=== PATIENT | female | born 1955 | race Caucasian/White ===

== ENCOUNTER → 2017-09-22 | Outpatient (CLI) | payer SELFPAY ==
[2017-09-11 10:47] VITALS: BMI 26.3
[~2017-09-22] MED LIST: ASPI-1471 PO; CEFU250T11 PO; CEPH500C24 PO; CEPH500T7 PO; CIPR-214 PO; CYCL10TA29 PO; FLUC100T39 PO; GABA-506 PO; GABA-547 PO; GLIP-154 PO; GLIXL5 PO; HYDR-389 PO; INSU100I30 SUBQ; LISI-362 PO; LOR5/325 PO; METF-410 PO; METF500T4 PO; OMEP-125 PO; OMEP-137 PO; ONDA4TAB PO; PHEN200T32 PO; PROM-110 PO; Potassium Chloride PO; RANI-320 PO; SIMV-49 PO
== END ==
LOC: AMB 17:48
PROVIDERS: ATTEND Nurse Practitioner
DX: E11.649 Type 2 diabetes mellitus with hypoglycemia without coma (principal); R41.82 Altered mental status, unspecified
CPT/HCPCS: A0425; A0427

== ENCOUNTER → 2017-10-05 | Outpatient (CLI) | payer OTHER ==
[2017-09-11 10:47] VITALS: BMI 26.3
== END ==
LOC: SPU 15:52
DX: N30.21 Other chronic cystitis with hematuria (principal)
CPT/HCPCS: 81001; 87088

== ENCOUNTER 2017-11-24 11:03 | Inpatient (IN) | payer SELFPAY ==
[~2017-11-24] VITALS: Ht 160 cm; Wt 75.3 kg
[~2017-11-24 11:03] MED LIST changes: +ATOR-1 PO
[2017-11-24] MEDS ORDERED: NS(*) 0.9% 1000 ML BAG 1,000 ML IV ONE (11:24)
[2017-11-24] MEDS ORDERED: ONDANSETRON 4 MG/2 ML VIAL IVP ONE (11:25)
--- NOTE | 2017-11-24 11:33 | ER Report ---
History and Physical Time Seen By MD: 11:08 Hx. of Stated Complaint: pt presents with hx of vomiting since yesterday HPI/ROS CHIEF COMPLAINT: Vomiting, cough HISTORY OF PRESENT ILLNESS: Patient is a 62-year-old female accompanied by her , who presents the ED with complaint of vomiting and cough for the past day. She denies any fever, diarrhea, blood in emesis, abdominal pain. She has not noted any dysuria or increased urinary frequency. She states that she has not been taking her medications today due to the vomiting. She states that she feels dehydrated right now. Patient has had issues with a chronic urinary tract infection and does see Dr. Meadows, urology for this. She was seen twice in the emergency department 2 months ago regarding her urinary tract infection and did have an acute kidney injury that needed hospitalization at the beginning of August,. She denies any abdominal surgeries other than a tubal ligation. He denies any other ill contacts. She states that she did take some Zofran that she had at home with little relief. REVIEW OF SYSTEMS: Constitutional: No fever, no chills. Eyes: No discharge. ENT: No sore throat. Cardiovascular: No chest pain, no palpitations. Respiratory: See history of present illness. No shortness of breath. Gastrointestinal: See history of present illness. Genitourinary: See history of present illness. Musculoskeletal: No back pain. Skin: No rashes. Neurological: No headache. Allergies: Coded Allergies: No Known Drug Allergies (Unverified , 11/24/17) Home Meds Active Scripts Omeprazole (OMEPRAZOLE) 20 Mg Tablet.dr, 20 MG PO DAILY, #60 TAB Take one tablet twice daily for 2 weeks, then decrease to one tablet daily. Prov:DEYANIRA YOUNG MD 10/22/17 Atorvastatin Calcium (ATORVASTATIN CALCIUM) 80 Mg Tablet, 0.5 TAB PO QDAY, #45 TAB 3 Refills Prov:DEYANIRA YOUNG MD 10/21/17 Ranitidine Hcl (RANITIDINE HCL) 300 Mg Tablet, 1 TAB PO QHS, #60 TAB 6 Refills Prov:XIOMARA FRANZ MD 10/05/17 Glipizide (GLIPIZIDE XL) 5 Mg Tab.er.24, 10 MG PO QAM, #30 TAB Prov:SHAD VILLEDA MD 09/16/17 Reported Medications Metformin Hcl (METFORMIN HCL ER) 500 Mg Tab.er.24, 1 TAB PO BID for 30 Days, TAB 09/16/17 Gabapentin (GABAPENTIN) 800 Mg Tablet, 400 MG PO DAILY 07/06/16 Lisinopril (LISINOPRIL) 10 Mg Tablet, 10 MG PO QDAY, TAB 07/06/16 Reviewed Nurses Notes: Yes Old Medical Records Reviewed: Yes Hx Smoking: Yes (1 PPD FOR 20 YRS) Smoking Status: Former Smoker Exposure to Second Hand Smoke?: No Hx Substance Use Disorder: No Hx Alcohol Use: No Constitutional Vital Sign - Last 24 Hours 11/24/17 11/24/17 11/24/17 11/24/17 11:15 11:16 11:33 12:03 Temp 97.6 Pulse 112 107 Resp 22 B/P (MAP) 136/98 (111) 136/98 Pulse Ox 98 98 99 O2 Delivery Room Air 11/24/17 11/24/17 11/24/17 11/24/17 12:17 12:30 12:33 12:42 Pulse 106 B/P (MAP) 163/92 (115) 178/85 (116) Pulse Ox 92 O2 Flow Rate 2.0 Physical Exam General Appearance: The patient is alert, has no immediate need for airway protection and no signs of toxicity. Patient appears to be in some mild distress. Eyes: Pupils equal and round no pallor or injection. ENT, Mouth: Mucous membranes are moist. Respiratory: There are no retractions, lungs are clear to auscultation. Cardiovascular: Regular rate and rhythm. Gastrointestinal: There is left upper quadrant, left lower quadrant, suprapubic tenderness with palpation. Normal bowel sounds in all 4 quadrants. Abdomen is soft with no rebound or guarding. Skin: Warm and dry, no rashes. Musculoskeletal: Neck is supple non tender. Extremities are nontender, nonswollen and have full range of motion. DIFFERENTIAL DIAGNOSIS: After history and physical exam differential diagnosis was considered for abdominal pain including but not limited to appendicitis, cholecystitis, gastritis and urinary tract infection. Medical Decision Making Data Points Result Diagram: 11/24/17 1135 11/24/17 1135 Laboratory Hematology Test 11/24/17 11:11 11/24/17 11:35 11/24/17 11:43 11/24/17 13:20 Urine Color Yellow Urine Clarity Turbid Urine pH 6.0 pH (4.8-9.5) Urine Specific [place] 1.015 Urine Protein 30 mg/dL (NEGATIVE) Urine Glucose (UA) 500 mg/dL (NEGATIVE) Urine Ketones 20 mg/dL (NEGATIVE) Urine Blood Moderate (NEGATIVE) Urine Nitrite Negative (NEGATIVE) Urine Bilirubin Negative (NEGATIVE) Urine Urobilinogen Negative mg/dL (0.2-1.9) Urine Leukocyte Esterase Large (NEGATIVE) Urine RBC 28 /HPF (0-2/HPF) Urine WBC 1409 /HPF (0-5/HPF) Urine WBC Clumps Many /HPF Urine Squamous Epithelial Cells None /LPF (</=FEW) Urine Bacteria Few /HPF (NONE-FEW) Urine Mucus None /HPF (NONE-FEW) Red Blood Count 4.55 M/uL (4.17-5.56) Mean Corpuscular Volume 84.1 fL (80.0-96.0) Mean Corpuscular Hemoglobin 27.8 pg (26.0-33.0) Mean Corpuscular Hemoglobin Concent 33.0 g/dL (32.0-36.0) Red Cell Distribution Width 16.6 % (11.5-14.5) Mean Platelet Volume 8.0 fL (7.2-11.1) Neutrophils (%) (Auto) 89.3 % (39.4-72.5) Lymphocytes (%) (Auto) 8.3 % (17.6-49.6) Monocytes (%) (Auto) 2.2 % (4.1-12.4) Eosinophils (%) (Auto) 0.0 % (0.4-6.7) Basophils (%) (Auto) 0.2 % (0.3-1.4) Nucleated RBC Relative Count (auto) 0.0 /100WBC Neutrophils # (Auto) 9.0 K/uL (2.0-7.4) Lymphocytes # (Auto) 0.8 K/uL (1.3-3.6) Monocytes # (Auto) 0.2 K/uL (0.3-1.0) Eosinophils # (Auto) 0.0 K/uL (0.0-0.5) Basophils # (Auto) 0.0 K/uL (0.0-0.1) Nucleated RBC Absolute Count (auto) 0.00 K/uL Peripheral Blood Smear Yes Y/N Sodium Level 138 mmol/L (137-145) Potassium Level 4.0 mmol/L (3.5-5.0) Chloride Level 98 mmol/L (98-107) Carbon Dioxide Level 18 mmol/L (22-31) Blood Urea Nitrogen 35 mg/dl (7-18) Creatinine 1.40 mg/dl (0.52-1.04) Glomerular Filtration Rate Calc 38.0 Random Glucose 621 mg/dl (75-110) Calcium Level 11.1 mg/dl (8.4-10.2) Magnesium Level 1.7 mg/dl (1.7-2.2) Total Bilirubin 0.5 mg/dl (0.2-1.3) Aspartate Amino Transf (AST/SGOT) 15 U/L (0-35) Alanine Aminotransferase (ALT/SGPT) 24 U/L (0-56) Alkaline Phosphatase 163 U/L (0-126) Troponin I < 0.012 ng/ml Total Protein 7.7 gm/dl (6.3-8.2) Albumin 4.0 g/dl (3.5-5.0) Lipase 60 U/L (23-300) Acetone, Qualitative Negative Influenza Virus Type A (PCR) Negative (NEGATIVE) Influenza Virus Type B (PCR) Negative (NEGATIVE) Whole Blood Glucose 541 mg/DL (75-110) Test 11/24/17 13:50 Blood Gas Puncture Site Right radial Blood Gas Patient Temperature 97.6 DEGREES Arterial Blood pH 7.44 (7.35-7.45) Arterial Blood Partial Pressure CO2 31 mmHg (32-37) Arterial Blood Partial Pressure O2 79 mmHg (60-80) Arterial Blood HCO3 21 mmol/L (20-26) Arterial Blood Oxygen Saturation 97 % (92-100) Arterial Blood Base Excess -4.0 mmol/L Dani Test Acceptable Oxygen Liters/Minute 2l nc Chemistry Test 11/24/17 11:11 11/24/17 11:35 11/24/17 11:43 11/24/17 13:20 Urine Color Yellow Urine Clarity Turbid Urine pH 6.0 pH (4.8-9.5) Urine Specific [place] 1.015 Urine Protein 30 mg/dL (NEGATIVE) Urine Glucose (UA) 500 mg/dL (NEGATIVE) Urine Ketones 20 mg/dL (NEGATIVE) Urine Blood Moderate (NEGATIVE) Urine Nitrite Negative (NEGATIVE) Urine Bilirubin Negative (NEGATIVE) Urine Urobilinogen Negative mg/dL (0.2-1.9) Urine Leukocyte Esterase Large (NEGATIVE) Urine RBC 28 /HPF (0-2/HPF) Urine WBC 1409 /HPF (0-5/HPF) Urine WBC Clumps Many /HPF Urine Squamous Epithelial Cells None /LPF (</=FEW) Urine Bacteria Few /HPF (NONE-FEW) Urine Mucus None /HPF (NONE-FEW) White Blood Count 10.0 k/uL (4.5-11.0) Red Blood Count 4.55 M/uL (4.17-5.56) Hemoglobin 12.6 g/dL (12.0-16.0) Hematocrit 38.3 % (34.0-47.0) Mean Corpuscular Volume 84.1 fL (80.0-96.0) Mean Corpuscular Hemoglobin 27.8 pg (26.0-33.0) Mean Corpuscular Hemoglobin Concent 33.0 g/dL (32.0-36.0) Red Cell Distribution Width 16.6 % (11.5-14.5) Platelet Count 590 K/uL (150-450) Mean Platelet Volume 8.0 fL (7.2-11.1) Neutrophils (%) (Auto) 89.3 % (39.4-72.5) Lymphocytes (%) (Auto) 8.3 % (17.6-49.6) Monocytes (%) (Auto) 2.2 % (4.1-12.4) Eosinophils (%) (Auto) 0.0 % (0.4-6.7) Basophils (%) (Auto) 0.2 % (0.3-1.4) Nucleated RBC Relative Count (auto) 0.0 /100WBC Neutrophils # (Auto) 9.0 K/uL (2.0-7.4) Lymphocytes # (Auto) 0.8 K/uL (1.3-3.6) Monocytes # (Auto) 0.2 K/uL (0.3-1.0) Eosinophils # (Auto) 0.0 K/uL (0.0-0.5) Basophils # (Auto) 0.0 K/uL (0.0-0.1) Nucleated RBC Absolute Count (auto) 0.00 K/uL Peripheral Blood Smear Yes Y/N Glomerular Filtration Rate Calc 38.0 Calcium Level 11.1 mg/dl (8.4-10.2) Magnesium Level 1.7 mg/dl (1.7-2.2) Total Bilirubin 0.5 mg/dl (0.2-1.3) Aspartate Amino Transf (AST/SGOT) 15 U/L (0-35) Alanine Aminotransferase (ALT/SGPT) 24 U/L (0-56) Alkaline Phosphatase 163 U/L (0-126) Troponin I < 0.012 ng/ml Total Protein 7.7 gm/dl (6.3-8.2) Albumin 4.0 g/dl (3.5-5.0) Lipase 60 U/L (23-300) Acetone, Qualitative Negative Influenza Virus Type A (PCR) Negative (NEGATIVE) Influenza Virus Type B (PCR) Negative (NEGATIVE) Whole Blood Glucose 541 mg/DL (75-110) Test 11/24/17 13:50 Blood Gas Puncture Site Right radial Blood Gas Patient Temperature 97.6 DEGREES Arterial Blood pH 7.44 (7.35-7.45) Arterial Blood Partial Pressure CO2 31 mmHg (32-37) Arterial Blood Partial Pressure O2 79 mmHg (60-80) Arterial Blood HCO3 21 mmol/L (20-26) Arterial Blood Oxygen Saturation 97 % (92-100) Arterial Blood Base Excess -4.0 mmol/L Dani Test Acceptable Oxygen Liters/Minute 2l nc Toxicology Test 11/24/17 11:35 Acetone, Qualitative Negative Urinalysis Test 11/24/17 11:11 Urine Color Yellow Urine Clarity Turbid Urine pH 6.0 pH (4.8-9.5) Urine Specific [place] 1.015 Urine Protein 30 mg/dL (NEGATIVE) Urine Glucose (UA) 500 mg/dL (NEGATIVE) Urine Ketones 20 mg/dL (NEGATIVE) Urine Blood Moderate (NEGATIVE) Urine Nitrite Negative (NEGATIVE) Urine Bilirubin Negative (NEGATIVE) Urine Urobilinogen Negative mg/dL (0.2-1.9) Urine Leukocyte Esterase Large (NEGATIVE) Urine RBC 28 /HPF (0-2/HPF) Urine WBC 1409 /HPF (0-5/HPF) Urine WBC Clumps Many /HPF Urine Squamous Epithelial Cells None /LPF (</=FEW) Urine Bacteria Few /HPF (NONE-FEW) Urine Mucus None /HPF (NONE-FEW) EKG/Imaging EKG Interpretation 12 lead EKG: Rhythm: Sinus tachycardia, rate 109 bpm [place]: normal QRS: normal ST segments: No acute ST changes identified. There is slight T-wave inversion in V1 and V3. Monitor Interpretation: Sinus Tachycardia Imaging CXR: IMPRESSION: 1. No acute cardiopulmonary process is seen Report Dictated By: Kamilla Lord MD at 11/24/2017 12:18 PM Report E-Signed By: Kamilla Lord MD at 11/24/2017 12:19 PM ED Course/Re-evaluation Clinical Indication for ER IV: Hydration ED Course Patient will be given 1 L normal saline bolus and 4 mg IV Zofran for nausea relief. Will obtain labs and CXR. 11/24/2017 12:36:48 pm - Patient states that she is still having some dry heaving. Will give her 12.5 mg IV phenergan. She states that she has some slight chest pain as well. Will add a troponin level. 11/24/2017 12:47:40 pm - patient is describing of chest pain was a burning sensation after her dry heaving and vomiting. Will give her 20 mg IV Pepcid. She is wanting to drink some fluids with help of this will feel better with this. She will do a by mouth challenge 4. Discussed all of her labs which are essentially normal except for her hyperglycemia and slight elevation of anion gap at 22 but she hasn't been taking her medications today. She also has abnormal urinalysis with elevated of white blood cells in urine and is quite different from her previous urinalysis last month. She states that she has not made an appointment with Dr. Meadows, urology as of yet. 11/24/2017 2:26:40 pm - discussed patient with Dr. Villeda, hospitalist, who will admit patient with starvation ketosis and urinary tract infection. Will give patient 1 g IV Rocephin now. 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 Keenan, ED Dr. Villeda, Hospitalist Problem Qualifiers Primary Impression: Urinary tract infection Urinary tract infection type: acute cystitis Hematuria presence: without hematuria Qualified Codes: N30.00 - Acute cystitis without hematuria BRIGITTE ESPINAL PA-C Nov 24, 2017 11:33
[2017-11-24 12:08] LABS: PLATELET COUNT, AUTOMATED 590 K/uL (150-450)
[2017-11-24] MEDS ORDERED: INS HUM LISPRO 100U/ML (ER ONLY) 10 ML VIAL SUBQ ONE (12:15)
[2017-11-24] MEDS ORDERED: PROMETHAZINE 25 MG/ML 1 ML AMP IVP ONE ×2 (12:20→13:00)
--- NOTE | 2017-11-24 12:24 | RADIOLOGY IMAGING REPORT ---
FACILITY: [facility] [place]IENT NAME: Sahra Chavis : 1955 MR: [id number] V: [id number] EXAM DATE: ORDERING PHYSICIAN: BRIGITTE ESPINAL TECHNOLOGIST: Location: [facility] - [place] Patient: Sahra Chavis : 1955 Visit/Account:[id number] Date of Sevice: 11/24/2017 Exam type: CHEST PA AND LAT History: cough, vomiting Comparison: September 10, 2017. Findings: The lungs are free of acute effusions, infiltrates or edema. There is no evidence of a pneumothorax or pneumomediastinum. The cardiac silhouette is normal in size. There are mild spondylotic changes of the thoracic spine. IMPRESSION: 1. No acute cardiopulmonary process is seen Report Dictated By: Kamilla Lord MD at 11/24/2017 12:18 PM Report E-Signed By: Kamilla Lord MD at 11/24/2017 12:19 PM WSN:[email or web address]
[2017-11-24] MEDS ORDERED: FAMOTIDINE(*) 20MG/50ML PREMIX 50 ML IVPB ONE (12:45)
--- NOTE | 2017-11-24 13:03 | EKG ---
FACILITY: [facility] - [place] PATIENT NAME: KATARZYNA HARDY : [id number] MR: [id number] V: [id number] EXAM DATE: ORDERING PHYSICIAN: BRIGITTE ESPINAL TECHNOLOGIST: Test Reason : GI problems Blood Pressure : / mmHG Vent. Rate : 109 BPM Atrial Rate : 109 BPM P-R Int : 142 ms QRS Dur : 082 ms QT Int : 352 ms P-R-T Axes : 079 077 012 degrees QTc Int : 474 ms Sinus tachycardia Possible Left atrial enlargement Nonspecific ST abnormality Abnormal ECG No previous ECGs available Confirmed by DEE MCKENNA ([id number]) on 11/24/2017 7:38:14 PM Referred By: Confirmed By:DEE MCKENNA
[2017-11-24] MEDS ORDERED: cefTRIAXone 1 GM VIAL IVP ONE (14:15)
[2017-11-24] MEDS ORDERED: ASPI-757 PO (15:03)
[2017-11-24] MEDS ORDERED: FLUSH 10 ML SYR IVP PRN (15:20)
[2017-11-24] MEDS ORDERED: PROMETHAZINE 25 MG/ML 1 ML AMP IVP PRN (15:25)
--- NOTE | 2017-11-24 15:43 | History & Physical ---
History of Present Illness Chief Complaint Nausea and vomiting History of Present Illness 62yo female with PMHx significant for type 2 DM, previous CVA, esophageal stricture, recurrent pyuria/UTI, hydronephrosis. She reports onset of nausea with vomiting over the past 2-3 days. She has been able to keep some fluids down , but essentially no food. She denies any dysphagia or odynophagia. No black or bloody vomitus. No diarrhea. She has felt chilled almost continuously. No obvious fever. She has not taken her usual medications during the past couple of days. She has not appreciated any dysuria or hematuria. No rashes. She was evaluated in the ER and found to have probable recurrent UTI, uncontrolled DM, and mild acute renal failure. She was recommended for admission. History Problems: (1) Hypertension Status: Chronic (2) Urinary tract infection Status: Acute (3) DJD (degenerative joint disease) of cervical spine Status: Chronic (4) Hydronephrosis Status: Chronic (5) History of CVA (cerebrovascular accident) Status: Chronic (6) T2DM (type 2 diabetes mellitus) Status: Chronic (7) Esophageal stricture Status: Chronic (8) Dysphagia Status: Chronic Home Meds Active Scripts Atorvastatin Calcium (ATORVASTATIN CALCIUM) 80 Mg Tablet, 0.5 TAB PO QDAY, #45 TAB 3 Refills Prov:DEYANIRA YOUNG MD 10/21/17 Ranitidine Hcl (RANITIDINE HCL) 300 Mg Tablet, 1 TAB PO QHS, #60 TAB 6 Refills Prov:XIOMARA FRANZ MD 10/05/17 Glipizide (GLIPIZIDE XL) 5 Mg Tab.er.24, 10 MG PO QAM, #30 TAB Prov:SHAD MCKENNA MD 09/16/17 Reported Medications Aspirin (ASPIRIN) 325 Mg Tablet, 1 TAB PO QID, TAB 11/24/17 Metformin Hcl (METFORMIN HCL ER) 500 Mg Tab.er.24, 1 TAB PO BID for 30 Days, TAB 09/16/17 Gabapentin (GABAPENTIN) 800 Mg Tablet, 400 MG PO DAILY 07/06/16 Lisinopril (LISINOPRIL) 10 Mg Tablet, 10 MG PO QDAY, TAB 07/06/16 Allergies: Coded Allergies: No Known Drug Allergies (Unverified , 11/24/17) Patient History: FH: heart disease MOTHER, , Age:62 FHx: diabetes mellitus MOTHER, , Age:62 Hx Smoking: Yes (1 PPD FOR 20 YRS) Smoking Status: Former Smoker Exposure to Second Hand Smoke?: No Caffeine Intake: Coffee Caffeine/Cups Per Day: 2 Hx Alcohol Use: No Hx Substance Use Disorder: No Social Drug Use: Never Review of Systems Constitutional: Chills, No Fever, No Night Sweats Neurological: Weakness, No Syncope, No Confusion Eyes: No Vision Change, No Loss of Vision ENT: No Hearing Loss, No Sinus Congestion Cardiovascular: No Chest Pain, No Palpitations Respiratory: No Shortness of Breath, No Cough, No Wheezing Gastrointestinal: Nausea, Vomiting, No Diarrhea, No Dysphagia, No Hematemesis, No Hematochezia, No Melena, No Abdominal Pain Genitourinary: No Dysuria, No Hematuria, No Urinary Incontinence Musculoskeletal: Pain (both feet and toes intermittently/chronic) Exam Vital Signs Vital Signs Date Time Temp Pulse Resp B/P (MAP) Pulse Ox O2 Delivery O2 Flow Rate FiO2 11/24/17 14:30 149/103 (118) 11/24/17 14:08 108 98 11/24/17 12:42 2.0 11/24/17 11:16 97.6 22 Room Air General Appearance: Alert, Awake Neuro: Other (motor exam grossly normal) Eyes: PERRLA ENT: Oropharynx Clear Neck: No Masses Cardiovascular: Regular Rate and Rhythm, No JVD Respiratory: Clear to Auscultation Chest: No Tenderness GI: Abd Soft and Non-Tender : No CVA Tenderness Extremities: Warm, Perfused Integumentary: Generalized Fragile Skin, Other (small abrasion type lesion dorsum foot) Medical Decision Making Data Points Result Diagram: 11/24/17 1135 11/24/17 1135 Item Value Date Time Lipase 60 U/L 11/24/17 1135 Albumin 4.0 g/dl 11/24/17 1135 Total Protein 7.7 gm/dl 11/24/17 1135 Troponin I < 0.012 ng/ml 11/24/17 1135 Alkaline Phosphatase 163 U/L H 11/24/17 1135 Aspartate Amino Transf (AST/SGOT) 15 U/L 11/24/17 1135 Alanine Aminotransferase (ALT/SGPT) 24 U/L 11/24/17 1135 Total Bilirubin 0.5 mg/dl 11/24/17 1135 Calcium Level 11.1 mg/dl H 11/24/17 1135 Magnesium Level 1.7 mg/dl 11/24/17 1135 Random Glucose 621 mg/dl *H 11/24/17 1135 Acetone, Qualitative Negative 11/24/17 1135 Urine Mucus None /HPF 11/24/17 1111 Urine Bacteria Few /HPF 11/24/17 1111 Urine Squamous Epithelial Cells None /LPF 11/24/17 1111 Urine WBC Clumps Many /HPF 11/24/17 1111 Urine WBC 1409 /HPF 11/24/17 1111 Urine Leukocyte Esterase Large H 11/24/17 1111 Urine RBC 28 /HPF 11/24/17 1111 Urine Urobilinogen Negative mg/dL 11/24/17 1111 Urine Bilirubin Negative 11/24/17 1111 Urine Nitrite Negative 11/24/17 1111 Urine Blood Moderate 11/24/17 1111 Urine Ketones 20 mg/dL H 11/24/17 1111 Urine Glucose (UA) 500 mg/dL 11/24/17 1111 Urine Protein 30 mg/dL 11/24/17 1111 Urine Specific [place] 1.015 11/24/17 1111 Urine pH 6.0 pH 11/24/17 1111 Urine Clarity Turbid 11/24/17 1111 Urine Color Yellow 11/24/17 1111 Influenza Virus Type A (PCR) Negative 11/24/17 1143 Influenza Virus Type B (PCR) Negative 11/24/17 1143 Oxygen Liters/Minute 2l nc 11/24/17 1350 Dani Test Acceptable 11/24/17 1350 Arterial Blood Base Excess -4.0 mmol/L 11/24/17 1350 Arterial Blood Oxygen Saturation 97 % 11/24/17 1350 Arterial Blood HCO3 21 mmol/L 11/24/17 1350 Arterial Blood Partial Pressure O2 79 mmHg 11/24/17 1350 Arterial Blood Partial Pressure CO2 31 mmHg L 11/24/17 1350 Arterial Blood pH 7.44 11/24/17 1350 Blood Gas Patient Temperature 97.6 DEGREES 11/24/17 1350 Blood Gas Puncture Site Right radial 11/24/17 1350 EKG / Imaging Imaging PATIENT NAME: Sahra Chavis : 1955 MR: [id number] V: [id number] EXAM DATE: ORDERING PHYSICIAN: BRIGITTE ESPINAL TECHNOLOGIST: Location: [facility] Patient: Sahra Chavis : 1955 Visit/Account:[id number] Date of Sevice: 11/24/2017 Exam type: CHEST PA AND LAT History: cough, vomiting Comparison: September 10, 2017. Findings: The lungs are free of acute effusions, infiltrates or edema. There is no evidence of a pneumothorax or pneumomediastinum. The cardiac silhouette is normal in size. There are mild spondylotic changes of the thoracic spine. IMPRESSION: 1. No acute cardiopulmonary process is seen Report Dictated By: Kamilla Lord MD at 11/24/2017 12:18 PM Report E-Signed By: Kamilla Lord MD at 11/24/2017 12:19 PM WSN:[email or web address] Assessment and Plan Problems: (1) Urinary tract infection Status: Acute Assessment & Plan: She appears to have a recurrent UTI. Cultures have been obtained in the ER. She has had fairly sensitive E. coli on two occasions in the past. Will place on IV Rocephin. Modify regimen based on culture results. (2) Acute renal failure (ARF) Status: Acute Assessment & Plan: She does have some mild acute renal failure. Will give gentle IV fluids. Watch labs. (3) Hydronephrosis Status: Chronic Assessment & Plan: She has a history of bilateral hydronephrosis and has followed with Dr. Meadows. May need to consider re-check CT scan when renal function normalizes. (4) T2DM (type 2 diabetes mellitus) Status: Chronic Assessment & Plan: Uncontrolled. She has not been on medications for several days. She does not have ketoacidosis, but does appear to have some starvation ketosis. Will place on ADA diet and monitor glucoses q4hrs. Will use low dose Lantus and SSI to get control. (5) Hypertension Status: Chronic Assessment & Plan: She has been managed with Lisinopril. Will hold for now and monitor BPs. Will resume as needed. (6) Esophageal stricture Status: Chronic Assessment & Plan: She reports swallowing without problems. Will monitor for any difficulties. Venous Thromboembolism Antithrombotics Is Pt On Any Antithrombotics?: Yes Exam Sepsis Risk: No Definite Risk Problem Qualifiers (1) Urinary tract infection: Urinary tract infection type: acute cystitis Hematuria presence: without hematuria Qualified Codes: N30.00 - Acute cystitis without hematuria DEE MCKENNA MD Nov 24, 2017 15:43
[2017-11-24 15:53] VITALS: BP 156/93
[2017-11-24] MEDS: INSULIN HUM LISPRO 100 UN/ML 3 ML VIAL SUBQ PRN ×2 (17:29→20:33)
[2017-11-24] MEDS: NS(*) 0.9% 1000 ML BAG 1,000 ML IV PRN (17:31)
[2017-11-24 19:45] VITALS: BP 149/96
[2017-11-24] MEDS: FAMOTIDINE(*) 20MG/50ML PREMIX 50 ML IVPB SCH (20:33)
[2017-11-24] MEDS ORDERED: INSULIN GLARGINE 100 U/ML 3 ML PEN SUBQ SCH (21:00)
[2017-11-25 01:07] VITALS: BP 183/91
[2017-11-25] MEDS: INSULIN HUM LISPRO 100 UN/ML 3 ML VIAL SUBQ PRN ×3 (01:41→12:24)
[2017-11-25 04:24] VITALS: BP 169/97
[2017-11-25] MEDS: NS(*) 0.9% 1000 ML BAG 1,000 ML IV PRN (04:24)
[2017-11-25 06:29] LABS: PLATELET COUNT, AUTOMATED 515 K/uL (150-450)
[2017-11-25 07:32] VITALS: BP 155/89
[2017-11-25] MEDS: FAMOTIDINE(*) 20MG/50ML PREMIX 50 ML IVPB SCH (08:41)
[2017-11-25] MEDS ORDERED: ENOXAPARIN 40 MG/0.4ML SYR SC SCH (09:00)
[2017-11-25 11:12] VITALS: Ht 160 cm; Wt 75.3 kg
[2017-11-25 12:21] VITALS: BP 161/89
--- NOTE | 2017-11-25 12:25 | Hospitalist Depart ---
Discharge Summary Reason for Hosp/Final Diag: (1) Asymptomatic bacteriuria Hospital Course & Plan: She was found to have pyuria, but is not having any urinary symptoms. She receive a dose of ceftriaxone, but will not require further treatment. (2) Acute renal failure (ARF) Status: Acute Hospital Course & Plan: Resolved with IV fluids. (3) Hydronephrosis Status: Chronic Hospital Course & Plan: She has a history of bilateral hydronephrosis and has followed with Dr. Meadows. (4) T2DM (type 2 diabetes mellitus) Status: Chronic Hospital Course & Plan: She will discharge on Lantus. (5) Hypertension Status: Chronic Hospital Course & Plan: She is on chronic treatment with lisinopril. (6) Esophageal stricture Status: Chronic Hospital Course & Plan: She does have a history of esophageal stricture and is having recurrent symptoms. She will follow up with Dr. Franz in the clinic. Departure Latest Vital Signs Vital Signs Weight (Pounds): 166 Result Diagram: 11/25/1751911/25/17519 Condition: Improved Discharge: Home, Self Care Discharge Instructions Home Meds Active Scripts Pen Needle, Diabetic (Insulin Pen Needle) 31 Gauge X 1/6" Dis.needle, EACH MC, # 100 Prov:XIOMARA NAVARRETE DO 11/25/17 Insulin Glargine,Hum.rec.anlog (LANTUS SOLOSTAR) 100 Unit/1 Ml Insuln.pen, 15 UNIT SUBQ QHS, #3 ML 0 Refills Prov:XIOMARA NAVARRETE DO 11/25/17 Atorvastatin Calcium (ATORVASTATIN CALCIUM) 80 Mg Tablet, 0.5 TAB PO QDAY, #45 TAB 3 Refills Prov:DEYANIRA YOUNG MD 10/21/17 Ranitidine Hcl (RANITIDINE HCL) 300 Mg Tablet, 1 TAB PO QHS, #60 TAB 6 Refills Prov:XIOMARA FRANZ MD 10/05/17 Reported Medications Aspirin (ASPIRIN) 325 Mg Tablet, 1 TAB PO QID, TAB 11/24/17 Gabapentin (GABAPENTIN) 800 Mg Tablet, 400 MG PO DAILY 07/06/16 Lisinopril (LISINOPRIL) 10 Mg Tablet, 10 MG PO QDAY, TAB 07/06/16 Discontinued Reported Medications Metformin Hcl (METFORMIN HCL ER) 500 Mg Tab.er.24, 1 TAB PO BID for 30 Days, TAB 09/16/17 Discontinued Scripts Glipizide (GLIPIZIDE XL) 5 Mg Tab.er.24, 10 MG PO QAM, #30 TAB Prov:SHAD MCKENNA MD 09/16/17 Diet: Diabetic Activity: As Tolerated Copies to: XIOMARA FRANZ MD Venous Thromboembolism Antithrombotics Is Pt On Any Antithrombotics?: Yes Problem Qualifiers (1) Hypertension: Hypertension type: essential hypertension Qualified Codes: I10 - Essential ( primary) hypertension XIOMARA NAVARRETE DO Nov 25, 2017 12:25
[2017-11-25] MEDS ORDERED: INSU100I30 SUBQ (12:49)
[2017-11-25] MEDS ORDERED: PEN1DIS.48 MC (12:49)
[2017-11-25] MEDS ORDERED: cefTRIAXone 1 GM VIAL IVP SCH (14:00)
[2017-11-26] MEDS ORDERED: INFLUENZA VIRUS VAC 0.5 ML SYR IM ONLY ONE (09:00)
== END 2017-11-25 15:40 | disposition home or self-care (01) | DRG 638 ==
LOC: ER 11:13 → MED 14:23
PROVIDERS: ADMIT Internal Medicine; ATTEND Internal Medicine
DX: E11.10 Type 2 diabetes mellitus with ketoacidosis without coma (principal); N17.9 Acute kidney failure, unspecified; N13.30 Unspecified hydronephrosis; R82.71 Bacteriuria; I10 Essential (primary) hypertension; E11.65 Type 2 diabetes mellitus with hyperglycemia; E88.89 Other specified metabolic disorders; K22.2 Esophageal obstruction; M50.30 Other cervical disc degeneration, unspecified cervical region; R13.10 Dysphagia, unspecified; Z87.440 Personal history of urinary (tract) infections; Z87.891 Personal history of nicotine dependence; Z86.73 Personal history of transient ischemic attack (TIA), and cerebral infarction without residual deficits; Z79.84 Long term (current) use of oral hypoglycemic drugs
CPT/HCPCS: 36415; 36416; 36600; 71046; 81001; 82009; 82040; 82247; 82310; 82374; 82435; 82565; 82803; 82947; 82948; 83690; 83735; 84075; 84132; 84155; 84295; 84450; 84460; 84484; 84520; 85025; 87088; 87502; 93005; 96361; 96365; 96375; 96376; 99285; J0696; J1650; J1815; J2405; J2550; J3490; J7030

== ENCOUNTER → 2018-04-13 | Outpatient (REF) | payer MEDICARE ==
[2017-11-25 11:12] VITALS: BMI 29.4
[~2018-04-13] MED LIST changes: +ASPI-757 PO; +INSU100I8 SC; -METF-410 PO; +METF-411 PO; +PEN1DIS.48 MC
== END ==
LOC: ZZSENDIN 18:41
PROVIDERS: ATTEND Urology
DX: N39.0 Urinary tract infection, site not specified (principal); N39.41 Urge incontinence; B96.20 Unspecified Escherichia coli [E. coli] as the cause of diseases classified elsewhere
CPT/HCPCS: 87077; 87088; 87186

== ENCOUNTER → 2018-05-12 | Outpatient (CLI) | payer MEDICARE ==
[2017-11-25 11:12] VITALS: BMI 29.4
[~2018-05-12] MED LIST changes: +NOVOLINRPT IJ; +NPH,100V12 SQ
== END ==
LOC: LAB 16:52
PROVIDERS: ATTEND Emergency Medicine
DX: R41.3 Other amnesia (principal); R74.8 Abnormal levels of other serum enzymes
CPT/HCPCS: 36415; 82607; 82977; 83921

== ENCOUNTER → 2018-05-17 | Outpatient (REF) | payer MEDICARE ==
[2017-11-25 11:12] VITALS: BMI 29.4
== END ==
LOC: ZZSENDIN 12:07
PROVIDERS: ATTEND Emergency Medicine
DX: D64.9 Anemia, unspecified (principal)
CPT/HCPCS: 82274

== ENCOUNTER → 2018-05-17 | Outpatient (CLI) | payer MEDICARE, OTHER ==
[2017-11-25 11:12] VITALS: BMI 29.4
[~2018-05-17] MED LIST changes: +IOPAMIDOL 76% 150 ML INFUS BTL 150 ML ONE; +NS(*) 0.9% 50 ML BAG 0 ML ONE; +NS(*) 0.9% 50 ML BAG 50 ML ONE
--- NOTE | 2018-05-17 16:46 | RADIOLOGY IMAGING REPORT ---
FACILITY: [facility] [place] PATIENT NAME: Sahra Chavis : 1955 MR: [id number] V: [id number] EXAM DATE: ORDERING PHYSICIAN: ANTONIA KENYON TECHNOLOGIST: Location: [facility] [place] Patient: Sahra Chavis : 1955 Visit/Account:[id number] Date of Sevice: 05/17/2018 ABDOMEN/PELVIS W/WO CONTRAST HISTORY: UTIs, incontinence, hydroureteronephrosis TECHNIQUE: Axial images acquired through the abdomen/pelvis both with and without IV contrast.. Xiomara nal and sagittal reformatting also performed. Dose Lowering Technique One of the following dose optimization techniques was utilized in the performance of this exam: Autom ated exposure control; adjustment of the mA and/or kV according to the patient's size; or use of an i terative reconstruction technique. Specific details can be referenced in the facility's radiology C T exam operational policy. CONTRAST: 150 mL Isovue-370 By technologist notation approximate 40 mL of intravenous contrast was accidentally given to the allie ent prior to the without contrast images. The remainder of the contrast was administered for the pos tcontrast images COMPARISON: September 04, 2017 FINDINGS: Visualized lung bases: Negative. Hepatobiliary: The liver is enlarged. The right lobe measures 22.9 cm in length Spleen: Negative. Adrenals: Negative. Pancreas: Negative. Kidneys ureters and bladder: There is moderate to severe bilateral hydronephrosis severe bilateral hy droureter to the level of the bladder that appears similar to the prior study. On the delayed images the ureters are not opacified with contrast in the renal collecting systems are only partially opaci fied. No demonstration of urolithiasis. The bladder is severely contracted with irregular thickenin g of the wall. This represents a dramatic change when compared to the prior study Genitalia: There is a small amount of air seen within the endometrial canal. Small amount of fluid is also noted within the vagina GI: There is scattered diverticulosis throughout the colon although no CT evidence of acute divertic ulitis Vessels/spaces/nodes: There are moderate vascular calcifications present Bones/soft tissues: There is a large umbilical hernia containing fat . There are spondylotic gandara es of the visualized thoracolumbar spine. Additional findings: None pertinent. IMPRESSION: Moderate to severe bilateral hydronephrosis and severe bilateral hydroureter to the level of the blad michael that appear some are to the prior study There is no demonstration of urolithiasis The bladder is severely contracted irregular thickening of the wall. This represents a dramatic tran ge when compared to the prior study. There is a small amount of air seen within the endometrial canal and small amount of fluid is also no anna within the vagina. This could represent an infectious/inflammatory process although clinical cor relation needed.. Scattered colonic diverticulosis Large umbilical hernia containing fat Report Dictated By: Kamilla Lord MD at 05/17/2018 3:57 PM Report E-Signed By: Kamilla Lord MD at 05/17/2018 4:42 PM MARIELA:[email or web address]
== END ==
LOC: CT 01:26
PROVIDERS: ATTEND Urology
DX: N13.30 Unspecified hydronephrosis (principal); R16.0 Hepatomegaly, not elsewhere classified; N13.4 Hydroureter; N32.89 Other specified disorders of bladder; K57.30 Diverticulosis of large intestine without perforation or abscess without bleeding; K42.9 Umbilical hernia without obstruction or gangrene
CPT/HCPCS: 74178; J7050; Q9967

== ENCOUNTER → 2018-05-25 | Outpatient (CLI) | payer MEDICARE ==
[2017-11-25 11:12] VITALS: BMI 29.4
[~2018-05-25] MED LIST changes: +CALC1TAB32 PO; +DOCU-416 PO; +FERR159T PO; +GARL1TAB9 PO; +HYDR-4309 PO; -IOPAMIDOL 76% 150 ML INFUS BTL 150 ML ONE; +MIRA50TA PO; +MULT-1335 PO; -NOVOLINRPT IJ; +NOVOLINRPT SQ; -NS(*) 0.9% 50 ML BAG 0 ML ONE; -NS(*) 0.9% 50 ML BAG 50 ML ONE; +OXYB15TA17 PO; +SULF-198 PO
== END ==
LOC: SPU 15:45
PROVIDERS: ATTEND Urology
DX: N39.41 Urge incontinence (principal)
CPT/HCPCS: 51701; 81001; 87077; 87088; 87186

== ENCOUNTER 2018-05-26 00:38 | Day surgery (SDC) | payer MEDICARE, OTHER ==
[2017-11-25 11:12] VITALS: Ht 160 cm; Wt 81.6 kg
[2018-05-25 14:56] LABS: PLATELET COUNT, AUTOMATED 774 K/uL (150-450)
[2018-05-25 15:08] LABS: INR 0.97
--- NOTE | 2018-05-25 18:54 | HISTORY AND PHYSICAL ---
DATE OF ADMISSION: May 26, 2018 CHIEF COMPLAINT Total urinary incontinence with history of urinary tract infections and renal insufficiency. HISTORY OF PRESENT ILLNESS Ms. Chavis is a 62-year-old white female who presented to the Urology Clinic with a five-month history of total urinary incontinence and urinary tract infections. Her urologic history began approximately two years ago in 2015 when she began to experience frequency every 30 minutes and nocturia q.1-1/2 hours with voiding small volumes. She was evaluated with Dr. Meadows at that time, who found her to have sterile pyuria on multiple I and O cathed specimens. A CT scan was performed originally on the March. She had no hydronephrosis, and she had some mild cortical renal scarring bilaterally with a thickened bladder wall. Her creatinine at that time was 0.6. She was subsequently taken to the operating room by Dr. Meadows in June 2016 and underwent anesthetic cystoscopy. At that time, she was noted to have some mass- like inflammatory lesions on the bilateral lateral aspects of the bladder, and she underwent TUR of these lesions with fulguration. The pathology subsequently returned ulceration with both acute and chronic inflammation. They were negative for AFB or fungal evaluation. She had also had a cytology eventually performed in April 2017 which returned normal. Over the ensuing months, the patient had several urine cultures performed which were all negative by I and O catheterization. If she had a voided specimen, it returned a contaminant. Then in August 2017, she was admitted to the hospital with sepsis and was found to have greater than 100,000 yeast specimens in her urine and was subsequently treated with fluconazole. It was around this time in late 2016 that she had a followup CT scan performed which showed new mild bilateral hydroureteronephrosis with a thickened bladder wall consistent with cystitis. At her admission in August with sepsis, a CT scan was performed without contrast, and she was noted to have a continued moderate bilateral hydronephrosis. Her creatinine level had also increased to 1.4 in the summer of 2016 and remained stable throughout the end of 2016 until her episode of sepsis, whereupon admission it was 6.8. During this hospitalization, a Appiah catheter was placed, and her creatinine subsequently decreased to 0.9. It was removed at discharge, and in followup several weeks later, it was 1.3. A most recent creatinine on the 11 of May was 1.3, which is a GFR of approximately 40. A repeat CT scan performed on 17 of May showed [id number] bilateral hydroureteronephrosis with a severely contracted bladder and thickened wall which was a worsening from her prior scans. A urine culture performed on the 13 of April did reveal 100,000 E. coli which was pansensitive and subsequently treated. At her last visit, these findings were discussed with both the patient and her . She was informed I was concerned as she has a small volume, contracted bladder resulting in a high-pressure system that has caused her to have obstructive uropathy with bilateral hydroureteronephrosis resulting in renal insufficiency. This is also causing her to have basic total incontinence- type issue with the ability to store any significant amount of urine. It is unclear whether she has an intrinsic fibrosis of the bladder or some other cause resulting in these findings. 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 We, therefore, planned to take her to the operating room to do a cystoscopy exam under anesthesia with possible bilateral retrograde pyelograms, cystogram exam under anesthesia, with possible bladder biopsy. Pending the results of this procedure, she may need to proceed with Appiah catheter and/or SP drainage to decompress her upper tracts pending definitive treatment options. PAST MEDICAL HISTORY 1. Hypercholesterolemia. 2. Hypertension. 3. Gastroesophageal reflux disease with esophageal stricture and erosive esophagitis. 4. Osteoporosis. 5. Degenerative joint disease. 6. Low back pain with spondylitic changes of L3-L4 and L4-L5 with bilateral lower extremity weakness diagnosed by MRI in October 2014. 7. Diabetes diagnosed after an episode of DKA in July 2014. 8. Possible old right lacunar infarct noted on a CT scan done for mental status changes in 2013 at her hospitalization for DKA presentation. 9. 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 10. Heart palpitations with ventricular ectopy diagnosed by Holter monitor. 11. Stable pulmonary nodules, right lower lobe. 12. Renal insufficiency as per HPI. 13. Anemia. 14. Urinary tract infections and incontinence as per HPI. PAST SURGICAL HISTORY 1. Tonsillectomy 1958. 2. Toe surgery 1982. 3. Tubal ligation 1993. 4. EGD with dilation August 2014 for distal esophageal stricture. 5. Cystoscopy with biopsy June 2016. 6. EGD with dilation and biopsy August 2017. SOCIAL HISTORY Patient is and lives in [place], [place], with her . She is a former smoker who had a one atxw-pnm-oir history for 20 years. Her last smoking was in 1990. FAMILY HISTORY Significant for diabetes and hypertension. ALLERGIES No known drug allergies. CURRENT MEDICINES 1. Aspirin. 2. Lipitor. 3. Multivitamins. 4. Iron. 5. Gabapentin. 6. Omeprazole. 7. Ranitidine. 8. Lisinopril. 9. NovoLog N and R. 10. Metformin. REVIEW OF SYSTEMS Patient denies chest pain, productive cough, fever, chills, liver disease, chronic headaches, bleeding disorder, or seizures. PHYSICAL EXAMINATION GENERAL: Patient is a well-developed, well-nourished, white female in no acute distress. She is oriented to person, place, and time. HEENT: Normocephalic, atraumatic. CHEST: Clear to auscultation. CARDIOVASCULAR: Regular rate and rhythm. ABDOMINAL: Soft, nontender. No masses are palpated. GENITOURINARY: Deferred to the OR. EXTREMITIES: Without clubbing, cyanosis, or edema. NEUROLOGIC: Nonfocal. IMPRESSION A 62-year-old white female with progressive urinary urgency and frequency, now with total incontinence. Her CT scans over the past two years have shown a progressive bilateral hydronephrosis with a small, contracted bladder. This is consistent with a high-pressure, low-volume bladder resulting in both total incontinence and bilateral reflux nephropathy. PLAN We will plan anesthetic cystoscopy, possible bilateral retrograde pyelograms, cystogram, possible hydrodilation and/or bladder biopsy, possible ureteral stent placement, and exam under anesthesia. [facility]
[2018-05-26] VITALS (8 sets, daily range): BP systolic 129–158; BP diastolic 77–92
[~2018-05-26] VITALS: Ht 160 cm; Wt 81.6 kg
[~2018-05-26 00:38] MED LIST changes: -DOCU-416 PO; -HYDR-4309 PO; -MIRA50TA PO; -OXYB15TA17 PO; -SULF-198 PO
[2018-05-26] MEDS ORDERED: ceFAZolin(*) 1 GM VIAL 1 GM in NS(*) 0.9% 100 ML ADDVANT BAG 100 ML IVPB ONE (06:45)
[2018-05-26] MEDS ORDERED: MIDAZOLAM 2 MG/2 ML VIAL IVP PRN (06:45)
[2018-05-26] MEDS ORDERED: ceFAZolin(*) 1 GM VIAL 1 GM, GENTAMICIN(*) 80 MG/2 ML VIAL 60 MG in NS 0.9% IRRIGATION ... IR ONE (06:45)
[2018-05-26] MEDS ORDERED: NORMOSOL R SOLN(*) 1000 ML BAG 1,000 ML IV PRN (06:45)
[2018-05-26] MEDS ORDERED: LIDOCAINE/SOD BICARB 8.4% SYR ID ONE (06:45)
[2018-05-26] MEDS ORDERED: HYDROCORTISONE 1% CR 28.35 GM TP ONE (07:14)
[2018-05-26] MEDS ORDERED: IOPAMIDOL-200 50 ML VIAL IS ONE (07:14)
--- NOTE | 2018-05-26 08:12 | EKG ---
FACILITY: [facility] - [place] PATIENT NAME: KATARZYNA HARDY : [id number] MR: [id number] V: [id number] EXAM DATE: ORDERING PHYSICIAN: JUAN DANIEL BLAIR TECHNOLOGIST: Test Reason : PRE-OP Blood Pressure : / mmHG Vent. Rate : 084 BPM Atrial Rate : 084 BPM P-R Int : 132 ms QRS Dur : 078 ms QT Int : 370 ms P-R-T Axes : 051 050 041 degrees QTc Int : 437 ms Normal sinus rhythm Normal ECG When compared with ECG of 24-NOV-2017 12:53, No significant change was found Confirmed by Madhav Eaton ([id number]) on 05/26/2018 10:51:52 PM Referred By: Confirmed By:Madhav Schilling
[2018-05-26] MEDS ORDERED: IOTHALAMATE MEGLU 172MG/ML BTL 250 ML IVPB ONE (08:28)
[2018-05-26] MEDS ORDERED: fentaNYL CITR 100 MCG/2 ML AMP ONE ×2 (08:46→10:25)
[2018-05-26] MEDS ORDERED: DEXAMETHASONE SOD PHOS 10MG/ML ONE (08:47)
[2018-05-26] MEDS ORDERED: PROPOFOL EMUL(*) 10MG/ML 20 ML 20 ML ONE (08:47)
[2018-05-26] MEDS ORDERED: LIDOCAINE MPF 1% 5 ML VIAL ONE (08:47)
[2018-05-26] MEDS ORDERED: ONDANSETRON 4 MG/2 ML VIAL ONE (08:47)
[2018-05-26] MEDS ORDERED: ARTIFICIAL TEARS OINT 3.5 GM ONE (09:04)
[2018-05-26] MEDS ORDERED: LIDOCAINE 2% JELLY 5 ML TUBE ONE (09:04)
[2018-05-26] MEDS ORDERED: KETAMINE HCL-NS 50 MG/5 ML SYR ONE (09:06)
[2018-05-26] MEDS ORDERED: BELLADONNA ALKALOIDS/OPIUM 30 MG SUPP PR ONE (09:41)
--- NOTE | 2018-05-26 10:43 | PIERCE CYSTOSCOPY ---
EVENT DATE: May 26, 2018 SURGEON: Maurice Love MD ANESTHESIOLOGIST: Alek Cameron MD ANESTHESIA: General PREOPERATIVE DIAGNOSES 1. Total urinary incontinence with bilateral hydroureteral nephrosis. 2. Renal insufficiency with chronic cystitis. POSTOPERATIVE DIAGNOSES 1. Small volume contracted bladder. 2. Bilateral hydroureteronephrosis. PROCEDURES PERFORMED 1. Static cystogram. 2. Anesthetic cystoscopy with bilateral retrograde pyelograms. 3. Bimanual exam under anesthesia. ESTIMATED BLOOD LOSS 5 cc. IV FLUIDS Crystalloids. DRAINS 16-Uzbek Silastic Appiah catheter. COMPLICATIONS None. FINDINGS 1. Extremely small bladder capacity of less than 30 cc. 2. Bilateral hydroureteronephrosis down to bladder with prominent ureteral orifices consistent with bilateral vesicoureteral reflux, although none demonstrated. CONDITION The patient was taken to recovery room awake and in stable condition. STATEMENT OF MEDICAL NECESSITY The patient is a 62-year-old white female with several year history of irritated voiding symptoms with urgency frequency and chronic cystitis with multiple urine cultures which were without growth. She recently has been experiencing total urinary incontinence. CT scan shows bilateral hydroureteral nephrosis with a small contracted bladder. Her current creatinine is 1.4 from her baseline of 0.6 of 2 to 2-1/2 years ago. She is now being brought to the operating room for planned anesthetic cystoscopy, cystogram and exam under anesthesia. DESCRIPTION OF OPERATION PERFORMED The patient was brought to the operating room and after general anesthetic was obtained, she was placed in the dorsal lithotomy position and prepped and draped in the usual sterile manner. Physical exam revealed normal appearing external genitalia. Her meatus was in its normal anatomical position and was not hypospadic or stenotic. She had a grade 1 cystocele. Her vaginal mucosa was normal. There was no discharge from the vagina or at the os. Bimanual exam revealed a mobile bladder and uterus. At this point, an 18-Uzbek Appiah catheter was placed in the bladder with 10 cc in the balloon. A static cystogram was performed by instilling contrast under gravity drainage into the Appiah catheter. A 60 cc syringe body was used. She had very slow drainage into the bladder and fluoroscopic imaging revealed only a scant amount of contrast in the bladder. The bladder would not fill. The contrast would only slowly leak out around the catheter. I could not demonstrate any reflux on this particular exam. I slowly instilled 60 cc under gravity drainage; none of it staying in the bladder, all just leaking around the catheter. At this point, the catheter was removed and we performed anesthetic cystoscopy using the 21-Uzbek sheath and 30-degree lens. She had a normal appearing urethra without evidence of stricture or inflammatory polyps. Upon entering her bladder, there was no obvious bladder tumor or mucosal lesions. However, it was moderately friable. Ureteral orifices were in their respected hemitrigones and they were capacious in appearance at their opening. She was only able to hold 20-30 cc in her bladder without it leaking around the sheath. At this point, bilateral retrograde pyelograms were performed. The left ureteral orifice cannulated easily and the 6-Uzbek opening catheter advanced easily up the ureter. Retrograde pyelogram on this side dilated collecting system from the caliceal system down to the intramural ureter with no obvious filling defects. After this was performed, the right side was attempted. The access catheter would not advance up the ureter, which was felt to be secondary to some J-hooking of the distal ureter as it went through the intramural portion of the bladder. Therefore, an angle-tip guidewire was then used to negotiate the ureter orifice. It advanced easily up the ureter without evidence of resistance and the access catheter easily advanced with this. The wire was removed and a second retrograde pyelogram was performed on this side, showing similar results with just hydroureteral nephrosis. At this point, the access catheter was removed along with the cystoscope sheath. A #16-Uzbek Appiah catheter was inserted with 10 mL in the balloon. Delayed films showed what appeared to be poor but consistent drainage on both sides. Again, bimanual exam was performed, which was normal. A B&O suppository was given at the closing of the case. She had normal sphincter tone with no significant rectocele. The patient was awakened in the operating room and taken to the recovery area in stable condition. PLAN We will allow the patient to be discharged home with her Appiah catheter in place in hopes of providing drainage of her upper tracts. We will confirm this by obtaining a MAG3 renal scan with Lasix wash-out next week as well as obtaining a followup creatinine test. She is being discharged home on [place], Colace, Bactrim, Ditropan XL and Myrbetriq 50 mg. If she, indeed, does have no renal obstruction with the Appiah catheter in place and her creatinine improves then she will need either a bladder augmentation diversion or possible suprapubic tube placement. MESFIN
[2018-05-26] MEDS ORDERED: HYDR-4309 PO (10:48)
[2018-05-26] MEDS ORDERED: OXYB15TA17 PO (10:49)
[2018-05-26] MEDS ORDERED: SULF-198 PO (10:50)
[2018-05-26] MEDS ORDERED: DOCU-416 PO (10:51)
[2018-05-26] MEDS ORDERED: MIRA50TA PO (10:52)
[2018-05-26] MEDS ORDERED: APAP/HYDROCODONE 325/5 TAB ONE (11:42)
[2018-05-26] MEDS ORDERED: INSU HUM REG 100 U/ML(ER ONLY) 10 ML VIAL IVP ONE (13:50)
--- NOTE | 2018-05-27 07:20 | RADIOLOGY IMAGING REPORT ---
FACILITY: [facility] [place] PATIENT NAME: Sahra Chavis : 1955 MR: [id number] V: [id number] EXAM DATE: ORDERING PHYSICIAN: ANTONIA LOVE TECHNOLOGIST: Location: [facility] Patient: Sahra Chavis : 1955 Visit/Account:[id number] Date of Sevice: 05/26/2018 RETROGRADE PYELOGRAM Indication: Hematuria. Procedure: Fluoroscopic guidance was provided for Dr. Love. Fluoroscopy dose: 22.53 mGy Fluoroscopy time: 29 seconds Findings: Images demonstrate opacification of the bilateral dilated collecting systems. No filling de fect. IMPRESSION: Fluoroscopy was provided. Report Dictated By: Niesha Nevarez at 05/27/2018 7:13 AM Report E-Signed By: Niesha Nevarez at 05/27/2018 7:17 AM WSN:[id number]
== END 2018-05-26 11:10 | disposition home or self-care (01) ==
LOC: OR 00:38
PROVIDERS: ATTEND Urology
DX: R32 Unspecified urinary incontinence (principal); N04.9 Nephrotic syndrome with unspecified morphologic changes; N30.20 Other chronic cystitis without hematuria; E11.9 Type 2 diabetes mellitus without complications; I10 Essential (primary) hypertension
CPT/HCPCS: 36416; 52005; 82948; 85025; 85610; 85730; 93005; A4338; A9270; C1758; C1769; C1894; J0690; J1100; J2001; J2405; J2704; J3010; J3490; J7050; Q9958; Q9966; 74420; 82040; 82247; 82310; 82374; 82435; 82565; 82947; 84075; 84132; 84155; 84295; 84450; 84460; 84520; J1815

== ENCOUNTER → 2018-06-01 | Outpatient (CLI) | payer MEDICARE ==
[2017-11-25 11:12] VITALS: BMI 29.4
[~2018-06-01] MED LIST changes: +DOCU-416 PO; +HYDR-4309 PO; +MIRA50TA PO; +OXYB15TA17 PO; +SULF-198 PO
--- NOTE | 2018-06-01 15:36 | RADIOLOGY IMAGING REPORT ---
FACILITY: [facility] - [place] PATIENT NAME: Sahra Chavis : 1955 MR: [id number] V: [id number] EXAM DATE: ORDERING PHYSICIAN: ANTONIA KENYON TECHNOLOGIST: [place] [facility] [place] Patient: Sahra Chavis : 1955 Visit/Account:[id number] Date of Sevice: 06/01/2018 Nuclear medicine renal scan with pharmacologic diuresis HISTORY: Bilateral hydronephrosis, chronic kidney disease and small volume bladder. COMPARISON: CT abdomen and pelvis 05/17/2018 PROCEDURE: TECHNETIUM 99m MAG3 9.6 mCi was injected intravenously. A series of posterior gamma camer a angiographic images were obtained to 180 seconds. This was followed by a series of posterior gamma camera images to 42 minutes. Diuretic, Lasix, 40 mg was administered intravenously at 20minutes. FINDINGS: Angiographic phase images demonstrate symmetric uptake of radionuclide by each kidney, occurring at t he same time as the aorta. Delayed images demonstrate normal size kidneys and symmetric timing of excretion into the central rodriguez al collecting system. Spontaneous drainage of radionuclide from the renal collecting system occurs w ithin 10 minutes. Radionuclide is seen within bilateral dilated ureters spanning from renal pelvis t o lower pelvis area. A moderate amount of radionuclide retention within the central renal collecting systems and ureters partially clears after Lasix administration. Renal differential function is LEFT kidney 60 percent, RIGHT kidney 40 percent. IMPRESSION: 1. Bilateral hydronephrosis and hydroureter responds to Lasix, but residual radionuclide within the central renal collecting system and ureters on final imaging suggests partial obstruction at the UVJ, or vesicoureteral reflux. 2. Right renal function is reduced compared to the left side. Report Dictated By: Caroline Aguilar MD at 06/01/2018 3:20 PM Report E-Signed By: Caroline Aguilar MD at 06/01/2018 3:32 PM WSN:[id number]
== END ==
LOC: NUC 01:39
PROVIDERS: ATTEND Urology
DX: N13.30 Unspecified hydronephrosis (principal); N13.4 Hydroureter
CPT/HCPCS: 78708; A9562

== ENCOUNTER → 2018-06-20 | Outpatient (CLI) | payer MEDICARE ==
[2017-11-25 11:12] VITALS: BMI 29.4
[~2018-06-20] MED LIST changes: -METF-411 PO; +METF-450 PO
== END ==
LOC: SPU 06:55
PROVIDERS: ATTEND Emergency Medicine
DX: N18.9 Chronic kidney disease, unspecified (principal); N13.30 Unspecified hydronephrosis; N39.498 Other specified urinary incontinence
CPT/HCPCS: 51702

== ENCOUNTER → 2018-07-05 | Outpatient (CLI) | payer MEDICARE ==
[2017-11-25 11:12] VITALS: BMI 29.4
--- NOTE | 2018-07-05 17:09 | RADIOLOGY IMAGING REPORT ---
[place] [facility] [place] Sahra Chavis : 1955 MR: [id number] V: [id number] EXAM DATE: ORDERING PHYSICIAN: ANTONIA KENYON TECHNOLOGIST: Location: [facility] Patient: Sahra Chavis : 1955 Visit/Account:[id number] Date of Sevice: 07/05/2018 EXAMINATION: Renal Ultrasound HISTORY: Hydronephrosis. Renal insufficiency. COMPARISON: CT abdomen/pelvis 05/17/2018. FINDINGS: Right kidney: Normal size and morphology of the right kidney, measuring 11.0 cm in length. Normal ec hogenicity of the renal cortical parenchyma. Moderate hydronephrosis of the right kidney, similar to the prior CT. Left kidney: Normal size and morphology of the left kidney, measuring 12.9 cm length. Normal echoge nicity of the renal cortical parenchyma. Moderate hydronephrosis of the left kidney, similar in degr ee to the right kidney and grossly stable from the prior CT. Bladder: The urinary bladder is decompressed and poorly visualized, with a Appiah catheter in place. Vessels: The segmentally visualized abdominal aorta and IVC are patent and normal in caliber. IMPRESSION: Stable moderate hydronephrosis of both kidneys, without significant change from the prio r CT. Report Dictated By: Tommie Mckeon MD at 07/05/2018 5:01 PM Report E-Signed By: Tommie Mckeon MD at 07/05/2018 5:06 PM WSN:[id number]
== END ==
LOC: US 00:36
PROVIDERS: ATTEND Urology
DX: N13.39 Other hydronephrosis (principal)
CPT/HCPCS: 76705

== ENCOUNTER → 2018-07-12 | Outpatient (CLI) | payer MEDICARE ==
[2017-11-25 11:12] VITALS: BMI 29.4
[~2018-07-12] MED LIST changes: +ACET500T68 PO; +AMLO-111 PO; +GABA-503 PO; -HYDR-4309 PO; +HYDR-653 PO; +LEVO-85 PO; +METO25TA93 PO
== END ==
LOC: SPU 08:57
PROVIDERS: ATTEND Urology
DX: N18.9 Chronic kidney disease, unspecified (principal); N13.30 Unspecified hydronephrosis; N39.498 Other specified urinary incontinence

== ENCOUNTER 2018-07-16 19:43 | Inpatient (IN) | payer MEDICARE ==
[~2018-07-16] VITALS: Ht 160 cm; Wt 79.8 kg
[~2018-07-16 19:43] MED LIST changes: -ACET500T68 PO; -AMLO-111 PO; -LEVO-85 PO; -METO25TA93 PO
--- NOTE | 2018-07-16 19:47 | ER Report ---
History and Physical Time Seen By MD: 19:51 HPI/ROS CHIEF COMPLAINT: Vomiting and diarrhea HISTORY OF PRESENT ILLNESS: 63-year-old female with a history of anemia, diabetes, chronic kidney disease presents ambulatory to the ER complaining of vo miting and diarrhea for 3 weeks. She describes green watery diarrhea frequently. She's been vomiting for the last 2 days, unable to keep anything down. She feels severely dehydrated. She notes no consumption of bad food or recent travel. She denies exposure to ill contacts. She did have a course of antibiotics/sulfa trimethoprim almost 8 weeks ago. She underwent cystoscopy by Dr. Meadows. She was noted to have a contracted bladder. She's been referred to [facility] in [place], [place] for possible diversion of ureters. REVIEW OF SYSTEMS: Respiratory: No cough, no dyspnea. Cardiovascular: No chest pain, no palpitations. Gastrointestinal: As above Musculoskeletal: No back pain. Allergies: Coded Allergies: No Known Drug Allergies (Unverified , 07/16/18) Home Meds Active Scripts Gabapentin (GABAPENTIN) 600 Mg Tablet, 1200 MG PO QHS, #180 TAB 3 Refills Prov:DEYANIRA YOUNG MD 07/14/18 Pen Needle, Diabetic (Insulin Pen Needle) 31 Gauge X 1/6" Dis.needle, EACH , #100 Prov:XIOMARA NAVARRETE DO 11/25/17 Atorvastatin Calcium (ATORVASTATIN CALCIUM) 80 Mg Tablet, 0.5 TAB PO QDAY, #45 TAB 3 Refills Prov:DEYANIRA YOUNG MD 10/21/17 Ranitidine Hcl (RANITIDINE HCL) 300 Mg Tablet, 1 TAB PO QHS, #60 TAB 6 Refills Prov:XIOMARA FRANZ MD 10/05/17 Reported Medications Acetaminophen (TYLENOL EXTRA STRENGTH) 500 Mg Tablet, 500 MG PO PRN for PAIN, TAB 07/17/18 Oxybutynin Chloride (DITROPAN XL) 15 Mg Tab.er.24, 15 MG PO HS for URGENCY for 30 Days, #30 TAB 1 Refill 05/26/18 Omeprazole (OMEPRAZOLE) 20 Mg Tablet.dr, 20 MG PO HS, TAB 05/23/18 Calcium Carb & Cit/Vitamin D3 (CALCIUM + D3 ER TABLET) 1 Each Tablet.er, 1 EACH PO QDAY 05/23/18 Multivitamin With Minerals (MULTIPLE VITAMIN) 1 Each Tablet, 1 EACH PO QDAY, TAB 05/23/18 Ferrous Sulfate, Dried (IRON) 159 Mg Tablet.er, 65 MG PO QDAY 05/23/18 Metformin Hcl (METFORMIN HCL) 500 Mg Tablet, 500 MG PO BID, TAB 05/12/18 Insulin Regular, Human (NOVOLIN R) 100 Unit/1 Ml Vial, 10 UNIT SQ TID, VIAL 05/12/18 Nph, Human Insulin Isophane (NOVOLIN N) 100 Unit/1 Ml Vial, 10 UNIT SQ BID, VIAL 05/12/18 Lisinopril (LISINOPRIL) 10 Mg Tablet, 10 MG PO HS, TAB 07/06/16 Discontinued Reported Medications Mirabegron (MYRBETRIQ) 50 Mg Tab.er.24h, 50 MG PO QDAY, #30 05/26/18 Docusate Sodium (COLACE) 100 Mg Capsule, 100 MG PO BID for STOOL SOFTENER, #30 CAPSULE 05/26/18 Sulfamethoxazole/Trimet 800-160 Mg Tab (BACTRIM DS TABLET) 1 Each Tablet, 1 TAB PO QDAY, #10 TAB 05/26/18 Hydrocodone Bit/Acetaminophen (NORCO 5-325 TABLET) 1 Each Tablet, 1 EACH PO Q6H PRN for PAIN, #30 TAB 05/26/18 Garlic (GARLIC) 1 Each Tablet, 1 EACH PO QDAY 05/23/18 Aspirin (ASPIRIN) 325 Mg Tablet, 1 TAB PO BID, TAB 11/24/17 Gabapentin (GABAPENTIN) 800 Mg Tablet, 1200 MG PO HS 07/06/16 Past Medical/Surgical History Past Medical History Neurologic: Reports hx of: stroke (2013) Cardiovascular: Reports hx of: hyperlipidemia hypertension Genitourinary: Reports hx of: urinary tract infection (recurrent) other history (Bilateral hydrouereteronephrosis and contracted bladder on cystogrm in 05/14) Endocrine: Reports hx of: diabetes type 2 thyroid nodule Hematology/oncology: Reprots hx of: anemia Past Surgical History HEENT: Reports hx of: tonsillectomy (1958) Gynecologic: Reports hx of: tubal ligation (1993, ovaries intact) other surgery (bladder biopsy) Reviewed Nurses Notes: Yes Old Medical Records Reviewed: Yes Hx Smoking: Yes (1 PPD FOR 20 YRS) Smoking Status: Former Smoker Exposure to Second Hand Smoke?: No Hx Substance Use Disorder: No Hx Alcohol Use: No Constitutional Vital Sign - Last 24 Hours 07/16/18 07/16/18 07/16/18 07/16/18 19:55 19:56 19:58 20:00 Temp 98.4 Pulse 119 117 Resp 22 B/P (MAP) 137/92 137/92 (107) 147/94 (111) Pulse Ox 97 98 O2 Delivery Room Air 07/16/18 07/16/18 07/16/18 07/16/18 20:13 20:28 20:30 20:43 Pulse 114 108 102 B/P (MAP) 149/83 (105) Pulse Ox 98 99 95 07/16/18 07/16/18 07/16/18 07/16/18 21:00 21:05 21:20 21:30 Pulse 104 97 B/P (MAP) 149/65 (93) 154/77 (102) Pulse Ox 96 94 07/16/18 07/16/18 07/16/18 07/16/18 21:35 21:50 22:00 22:05 Pulse 96 101 100 B/P (MAP) 163/78 (106) Pulse Ox 91 91 87 07/16/18 07/16/18 07/16/18 07/16/18 22:20 22:26 22:30 22:35 Pulse 97 109 B/P (MAP) 160/80 (106) Pulse Ox 97 99 O2 Flow Rate 2.0 07/16/18 07/16/18 22:50 23:00 Pulse 102 B/P (MAP) 166/93 (117) Pulse Ox 99 Physical Exam General Appearance: The patient is alert, has no immediate need for airway protection and no current signs of toxicity. Moderate distress, pale appearing, skin: Dry. Vital signs stable, afebrile, tachycardic HEENT: Pupils equal and round no injection. Oropharynx with mild erythema, dry mucous membranes Respiratory: Chest is non tender, lungs are clear to auscultation. Cardiac: regular rate and rhythm Gastrointestinal: Abdomen is soft, mild epigastric tenderness, no masses, bowel sounds normal. Musculoskeletal: Neck: Neck is supple and non tender. No lymphadenopathy, no indwelling Appiah catheter with dark cloudy urine Extremities have full range of motion and are non tender. Skin: No rashes or lesions. DIFFERENTIAL DIAGNOSIS: After history and physical exam differential diagnosis was considered for abdominal pain including but not limited to appendicitis, cholecystitis, gastritis, gastroenteritis, viral syndrome, food poisoning, Clostridium difficile and urinary tract infection. Medical Decision Making Data Points Result Diagram: 07/17/18 0633 07/17/18 0633 Laboratory Hematology Test 07/16/18 20:22 07/16/18 22:14 Total Bilirubin 0.3 mg/dl (0.2-1.3) Aspartate Amino Transf (AST/SGOT) 14 U/L (0-35) Alanine Aminotransferase (ALT/SGPT) 16 U/L (0-56) Alkaline Phosphatase 161 U/L (0-126) Troponin I < 0.012 ng/ml C-Reactive Protein 14.6 mg/dl (<1.0) Total Protein 7.7 g/dl (6.3-8.2) Albumin 3.7 g/dl (3.5-5.0) Amylase Level 47 U/L (0-110) Lipase 57 U/L (23-300) Urine Color Yellow Urine Clarity Turbid Urine pH 6.0 pH (4.8-9.5) Urine Specific [place] 1.010 Urine Protein 100 mg/dL (NEGATIVE) Urine Glucose (UA) Negative mg/dL (NEGATIVE) Urine Ketones Negative mg/dL (NEGATIVE) Urine Blood Large (NEGATIVE) Urine Nitrite Negative (NEGATIVE) Urine Bilirubin Negative (NEGATIVE) Urine Urobilinogen Negative mg/dL (0.2-1.9) Urine Leukocyte Esterase Moderate (NEGATIVE) Urine RBC 306 /HPF (0-2/HPF) Urine WBC 3376 /HPF (0-5/HPF) Urine WBC Clumps Many /HPF Urine Squamous Epithelial Cells None /LPF (NONE-FEW) Urine Bacteria Moderate /HPF (NONE-FEW) Urine Mucus None /HPF (NONE-FEW) Chemistry Test 07/16/18 20:22 07/16/18 22:14 Total Bilirubin 0.3 mg/dl (0.2-1.3) Aspartate Amino Transf (AST/SGOT) 14 U/L (0-35) Alanine Aminotransferase (ALT/SGPT) 16 U/L (0-56) Alkaline Phosphatase 161 U/L (0-126) Troponin I < 0.012 ng/ml C-Reactive Protein 14.6 mg/dl (<1.0) Total Protein 7.7 g/dl (6.3-8.2) Albumin 3.7 g/dl (3.5-5.0) Amylase Level 47 U/L (0-110) Lipase 57 U/L (23-300) Urine Color Yellow Urine Clarity Turbid Urine pH 6.0 pH (4.8-9.5) Urine Specific [place] 1.010 Urine Protein 100 mg/dL (NEGATIVE) Urine Glucose (UA) Negative mg/dL (NEGATIVE) Urine Ketones Negative mg/dL (NEGATIVE) Urine Blood Large (NEGATIVE) Urine Nitrite Negative (NEGATIVE) Urine Bilirubin Negative (NEGATIVE) Urine Urobilinogen Negative mg/dL (0.2-1.9) Urine Leukocyte Esterase Moderate (NEGATIVE) Urine RBC 306 /HPF (0-2/HPF) Urine WBC 3376 /HPF (0-5/HPF) Urine WBC Clumps Many /HPF Urine Squamous Epithelial Cells None /LPF (NONE-FEW) Urine Bacteria Moderate /HPF (NONE-FEW) Urine Mucus None /HPF (NONE-FEW) Urinalysis Test 07/16/18 22:14 Urine Color Yellow Urine Clarity Turbid Urine pH 6.0 pH (4.8-9.5) Urine Specific [place] 1.010 Urine Protein 100 mg/dL (NEGATIVE) Urine Glucose (UA) Negative mg/dL (NEGATIVE) Urine Ketones Negative mg/dL (NEGATIVE) Urine Blood Large (NEGATIVE) Urine Nitrite Negative (NEGATIVE) Urine Bilirubin Negative (NEGATIVE) Urine Urobilinogen Negative mg/dL (0.2-1.9) Urine Leukocyte Esterase Moderate (NEGATIVE) Urine RBC 306 /HPF (0-2/HPF) Urine WBC 3376 /HPF (0-5/HPF) Urine WBC Clumps Many /HPF Urine Squamous Epithelial Cells None /LPF (NONE-FEW) Urine Bacteria Moderate /HPF (NONE-FEW) Urine Mucus None /HPF (NONE-FEW) Microbiology Microbiology Date/Time Source Procedure Growth Status 07/16/18 22:14 [place]iah Catheter Urine Urine Culture - Preliminary Gram Negative Riley Resulted EKG/Imaging EKG Interpretation 12 lead EK Rhythm: Sinus tachycardia, rate 116 bpm [place]: normal QRS: normal ST segments: normal, no evidence of ischemia or dysrhythmia ED Course/Re-evaluation Clinical Indication for ER IV: Hydration, IV Access ED Course Patient was admitted to an examination room. H&P was done. The differential diagnosis was considered. Patient appears quite pale and dehydrated. She is tachycardic. She's been vomiting for 2 days. She's been having diarrhea for several weeks. She is having complications of urinary drainage. She has an indwelling Appiah catheter placed by Dr. Love. [facility] her [facility]ters since she's having hydronephrosis. Patient has an acute urinary tract infection noted on her urinalysis from the catheter. Patient appears grossly dehydrated. Her case is discussed with hospitalist on-call, who accepts the patient for admission for hydration and IV antibiotics. 07/16/2018 10:48:54 pm case discussed with Dr. Irene Villeda hospitalist on- call, who accepts the patient for admission. Decision to Disposition Date: Jul 16, 2018 Decision to Disposition Time: 22:24 Depart Departure Latest Vital Signs Vital Signs Date Time Temp Pulse Resp B/P (MAP) Pulse Ox O2 Delivery O2 Flow Rate FiO2 07/16/18 23:00 166/93 (117) 07/16/18 22:50 102 99 07/16/18 22:26 2.0 07/16/18 19:55 98.4 22 Room Air Impression: Primary Impression: Vomiting and diarrhea Additional Impressions: Moderate dehydration Chronic renal insufficiency, stage I Urinary tract infection Condition: Improved Disposition: Admitted from ER Referrals: DEYANIRA YOUNG MD (PCP) Problem Qualifiers Additional Impressions: Urinary tract infection Urinary tract infection type: acute cystitis Hematuria presence: without hematuria Qualified Codes: N30.00 - Acute cystitis without hematuria MEHRAN SOLORIO DO Jul 16, 2018 19:47
[2018-07-16] MEDS ORDERED: NS(*) 0.9% 1000 ML BAG 1,000 ML IV ONE ×2 (20:01→22:35)
[2018-07-16] MEDS ORDERED: fentaNYL CITR 100 MCG/2 ML AMP IVP ONE (20:05)
[2018-07-16] MEDS ORDERED: ONDANSETRON 4 MG/2 ML VIAL IVP ONE (20:05)
--- NOTE | 2018-07-16 20:17 | EKG ---
FACILITY: [facility] [place] PATIENT NAME: KATARZYNA HARDY : [id number] MR: [id number] V: [id number] EXAM DATE: ORDERING PHYSICIAN: MEHRAN SOLORIO TECHNOLOGIST: RAINA Test Reason : epigastric pain Blood Pressure : / mmHG Vent. Rate : 116 BPM Atrial Rate : 116 BPM P-R Int : 122 ms QRS Dur : 072 ms QT Int : 330 ms P-R-T Axes : 073 078 064 degrees QTc Int : 458 ms Sinus tachycardia Otherwise normal ECG When compared with ECG of 26-MAY-2018 07:58, No significant change was found Confirmed by SHAD LOVE ([id number]) on 07/17/2018 6:37:00 AM Referred By: LYNDSEY Confirmed By:SHAD LOVE
[2018-07-16] MEDS ORDERED: LIDOCAINE 2% VISC SLN 15ML UDC PO ONE (20:20)
[2018-07-16] MEDS ORDERED: MAG HYD/AL HYD/SIMETH 30ML UDC PO ONE (20:20)
[2018-07-16 20:36] LABS: PLATELET COUNT, AUTOMATED 650 K/uL (150-450)
[2018-07-16 23:46] VITALS: BP 186/95
[2018-07-17] MEDS ORDERED: CALCIUM CARBONATE 500 MG CHEW PO PRN (00:25)
[2018-07-17] MEDS ORDERED: NS(*) 0.9% 1000 ML BAG 1,000 ML IV PRN (00:47)
[2018-07-17] MEDS ORDERED: INFLUENZA VIRUS VAC 0.5ML SYR IM ONLY ONE (00:50)
[2018-07-17] MEDS: ONDANSETRON 4 MG/2 ML VIAL IVP PRN (01:21)
[2018-07-17] MEDS: cefTRIAXone(*) 1 GM VIAL 1 GM in NS(*) 0.9% 100 ML ADDVANT BAG 100 ML IVPB SCH (01:22)
[2018-07-17] MEDS ORDERED: PROMETHAZINE 25 MG/ML 1 ML AMP IVP PRN (01:50)
[2018-07-17] MEDS ORDERED: PANTOPRAZOLE SOD 40 MG IV VIAL IVP ONE (01:50)
--- NOTE | 2018-07-17 01:51 | History & Physical ---
History of Present Illness Chief Complaint Nausea, vomiting, diarrhea. History of Present Illness The patient is a 63 year old female with PMH significant for type II DM, HTN, CVA, hyperlipidemia and recent bilateral hydroureteronephrosis who presents with intermittent diarrhea for 2-3 weeks and nausea and vomiting for the past several days. The patient has a long hx of type II DM with complications of diabetic retinopathy. She has recently been found to have bilateral hydronephrosis with contracted bladder. A Appiah catheter was placed and she was referred to Dr. Miranda in [place] for consideration of stent placement or surgical repair. The Appiah has been in place about 7 weeks and has been changed twice, most recently past Wednesday at the [facility]. The patient states she also had laser surgery to her R retina on Wednesday for treatment of bleeding due to retinopathy. She has bilateral cataracts (L>R) which will need surgical correction in the near future. She has been seeing Dr. Tripp who has placed her on iron supplementati on due to anemia with low iron level (36). The patient states that she started having diarrhea about 2-3 weeks ago. Her stools are green and foul smelling per her report. She states every 2-3 days she has a loose stool followed by watery stools. She will have 2-3 that day and then none for a day or two. She started having nausea with vomiting about 3 days ago. She denies fever or chills. She has not had any sick contacts. She denies blood in her emesis or stool. She has had worsening of her GERD symptoms recently. She takes omeprazole and ranitidine at home for this. She also uses Tums prn. She has a hx of esophageal stricture s/p dilation X 2 in the past. History Problems: (1) Diabetic retinopathy Status: Chronic (2) Bilateral cataracts Status: Chronic (3) Hyperlipidemia Status: Chronic (4) Dysphagia Status: Chronic (5) Esophageal stricture Status: Chronic (6) T2DM (type 2 diabetes mellitus) Status: Chronic (7) History of CVA (cerebrovascular accident) Status: Chronic (8) Hydronephrosis Status: Chronic (9) DJD (degenerative joint disease) of cervical spine Status: Chronic (10) Pulmonary nodule seen on imaging study Status: Chronic (11) CKD (chronic kidney disease) Status: Chronic (12) Hypertension Status: Chronic (13) ANEMIA, UNSPECIFIED Status: Acute (14) Thyroid nodule Status: Chronic (15) Hx of cystoscopy (16) History of tubal ligation (17) Hx of tonsillectomy Home Meds Active Scripts Gabapentin (GABAPENTIN) 600 Mg Tablet, 1200 MG PO QHS, #180 TAB 3 Refills Prov:DEYANIRA TRIPP MD 07/14/18 Pen Needle, Diabetic (Insulin Pen Needle) 31 Gauge X 1/6" Dis.needle, EACH , #100 Prov:XIOMARA NAVARRETE DO 11/25/17 Atorvastatin Calcium (ATORVASTATIN CALCIUM) 80 Mg Tablet, 0.5 TAB PO QDAY, #45 TAB 3 Refills Prov:DEYANIRA TRIPP MD 10/21/17 Ranitidine Hcl (RANITIDINE HCL) 300 Mg Tablet, 1 TAB PO QHS, #60 TAB 6 Refills Prov:XIOMARA FRANZ MD 10/05/17 Reported Medications Oxybutynin Chloride (DITROPAN XL) 15 Mg Tab.er.24, 15 MG PO HS for URGENCY for 30 Days, #30 TAB 1 Refill 05/26/18 Omeprazole (OMEPRAZOLE) 20 Mg Tablet.dr, 20 MG PO HS, TAB 05/23/18 Calcium Carb & Cit/Vitamin D3 (CALCIUM + D3 ER TABLET) 1 Each Tablet.er, 1 EACH PO QDAY 05/23/18 Multivitamin With Minerals (MULTIPLE VITAMIN) 1 Each Tablet, 1 EACH PO QDAY, TAB 05/23/18 Ferrous Sulfate, Dried (IRON) 159 Mg Tablet.er, 65 MG PO QDAY 05/23/18 Metformin Hcl (METFORMIN HCL) 500 Mg Tablet, 500 MG PO BID, TAB 05/12/18 Insulin Regular, Human (NOVOLIN R) 100 Unit/1 Ml Vial, 10 UNIT SQ TID, VIAL 05/12/18 Nph, Human Insulin Isophane (NOVOLIN N) 100 Unit/1 Ml Vial, 10 UNIT SQ BID, VIAL 05/12/18 Lisinopril (LISINOPRIL) 10 Mg Tablet, 10 MG PO HS, TAB 07/06/16 Discontinued Reported Medications Mirabegron (MYRBETRIQ) 50 Mg Tab.er.24h, 50 MG PO QDAY, #30 05/26/18 Docusate Sodium (COLACE) 100 Mg Capsule, 100 MG PO BID for STOOL SOFTENER, #30 CAPSULE 05/26/18 Sulfamethoxazole/Trimet 800-160 Mg Tab (BACTRIM DS TABLET) 1 Each Tablet, 1 TAB PO QDAY, #10 TAB 05/26/18 Hydrocodone Bit/Acetaminophen (NORCO 5-325 TABLET) 1 Each Tablet, 1 EACH PO Q6H PRN for PAIN, #30 TAB 05/26/18 Garlic (GARLIC) 1 Each Tablet, 1 EACH PO QDAY 05/23/18 Aspirin (ASPIRIN) 325 Mg Tablet, 1 TAB PO BID, TAB 11/24/17 Gabapentin (GABAPENTIN) 800 Mg Tablet, 1200 MG PO HS 07/06/16 Allergies: Coded Allergies: No Known Drug Allergies (Unverified , 07/16/18) Patient History: FH: heart disease MOTHER, , Age:62 FHx: diabetes mellitus MOTHER, , Age:62 Other Social/Family Hx The patient lives with her in [place]. She is disabled. Hx Smoking: Yes (1 PPD FOR 20 YRS) Smoking Status: Former Smoker Exposure to Second Hand Smoke?: No Caffeine Intake: Coffee Caffeine/Cups Per Day: 16 OZ A DAY Hx Alcohol Use: No Hx Substance Use Disorder: No Social Drug Use: Never Review of Systems All Systems Reviewed/Normal: Yes, Except as Noted Constitutional: No Fever, No Chills Neurological: Weakness Eyes: Vision Change (Retinopathy, bilateral cataracts.) Cardiovascular: No Chest Pain Respiratory: No Shortness of Breath, No Cough Gastrointestinal: Nausea, Vomiting, Diarrhea, Dysphagia (Hx of dysphagia due to esophageal stricture. Dilated.); No Hematemesis, No Hematochezia Genitourinary: Other (Appiah catheter in place.) Exam Vital Signs Vital Signs Date Time Temp Pulse Resp B/P (MAP) Pulse Ox O2 Delivery O2 Flow Rate FiO2 07/17/18 00:10 99 07/16/18 23:46 98.1 104 18 186/95 (125) Room Air 07/16/18 22:26 2.0 General Appearance: Alert, Awake, No Acute Distress, Afebrile Neuro: No Gross deficits Eyes: PERRLA Cardiovascular: Other (Tachy, regular.) Respiratory: Clear to Auscultation GI: Abd Soft and Non-Tender Lymph: Cervical Nodes Benign Extremities: Warm, Perfused, Other (No edema.) Integumentary: Skin Intact without Lesion / Mass Psych: Appropriate Mood & Affect Medical Decision Making Data Points Result Diagram: 07/16/18202107/16/182021 Item Value Date Time Calcium Level 10.0 mg/dl 07/16/182021 Total Bilirubin 0.3 mg/dl 07/16/182021 Aspartate Amino Transf (AST/SGOT) 14 U/L 07/16/182021 Alanine Aminotransferase (ALT/SGPT) 16 U/L 07/16/182021 Alkaline Phosphatase 161 U/L H 07/16/182021 Total Protein 7.7 g/dl 07/16/182021 Albumin 3.7 g/dl 07/16/182021 Amylase Level 47 U/L 07/16/182021 Lipase 57 U/L 07/16/182021 C-Reactive Protein 14.6 mg/dl H 07/16/182021 Troponin I < 0.012 ng/ml 07/16/182021 Lactate 2.4 mmol/L H 07/16/182021 Urine Color Yellow 07/16/182213 Urine Clarity Turbid 07/16/182213 Urine pH 6.0 pH 07/16/182213 Urine Specific [place] 1.010 07/16/182213 Urine Protein 100 mg/dL 07/16/182213 Urine Glucose (UA) Negative mg/dL 07/16/182213 Urine Ketones Negative mg/dL 07/16/182213 Urine Blood Large 07/16/182213 Urine Nitrite Negative 07/16/182213 Urine Bilirubin Negative 07/16/182213 Urine Urobilinogen Negative mg/dL 07/16/182213 Urine Leukocyte Esterase Moderate H 07/16/182213 Urine RBC 306 /HPF 07/16/182213 Urine WBC 3376 /HPF 07/16/184 Urine WBC Clumps Many /HPF 07/16/182213 Urine Squamous Epithelial Cells None /LPF 07/16/182213 Urine Bacteria Moderate /HPF H 07/16/182213 Urine Mucus None /HPF 07/16/182213 Urine culture pending. EKG / Imaging EKG Interpretation FACILITY: [facility] PATIENT NAME: KATARZYNA HARDY : [id number] MR: [id number] V: [id number] EXAM DATE: ORDERING PHYSICIAN: MEHRAN SOLORIO TECHNOLOGIST: Test Reason : epigastric pain Blood Pressure : / mmHG Vent. Rate : 116 BPM Atrial Rate : 116 BPM P-R Int : 122 ms QRS Dur : 072 ms QT Int : 330 ms P-R-T Axes : 073 078 064 degrees QTc Int : 458 ms Sinus tachycardia Otherwise normal ECG When compared with ECG of 26-MAY-2018 07:58, No significant change was found Referred By: LYNDSEY Confirmed By: 07 T: / Pre-Admit Course ED Medications Maalox, Zofran, NS, viscous lidocaine. Medical Record Review: Yes (Dr. Tripp's notes, past admissions on EMR.) Assessment and Plan Problems: (1) Urinary tract infection Status: Acute Assessment & Plan: Due to indwelling Appiah. Her most recent urine cultures have grown pansensitive E. coli. Will start Rocephin 1g IV daily. Urine culture pending. (2) Nausea vomiting and diarrhea Status: Acute Assessment & Plan: Will order stool studies. Will order antiemetics and hydrate. Will place on clear liquids. (3) High serum lactate Status: Acute Assessment & Plan: Will hold metformin. Likely related to dehydration. Repeat with am labs. (4) T2DM (type 2 diabetes mellitus) Status: Chronic Assessment & Plan: Hold metformin as her lactate is slightly elevated. Monitor glucoses AC/HS and place on SSI level 2. S/P laser treatment of retinopathy last Wednesday. (5) ANEMIA, UNSPECIFIED Status: Acute Assessment & Plan: She did have an iron study which showed a low iron of 36. She is now on iron supplements. (6) Acute renal failure (ARF) Status: Acute Assessment & Plan: Will hydrate and monitor BMP. (7) CKD (chronic kidney disease) Status: Chronic Assessment & Plan: Recent elevation of creatinine due to hydronephrosis. Followed by Dr. Love. Has seen Dr. Miranda in [place] as well. Appiah catheter in place (X 7 weeks). (8) Hypertension Status: Chronic Assessment & Plan: On lisinopril 10mg per day. Will hold due to ARF. Monitor BPs. (9) Hyperlipidemia Status: Chronic Assessment & Plan: On chronic atorvastatin 40mg daily. (10) Moderate dehydration Status: Acute (11) Hydronephrosis Status: Chronic Assessment & Plan: Appiah in place. Urology consultation in process. (12) History of CVA (cerebrovascular accident) Status: Chronic Assessment & Plan: On aspirin 325mg daily. (13) GERD (gastroesophageal reflux disease) Status: Chronic Assessment & Plan: She is quite symptomatic. Will place on IV pantoprazole and give Tums prn. She has history of esophageal stricture with resultant dysphagia and is s/p dilation x 2 in the past. Time Spent on Plan of Care: < 30 min Venous Thromboembolism Antithrombotics Is Pt On Any Antithrombotics?: No Prophylaxis Tx Contraindicated Pharmacological Contraindicati: Renal Impairment Exam Sepsis Risk: No Definite Risk Problem Qualifiers (1) GERD (gastroesophageal reflux disease): Esophagitis presence: with esophagitis Qualified Codes: K21.0 - Gastro- esophageal reflux disease with esophagitis SHAD MCKENNA MD Jul 17, 2018 01:51
[2018-07-17] MEDS: INSULIN HUM LISPRO 100 UN/ML 3 ML VIAL SUBQ PRN ×4 (02:48→20:36)
[2018-07-17 03:03] VITALS: BP 173/89
[2018-07-17 06:47] LABS: PLATELET COUNT, AUTOMATED 547 K/uL (150-450)
[2018-07-17] MEDS: NS(*) 0.9% 1000 ML BAG 1,000 ML IV PRN ×3 (07:21→22:27)
[2018-07-17] MEDS: RANITIDINE HCL 150 MG TAB PO SCH ×2 (09:08→20:36)
[2018-07-17] MEDS: PANTOPRAZOLE SOD 40 MG TABEC PO SCH (09:08)
[2018-07-17 10:33] VITALS: Ht 160 cm; Wt 79.8 kg
--- NOTE | 2018-07-17 10:49 | Medical Nutrition Therapy ---
Nutrition Anthropometrics Height (Inches): 63.00 Height (Calculated Centimeters: 160.254377 Weight (Pounds): 176 Weight (Calculated Kilograms): 79.832 Roman Nutrition Score: Adequate Roman Nutrition Risk Score: 19 Dietary Referral Nutrition Risk Factors: Nutrition Risk Comment: Physical Findings Physical Appearance: Obese BMI 30-39 Skin Appearance Skin Appearance: Edema Edema Location Modifier: Edema Location: Type of Edema: Degree of Edema: Gastrointestinal Symptoms GI Symtoms: Nausea, Vomiting, Heartburn Tube Present: Bowel Sounds: Recent Bowel Pattern: Stool Characteristics: Nutritional Diagnosis Nutritional Risk Acuity 1: Acute/ES Renal Past Medical History: HTN, DJD, hydronephritis, CVA, T2DM, esophageal stricutre, dysphagia Nutritional Acuity: 1-High Nutrition Diagnosis: Decreased Nutrient Needs Nutrition Etiology: Physiological Causes Nutrition Problem/Etiology/Sym: Decreased protein needs related to physiological causes as evidenced by BUN 40, creatinine 2.4 and medical diagnosis of ARF. Adjusted Energy Requirement Re: 1700 (1411-0231 (HB x 1.3-1.5)) Protein Requirement: 63 (47-63 (.6-.8 g/kg ARF)) Fluid Requirement: 1975 (25 ml/kg) Diet Type: Clear Liquids Nutrition Intervention: Encourage intake, Incr diet as tolerated Nutrition Monitoring & Eval RD Patient Assessment Time: [address] Assessment Type: RD Assessment Patient Nutrition Acuity: 1-High Follow Up Date: Jul 19, 2018 Nutritional Comment: 07/17 Pt admitted with severe N/V for previous few days and diarrhea for 2-3 weeks. Will be treated for UTI, ARF and GERD. PMHx of T2DM, HTN, CVA, anemia, dysphagia and CKD. Notable labs include low H/H, BUN 40, creatinine 2.4, glc ranging 201-224, Mg 1.6, alk phos 161 and 14.6. Currently on clear liquid diet with no intake recorded yet. Metformin currently on hold, pt recieving insulin. Will monitor clinical progress and diet progression once N/V have resolved. -JASON JALLOH Jul 17, 2018 10:49
[2018-07-17 12:09] VITALS: BP 190/90
[2018-07-17] MEDS ORDERED: ACET500T68 PO (12:09)
[2018-07-17 18:58] VITALS: BP 158/81
[2018-07-18] VITALS (11 sets, daily range): BP systolic 151–199; BP diastolic 75–103
[2018-07-18] MEDS: cefTRIAXone(*) 1 GM VIAL 1 GM in NS(*) 0.9% 100 ML ADDVANT BAG 100 ML IVPB SCH (00:22)
[2018-07-18] MEDS: NS(*) 0.9% 1000 ML BAG 1,000 ML IV PRN (05:13)
[2018-07-18] MEDS ORDERED: NS(*) 0.9% 1000 ML BAG 1,000 ML IV PRN (06:42)
[2018-07-18] MEDS: INSULIN HUM LISPRO 100 UN/ML 3 ML VIAL SUBQ PRN ×3 (09:42→21:42)
[2018-07-18] MEDS: RANITIDINE HCL 150 MG TAB PO SCH ×2 (09:42→21:41)
[2018-07-18] MEDS: PANTOPRAZOLE SOD 40 MG TABEC PO SCH (09:43)
--- NOTE | 2018-07-18 12:05 | Hospitalist Progress Note ---
Subjective Progress Notes Subjective She has no complaints this morning. She reports the diarrhea has resolved. Patient Complains of: Cardiovascular: No: Chest Pain Respiratory: No: Shortness of Breath Physical Exam Vital Signs Date Time Temp Pulse Resp B/P (MAP) Pulse Ox O2 Delivery O2 Flow Rate FiO2 07/18/18 07:00 98.7 89 16 151/75 (100) 90 Room Air 07/16/18 22:26 2.0 Intake and Output 07/18/18 07:00 Intake Total 4241 ml Output Total 675 ml Balance 3566 ml Intake Oral 1450 ml IV Total 2791 ml Output Urine Total 675 ml General Appearance: Alert, Awake, No Acute Distress, Afebrile Neuro: No Gross deficits Cardiovascular: Regular Rate and Rhythm Respiratory: No Respiratory Distress, Clear to Auscultation GI: Soft and Non-Tender Extremities: Warm, Perfused; No Edema Psych: Alert & Oriented X3, Appropriate Mood & Affect Result Diagram: 07/17/1863207/17/18632 Assessment and Plan Problems: (1) Urinary tract infection Status: Acute Assessment & Plan: Due to indwelling Appiah. Her most recent urine cultures have grown pansensitive E. coli. Will start Rocephin 1g IV daily. Urine culture growing Enterobacter Cloacae. Continue Rocephin. Will consider changing to Levaquin tomorrow after patient is tolerating po intake better. (2) Nausea vomiting and diarrhea Status: Acute Assessment & Plan: Will order stool studies. Will order antiemetics and hydrate. She was placed on clear liquids, she will be advanced today to regular diet as tolerated. (3) High serum lactate Status: Acute Assessment & Plan: Will hold metformin. Likely related to dehydration. Repeat with am labs. (4) T2DM (type 2 diabetes mellitus) Status: Chronic Assessment & Plan: Hold metformin as her lactate is slightly elevated. Monitor glucoses AC/HS and place on SSI level 2. S/P laser treatment of retinopathy last Wednesday. (5) ANEMIA, UNSPECIFIED Status: Acute Assessment & Plan: She did have an iron study which showed a low iron of 36. She is now on iron supplements. (6) Acute renal failure (ARF) Status: Acute Assessment & Plan: Will hydrate and monitor BMP. (7) CKD (chronic kidney disease) Status: Chronic Assessment & Plan: Recent elevation of creatinine due to hydronephrosis. Followed by Dr. Love. Has seen Dr. Miranda in [place] as well. Appiah catheter in place (X 7 weeks). (8) Hypertension Status: Chronic Assessment & Plan: On lisinopril 10mg per day. Will hold due to ARF. Blood pr essures have been elevated, will start patient on Metoprolol. (9) Hyperlipidemia Status: Chronic Assessment & Plan: On chronic atorvastatin 40mg daily. (10) Moderate dehydration Status: Acute (11) Hydronephrosis Status: Chronic Assessment & Plan: Appiah in place. Urology consultation in process. (12) History of CVA (cerebrovascular accident) Status: Chronic Assessment & Plan: On aspirin 325mg daily. (13) GERD (gastroesophageal reflux disease) Status: Chronic Assessment & Plan: She is quite symptomatic. Will place on IV pantoprazole and give Tums prn. She has history of esophageal stricture with resultant dysphagia and is s/p dilation x 2 in the past. Exam Sepsis Risk: No Definite Risk Problem Qualifiers (1) Urinary tract infection: Urinary tract infection type: acute cystitis Hematuria presence: without hematuria Qualified Codes: N30.00 - Acute cystitis without hematuria (2) GERD (gastroesophageal reflux disease): Esophagitis presence: with esophagitis Qualified Codes: K21.0 - Gastro- esophageal reflux disease with esophagitis SHILPA POPE Jul 18, 2018 12:05
--- NOTE | 2018-07-18 15:05 | Antimicrobial Stewardship ---
Antimicrobial Stewardship Empiricly appropriate: Yes (Ceftriaxone 1g IV daily---hx of pansensitive e coli) Significant PMH: Yes (DM, bilateral hydroureteronephrosis, indwelling cintron (7 weeks)) Support empiric regimen: Yes Comment Ceftriaxone started on 07/16/18-- today is day 3 of therapy Approriate Cultures done: Yes (Urine Culture growing- enterobacter cloacae >100,000 cfu- R to cefoxitin and cefazolin) Gram stain show Microbs: Yes Review the antibiotic sensitiv: Yes Renal/Hepatic dosing: Yes (CrCl ~24mL/min) IV to PO Opportunity: Yes Comment Transition to oral antibiotics 07/19/18 if appropriate: levofloxacin 250mg po daily x 5 days to complete a total of 7-10 days Determine cumulative duration: 07/18/18 - day 3 of antibiotics Determine standard duration: 7-10 days- indwelling cintron, bilateral hydroureteronephrosis Comment 63 yo F with a history of N/V/D x 3 weeks prior to admission with a history of DM, bilateral hydroureteronephrosis with frequent UTIs. Presented to the ED with N/V/D, wbc wnl, afebrile. UA consistent with UTI growing enterobacter cloacae, pt with indwelling cintron. Recommend treatment with ceftriaxone 1g IV daily, until patient has appropriate PO intake, transition to levofloxacin 250mg po daily (crcl ~24mL/min) to complete a total of 7-10 days. Neelam Rose, PharmD, OP NEELAM ROSE Jul 18, 2018 15:05
[2018-07-18] MEDS: ONDANSETRON 4 MG/2 ML VIAL IVP PRN ×2 (15:12→22:23)
[2018-07-18] MEDS: METOPROLOL TART 5 MG/5 ML VIAL IVP PRN ×2 (16:51→19:47)
[2018-07-18] MEDS: METOPROLOL TART 50 MG TAB PO SCH (19:49)
[2018-07-18] MEDS ORDERED: GABAPENTIN 300 MG CAP PO SCH (21:00)
[2018-07-18] MEDS ORDERED: METOPROLOL TART 50 MG TAB PO SCH (21:00)
[2018-07-18] MEDS ORDERED: LISINOPRIL 10 MG TAB PO SCH (21:00)
[2018-07-18] MEDS: INSULIN HUM ISO(NPH) 100 UN/ML 3 ML VIAL SUBQ SCH (22:41)
[2018-07-19] MEDS: cefTRIAXone(*) 1 GM VIAL 1 GM in NS(*) 0.9% 100 ML ADDVANT BAG 100 ML IVPB SCH (00:16)
[2018-07-19 05:23] VITALS: BP 166/94
[2018-07-19 07:42] VITALS: BP 172/99
[2018-07-19] MEDS: INSULIN HUM ISO(NPH) 100 UN/ML 3 ML VIAL SUBQ SCH (08:56)
[2018-07-19] MEDS ORDERED: amLODIPine BESYL(*) 5 MG TAB PO SCH (09:00)
[2018-07-19] MEDS ORDERED: ATORVASTATIN 40 MG TAB PO SCH (09:00)
[2018-07-19] MEDS: INSULIN HUM LISPRO 100 UN/ML 3 ML VIAL SUBQ PRN ×2 (09:07→12:48)
[2018-07-19] MEDS ORDERED: LEVOFLOXACIN 500 MG TAB PO ONE (09:20)
[2018-07-19] MEDS: RANITIDINE HCL 150 MG TAB PO SCH (09:52)
[2018-07-19] MEDS: METOPROLOL TART 50 MG TAB PO SCH (09:52)
[2018-07-19] MEDS: PANTOPRAZOLE SOD 40 MG TABEC PO SCH (09:54)
[2018-07-19] MEDS ORDERED: ONDA4TAB PO (10:21)
[2018-07-19] MEDS ORDERED: METO25TA93 PO (10:21)
[2018-07-19] MEDS ORDERED: LEVO-85 PO (10:21)
[2018-07-19] MEDS ORDERED: AMLO-111 PO (10:21)
--- NOTE | 2018-07-19 10:31 | Hospitalist Depart ---
Discharge Summary Reason for Hosp/Final Diag: (1) Urinary tract infection Status: Acute Hospital Course & Plan: Due to indwelling Appiah. Her most recent urine cultures have grown pansensitive E. coli. She was started on Rocephin 1g IV daily. Urine culture growing Enterobacter Cloacae. Continue Rocephin. She will be changed to Levaquin 250 mg daily for 5 days total. First dose given inpatient, she will continue Levaquin for four more days. (2) Nausea vomiting and diarrhea Status: Acute Hospital Course & Plan: She did have stool studies ordered, but were never collected secondary to improved diarrhea. She did receive antiemetics and was hydrated. She was placed on clear liquids, and advanced to regular diet as tolerated without difficulty. (3) High serum lactate Status: Acute Hospital Course & Plan: She was admitted with lactate elevated. Will hold metformin, her last three admissions show lactic acidosis. Likely related to dehydration at home. Recommend she stop Metformin at this time. Follow up with PCP. Continue insulin only at this time. (4) T2DM (type 2 diabetes mellitus) Status: Chronic Hospital Course & Plan: Hold metformin as her lactate was elevated. S/P laser treatment of retinopathy last Wednesday. (5) ANEMIA, UNSPECIFIED Status: Acute Hospital Course & Plan: She did have an iron study which showed a low iron of 36. She is now on iron supplements. (6) Acute renal failure (ARF) Status: Acute Hospital Course & Plan: Creatinine elevated upon admission at 2.9, decreased to 2.1 today. Renally dosed all medications. Stop Lisinopril secondary to poor kidney function. (7) CKD (chronic kidney disease) Status: Chronic Hospital Course & Plan: Recent elevation of creatinine due to hydronephrosis. Followed by Dr. Love. Has seen Dr. Miranda in [place] as well. Appiah catheter in place (X 7 weeks). (8) Hypertension Status: Chronic Hospital Course & Plan: On lisinopril 10mg per day. Will hold due to ARF. Blood pressures have been elevated, will start patient on Metoprolol and Amlodipine. She will follow up with PCP regarding BP's with new medications. (9) Hyperlipidemia Status: Chronic Hospital Course & Plan: On chronic atorvastatin 40mg daily. (10) Moderate dehydration Status: Acute (11) Hydronephrosis Status: Chronic Hospital Course & Plan: Appiah in place. Urology consultation completed by Dr. Love. (12) History of CVA (cerebrovascular accident) Status: Chronic Hospital Course & Plan: On aspirin 325mg daily. (13) GERD (gastroesophageal reflux disease) Status: Chronic Hospital Course & Plan: She is quite symptomatic. Will place on IV pantoprazole and give Tums prn. She has history of esophageal stricture with resultant dysphagia and is s/p dilation x 2 in the past. Departure Latest Vital Signs Vital Signs 07/19/18 05:23 Temp 98.7 Pulse 77 Resp 16 B/P (MAP) 166/94 (118) Pulse Ox 93 O2 Delivery Nasal Cannula O2 Flow Rate 1.0 Weight (Pounds): 176 Result Diagram: 07/17/18 0633 07/19/18 05 Condition: Improved Discharge: Home, Self Care Discharge Instructions Home Meds Active Scripts Ondansetron (ZOFRAN ODT) 4 Mg Tab.rapdis, 4 MG PO Q6H PRN for NAUSEA, #20 TAB.LORENA Prov:SHILPA POPE [facility] 07/19/18 Levofloxacin 500 Mg Tab (LEVAQUIN 500 MG TAB) 500 Mg Tablet, 250 MG PO DAILY, #2 TAB Prov:SHILPA POPE [facility] 07/19/18 Metoprolol Tartrate (METOPROLOL TARTRATE) 25 Mg Tablet, 12.5 MG PO BID, #60 TAB Prov:SHILPA POPE [facility] 07/19/18 Amlodipine Besylate (AMLODIPINE BESYLATE) 5 Mg Tablet, 5 MG PO QDAY, #30 TAB Prov:SHILPA POPE [facility] 07/19/18 Gabapentin (GABAPENTIN) 600 Mg Tablet, 1200 MG PO QHS, #180 TAB 3 Refills Prov:DEYANIRA TRIPP MD 07/14/18 Pen Needle, Diabetic (Insulin Pen Needle) 31 Gauge X 1/6" Dis.needle, EACH , #100 Prov:XIOMARA NAVARRETE DO 11/25/17 Atorvastatin Calcium (ATORVASTATIN CALCIUM) 80 Mg Tablet, 0.5 TAB PO QDAY, #45 TAB 3 Refills Prov:DEYANIRA TRIPP MD 10/21/17 Ranitidine Hcl (RANITIDINE HCL) 300 Mg Tablet, 1 TAB PO QHS, #60 TAB 6 Refills Prov:XIOMARA FRANZ MD 10/05/17 Reported Medications Acetaminophen (TYLENOL EXTRA STRENGTH) 500 Mg Tablet, 500 MG PO PRN for PAIN, TAB 07/17/18 Oxybutynin Chloride (DITROPAN XL) 15 Mg Tab.er.24, 15 MG PO HS for URGENCY for 30 Days, #30 TAB 1 Refill 05/26/18 Omeprazole (OMEPRAZOLE) 20 Mg Tablet.dr, 20 MG PO HS, TAB 05/23/18 Calcium Carb & Cit/Vitamin D3 (CALCIUM + D3 ER TABLET) 1 Each Tablet.er, 1 EACH PO QDAY 05/23/18 Multivitamin With Minerals (MULTIPLE VITAMIN) 1 Each Tablet, 1 EACH PO QDAY, TAB 05/23/18 Ferrous Sulfate, Dried (IRON) 159 Mg Tablet.er, 65 MG PO QDAY 05/23/18 Insulin Regular, Human (NOVOLIN R) 100 Unit/1 Ml Vial, 10 UNIT SQ TID, VIAL 05/12/18 Nph, Human Insulin Isophane (NOVOLIN N) 100 Unit/1 Ml Vial, 10 UNIT SQ BID, VIAL 05/12/18 Discontinued Reported Medications Metformin Hcl (METFORMIN HCL) 500 Mg Tablet, 500 MG PO BID, TAB 05/12/18 Lisinopril (LISINOPRIL) 10 Mg Tablet, 10 MG PO HS, TAB 07/06/16 Mirabegron (MYRBETRIQ) 50 Mg Tab.er.24h, 50 MG PO QDAY, #30 05/26/18 Docusate Sodium (COLACE) 100 Mg Capsule, 100 MG PO BID for STOOL SOFTENER, #30 CAPSULE 05/26/18 Sulfamethoxazole/Trimet 800-160 Mg Tab (BACTRIM DS TABLET) 1 Each Tablet, 1 TAB PO QDAY, #10 TAB 05/26/18 Hydrocodone Bit/Acetaminophen (NORCO 5-325 TABLET) 1 Each Tablet, 1 EACH PO Q6H PRN for PAIN, #30 TAB 05/26/18 Garlic (GARLIC) 1 Each Tablet, 1 EACH PO QDAY 05/23/18 Aspirin (ASPIRIN) 325 Mg Tablet, 1 TAB PO BID, TAB 11/24/17 Gabapentin (GABAPENTIN) 800 Mg Tablet, 1200 MG PO HS 07/06/16 Diet: Diabetic Activity: As Tolerated Special Instructions: Follow up with Dr. Tripp regarding Blood pressue and kidney function. Complete all antibiotics. Increase water intake. Follow up with Dr. Miranda as scheduled. Copies to: DEYANIRA TRIPP MD ; Venous Thromboembolism Antithrombotics Is Pt On Any Antithrombotics?: No Problem Qualifiers (1) Urinary tract infection: Urinary tract infection type: acute cystitis Hematuria presence: without hematuria Qualified Codes: N30.00 - Acute cystitis without hematuria (2) GERD (gastroesophageal reflux disease): Esophagitis presence: with esophagitis Qualified Codes: K21.0 - Gastro- esophageal reflux disease with esophagitis SHILPA POPEP Jul 19, 2018 10:31
== END 2018-07-19 13:18 | disposition home or self-care (01) | DRG 690 ==
LOC: ER 19:46 → MED 23:03
PROVIDERS: ADMIT Internal Medicine; ATTEND Internal Medicine
DX: N30.00 Acute cystitis without hematuria (principal); N17.9 Acute kidney failure, unspecified; N13.30 Unspecified hydronephrosis; K21.0 Gastro-esophageal reflux disease with esophagitis; B96.89 Other specified bacterial agents as the cause of diseases classified elsewhere; E11.22 Type 2 diabetes mellitus with diabetic chronic kidney disease; I12.9 Hypertensive chronic kidney disease with stage 1 through stage 4 chronic kidney disease, or unspecified chronic kidney disease; N18.1 Chronic kidney disease, stage 1; E11.319 Type 2 diabetes mellitus with unspecified diabetic retinopathy without macular edema; E78.5 Hyperlipidemia, unspecified; E86.0 Dehydration; R13.10 Dysphagia, unspecified; K22.2 Esophageal obstruction; M50.30 Other cervical disc degeneration, unspecified cervical region; R91.1 Solitary pulmonary nodule; D64.9 Anemia, unspecified; E04.1 Nontoxic single thyroid nodule; Z79.84 Long term (current) use of oral hypoglycemic drugs; Z79.4 Long term (current) use of insulin; Z86.73 Personal history of transient ischemic attack (TIA), and cerebral infarction without residual deficits; Z87.891 Personal history of nicotine dependence
CPT/HCPCS: 36415; 36416; 81001; 82040; 82150; 82247; 82310; 82374; 82435; 82565; 82947; 82948; 83605; 83690; 83735; 84075; 84132; 84155; 84295; 84450; 84460; 84484; 84520; 85025; 86140; 87077; 87088; 87186; 93005; 96361; 96374; 96375; 99284; C9113; J0696; J2405; J2550; J3010; J3490; J7030; J7050

== ENCOUNTER 2018-08-11 18:04 | Inpatient (IN) | payer MEDICARE ==
[~2018-08-11] VITALS: Ht 160 cm; Wt 85.7 kg
[~2018-08-11 18:04] MED LIST changes: -BENZ100C4 PO; -OMEP40CA48 PO; -RANI-366 PO
[2018-08-11] MEDS ORDERED: NS(*) 0.9% 1000 ML BAG 1,000 ML IV ONE ×3 (18:15→20:00)
--- NOTE | 2018-08-11 18:45 | ER Report ---
History and Physical Time Seen By : 18:16 Hx. of Stated Complaint: HERE FOR IV FLUIDS DUE TO DEHYDRATION HPI/ROS CHIEF COMPLAINT: Dehydration, hypercalcemia HISTORY OF PRESENT ILLNESS: 63-year-old female sent over from Dr Tripp's office for IV fluid hydration. Patient be when his been steadily rising. Patient was admitted back July 16 to the with dehydration and hypercalcemia. At that time she was noted of urinary tract infection. She has chronic bladder. All obstruction problems and is referred to [facility] for evaluation and conversion of her ureters. As a previous surgery noted by Dr. Meadows a month ago where he notes she has a contracted bladder. REVIEW OF SYSTEMS: Respiratory: No cough, no dyspnea. Cardiovascular: No chest pain, no palpitations. Gastrointestinal: No vomiting, no abdominal pain. Musculoskeletal: No back pain. Allergies: Coded Allergies: No Known Drug Allergies (Unverified , 08/11/18) Home Meds Active Scripts Metoprolol Tartrate (METOPROLOL TARTRATE) 25 Mg Tablet, 1 TAB PO BID, #60 TAB Prov:DEYANIRA TRIPP MD 08/11/18 Amlodipine Besylate (AMLODIPINE BESYLATE) 5 Mg Tablet, 5 MG PO QDAY, #30 TAB Prov:SHILPA POPEP 07/19/18 Gabapentin (GABAPENTIN) 600 Mg Tablet, 1200 MG PO QHS, #180 TAB 3 Refills Prov:DEYANIRA TRIPP MD 07/14/18 Pen Needle, Diabetic (Insulin Pen Needle) 31 Gauge X 1/6" Dis.needle, EACH , #100 Prov:XIOMARA NAVARRETE DO 11/25/17 Reported Medications Multivitamin With Minerals (MULTIPLE VITAMIN) 1 Each Tablet, 1 EACH PO QDAY, TAB 08/12/18 Aspirin (ASPIRIN) 325 Mg Tablet, 325 MG PO Q4-6H PRN for pain, TAB 08/12/18 Acetaminophen (TYLENOL EXTRA STRENGTH) 500 Mg Tablet, 500 MG PO PRN for PAIN, TAB 07/17/18 Oxybutynin Chloride (DITROPAN XL) 15 Mg Tab.er.24, 15 MG PO HS for URGENCY for 30 Days, #30 TAB 1 Refill 05/26/18 Ferrous Sulfate, Dried (IRON) 159 Mg Tablet.er, 65 MG PO QDAY 05/23/18 Insulin Regular, Human (NOVOLIN R) 100 Unit/1 Ml Vial, 10 UNIT SQ TID, VIAL 05/12/18 Nph, Human Insulin Isophane (NOVOLIN N) 100 Unit/1 Ml Vial, 10 UNIT SQ BID, VIAL 05/12/18 Discontinued Reported Medications Omeprazole (OMEPRAZOLE) 20 Mg Tablet.dr, 20 MG PO HS, TAB 05/23/18 Calcium Carb & Cit/Vitamin D3 (CALCIUM + D3 ER TABLET) 1 Each Tablet.er, 1 EACH PO QDAY 05/23/18 Discontinued Scripts Levofloxacin 500 Mg Tab (LEVAQUIN 500 MG TAB) 500 Mg Tablet, 250 MG PO DAILY, #2 TAB Prov:DEYANIRA TRIPP MD 08/11/18 Ondansetron (ZOFRAN ODT) 4 Mg Tab.rapdis, 4 MG PO Q6H PRN for NAUSEA, #20 TAB.SO L Prov:SHILPA POPE [employer] 07/19/18 Ranitidine Hcl (RANITIDINE HCL) 300 Mg Tablet, 1 TAB PO QHS, #60 TAB 6 Refills Prov:XIOMARA FRANZ MD 10/05/17 Past Medical/Surgical History PAST MEDICAL HISTORY 1. Hypercholesterolemia. 2. Hypertension. 3. Gastroesophageal reflux disease with esophageal stricture and erosive esophagitis. 4. Osteoporosis. 5. Degenerative joint disease. 6. Low back pain with spondylitic changes of L3-L4 and L4-L5 with bilateral lower extremity weakness diagnosed by MRI in October 2014. 7. Diabetes diagnosed after an episode of DKA in July 2014. 8. Possible old right lacunar infarct noted on a CT scan done for mental status changes in 2013 at her hospitalization for DKA presentation. 9. 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 10. Heart palpitations with ventricular ectopy diagnosed by Holter monitor. 11. Stable pulmonary nodules, right lower lobe. 12. Renal insufficiency as per HPI. 13. Anemia. 14. Urinary tract infections and incontinence as per HPI. PAST SURGICAL HISTORY 1. Tonsillectomy 1958. 2. Toe surgery 1982. 3. Tubal ligation 1993. 4. EGD with dilation August 2014 for distal esophageal stricture. 5. Cystoscopy with biopsy June 2016. 6. EGD with dilation and biopsy August 2017. Hx Smoking: Yes (1 PPD FOR 20 YRS) Smoking Status: Former Smoker Exposure to Second Hand Smoke?: No Hx Substance Use Disorder: No Hx Alcohol Use: No Constitutional Vital Sign - Last 24 Hours 08/11/18 08/11/18 08/11/18 08/11/18 18:04 18:16 18:16 18:19 Temp 98.1 Pulse ??? 84 86 Resp 20 B/P (MAP) 144/85 (104) 144/85 Pulse Ox 98 96 O2 Delivery Room Air 08/11/18 08/11/18 08/11/18 08/11/18 18:30 18:34 18:49 19:00 Pulse 78 79 B/P (MAP) 150/77 (101) 151/77 (101) Pulse Ox 98 97 08/11/18 08/11/18 08/11/18 08/11/18 19:04 19:19 19:30 19:34 Pulse 76 78 77 B/P (MAP) 147/72 (97) Pulse Ox 97 97 95 08/11/18 08/11/18 08/11/18 08/11/18 19:49 20:00 20:05 20:20 Pulse 78 76 87 B/P (MAP) 147/67 (93) Pulse Ox 96 95 98 08/11/18 08/11/18 08/11/18 08/11/18 20:30 20:35 20:50 21:00 Pulse 81 86 B/P (MAP) 154/74 (100) 156/67 (96) Pulse Ox 95 97 08/11/18 08/11/18 08/11/18 08/11/18 21:05 21:14 21:20 21:30 Temp 98.5 Pulse 90 85 Resp 21 B/P (MAP) 153/68 (96) Pulse Ox 99 94 08/11/18 08/11/18 08/11/18 08/11/18 21:35 21:50 22:00 22:05 Pulse 84 85 87 Resp 19 17 30 B/P (MAP) 166/81 (109) Pulse Ox 92 94 94 08/11/18 08/11/18 08/11/18 08/11/18 22:20 22:30 22:35 22:50 Pulse 82 88 86 Resp 21 30 24 B/P (MAP) 170/86 (114) Pulse Ox 93 94 94 08/11/18 08/11/18 08/11/18 08/11/18 23:00 23:05 23:20 23:30 Pulse 88 86 Resp 18 31 B/P (MAP) 168/79 (108) 161/79 (106) Pulse Ox 99 95 08/11/18 08/11/18 08/12/18 08/12/18 23:35 23:50 00:00 00:05 Pulse 87 87 85 Resp 13 13 20 B/P (MAP) 164/78 (106) Pulse Ox 92 94 90 08/12/18 08/12/18 08/12/18 08/12/18 00:10 00:30 00:40 00:55 Pulse 88 88 89 Resp 15 18 33 B/P (MAP) 180/131 (147) Pulse Ox 92 92 96 08/12/18 08/12/18 01:00 01:10 Pulse 88 Resp 23 B/P (MAP) 175/95 (121) Pulse Ox 95 Physical Exam Vital signs stable, afebrile, pulse ox normal General Appearance: The patient is alert, has no immediate need for airway protection and no current signs of toxicity. Slight pale appearing, skin warm and dry HEENT: Pupils equal and round no injection. TMs normal, oropharynx without redness or exudate, mucous. Membranes are moist Respiratory: Chest is non tender, lungs are clear to auscultation. Cardiac: regular rate and rhythm Gastrointestinal: Abdomen is soft and non tender, no masses, bowel sounds n ormal. Musculoskeletal: Neck: Neck is supple and non tender. Extremities have full range of motion and are non tender. Skin: No rashes or lesions. DIFFERENTIAL DIAGNOSIS: After history and physical exam differential diagnosis was considered for weakness including but not limited to electrolyte abn ormality, depression, anxiety, CVA, spinal cord abnormality, dehydration and infectious causes. Medical Decision Making Data Points Result Diagram: 08/12/18 0534 08/12/18 1356 Laboratory Hematology Test 08/11/18 21:54 08/12/18 00:00 Peripheral Blood Smear Y/N Urine Random Creatinine 47.2 mg/dl Urine Random Sodium 49 MEQ/L Chemistry Test 08/11/18 21:54 08/12/18 00:00 Peripheral Blood Smear Y/N Urine Random Creatinine 47.2 mg/dl Urine Random Sodium 49 MEQ/L Urinalysis Test 08/12/18 00:00 Urine Random Creatinine 47.2 mg/dl Urine Random Sodium 49 MEQ/L EKG/Imaging Imaging Results: Ultrasound of the renal ultrasound was obtained. The results of the study are EXAMINATION: COMPLETE RENAL ULTRASOUND DATE: 08/11/2018 11:22 PM INDICATION: History of bowel obstruction, no acute renal failure TECHNIQUE: Grayscale, color and pulsed Doppler ultrasound images of the kidneys were obtained. COMPARISON: 07/05/2018. FINDINGS: The right kidney measures 11.6 x 5.0 x 5.1 cm comment the left kidney measures 11.9 x 5.7 x 5.5 cm. Both kidneys demonstrate grossly normal morphology and parenchymal echogenicity. The parenchymal thickness appears appropriate. There is no definite focal lesion. Moderate hydronephrosis and hydroureter. Arterial resistive indices at the kidneys are normal on the right at 0.65 end borderline elevated on the left at 0.71 The urinary bladder is decompressed by a Appiah catheter. Imaged IVC and aorta are patent. IMPRESSION: Moderate bilateral hydronephrosis similar in appearance to prior. The study was read by the radiologist. I viewed the images myself on the PACS system. ED Course/Re-evaluation ED Course Patient was admitted to an examination room. H&P was done. The differential diagnoses was considered. On clinical examination. Patient without findings. It was admitted to the ER. Sent over by her primary care physician. She was aggressively hydrated with 3 L over 4 hours. Repeat diagnostic laboratory studies were performed. Some improvement of her chronic renal failure. Her case was discussed with hospitalist, Dr. Huertas for consideration of admission and continued hydration. He requested a renal ultrasound be performed to see if she had outlet obstruction. 08/11/2018 10:55:41 pm case discussed with Dr. Chase Odonnell hospitalist on- call, who will evaluate the patient and consider admission for continued IV hydration of her chronic renal failure. Decision to Disposition Date: Aug 11, 2018 Decision to Disposition Time: 23:05 Depart Departure Latest Vital Signs Vital Signs Date Time Temp Pulse Resp B/P (MAP) Pulse Ox O2 Delivery O2 Flow Rate FiO2 08/12/18 01:10 88 23 95 08/12/18 01:00 175/95 (121) 08/11/18 21:14 98.5 08/11/18 18:16 Room Air Impression: Primary Impression: Acute renal failure (ARF) Additional Impression: Bilateral ureteral obstruction Condition: Improved Disposition: Admitted from ER Referrals: DEYANIRA TRIPP MD (PCP) Problem Qualifiers Primary Impression: Acute renal failure (ARF) Acute renal failure type: unspecified Qualified Codes: N17.9 - Acute ki dney failure, unspecified MEHRAN SOLORIO DO Aug 11, 2018 18:45
[2018-08-11 22:01] LABS: PLATELET COUNT, AUTOMATED 323 K/uL (150-450)
[2018-08-12] VITALS (7 sets, daily range): BP systolic 141–181; BP diastolic 73–98; Ht 160 cm; Wt 85.7 kg
--- NOTE | 2018-08-12 00:57 | RADIOLOGY IMAGING REPORT ---
FACILITY: [facility] - [place] PATIENT NAME: Sahra Chavis : 1955 MR: [id number] V: [id number] EXAM DATE: ORDERING PHYSICIAN: MEHRAN SOLORIO TECHNOLOGIST: Location: [facility] [place] Patient: Sahra Chavis : 1955 Visit/Account:[id number] Date of Sevice: 08/11/2018 EXAMINATION: COMPLETE RENAL ULTRASOUND DATE: 08/11/2018 11:22 PM INDICATION: History of bowel obstruction, no acute renal failure TECHNIQUE: Grayscale, color and pulsed Doppler ultrasound images of the kidneys were obtained. COMPARISON: 07/05/2018. FINDINGS: The right kidney measures 11.6 x 5.0 x 5.1 cm comment the left kidney measures 11.9 x 5.7 x 5.5 cm. Both kidneys demonstrate grossly normal morphology and parenchymal echogenicity. The parenchymal thic kness appears appropriate. There is no definite focal lesion. Moderate hydronephrosis and hydrourete r. Arterial resistive indices at the kidneys are normal on the right at 0.65 end borderline elevated on the left at 0.71 The urinary bladder is decompressed by a App[place] catheter. Imaged IVC and aorta are patent. IMPRESSION: Moderate bilateral hydronephrosis similar in appearance to prior. Report Dictated By: Js Orr MD at 08/12/2018 12:48 AM Report E-Signed By: Js Orr MD at 08/12/2018 12:53 AM WSN:[id number]
[2018-08-12] MEDS ORDERED: INFLUENZA VIRUS VAC 0.5ML SYR IM ONLY ONE (01:10)
[2018-08-12] MEDS ORDERED: ACETAMINOPHEN 500 MG TAB PO PRN (01:10)
--- NOTE | 2018-08-12 01:41 | History & Physical ---
History of Present Illness History of Present Illness 63yo female with a bilateral hydronephrosis/contracted bladder with an indwelling Appiah, ckd who was sent to the ER for ARF and hypercalcemia. The patient is followed by ANTHONY at [facility] and is getting more detailed studies done at the end of August to evaluate hydronephrosis and a contracted bladder. She has a Appiah catheter to try to decompress the kidneys, but continues to have hydronephrosis. She was in the hospital on 07/16 for elevated creatinine thought to be related to dehydration from diarrhea. She was hydrated and treated for a UTI. Her creatinine improved but didn't return to baseline. Repeat BMP on 08/10 showed a worsening creatinine and elevated calcium. The patient denies constipation, confusion, decreased UOP. She feels fine. She was seen today in clinic and her creatinine had worsened again, so was sent to the ER. In the ER, she received 3 liters of crystalloid. History Problems: (1) ALEXANDRO (acute kidney injury) (2) Hyperlipidemia Status: Chronic (3) GERD (gastroesophageal reflux disease) Status: Chronic (4) Diabetic retinopathy Status: Chronic (5) CKD (chronic kidney disease) Status: Chronic (6) Hydronephrosis Status: Chronic (7) History of CVA (cerebrovascular accident) Status: Chronic (8) Hypertension Status: Chronic (9) ANEMIA, UNSPECIFIED Status: Acute (10) History of tubal ligation (11) Hx of cystoscopy (12) Hx of tonsillectomy Home Meds Active Scripts Metoprolol Tartrate (METOPROLOL TARTRATE) 25 Mg Tablet, 1 TAB PO BID, #60 TAB Prov:DEYANIRA YOUNG MD 08/11/18 Levofloxacin 500 Mg Tab (LEVAQUIN 500 MG TAB) 500 Mg Tablet, 250 MG PO DAILY, #2 TAB Prov:DEYANIRA YOUNG MD 08/11/18 Amlodipine Besylate (AMLODIPINE BESYLATE) 5 Mg Tablet, 5 MG PO QDAY, #30 TAB Prov:SHILPA POPE 07/19/18 Gabapentin (GABAPENTIN) 600 Mg Tablet, 1200 MG PO QHS, #180 TAB 3 Refills Prov:DEYANIRA YOUNG MD 07/14/18 Pen Needle, Diabetic (Insulin Pen Needle) 31 Gauge X 1/6" Dis.needle, [facility], #100 Prov:XIOMARA NAVARRETE DO 11/25/17 Atorvastatin Calcium (ATORVASTATIN CALCIUM) 80 Mg Tablet, 0.5 TAB PO QDAY, #45 TAB 3 Refills Prov:DEYANIRA YOUNG MD 10/21/17 Reported Medications Acetaminophen (TYLENOL EXTRA STRENGTH) 500 Mg Tablet, 500 MG PO PRN for PAIN, TAB 07/17/18 Oxybutynin Chloride (DITROPAN XL) 15 Mg Tab.er.24, 15 MG PO HS for URGENCY for 30 Days, #30 TAB 1 Refill 05/26/18 Ferrous Sulfate, Dried (IRON) 159 Mg Tablet.er, 65 MG PO QDAY 05/23/18 Insulin Regular, Human (NOVOLIN R) 100 Unit/1 Ml Vial, 10 UNIT SQ TID, VIAL 05/12/18 Nph, Human Insulin Isophane (NOVOLIN N) 100 Unit/1 Ml Vial, 10 UNIT SQ BID, VIAL 05/12/18 Discontinued Reported Medications Omeprazole (OMEPRAZOLE) 20 Mg Tablet.dr, 20 MG PO HS, TAB 05/23/18 Calcium Carb & Cit/Vitamin D3 (CALCIUM + D3 ER TABLET) 1 Each Tablet.er, 1 EACH PO QDAY 05/23/18 Multivitamin With Minerals (MULTIPLE VITAMIN) 1 Each Tablet, 1 EACH PO QDAY, TAB 05/23/18 Discontinued Scripts Ondansetron (ZOFRAN ODT) 4 Mg Tab.rapdis, 4 MG PO Q6H PRN for NAUSEA, #20 TAB.LORENA Prov:SHILPA POPE [employer]EL[employer] 07/19/18 Ranitidine Hcl (RANITIDINE HCL) 300 Mg Tablet, 1 TAB PO QHS, #60 TAB 6 Refills Prov:XIOMARA FRANZ MD 10/05/17 Allergies: Coded Allergies: No Known Drug Allergies (Unverified , 08/11/18) Patient History: FH: heart disease MOTHER, , Age:62 FHx: diabetes mellitus MOTHER, , Age:62 Hx Smoking: Yes (1 PPD FOR 20 YRS) Smoking Status: Former Smoker Exposure to Second Hand Smoke?: No Caffeine Intake: Coffee Caffeine/Cups Per Day: 16 OZ A DAY Hx Alcohol Use: No Hx Substance Use Disorder: No Social Drug Use: Never Review of Systems All Systems Reviewed/Normal: Yes, Except as Noted Exam Vital Signs Vital Signs Date Time Temp Pulse Resp B/P (MAP) Pulse Ox O2 Delivery O2 Flow Rate FiO2 08/11/18 22:00 166/81 (109) 08/11/18 21:50 85 17 94 08/11/18 21:14 98.5 08/11/18 18:16 Room Air General Appearance: Alert, Awake, No Acute Distress Neuro: No Gross deficits Eyes: PERRLA ENT: Moist Mucous Membranes Cardiovascular: Regular Rate and Rhythm Respiratory: Clear to Auscultation GI: Abd Soft and Non-Tender (Umbilical hernia that is about 4cm in diameter. soft and nontender) Extremities: No Edema Integumentary: No Jaundice, No Cyanosis Medical Decision Making Data Points Result Diagram: 08/11/18215308/11/182153 Item Value Date Time Calcium Level 11.4 mg/dl H 08/11/182153 Magnesium Level 1.6 mg/dl L 08/11/182153 Total Bilirubin 0.2 mg/dl 08/11/182153 Aspartate Amino Transf (AST/SGOT) 9 U/L 08/11/182153 Alanine Aminotransferase (ALT/SGPT) 15 U/L 08/11/182153 Alkaline Phosphatase 87 U/L 08/11/182153 Blood Urea Nitrogen 56 mg/dl H 08/11/182153 Creatinine 3.10 mg/dl H 08/11/182153 Neutrophils (%) (Auto) 62.6 % 08/11/182153 Lymphocytes (%) (Auto) 26.6 % 08/11/182153 Monocytes (%) (Auto) 6.7 % 08/11/182153 Eosinophils (%) (Auto) 3.8 % 08/11/182153 Basophils (%) (Auto) 0.3 % 08/11/182153 Nucleated RBC Relative Count (auto) 0.0 /100WBC 08/11/182153 Hemoglobin 10.2 g/dL L 08/11/182153 Hemoglobin 10.9 g/dL L 08/10/181714 Hemoglobin 9.8 g/dL L 07/17/18 0633 Hemoglobin 10.6 g/dL L 07/16/18 2022 Blood Urea Nitrogen 62 mg/dl H 08/11/18 1704 Creatinine 3.50 mg/dl H 08/11/18 1704 Blood Urea Nitrogen 61 H 08/10/18 1710 Creatinine 3.23 mg/dl H 08/10/18 1710 Blood Urea Nitrogen 20 mg/dl H 07/19/18 0530 Creatinine 2.10 mg/dl H 07/19/18 0530 Calcium Level 8.4 mg/dl 07/19/18 0530 Calcium Level 12.4 mg/dl H 08/10/18 1710 Iron Level 78 mcg/dl 08/10/18 1710 Total Iron Binding Capacity 282 ug/dl 08/10/18 1710 Unsaturated Iron Binding Capacity 204 ug/dl 08/10/18 1710 Ferritin 57 ng/mL 08/10/18 1710 C-Reactive Protein 2.9 mg/dl H 08/11/18 1704 EKG / Imaging EKG Interpretation Vent. Rate : 074 BPM Atrial Rate : 074 BPM P-R Int : 136 ms QRS Dur : 084 ms QT Int : 370 ms P-R-T Axes : 000 076 042 degrees QTc Int : 410 ms Normal sinus rhythm Normal ECG Compared to previous The rate is down 42 beats per minute P wave morphology has changed suggesting another atrial focus Confirmed by JARAD JAIN ([id number]) on 08/11/2018 6:42:29 PM Imaging Renal US - Moderate bilateral hydronephrosis similar in appearance to prior. Assessment and Plan Problems: (1) Acute renal failure (ARF) Status: Acute Assessment & Plan: Progressively worsening over the last couple of months. She has known bilateral hydronephrosis that appears unchanged from 07/05. She reports adequate oral intake and adequate UOP. She denies diarrhea/n/v. She now has an elevated calcium. She was hydrated with 3 liters of NS in the ER, which lowered the creatinine from 3.5 to 3.1. Will saline lock and recheck creatinine in the morning. SPEP studies and PTH testing was done on 08/11, so is pending. (2) Hypercalcemia Status: Acute Assessment & Plan: New since 07/19. SPEP studies and PTH pending. Calcium improved with hydration, but still elevated. Will follow. (3) Hydronephrosis Status: Chronic Assessment & Plan: She has recently been found to have bilateral hydronephrosis with contracted bladder. A Appiah catheter was placed and she was referred to Dr. Miranda in [place] for consideration of stent placement or surgical repair. She is to see him, again, at the end of August. (4) T2DM (type 2 diabetes mellitus) Status: Chronic Assessment & Plan: Continue chronic NPH and will follow glucose AC and HS with SSI to cover. She was on metformin, but was stopped secondary to lactic acidosis. Need to watch glucose closely with renal dysfunction and insulin use. (5) Hypertension Status: Chronic Assessment & Plan: Continue chronic amlodipine and metoprolol with parameters. (6) History of CVA (cerebrovascular accident) Status: Chronic Assessment & Plan: Chronically on atorvastatin, which will be held for now. She is not on ASA by our records. (7) CKD (chronic kidney disease) Status: Chronic Copies to: DEYANIRA YOUNG MD ; Venous Thromboembolism Antithrombotics Is Pt On Any Antithrombotics?: No Exam Sepsis Risk: No Definite Risk Problem Qualifiers (1) CKD (chronic kidney disease): Chronic kidney disease stage: stage 3 (moderate) Qualified Codes: N18.3 - Chronic kidney disease, stage 3 (moderate) JARAD JAIN MD Aug 12, 2018 01:41
[2018-08-12] MEDS ORDERED: METOPROLOL SUCC XL 25 MG TABCR PO ONE (02:20)
[2018-08-12] MEDS: METOPROLOL TART 50 MG TAB PO SCH ×2 (02:58→21:22)
[2018-08-12] MEDS: FAMOTIDINE 20 MG TAB PO SCH (04:12)
[2018-08-12] MEDS ORDERED: PROMETHAZINE 25 MG/ML 1 ML AMP IVP PRN (05:25)
[2018-08-12 05:43] LABS: PLATELET COUNT, AUTOMATED 373 K/uL (150-450)
[2018-08-12] MEDS: INSULIN HUM ISO(NPH) 100 UN/ML 3 ML VIAL SUBQ SCH ×2 (07:57→17:34)
[2018-08-12] MEDS: amLODIPine BESYL(*) 5 MG TAB PO SCH (08:15)
[2018-08-12] MEDS: INSULIN HUM LISPRO 100 UN/ML 3 ML VIAL SUBQ PRN ×2 (08:17→08:22)
[2018-08-12] MEDS ORDERED: ASPI-757 PO (10:57)
[2018-08-12] MEDS ORDERED: MULT-1335 PO (11:03)
[2018-08-12] MEDS ORDERED: INSULIN ASPART 100 UN/ML VIAL SUBQ SCH (11:30)
[2018-08-12] MEDS: INSULIN ASPART 100 U/ML 3 ML PEN SUBQ SCH ×2 (12:18→17:32)
--- NOTE | 2018-08-12 12:18 | Medical Nutrition Therapy ---
Nutrition Anthropometrics Height (Inches): 63.00 Height (Calculated Centimeters: 160.379483 Weight (Pounds): 189 Weight (Calculated Kilograms): 85.729 BMI: 33.5 Roman Nutrition Score: Adequate Roman Nutrition Risk Score: 17 Dietary Referral Nutrition Risk Factors: Nutrition Risk Comment: Physical Findings Physical Appearance: Obese BMI 30-39 Skin Appearance Skin Appearance: Edema Edema Location Modifier: Both Edema Location: Lower Extremity Type of Edema: Degree of Edema: Gastrointestinal Symptoms GI Symtoms: Tube Present: Bowel Sounds: Recent Bowel Pattern: Stool Characteristics: Nutritional Diagnosis Nutritional Risk Acuity 1: Acute/ES Renal Nutritional Risk Acuity 3: Nausea Past Medical History: Hx of T2DM, HTN, CVA, CKD, GERD Nutritional Acuity: 1-High Nutrition Diagnosis: Over-weight/Obesity Nutrition Etiology: Physiological Causes Nutrition Problem/Etiology/Sym: Over-weight/obesity r/t physiological causes AEB BMI 33.5, T2DM, ARF Energy Requirement: 1390 ([place] adjusted for obesity *1.1) Protein Requirement: 68 (.08g/kg) Fluid Requirement: 2500 (30ml/kg) Diet Type: Diet as Tolerated IVETTE/REG Nutrition Intervention: Encourage intake, Change diet, Check glucose Nutritional Needs Comment: Recommend Diabetic Diet Nutrition Monitoring & Eval Nutrition Goals: Eat 75-100% Meal, Drink > 1500 cc/day RD Patient Assessment Time: [address] Assessment Type: RD Assessment Patient Nutrition Acuity: 1-High Follow Up Date: Aug 15, 2018 Nutritional Comment: 08/11 Pt admitted with ARF and Hypercalcemia. Hx of T2DM, HTN, CVA, CKD, GERD. Pt on IVETTE, recommend Diabetic diet with BG 160-230. Pt Class 1 Obesity with BMI of 33.5. Pt calcium at 12, BUN 56, Creatinine 3.2. Pt reported adequate intake and denies n/v/d, constipation. Pt high risk at this point with ARF. Will follow. GATO MANUEL Aug 12, 2018 09:01
--- NOTE | 2018-08-12 13:12 | Medical Nutrition Therapy ---
Nutritional Education Nutrition Education Topic: Diabetic Nutrition Learning Readiness: Not Interested, Not Ready Response to Teaching: Patient Refused Nutrition Counselin/16 Pt is not interested in Diabetic education and speaking with RD at this time. GATO MANUEL Aug 12, 2018 13:12
[2018-08-12] MEDS: NS(*) 0.9% 1000 ML BAG 1,000 ML IV PRN (15:19)
[2018-08-12] MEDS: GABAPENTIN 300 MG CAP PO SCH (21:22)
[2018-08-13] MEDS: NS(*) 0.9% 1000 ML BAG 1,000 ML IV PRN ×2 (03:06→22:11)
[2018-08-13 04:00] VITALS: BP 155/77
[2018-08-13] MEDS: INSULIN ASPART 100 U/ML 3 ML PEN SUBQ SCH ×3 (07:30→17:28)
[2018-08-13 07:55] VITALS: BP 134/74
[2018-08-13] MEDS: INSULIN HUM ISO(NPH) 100 UN/ML 3 ML VIAL SUBQ SCH ×2 (08:40→17:30)
[2018-08-13] MEDS: FAMOTIDINE 20 MG TAB PO SCH (08:41)
[2018-08-13] MEDS: METOPROLOL TART 50 MG TAB PO SCH ×2 (08:41→20:46)
[2018-08-13] MEDS: amLODIPine BESYL(*) 5 MG TAB PO SCH (09:00)
[2018-08-13 11:28] VITALS: BP 150/78
[2018-08-13] MEDS: INSULIN HUM LISPRO 100 UN/ML 3 ML VIAL SUBQ PRN ×3 (12:20→20:47)
--- NOTE | 2018-08-13 13:52 | Hospitalist Progress Note ---
Subjective Progress Notes Subjective She reports feeling improved/stronger. Physical Exam Vital Signs Date Time Temp Pulse Resp B/P (MAP) Pulse Ox O2 Delivery O2 Flow Rate FiO2 08/13/18 11:28 98.3 73 16 150/78 (102) 95 Room Air 08/13/18 04:00 1.0 Intake and Output 08/13/18 07:00 Intake Total 2040 ml Output Total 2600 ml Balance -560 ml Intake Oral 1040 ml IV Total 1000 ml Output Urine Total 2550 ml Emesis 50 ml General Appearance: Alert, Awake Cardiovascular: Regular Rate and Rhythm Respiratory: Clear to Auscultation GI: Soft and Non-Tender Extremities: Warm, Perfused Psych: Alert & Oriented X3 Result Diagram: 08/12/18 0534 08/13/18 0713 Assessment and Plan Problems: (1) Acute renal failure (ARF) Status: Acute Assessment & Plan: Progressively worsening over the last couple of months. She has known bilateral hydronephrosis that appears unchanged from 07/05/18. She reports adequate oral intake. She denies diarrhea/vomiting. She had an elevated calcium. She has been hydrated with IV NS in the ER and on medical floor. SPEP studies and PTH testing was done on 08/11/18 - currently pending. Her BUN/creatinine have improved with IV fluids (now 2.8). She is still not back to her baseline, which has been in the 1.4-1.6 range. Will discuss further with Urology. (2) CKD (chronic kidney disease) Status: Chronic (3) Hydronephrosis Status: Chronic Assessment & Plan: She has recently been found to have bilateral hydronephrosis with contracted bladder. A Appiah catheter was placed and she was referred to Dr. Miranda in [place] for consideration of stent placement or surgical repair. She is to see him again at the end of August. As she has had significant change in her renal function, may need to see him sooner. Will discuss with her local urologist, Dr. Love. (4) Hypercalcemia Status: Acute Assessment & Plan: Most likely due to intake/dehydration/acute renal failure. Improved with IV fluids. SPEP studies and PTH pending. Will follow lab. (5) T2DM (type 2 diabetes mellitus) Status: Chronic Assessment & Plan: Continue chronic NPH and will follow glucoses with SSI to c over. She was on metformin, but was stopped secondary to lactic acidosis. Need to watch glucose closely with renal dysfunction and insulin use. (6) Hypertension Status: Chronic Assessment & Plan: Continue chronic amlodipine and metoprolol with parameters. (7) History of CVA (cerebrovascular accident) Status: Chronic Assessment & Plan: Chronically on atorvastatin, which will be held for now. She is not on ASA by our records. Exam Sepsis Risk: No Definite Risk Problem Qualifiers (1) Acute renal failure (ARF): Acute renal failure type: unspecified Qualified Codes: N17.9 - Acute kidney failure, unspecified (2) CKD (chronic kidney disease): Chronic kidney disease stage: stage 3 (moderate) Qualified Codes: N18.3 - Chronic kidney disease, stage 3 (moderate) DEE MCKENNA MD Aug 13, 2018 13:52
[2018-08-13 18:55] VITALS: BP 171/91
[2018-08-13] MEDS: GABAPENTIN 300 MG CAP PO SCH (20:46)
[2018-08-13 22:36] VITALS: BP 175/88
[2018-08-14 04:13] VITALS: BP 171/95
[2018-08-14 07:16] LABS: PLATELET COUNT, AUTOMATED 304 K/uL (150-450)
[2018-08-14 07:23] VITALS: BP 162/86
[2018-08-14] MEDS: amLODIPine BESYL(*) 5 MG TAB PO SCH (08:19)
[2018-08-14] MEDS: METOPROLOL TART 50 MG TAB PO SCH ×2 (08:19→20:15)
[2018-08-14] MEDS: FAMOTIDINE 20 MG TAB PO SCH (08:19)
[2018-08-14] MEDS: INSULIN HUM ISO(NPH) 100 UN/ML 3 ML VIAL SUBQ SCH ×2 (08:20→17:47)
[2018-08-14] MEDS: INSULIN ASPART 100 U/ML 3 ML PEN SUBQ SCH ×3 (08:21→17:45)
--- NOTE | 2018-08-14 09:03 | Hospitalist Progress Note ---
Subjective Progress Notes Subjective The patient states she feels a bit chilled this am. She is having some RLQ pain which started earlier today. She states this happens occasionally at home. It comes and goes. She did have a urinalysis with culture on 08/11 as an OP. Culture is mixed with predominant bug being Staph epi at 75,000-100,000 col/HPF. Physical Exam Vital Signs Date Time Temp Pulse Resp B/P (MAP) Pulse Ox O2 Delivery O2 Flow Rate FiO2 08/14/18 07:51 90 Room Air 08/14/18 07:23 99.3 83 20 162/86 (111) 08/14/18 04:13 1.0 Intake and Output 08/14/18 07:00 Intake Total 2539 ml Output Total 4750 ml Balance -2211 ml Intake Oral 1539 ml IV Total 1000 ml Output Urine Total 4750 ml # Bowel Movements 2 General Appearance: Alert, Awake, Other (Appears a bit uncomfortable with some shivering.) Neuro: No Gross deficits Eyes: PERRLA Cardiovascular: Regular Rate and Rhythm Respiratory: Clear to Auscultation GI: Soft and Non-Tender (No significant tenderness to palpation.) Extremities: Warm, Perfused Result Diagram: 08/14/1862608/14/18626 Assessment and Plan Problems: (1) Flank pain Status: Acute Assessment & Plan: R flank pain. Patient has chills as well. Temp increased sl ightly to 99.3. WBC normal but increased to 9.7. UA with culture from 08/11 shows mixed cx with Staph Epi as the predominant organism at 75,000-100,000 col/HPF. Appiah has been changed since this was done. Will repeat UA and cx today. If persistent, consider repeating renal US as well. (2) Acute renal failure (ARF) Status: Acute Assessment & Plan: Progressively worsening over the last couple of months. She has known bilateral hydronephrosis that appears unchanged from 07/05/18. She reports adequate oral intake. She denies diarrhea/vomiting. She had an elevated calcium. She has been hydrated with IV NS in the ER and on medical floor. SPEP studies and PTH testing was done on 08/11/18 - currently pending. Her BUN/creatinine have improved with IV fluids (now 2.7). She is still not back to her baseline, which has been in the 1.4-1.6 range. Plan to talk with Dr. Miranda ([facility] on Wednesday for recommendations. (3) CKD (chronic kidney disease) Status: Chronic Assessment & Plan: Creatinine improved a bit to 2.7 today. (4) Hydronephrosis Status: Chronic Assessment & Plan: She has recently been found to have bilateral hydronephrosis with contracted bladder. A Appiah catheter was placed and she was referred to Dr. Miranda in [place] for consideration of stent placement or surgical repair. She is to see him again at the end of August. As she has had significant change in her renal function, may need to see him sooner. Will discuss with her local urologist, Dr. Love. (5) Hypercalcemia Status: Acute Assessment & Plan: Most likely due to intake/dehydration/acute renal failure. Improved with IV fluids. SPEP studies and PTH pending. Will follow lab. (6) T2DM (type 2 diabetes mellitus) Status: Chronic Assessment & Plan: Continue chronic NPH and will follow glucoses with SSI to cover. She was on metformin, but was stopped secondary to lactic acidosis. Need to watch glucose closely with renal dysfunction and insulin use. (7) Hypertension Status: Chronic Assessment & Plan: Continue chronic amlodipine and metoprolol with parameters. (8) History of CVA (cerebrovascular accident) Status: Chronic Assessment & Plan: Chronically on atorvastatin, which will be held for now. She is not on ASA by our records. Exam Sepsis Risk: No Definite Risk Problem Qualifiers (1) Acute renal failure (ARF): Acute renal failure type: unspecified Qualified Codes: N17.9 - Acute kidney failure, unspecified (2) CKD (chronic kidney disease): Chronic kidney disease stage: stage 3 (moderate) Qualified Codes: N18.3 - Chronic kidney disease, stage 3 (moderate) SHAD MCKENNA MD Aug 14, 2018 09:03
[2018-08-14 10:45] VITALS: BP 163/88
[2018-08-14] MEDS: NS(*) 0.9% 1000 ML BAG 1,000 ML IV PRN (12:36)
[2018-08-14 16:01] VITALS: BP 182/95
[2018-08-14] MEDS ORDERED: VANCOMYCIN(*) 1 GM VIAL 1 GM, VANCOMYCIN (*) 0.5 GM VIAL 0.5 GM in NS(*) 0.9% 250 ML BA... IVPB ONE ×2 (16:25→17:00)
--- NOTE | 2018-08-14 17:53 | RADIOLOGY IMAGING REPORT ---
FACILITY: [facility] [place] PATIENT NAME: Sahra Chavis : 1955 MR: [id number] V: [id number] EXAM DATE: ORDERING PHYSICIAN: SHAD MCKENNA TECHNOLOGIST: Location: [facility] Patient: Sahra Chavis : 1955 Visit/Account:[id number] Date of Sevice: 08/14/2018 EXAMINATION: Portable AP Chest HISTORY: Fever. COMPARISON: 11/24/2017. FINDINGS: Mild central peribronchial thickening. No focal consolidation or pleural effusion. No pneumothorax. Normal cardiomediastinal silhouette. Visualized osseous structures appear intact. IMPRESSION: Peribronchial thickening may be compatible with bronchial inflammation or viral infection. No eviden ce of a focal pneumonia. Report Dictated By: Tommie Mckeon MD at 08/14/2018 5:46 PM Report E-Signed By: Tommie Mckeon MD at 08/14/2018 5:48 PM [id number]
[2018-08-14] MEDS ORDERED: CEFEPIME HCL 1 GM VIAL IVP SCH (18:00)
[2018-08-14] MEDS ORDERED: NS 0.9% IV SCH (18:30)
[2018-08-14] MEDS ORDERED: CEFEPIME HCL IV SCH (18:30)
[2018-08-14 20:12] VITALS: BP 162/70
[2018-08-14] MEDS: GABAPENTIN 300 MG CAP PO SCH (20:15)
[2018-08-14] MEDS: INSULIN ASPART 100 U/ML 3 ML PEN SUBQ PRN (21:11)
[2018-08-14] MEDS: INSULIN HUM LISPRO 100 UN/ML 3 ML VIAL SUBQ PRN (21:11)
[2018-08-15 03:41] VITALS: BP 170/85
[2018-08-15] MEDS: NS(*) 0.9% 1000 ML BAG 1,000 ML IV PRN (05:04)
[2018-08-15 06:12] LABS: PLATELET COUNT, AUTOMATED 307 K/uL (150-450)
[2018-08-15 07:59] VITALS: BP 169/87
[2018-08-15] MEDS: FAMOTIDINE 20 MG TAB PO SCH (08:14)
[2018-08-15] MEDS: METOPROLOL TART 50 MG TAB PO SCH (08:14)
[2018-08-15] MEDS: amLODIPine BESYL(*) 5 MG TAB PO SCH (08:14)
[2018-08-15] MEDS: INSULIN HUM ISO(NPH) 100 UN/ML 3 ML VIAL SUBQ SCH ×2 (08:18→17:30)
[2018-08-15] MEDS: INSULIN ASPART 100 U/ML 3 ML PEN SUBQ SCH ×3 (08:18→17:28)
[2018-08-15 12:11] VITALS: BP 163/93
[2018-08-15] MEDS: INSULIN ASPART 100 U/ML 3 ML PEN SUBQ PRN (12:24)
--- NOTE | 2018-08-15 14:14 | Medical Nutrition Therapy ---
Nutrition Anthropometrics Height (Inches): 63.00 Height (Calculated Centimeters: 160.541087 Weight (Pounds): 189 Weight (Calculated Kilograms): 85.729 BMI: 33.5 Roman Nutrition Score: Adequate Roman Nutrition Risk Score: 17 Dietary Referral Nutrition Risk Factors: Nutrition Risk Comment: Physical Findings Physical Appearance: Obese BMI 30-39 Skin Appearance Skin Appearance: Edema Edema Location Modifier: Both Edema Location: Lower Extremity Type of Edema: Degree of Edema: Gastrointestinal Symptoms GI Symtoms: Nausea Tube Present: Bowel Sounds: Recent Bowel Pattern: Stool Characteristics: Nutritional Diagnosis Nutritional Risk Acuity 1: Acute/ES Renal Nutritional Risk Acuity 3: Nausea Past Medical History: Hx of T2DM, HTN, CVA, CKD, GERD Nutritional Acuity: 1-High Nutrition Diagnosis: Over-weight/Obesity Nutrition Etiology: Physiological Causes Nutrition Problem/Etiology/Sym: Over-weight/obesity r/t physiological causes AEB BMI 33.5, T2DM, ARF Energy Requirement: 1390 (Lopez-[place] adjusted for obesity *1.1) Protein Requirement: 68 (.08g/kg) Fluid Requirement: 2500 (30ml/kg) Diet Type: Diet as Tolerated IVETTE/REG Nutrition Intervention: Encourage intake, Change diet, Check glucose Nutritional Needs Comment: Recommend Diabetic Diet Diet Comment To RSA: OFFER NUTR SUPPLEMENT IF PT DOESN'T ORDER OR CONSUME HIGH PROTEIN FOODS. Nutrition Monitoring & Eval Nutrition Goals: Eat 75-100% Meal, Drink > 1500 cc/day Nutrition Follow-Up: Fair Intake RD Patient Assessment Time: [address] Assessment Type: RD Re-Assessment Patient Nutrition Acuity: 1-High Follow Up Date: Aug 17, 2018 Nutritional Comment: 08/11 Pt admitted with ARF and Hypercalcemia. Hx of T2DM, HTN, CVA, CKD, GERD. Pt on IVETTE, recommend Diabetic diet with BG 160-230. Pt Class 1 Obesity with BMI of 33.5. Pt calcium at 12, BUN 56, Creatinine 3.2. Pt reported adequate intake and denies n/v/d, constipation. Pt high risk at this point with ARF. Will follow. TB 08/15 Pt was eating 100% of meals, but yesterday consumed 50% of meals. Pt Ca down WNL at 9.6. Alb declining to 2.7. Will offer nutrition supplement if pt doesn't order meal or have any high protein sources in meal ordered. BG still running very high, cont recommendation for Diabetic Diet. BUN at 43 and Creatinine 2.9 decreased, but still elevated. Pt denies any abd pain at this time and bowel sounds are hypoactive. Will cont to follow. GATO MANUEL Aug 15, 2018 10:58
--- NOTE | 2018-08-15 14:45 | Hospitalist Progress Note ---
Subjective Progress Notes Subjective 63F admitted for ALEXANDRO on CKD and hypercalcemia. BRANDYN overnight, without new concern this am. Attempting to contact urologist Dr Miranda. Patient Complains of: Gastrointestinal: No Nausea, No Vomiting Physical Exam Vital Signs Date Time Temp Pulse Resp B/P (MAP) Pulse Ox O2 Delivery O2 Flow Rate FiO2 08/15/18 12:11 99.0 77 14 163/93 (116) 93 Room Air 08/14/18 04:13 1.0 Intake and Output 08/15/18 07:00 Intake Total 830 ml Output Total 2275 ml Balance -1445 ml Intake Oral 480 ml IV Total 350 ml Output Urine Total 2275 ml General Appearance: Alert, Awake, No Acute Distress, Afebrile Neuro: No Gross deficits ENT: Normal Cardiovascular: Normal Rhythm & Peripheral Pulses Respiratory: No Respiratory Distress GI: Soft and Non-Tender : Normal (+ Appiah) Extremities: Soft and Non Tender, Warm, Pulses, Perfused; No Edema Integumentary: Skin Intact without Lesion / Mass Psych: Alert & Oriented X3 Result Diagram: 08/15/18 0534 08/15/18 0534 Assessment and Plan Problems: (1) Flank pain Status: Acute Assessment & Plan: Resolved. WBC normal but increased to 9.7. UA with culture from 08/11 shows mixed cx with Staph Epi as the predominant organism at 75,000- 100,000 col/HPF. Appiah has been changed since this was done. (2) Acute renal failure (ARF) Status: Acute Assessment & Plan: Progressively worsening over the last couple of months. She has known bilateral hydronephrosis that appears unchanged from 07/05/18. She reports adequate oral intake. She denies diarrhea/vomiting. She had an elevated calcium. She has been hydrated with IV NS in the ER and on medical floor. SPEP studies and PTH testing was done on 08/11/18 - currently pending. Her BUN/creatinine have improved with IV fluids but remains elevated. She is still not back to her baseline, which has been in the [address] office of [address] Miranda ([facility]) for recommendations, [place] Urology fellow to respond for recommendations. (3) CKD (chronic kidney disease) Status: Chronic Assessment & Plan: Baseline 2.0 creatinine (4) Hydronephrosis Status: Chronic Assessment & Plan: She has recently been found to have bilateral hydronephrosis with contracted bladder. A Appiah catheter was placed and she was referred to Dr. Miranda in [place] for consideration of stent placement or surgical repair. She is to see him again at the end of August. As she has had significant change in her renal function, may need to see him sooner. Discussed with her local urologist, Dr. Love, recommends contacting Dr Miranda. (5) Hypercalcemia Status: Acute Assessment & Plan: Most likely due to intake/dehydration/acute renal failure. Improved with IV fluids. SPEP studies and PTH pending. Will follow lab. (6) T2DM (type 2 diabetes mellitus) Status: Chronic Assessment & Plan: Continue chronic NPH and will follow glucoses with SSI to cover. She was on metformin, but was stopped secondary to lactic acidosis. Need to watch glucose closely with renal dysfunction and insulin use. (7) Hypertension Status: Chronic Assessment & Plan: Continue chronic amlodipine and metoprolol with parameters. (8) History of CVA (cerebrovascular accident) Status: Chronic Assessment & Plan: Chronically on atorvastatin, which will be held for now. She is not on ASA by our records. Exam Sepsis Risk: No Definite Risk Problem Qualifiers (1) Acute renal failure (ARF): Acute renal failure type: unspecified Qualified Codes: N17.9 - Acute kidney failure, unspecified (2) CKD (chronic kidney disease): Chronic kidney disease stage: stage 3 (moderate) Qualified Codes: N18.3 - Chronic kidney disease, stage 3 (moderate) BENJAMIN PEPPER DO Aug 15, 2018 14:45
[2018-08-15] MEDS ORDERED: RANI-366 PO (17:40)
[2018-08-15] MEDS ORDERED: OMEP40CA48 PO (17:40)
[2018-08-15] MEDS ORDERED: GABA-503 PO (17:40)
--- NOTE | 2018-08-15 17:49 | Hospitalist Depart ---
Discharge Summary Reason for Hosp/Final Diag: (1) Acute renal failure (ARF) Status: Acute Hospital Course & Plan: Progressively worsening over the last couple of months. She has known bilateral hydronephrosis that appears unchanged from 07/05/18. She reports adequate oral intake. She denies diarrhea/vomiting. She had an elevated calcium. She has been hydrated with IV NS in the ER and on medical floor. SPEP studies and PTH testing was done on 08/11/18 - currently pending. Her BUN/creatinine have improved with IV fluids but remains elevated. She is still not back to her baseline, which has been in the 2 range[address] office of Dr. Miranda ([facility]) for recommendations, he is [place]. Urology fellow to respond for recommendations. (2) GERD (gastroesophageal reflux disease) Status: Chronic Hospital Course & Plan: Poorly controlled, was taking PPI only on acute as needed basis. Discussed that the medication should be taken daily to work best. Recommend BID omeprazole 40mg and ranitidine 75mg. Ranitidine limited to 75mg by renal function. Limit Tums as believe renal function decreased her clearance and with calcium supplement she was taking caused overload. Recommend holding calcium supplement until followup with PCP to discuss. Believe her bronchitis on CXR is likely from acid reflux. (3) CKD (chronic kidney disease) Status: Chronic Hospital Course & Plan: Baseline 2.0 creatinine (4) Hydronephrosis Status: Chronic Hospital Course & Plan: She has recently been found to have bilateral hydronephrosis with contracted bladder. A Appiah catheter was placed and she was referred to Dr. Miranda in [place] for consideration of stent placement or surgical repair. She is to see him again at the end of August. As she has had significant change in her renal function, may need to see him sooner. Discussed with her local urologist, Dr. Love, recommends contacting Dr Miranda. (5) Hypercalcemia Status: Acute Hospital Course & Plan: Most likely due to intake/dehydration/acute renal failure. Improved with IV fluids. SPEP studies and PTH pending. Will follow lab. (6) T2DM (type 2 diabetes mellitus) Status: Chronic Hospital Course & Plan: Continue chronic NPH and will follow glucoses with SSI to cover. She was on metformin, but was stopped secondary to lactic acidosis. Need to watch glucose closely with renal dysfunction and insulin use. (7) Hypertension Status: Chronic Hospital Course & Plan: Continue chronic amlodipine and metoprolol with parameters. (8) History of CVA (cerebrovascular accident) Status: Chronic Hospital Course & Plan: Chronically on atorvastatin, which will be held for now. She is not on ASA by our records. Departure Weight (Pounds): 189 Result Diagram: 08/15/18 0534 08/15/18533 Condition: Improved Discharge: Home Discharge Instructions Home Meds Active Scripts Metoprolol Tartrate (METOPROLOL TARTRATE) 25 Mg Tablet, 1 TAB PO BID, #60 TAB Prov:DEYANIRA YOUNG MD 08/11/18 Amlodipine Besylate (AMLODIPINE BESYLATE) 5 Mg Tablet, 5 MG PO QDAY, #30 TAB Prov:SHILPA POPE FLUX TUBE ATTENDANT 07/19/18 Gabapentin (GABAPENTIN) 600 Mg Tablet, 1200 MG PO QHS, #180 TAB 3 Refills Prov:DEYANIRA YOUNG MD 07/14/18 Pen Needle, Diabetic (Insulin Pen Needle) 31 Gauge X 1/6" Dis.needle, EACH , #100 Prov:XIOMARA NAVARRETE DO 11/25/17 Reported Medications Multivitamin With Minerals (MULTIPLE VITAMIN) 1 Each Tablet, 1 EACH PO QDAY, TAB 08/12/18 Aspirin (ASPIRIN) 325 Mg Tablet, 325 MG PO Q4-6H PRN for pain, TAB 08/12/18 Acetaminophen (TYLENOL EXTRA STRENGTH) 500 Mg Tablet, 500 MG PO PRN for PAIN, TAB 07/17/18 Oxybutynin Chloride (DITROPAN XL) 15 Mg Tab.er.24, 15 MG PO HS for URGENCY for 30 Days, #30 TAB 1 Refill 05/26/18 Ferrous Sulfate, Dried (IRON) 159 Mg Tablet.er, 65 MG PO QDAY 05/23/18 Insulin Regular, Human (NOVOLIN R) 100 Unit/1 Ml Vial, 10 UNIT SQ TID, VIAL 05/12/18 Nph, Human Insulin Isophane (NOVOLIN N) 100 Unit/1 Ml Vial, 10 UNIT SQ BID, VIAL 05/12/18 Discontinued Reported Medications Omeprazole (OMEPRAZOLE) 20 Mg Tablet.dr, 20 MG PO HS, TAB 05/23/18 Calcium Carb & Cit/Vitamin D3 (CALCIUM + D3 ER TABLET) 1 Each Tablet.er, 1 EACH PO QDAY 05/23/18 Discontinued Scripts Levofloxacin 500 Mg Tab (LEVAQUIN 500 MG TAB) 500 Mg Tablet, 250 MG PO DAILY, #2 TAB Prov:DEYANIRA YOUNG MD 08/11/18 Ondansetron (ZOFRAN ODT) 4 Mg Tab.rapdis, 4 MG PO Q6H PRN for NAUSEA, #20 TAB.LORENA Prov:POPESHILPA ALVARADO Elif FLUX TUBE ATTENDANT 07/19/18 Ranitidine Hcl (RANITIDINE HCL) 300 Mg Tablet, 1 TAB PO QHS, #60 TAB 6 Refills Prov:XIOMARA FRANZ MD 10/05/17 Diet: Diabetic Special Instructions: Need follow up on SPEP, PTH, CU Jessenia recommend outpatient cystogram. CU to move appointment date up. Copies to: DEYANIRA YOUNG MD; ANTONIA LOVE MD ; Venous Thromboembolism Antithrombotics Is Pt On Any Antithrombotics?: No Problem Qualifiers (1) Acute renal failure (ARF): Acute renal failure type: unspecified Qualified Codes: N17.9 - Acute kidney failure, unspecified (2) CKD (chronic kidney disease): Chronic kidney disease stage: stage 3 (moderate) Qualified Codes: N18.3 - Chronic kidney disease, stage 3 (moderate) BENJAMIN PEPPER DO Aug 15, 2018 17:49
[2018-08-15] MEDS ORDERED: BENZ100C4 PO (17:50)
== END 2018-08-15 18:30 | disposition home or self-care (01) | DRG 684 ==
LOC: ER 18:31 → MED 08-12 01:16
PROVIDERS: ADMIT Internal Medicine; ATTEND Internal Medicine
DX: N17.9 Acute kidney failure, unspecified (principal); E83.52 Hypercalcemia; E86.0 Dehydration; K21.9 Gastro-esophageal reflux disease without esophagitis; E11.22 Type 2 diabetes mellitus with diabetic chronic kidney disease; I12.9 Hypertensive chronic kidney disease with stage 1 through stage 4 chronic kidney disease, or unspecified chronic kidney disease; N18.3 Chronic kidney disease, stage 3 (moderate); N13.1 Hydronephrosis with ureteral stricture, not elsewhere classified; E78.5 Hyperlipidemia, unspecified; M81.0 Age-related osteoporosis without current pathological fracture; E11.319 Type 2 diabetes mellitus with unspecified diabetic retinopathy without macular edema; D64.9 Anemia, unspecified; Z87.891 Personal history of nicotine dependence; Z87.440 Personal history of urinary (tract) infections; Z79.4 Long term (current) use of insulin
CPT/HCPCS: 36415; 36416; 71045; 76705; 80202; 81001; 82040; 82164; 82247; 82306; 82310; 82374; 82435; 82565; 82570; 82784; 82803; 82947; 82948; 83036; 83605; 83735; 83970; 84075; 84100; 84132; 84155; 84160; 84165; 84295; 84300; 84450; 84460; 84520; 85025; 86038; 86140; 86334; 87077; 87088; 87186; 96360; 96361; 96372; 99284; J0692; J1815; J2550; J3370; J7030; J7050

== ENCOUNTER → 2018-08-11 | Outpatient (CLI) | payer MEDICARE ==
[2018-07-17 10:33] VITALS: BMI 31.2
[~2018-08-11] MED LIST changes: +ACET500T68 PO; +AMLO-111 PO; +BENZ100C4 PO; +LEVO-85 PO; +METO25TA93 PO; +OMEP40CA48 PO; +RANI-366 PO
--- NOTE | 2018-08-11 17:20 | EKG ---
FACILITY: [facility] [place]IENT NAME: KATARZYNA HARDY : [id number] MR: [id number] V: [id number] EXAM DATE: ORDERING PHYSICIAN: DEYANIRA YOUNG TECHNOLOGIST: GEMMA HARO Test Reason : HYPERCALCEMIA Blood Pressure : / mmHG Vent. Rate : 074 BPM Atrial Rate : 074 BPM P-R Int : 136 ms QRS Dur : 084 ms QT Int : 370 ms P-R-T Axes : 000 076 042 degrees QTc Int : 410 ms Normal sinus rhythm Normal ECG Compared to previous The rate is down 42 beats per minute P wave morphology has changed suggesting another atrial focus Confirmed by JARAD JAIN ([id number]) on 08/11/2018 6:42:29 PM Referred By: Confirmed By:JARAD JAIN
== END ==
LOC: LAB 16:51
PROVIDERS: ATTEND Emergency Medicine
DX: E83.52 Hypercalcemia (principal); N39.0 Urinary tract infection, site not specified
CPT/HCPCS: 36415; 81001; 82040; 82164; 82247; 82306; 82310; 82374; 82435; 82565; 82784; 82947; 83036; 83970; 84075; 84100; 84132; 84155; 84160; 84165; 84295; 84450; 84460; 84520; 86038; 86140; 86334; 87077; 87088; 87186

== ENCOUNTER 2018-08-23 22:25 | Emergency (ER) | payer MEDICARE ==
[2018-08-12 08:28] VITALS: Wt 82.6 kg
[~2018-08-23 22:25] MED LIST changes: +BENZ100C4 PO; +OMEP40CA48 PO; +RANI-366 PO
[2018-08-23 22:34] VITALS: BP 155/89
--- NOTE | 2018-08-23 22:36 | ER Report ---
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 She is a chronic indwelling Appiah catheter. She was admitted approximately 2 weeks ago for 4 days and received hydration in and treatment for urinary tract infection. He should also notes pain and fullness in her flanks and upper abdomen bilaterally. She thinks it may be her kidneys. Prior to her admission last time an ultr asound showed bilateral hydronephrosis, unchanged from previous studies. Patient reports onset of diarrhea yesterday with a loose stool. Tonight after going to [place] to get an injection in her eye by ophthalmology. She had a very watery bowel movement. Upon her return to [facility]. Patient states she is due to have her Appiah catheter changed tomorrow. REVIEW OF SYSTEMS: Respiratory: No cough, no dyspnea. Cardiovascular: No chest pain, no palpitations. Gastrointestinal: No vomiting, no abdominal pain. Musculoskeletal: As above Allergies: Coded Allergies: No Known Drug Allergies (Unverified , 08/23/18) Home Meds Active Scripts Benzonatate 100 Mg Cap (TESSALON PERLE 100 MG CAP) 100 Mg Capsule, 100 MG PO TID for 7 Days, #15 CAP Prov:BENJAMIN PEPPER DO 08/15/18 Omeprazole (OMEPRAZOLE) 40 Mg Capsule.dr, 40 MG PO BID for 30 Days, CAP Prov:BENJAMIN PEPPER DO 08/15/18 Ranitidine Hcl (ZANTAC) 150 Mg Tablet, 75 MG PO BID for 30 Days, TAB Prov:BENJAMIN PEPPER DO 08/15/18 Gabapentin (GABAPENTIN) 600 Mg Tablet, 600 MG PO QHS, #180 TAB 3 Refills Prov:BENJAMIN PEPPER DO 08/15/18 Metoprolol Tartrate (METOPROLOL TARTRATE) 25 Mg Tablet, 1 TAB PO BID, #60 TAB Prov:DEYANIRA YOUNG MD 08/11/18 Amlodipine Besylate (AMLODIPINE BESYLATE) 5 Mg Tablet, 5 MG PO QDAY, #30 TAB Prov:SHILPA POPE 07/19/18 Pen Needle, Diabetic (Insulin Pen Needle) 31 Gauge X 1/6" Dis.needle, EACH , #100 Prov:XIOMARA NAVARRETE DO 3/1/18 Reported Medications Multivitamin With Minerals (MULTIPLE VITAMIN) 1 Each Tablet, 1 EACH PO QDAY, TAB 08/12/18 Aspirin (ASPIRIN) 325 Mg Tablet, 325 MG PO Q4-6H PRN for pain, TAB 08/12/18 Acetaminophen (TYLENOL EXTRA STRENGTH) 500 Mg Tablet, 500 MG PO PRN for PAIN, TAB 07/17/18 Oxybutynin Chloride (DITROPAN XL) 15 Mg Tab.er.24, 15 MG PO HS for URGENCY for 30 Days, #30 TAB 1 Refill 05/26/18 Ferrous Sulfate, Dried (IRON) 159 Mg Tablet.er, 65 MG PO QDAY 05/23/18 Insulin Regular, Human (NOVOLIN R) 100 Unit/1 Ml Vial, 10 UNIT SQ TID, VIAL 05/12/18 Nph, Human Insulin Isophane (NOVOLIN N) 100 Unit/1 Ml Vial, 10 UNIT SQ BID, VIAL 05/12/18 Past Medical/Surgical History PAST MEDICAL HISTORY 1. Hypercholesterolemia. 2. Hypertension. 3. Gastroesophageal reflux disease with esophageal stricture and erosive esophagitis. 4. Osteoporosis. 5. Degenerative joint disease. 6. Low back pain with spondylitic changes of L3-L4 and L4-L5 with bilateral lower extremity weakness diagnosed by MRI in October 2014. 7. Diabetes diagnosed after an episode of DKA in July 2014. 8. Possible old right lacunar infarct noted on a CT scan done for mental status changes in 2013 at her hospitalization for DKA presentation. 9. 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 10. Heart palpitations with ventricular ectopy diagnosed by Holter monitor. 11. Stable pulmonary nodules, right lower lobe. 12. Renal insufficiency as per HPI. 13. Anemia. 14. Urinary tract infections and incontinence as per HPI. PAST SURGICAL HISTORY 1. Tonsillectomy 1958. 2. Toe surgery 1982. 3. Tubal ligation 1993. 4. EGD with dilation August 2014 for distal esophageal stricture. 5. Cystoscopy with biopsy June 2016. 6. EGD with dilation and biopsy August 2017. Reviewed Nurses Notes: Yes Old Medical Records Reviewed: Yes Hx Smoking: Yes (1 PPD FOR 20 YRS) Smoking Status: Former Smoker Exposure to Second Hand Smoke?: No Hx Substance Use Disorder: No Hx Alcohol Use: No Constitutional Vital Sign - Last 24 Hours 11/27/18 11/27/18 11/27/18 11/27/18 22:25 22:32 22:34 22:40 Temp 98.4 Pulse ??? 90 92 Resp 16 B/P (MAP) 155/89 (111) 155/89 Pulse Ox 95 96 O2 Delivery Room Air 08/23/18 08/23/18 08/23/18 08/23/18 22:55 23:10 23:25 23:40 Pulse 89 81 81 83 Pulse Ox 96 94 95 94 08/23/18 08/24/18 23:55 00:10 Pulse 81 ??? Pulse Ox 95 Intake and Output 08/23/18 08/23/18 08/24/18 14:58 22:58 06:58 Intake Total 1000 ml Output Total 30 ml Balance 970 ml Physical Exam Vital signs stable, afebrile, pulse ox normal General Appearance: The patient is alert, has no immediate need for airway protection and no current signs of toxicity. Skin warm, dry, pink HEENT: Pupils equal and round no injection. TMs normal, oropharynx without redness or exudate, mucous members are normal Respiratory: Chest is non tender, lungs are clear to auscultation. Cardiac: regular rate and rhythm Gastrointestinal: Abdomen is soft and non tender, no masses, bowel sounds normal. No CVA tenderness Musculoskeletal: Neck: Neck is supple and non tender. Extremities have full range of motion and are non tender. Skin: No rashes or lesions. DIFFERENTIAL DIAGNOSIS: After history and physical exam differential diagnosis was considered for abdominal pain including but not limited to appendicitis, cholecystitis, gastritis, hydronephrosis bilaterally, colitis, diarrhea, gastroenteritis, viral syndrome, food poisoning and urinary tract infection. Medical Decision Making Data Points Result Diagram: 08/23/18223908/23/182239 Laboratory Hematology Test 08/23/18 22:40 08/23/18 23:13 Red Blood Count 4.15 M/uL (4.17-5.56) Mean Corpuscular Volume 81.6 fL (80.0-96.0) Mean Corpuscular Hemoglobin 26.7 pg (26.0-33.0) Mean Corpuscular Hemoglobin Concent 32.7 g/dL (32.0-36.0) Red Cell Distribution Width 20.3 % (11.5-14.5) Mean Platelet Volume 7.6 fL (7.2-11.1) Neutrophils (%) (Auto) 82.3 % (39.4-72.5) Lymphocytes (%) (Auto) 12.3 % (17.6-49.6) Monocytes (%) (Auto) 3.3 % (4.1-12.4) Eosinophils (%) (Auto) 1.7 % (0.4-6.7) Basophils (%) (Auto) 0.4 % (0.3-1.4) Nucleated RBC Relative Count (auto) 0.1 /100WBC Neutrophils # (Auto) 9.1 K/uL (2.0-7.4) Lymphocytes # (Auto) 1.4 K/uL (1.3-3.6) Monocytes # (Auto) 0.4 K/uL (0.3-1.0) Eosinophils # (Auto) 0.2 K/uL (0.0-0.5) Basophils # (Auto) 0.0 K/uL (0.0-0.1) Nucleated RBC Absolute Count (auto) 0.02 K/uL Peripheral Blood Smear No Y/N Sodium Level 138 mmol/L (137-145) Potassium Level 5.0 mmol/L (3.5-5.0) Chloride Level 108 mmol/L (98-107) Carbon Dioxide Level 16 mmol/L (22-31) Blood Urea Nitrogen 53 mg/dl (7-18) Creatinine 3.00 mg/dl (0.52-1.04) Glomerular Filtration Rate Calc 15.7 Random Glucose 361 mg/dl (75-110) Lactate 1.3 mmol/L (0.7-2.1) Calcium Level 8.9 mg/dl (8.4-10.2) Total Bilirubin 0.3 mg/dl (0.2-1.3) Aspartate Amino Transf (AST/SGOT) 15 U/L (0-35) Alanine Aminotransferase (ALT/SGPT) 21 U/L (0-56) Alkaline Phosphatase 116 U/L (0-126) Total Protein 7.9 g/dl (6.3-8.2) Albumin 4.0 g/dl (3.5-5.0) Amylase Level 67 U/L (0-110) Lipase 200 U/L (23-300) Urine Color Yellow Urine Clarity Cloudy Urine pH 6.0 pH (4.8-9.5) Urine Specific Soledad 1.011 Urine Protein 100 mg/dL (NEGATIVE) Urine Glucose (UA) 150 mg/dL (NEGATIVE) Urine Ketones Negative mg/dL (NEGATIVE) Urine Blood Large (NEGATIVE) Urine Nitrite Negative (NEGATIVE) Urine Bilirubin Negative (NEGATIVE) Urine Urobilinogen Negative mg/dL (0.2-1.9) Urine Leukocyte Esterase Large (NEGATIVE) Urine RBC 58 /HPF (0-2/HPF) Urine WBC 117 /HPF (0-5/HPF) Urine WBC Clumps Many /HPF Urine Squamous Epithelial Cells Moderate /LPF (NONE-FEW) Urine Bacteria Few /HPF (NONE-FEW) Urine Mucus None /HPF (NONE-FEW) Chemistry Test 08/23/18 22:40 08/23/18 23:13 White Blood Count 11.1 k/uL (4.5-11.0) Red Blood Count 4.15 M/uL (4.17-5.56) Hemoglobin 11.1 g/dL (12.0-16.0) Hematocrit 33.9 % (34.0-47.0) Mean Corpuscular Volume 81.6 fL (80.0-96.0) Mean Corpuscular Hemoglobin 26.7 pg (26.0-33.0) Mean Corpuscular Hemoglobin Concent 32.7 g/dL (32.0-36.0) Red Cell Distribution Width 20.3 % (11.5-14.5) Platelet Count 496 K/uL (150-450) Mean Platelet Volume 7.6 fL (7.2-11.1) Neutrophils (%) (Auto) 82.3 % (39.4-72.5) Lymphocytes (%) (Auto) 12.3 % (17.6-49.6) Monocytes (%) (Auto) 3.3 % (4.1-12.4) Eosinophils (%) (Auto) 1.7 % (0.4-6.7) Basophils (%) (Auto) 0.4 % (0.3-1.4) Nucleated RBC Relative Count (auto) 0.1 /100WBC Neutrophils # (Auto) 9.1 K/uL (2.0-7.4) Lymphocytes # (Auto) 1.4 K/uL (1.3-3.6) Monocytes # (Auto) 0.4 K/uL (0.3-1.0) Eosinophils # (Auto) 0.2 K/uL (0.0-0.5) Basophils # (Auto) 0.0 K/uL (0.0-0.1) Nucleated RBC Absolute Count (auto) 0.02 K/uL Peripheral Blood Smear No Y/N Glomerular Filtration Rate Calc 15.7 Lactate 1.3 mmol/L (0.7-2.1) Calcium Level 8.9 mg/dl (8.4-10.2) Total Bilirubin 0.3 mg/dl (0.2-1.3) Aspartate Amino Transf (AST/SGOT) 15 U/L (0-35) Alanine Aminotransferase (ALT/SGPT) 21 U/L (0-56) Alkaline Phosphatase 116 U/L (0-126) Total Protein 7.9 g/dl (6.3-8.2) Albumin 4.0 g/dl (3.5-5.0) Amylase Level 67 U/L (0-110) Lipase 200 U/L (23-300) Urine Color Yellow Urine Clarity Cloudy Urine pH 6.0 pH (4.8-9.5) Urine Specific Soledad 1.011 Urine Protein 100 mg/dL (NEGATIVE) Urine Glucose (UA) 150 mg/dL (NEGATIVE) Urine Ketones Negative mg/dL (NEGATIVE) Urine Blood Large (NEGATIVE) Urine Nitrite Negative (NEGATIVE) Urine Bilirubin Negative (NEGATIVE) Urine Urobilinogen Negative mg/dL (0.2-1.9) Urine Leukocyte Esterase Large (NEGATIVE) Urine RBC 58 /HPF (0-2/HPF) Urine WBC 117 /HPF (0-5/HPF) Urine WBC Clumps Many /HPF Urine Squamous Epithelial Cells Moderate /LPF (NONE-FEW) Urine Bacteria Few /HPF (NONE-FEW) Urine Mucus None /HPF (NONE-FEW) Urinalysis Test 08/23/18 23:13 Urine Color Yellow Urine Clarity Cloudy Urine pH 6.0 pH (4.8-9.5) Urine Specific Soledad 1.011 Urine Protein 100 mg/dL (NEGATIVE) Urine Glucose (UA) 150 mg/dL (NEGATIVE) Urine Ketones Negative mg/dL (NEGATIVE) Urine Blood Large (NEGATIVE) Urine Nitrite Negative (NEGATIVE) Urine Bilirubin Negative (NEGATIVE) Urine Urobilinogen Negative mg/dL (0.2-1.9) Urine Leukocyte Esterase Large (NEGATIVE) Urine RBC 58 /HPF (0-2/HPF) Urine WBC 117 /HPF (0-5/HPF) Urine WBC Clumps Many /HPF Urine Squamous Epithelial Cells Moderate /LPF (NONE-FEW) Urine Bacteria Few /HPF (NONE-FEW) Urine Mucus None /HPF (NONE-FEW) EKG/Imaging EKG Interpretation 12 lead EK Rhythm: normal sinus rhythm Wilmot: normal QRS: normal ST segments: normal, no evidence of ischemia or dysrhythmia ED Course/Re-evaluation Clinical Indication for ER IV: Hydration, IV Access ED Course Patient was minute to an examination room. H&P was done. The differential diagnoses was considered. Patient with episodes of diarrhea for a day and a half. She had a severe bout tonight which prompted her to come to the ER for evaluation. She has history of chronic renal failure and is awaiting follow-up with urology at [facility]. She has bilateral hydronephrosis was admitted with a urinary tract infection. Back 2 weeks ago. Patient's been out of the hospital for 10 days. Patient notes no fever or chills. She denies chest pain or shortness of breath. She notes a full sensation across her upper abdomen into her back. Likely her hydronephrosis. Patient was treated with IV fluids. She was unable to provide a specimen of the diarrhea for analysis. She was on anabolic recently, but I do not think she has clustering Ditzel diarrhea at this time. She is advised Imodium to reduce her diarrhea. She is advised a clear liquid diet for 24-48 hours and advance to Dayanara diet. She is advised to follow-up with her primary care as planned. Her Appiah catheter was replaced by nursing staff as it is due tomorrow. Decision to Disposition Date: Aug 23, 2018 Decision to Disposition Time: 23:17 Depart Departure Latest Vital Signs Vital Signs Date Time Temp Pulse Resp B/P (MAP) Pulse Ox O2 Delivery O2 Flow Rate FiO2 08/24/18 00:10 ??? 08/23/18 23:55 95 08/23/18 22:34 98.4 16 155/89 Room Air Impression: Primary Impression: Diarrhea Additional Impressions: Bilateral flank pain History of chronic renal failure Bilateral hydronephrosis Condition: Improved Disposition: HOME OR SELF-CARE Referrals: DEYANIRA YOUNG MD (PCP) Patient Instructions: Acute Diarrhea (ED), Clear Liquid Diet (ED) Additional Instructions: Increase fluid intake Follow clear liquid diet for 24 hours, then advance to Dayanara diet, bananas, rice, applesauce and toast Use Imodium to control the diarrhea Follow-Up with primary care and urologist as planned Problem Qualifiers Primary Impression: Diarrhea Diarrhea type: unspecified type Qualified Codes: R19.7 - Diarrhea, unspecified MEHRAN SOLORIO DO Aug 23, 2018 22:36
[2018-08-23 22:58] LABS: PLATELET COUNT, AUTOMATED 496 K/uL (150-450)
[2018-08-23] MEDS ORDERED: NS(*) 0.9% 1000 ML BAG 1,000 ML IV ONE (23:20)
--- NOTE | 2018-08-24 01:00 | EKG ---
FACILITY: [facility] PATIENT NAME: KATARZYNA HARDY : [id number] MR: [id number] V: [id number] EXAM DATE: ORDERING PHYSICIAN: MERHAN SOLORIO TECHNOLOGIST: BRIAN Kelsey Reason : CARDIAC Blood Pressure : / mmHG Vent. Rate : 084 BPM Atrial Rate : 084 BPM P-R Int : 140 ms QRS Dur : 072 ms QT Int : 384 ms P-R-T Axes : 058 071 070 degrees QTc Int : 453 ms Normal sinus rhythm Normal ECG When compared with ECG of 11-AUG-2018 16:55, No significant change was found Confirmed by XIOMARA NAVARRETE ([id number]) on 08/24/2018 6:20:47 AM Referred By: Confirmed By:XIOMARA NAVARRETE
== END 2018-08-24 00:25 | disposition home or self-care (01) ==
LOC: ER 22:56
DX: R19.7 Diarrhea, unspecified (principal); N13.30 Unspecified hydronephrosis; N19 Unspecified kidney failure
CPT/HCPCS: 81001; 82150; 83605; 83690; 85025; 93005; 96360; 99283; J7030; 82040; 82247; 82310; 82374; 82435; 82565; 82947; 84075; 84132; 84155; 84295; 84450; 84460; 84520

== ENCOUNTER 2018-08-24 09:03 | Outpatient (CLI) | payer MEDICARE ==
[2018-08-12 08:28] VITALS: BMI 33.5
== END 2018-08-24 16:56 | disposition home or self-care (01) ==
LOC: SPU 09:03
PROVIDERS: ATTEND Emergency Medicine
DX: N18.9 Chronic kidney disease, unspecified (principal); N13.30 Unspecified hydronephrosis; N39.498 Other specified urinary incontinence

== ENCOUNTER 2018-08-26 14:30 | Observation (INO) | payer MEDICARE ==
[~2018-08-26] VITALS: Ht 170.2 cm; Wt 80.0 kg
--- NOTE | 2018-08-26 14:39 | ER Report ---
History and Physical Time Seen By MD: 14:40 (SREE DOMINGUEZ MD) HPI/ROS 63-year-old female who was recently admitted for dehydration and acute on chronic renal failure presents to the emergency department with diarrhea followed by nausea and vomiting for the past 5 days. No hematemesis or hematochezia. No fever chills. No abdominal pain. No dysuria, but the patient does have an indwelling Appiah catheter. Her diarrhea has improved, but the vomiting persists. He is able to take some by mouth fluids, but is worried about dehydration and kidney failure again. No recent antibiotics. Remainder of the 14 system rev: Yes (SREE DOMINGUEZ MD) Allergies: Coded Allergies: No Known Drug Allergies (Unverified , 08/23/18) Home Meds Active Scripts Omeprazole (OMEPRAZOLE) 40 Mg Capsule.dr, 40 MG PO BID for 30 Days, CAP Prov:BENJAMIN PEPPER DO 08/15/18 Ranitidine Hcl (ZANTAC) 150 Mg Tablet, 75 MG PO BID for 30 Days, TAB Prov:BENJAMIN PEPPER DO 08/15/18 Gabapentin (GABAPENTIN) 600 Mg Tablet, 600 MG PO QHS, #180 TAB 3 Refills Prov:BENJAMIN PEPPER DO 08/15/18 Metoprolol Tartrate (METOPROLOL TARTRATE) 25 Mg Tablet, 1 TAB PO BID, #60 TAB Prov:DEYANIRA YOUNG MD 08/11/18 Amlodipine Besylate (AMLODIPINE BESYLATE) 5 Mg Tablet, 5 MG PO QDAY, #30 TAB Prov:SHILPA POPE NAIL TECHNICIAN 07/19/18 Pen Needle, Diabetic (Insulin Pen Needle) 31 Gauge X 1/6" Dis.needle, EACH , #100 Prov:XIOMARA NAVARRETE DO 11/25/17 Reported Medications Insulin Regular, Human (HUMULIN R) 100 Unit/1 Ml Vial, 100 UNIT IJ PRN for SEE COMMENT, VIAL PER SLIGHTING SCALE 08/26/18 Multivitamin With Minerals (MULTIPLE VITAMIN) 1 Each Tablet, 1 EACH PO QDAY, TAB 08/12/18 Aspirin (ASPIRIN) 325 Mg Tablet, 325 MG PO Q4-6H PRN for pain, TAB 08/12/18 Acetaminophen (TYLENOL EXTRA STRENGTH) 500 Mg Tablet, 500 MG PO PRN for PAIN, TAB 07/17/18 Oxybutynin Chloride (DITROPAN XL) 15 Mg Tab.er.24, 15 MG PO HS for URGENCY for 30 Days, #30 TAB 1 Refill 05/26/18 Ferrous Sulfate, Dried (IRON) 159 Mg Tablet.er, 65 MG PO QDAY 05/23/18 Nph, Human Insulin Isophane (NOVOLIN N) 100 Unit/1 Ml Vial, 10 UNIT SQ BID, VIAL 05/12/18 Discontinued Reported Medications Insulin Regular, Human (NOVOLIN R) 100 Unit/1 Ml Vial, 10 UNIT SQ TID, VIAL 05/12/18 Discontinued Scripts Benzonatate 100 Mg Cap (TESSALON PERLE 100 MG CAP) 100 Mg Capsule, 100 MG PO TID for 7 Days, #15 CAP Prov:MARLON RODRIGUEZBENJAMIN 08/15/18 Reviewed Nurses Notes: Yes Old Medical Records Reviewed: Yes (SREE DOMINGUEZ MD) Hx Smoking: Yes (1 PPD FOR 20 YRS) Smoking Status: Former Smoker Exposure to Second Hand Smoke?: No Hx Substance Use Disorder: No Hx Alcohol Use: No (SREE DOMINGUEZ MD) Constitutional Vital Sign - Last 24 Hours 08/26/18 08/26/18 08/26/18 08/26/18 14:30 14:44 14:44 14:45 Temp 98.5 Pulse ??? 111 115 Resp 20 B/P (MAP) 169/110 (129) 169/110 Pulse Ox 97 97 O2 Delivery Room Air 08/26/18 08/26/18 08/26/18 08/26/18 15:00 15:15 15:30 15:45 Pulse 109 104 100 101 Resp 12 15 10 27 B/P (MAP) ???/??? (1665) 153/91 (111) 179/98 (125) 158/95 (116) Pulse Ox 96 96 97 96 08/26/18 08/26/18 08/26/18 08/26/18 16:00 16:15 16:20 16:30 Pulse 92 99 98 Resp 19 12 12 B/P (MAP) 176/95 (122) 179/101 (127) 192/132 (152) Pulse Ox 95 96 96 08/26/18 08/26/18 08/26/18 08/26/18 16:35 16:50 17:02 17:05 Pulse 110 112 130 Resp 14 19 20 B/P (MAP) 197/146 (163) Pulse Ox 96 98 08/26/18 08/26/18 08/26/18 08/26/18 17:15 17:20 17:30 17:35 Pulse 101 100 Resp 14 18 B/P (MAP) 184/104 (130) 169/91 (117) Pulse Ox 79 96 08/26/18 08/26/18 08/26/18 08/26/18 17:45 17:50 18:00 18:05 Pulse 108 99 Resp 18 18 B/P (MAP) 166/94 (118) 155/84 (107) Pulse Ox 95 95 08/26/18 08/26/18 08/26/18 08/26/18 18:15 18:20 18:30 18:35 Pulse 96 ??? Resp 18 29 B/P (MAP) 149/83 (105) 150/94 (112) Pulse Ox 95 94 08/26/18 08/26/18 08/26/18 08/26/18 18:45 18:50 19:00 19:05 Pulse 97 99 Resp 15 11 B/P (MAP) 159/85 (109) 178/89 (118) Pulse Ox 95 97 08/26/18 08/26/18 08/26/18 08/26/18 19:15 19:20 19:30 19:35 Pulse 106 116 Resp 12 11 B/P (MAP) 200/112 (141) 224/120 (154) Pulse Ox 98 98 08/26/18 08/26/18 08/26/18 08/26/18 19:45 19:50 20:05 20:10 Pulse 110 115 112 Resp 14 7 19 B/P (MAP) 201/148 (165) Pulse Ox 98 08/26/18 08/26/18 08/26/18 08/26/18 20:25 20:43 20:48 21:00 Pulse 106 Resp 20 16 B/P (MAP) 196/102 (133) 157/85 (109) Pulse Ox 98 08/26/18 08/26/18 08/26/18 08/26/18 21:03 21:15 21:18 21:30 Pulse 104 101 Resp 20 16 B/P (MAP) 155/82 (106) 147/79 (101) Pulse Ox 98 98 11/30/18 08/26/18 08/26/18 08/26/18 21:33 21:45 21:48 22:00 Pulse 98 99 Resp 17 18 B/P (MAP) 154/84 (107) 154/94 (114) Pulse Ox 98 98 08/26/18 08/26/18 08/26/18 08/26/18 22:03 22:15 22:18 22:30 Pulse 98 100 Resp 18 16 B/P (MAP) 169/105 (126) 158/95 (116) Pulse Ox 97 98 08/26/18 22:33 Pulse 100 Resp 23 Pulse Ox 97 ([facility]) Physical Exam General Appearance: The patient is alert, has no immediate need for airway protection and no current signs of toxicity. Eyes: Pupils equal and round no injection. Respiratory: Chest is non tender, lungs are clear to auscultation. Cardiac: regular rate and rhythm Gastrointestinal: Abdomen is soft and non tender, no masses, bowel sounds normal. Extremities have full range of motion and are non tender. Skin: No rashes or lesions. DIFFERENTIAL DIAGNOSIS: After history and physical exam differential diagnosis was considered for n/v including but not limited to appendicitis, cholecystitis, urinary tract infection, and viral gastritis. (SREE DOMINGUEZ MD) Medical Decision Making Data Points Result Diagram: 08/26/18 1544 08/26/18 1544 Laboratory Hematology Test 08/26/18 15:35 08/26/18 15:44 Urine Color Yellow Urine Clarity Cloudy Urine pH 6.0 pH (4.8-9.5) Urine Specific [place] 1.011 Urine Protein 500 mg/dL (NEGATIVE) Urine Glucose (UA) 150 mg/dL (NEGATIVE) Urine Ketones Negative mg/dL (NEGATIVE) Urine Blood Moderate (NEGATIVE) Urine Nitrite Negative (NEGATIVE) Urine Bilirubin Negative (NEGATIVE) Urine Urobilinogen Negative mg/dL (0.2-1.9) Urine Leukocyte Esterase Large (NEGATIVE) Urine RBC 56 /HPF (0-2/HPF) Urine WBC 692 /HPF (0-5/HPF) Urine Squamous Epithelial Cells Many /LPF (NONE-FEW) Urine Bacteria Moderate /HPF (NONE-FEW) Urine Mucus None /HPF (NONE-FEW) Red Blood Count 4.21 M/uL (4.17-5.56) Mean Corpuscular Volume 81.2 fL (80.0-96.0) Mean Corpuscular Hemoglobin 26.6 pg (26.0-33.0) Mean Corpuscular Hemoglobin Concent 32.8 g/dL (32.0-36.0) Red Cell Distribution Width 19.5 % (11.5-14.5) Mean Platelet Volume 7.4 fL (7.2-11.1) Neutrophils (%) (Auto) 73.5 % (39.4-72.5) Lymphocytes (%) (Auto) 19.5 % (17.6-49.6) Monocytes (%) (Auto) 5.0 % (4.1-12.4) Eosinophils (%) (Auto) 1.6 % (0.4-6.7) Basophils (%) (Auto) 0.4 % (0.3-1.4) Nucleated RBC Relative Count (auto) 0.1 /100WBC Neutrophils # (Auto) 9.4 K/uL (2.0-7.4) Lymphocytes # (Auto) 2.5 K/uL (1.3-3.6) Monocytes # (Auto) 0.6 K/uL (0.3-1.0) Eosinophils # (Auto) 0.2 K/uL (0.0-0.5) Basophils # (Auto) 0.1 K/uL (0.0-0.1) Nucleated RBC Absolute Count (auto) 0.01 K/uL Sodium Level 142 mmol/L (137-145) Potassium Level 4.7 mmol/L (3.5-5.0) Chloride Level 111 mmol/L (98-107) Carbon Dioxide Level 18 mmol/L (22-31) Blood Urea Nitrogen 48 mg/dl (7-18) Creatinine 2.60 mg/dl (0.52-1.04) Glomerular Filtration Rate Calc 18.5 Random Glucose 92 mg/dl (75-110) Calcium Level 11.4 mg/dl (8.4-10.2) Total Bilirubin 0.4 mg/dl (0.2-1.3) Aspartate Amino Transf (AST/SGOT) 12 U/L (0-35) Alanine Aminotransferase (ALT/SGPT) 10 U/L (0-56) Alkaline Phosphatase 116 U/L (0-126) Total Protein 8.4 g/dl (6.3-8.2) Albumin 4.2 g/dl (3.5-5.0) Amylase Level 40 U/L (0-110) Lipase 111 U/L (23-300) Chemistry Test 08/26/18 15:35 08/26/18 15:44 Urine Color Yellow Urine Clarity Cloudy Urine pH 6.0 pH (4.8-9.5) Urine Specific [place] 1.011 Urine Protein 500 mg/dL (NEGATIVE) Urine Glucose (UA) 150 mg/dL (NEGATIVE) Urine Ketones Negative mg/dL (NEGATIVE) Urine Blood Moderate (NEGATIVE) Urine Nitrite Negative (NEGATIVE) Urine Bilirubin Negative (NEGATIVE) Urine Urobilinogen Negative mg/dL (0.2-1.9) Urine Leukocyte Esterase Large (NEGATIVE) Urine RBC 56 /HPF (0-2/HPF) Urine WBC 692 /HPF (0-5/HPF) Urine Squamous Epithelial Cells Many /LPF (NONE-FEW) Urine Bacteria Moderate /HPF (NONE-FEW) Urine Mucus None /HPF (NONE-FEW) White Blood Count 12.8 k/uL (4.5-11.0) Red Blood Count 4.21 M/uL (4.17-5.56) Hemoglobin 11.2 g/dL (12.0-16.0) Hematocrit 34.2 % (34.0-47.0) Mean Corpuscular Volume 81.2 fL (80.0-96.0) Mean Corpuscular Hemoglobin 26.6 pg (26.0-33.0) Mean Corpuscular Hemoglobin Concent 32.8 g/dL (32.0-36.0) Red Cell Distribution Width 19.5 % (11.5-14.5) Platelet Count 464 K/uL (150-450) Mean Platelet Volume 7.4 fL (7.2-11.1) Neutrophils (%) (Auto) 73.5 % (39.4-72.5) Lymphocytes (%) (Auto) 19.5 % (17.6-49.6) Monocytes (%) (Auto) 5.0 % (4.1-12.4) Eosinophils (%) (Auto) 1.6 % (0.4-6.7) Basophils (%) (Auto) 0.4 % (0.3-1.4) Nucleated RBC Relative Count (auto) 0.1 /100WBC Neutrophils # (Auto) 9.4 K/uL (2.0-7.4) Lymphocytes # (Auto) 2.5 K/uL (1.3-3.6) Monocytes # (Auto) 0.6 K/uL (0.3-1.0) Eosinophils # (Auto) 0.2 K/uL (0.0-0.5) Basophils # (Auto) 0.1 K/uL (0.0-0.1) Nucleated RBC Absolute Count (auto) 0.01 K/uL Glomerular Filtration Rate Calc 18.5 Calcium Level 11.4 mg/dl (8.4-10.2) Total Bilirubin 0.4 mg/dl (0.2-1.3) Aspartate Amino Transf (AST/SGOT) 12 U/L (0-35) Alanine Aminotransferase (ALT/SGPT) 10 U/L (0-56) Alkaline Phosphatase 116 U/L (0-126) Total Protein 8.4 g/dl (6.3-8.2) Albumin 4.2 g/dl (3.5-5.0) Amylase Level 40 U/L (0-110) Lipase 111 U/L (23-300) Urinalysis Test 08/26/18 15:35 Urine Color Yellow Urine Clarity Cloudy Urine pH 6.0 pH (4.8-9.5) Urine Specific [place] 1.011 Urine Protein 500 mg/dL (NEGATIVE) Urine Glucose (UA) 150 mg/dL (NEGATIVE) Urine Ketones Negative mg/dL (NEGATIVE) Urine Blood Moderate (NEGATIVE) Urine Nitrite Negative (NEGATIVE) Urine Bilirubin Negative (NEGATIVE) Urine Urobilinogen Negative mg/dL (0.2-1.9) Urine Leukocyte Esterase Large (NEGATIVE) Urine RBC 56 /HPF (0-2/HPF) Urine WBC 692 /HPF (0-5/HPF) Urine Squamous Epithelial Cells Many /LPF (NONE-FEW) Urine Bacteria Moderate /HPF (NONE-FEW) Urine Mucus None /HPF (NONE-FEW) (DAYAN ADLER MD) EKG/Imaging Imaging EXAMINATION: CT abdomen and pelvis without IV contrast HISTORY: Abdominal pain. Vomiting. History of kidney problems. TECHNIQUE: Axial CT images of the abdomen and pelvis were obtained without IV contrast, with coronal and sagittal 2D reconstructed images. One of the following dose optimization techniques was utilized in the performance of this exam: Automated exposure control; adjustment of the mA and/or kV according to the patient's size; or use of an iterative reconstruction technique. Specific details can be referenced in the facility's radiology CT exam operational policy. COMPARISON: 05/17/2018. FINDINGS: Evaluation of the solid and viscus parenchymal organs is limited without the benefit of IV contrast. Liver: Normal hepatic size and morphology. Gallbladder and bile ducts: Negative. Spleen: Negative. Pancreas: Negative. Adrenal glands: Negative. Kidney/ureters/bladder: The urinary bladder is decompressed, with a Appiah catheter in place. There is stable mild hydronephrosis of both kidneys, with moderate dilatation of both ureters to the UVJ's. No urinary calculi. There is a small amount of scattered air within both ureters and renal collecting systems which may relate to the urinary catheterization or urinary infection. Bowel and peritoneum: The small bowel and colon are normal in caliber, without evidence of obstruction or any focal inflammatory process. Normal appendix. No free fluid or free intraperitoneal air. Pelvic structures: Small amount of air in the endometrial canal. Lymph node assessment: Borderline enlarged retroperitoneal lymph nodes appear grossly stable. The largest node measures 0.9 x 1.2 cm along the left paraaortic region. Vessels: Normal caliber abdominal aorta. Moderate vascular calcifications. Musculoskeletal: Multilevel degenerative changes throughout the spine. No acute osseous findings. Body wall: Moderate sized fat-containing umbilical hernia. No herniated bowel loops. Lung bases: Negative. IMPRESSION: 1. There is persistent chronic hydronephrosis of both kidneys with dilatation of both ureters to the UVJs. No urinary calculi. There is a small amount of air present in both ureters and renal collecting systems which could relate to the u rinary catheterization or urinary infection. 2. The urinary bladder is decompressed, with a Appiah catheter in place. 3. No other acute intra-abdominal findings by noncontrast CT imaging. The small bowel and colon are normal in caliber. Report Dictated By: Tommie Mckeon MD at 08/26/2018 9:01 PM ([facility]) ED Course/Re-evaluation Clinical Indication for ER IV: Hydration, IV Access ED Course I assumed care of this patient from Dr. Dominguez at shift change today. She has had ongoing nausea and vomiting for the last 5 days. History of new chronic kidney disease with associated bladder restriction and bilateral hydronephrosis. Currently waiting to follow-up with Dr. Miranda, Urology at [facility] in [place] for Urodynamics later this month. Her BUN and Cr are still elevated, but have improved over the last month. She has a mild elevated white blood cell count, but no fever. She has started having epigastric pain as well, thought due to the ongoing vomiting. Zofran, Reglan, and Ativan given earlier in this visit have been ineffective at controlling her nausea and vomiting. They will calm down briefly, then when she tries to drink anything, the vomiting resumes. Pain is epigastric and somewhat in left upper. No flank pain noted. Amylase and Lipase added and are negative. CT scan without contrast added as well, and negative other than the chronic hydronephrosis. Phenergan and Morphine given with mild relief, but still vomiting when trying to drink. Discussed options such as home with nausea and pain meds, versus admission. Discussed with Dr. Navarrete, and then discussed with with Dr. Song, urology at [facility]. He reviewed the notes of Dr. Miranda and indicated that with the improvement in the kidney function, no major sign of infection, and pain that does not reflect what would be expected from the kidneys, that admission here with symptomatic management would be appropriate. Dr. Navarrete accepted the patient for admission. Decision to Disposition Date: Aug 26, 2018 Decision to Disposition Time: 22:50 (DAYAN ADLER MD) Depart Departure Latest Vital Signs Vital Signs Date Time Temp Pulse Resp B/P (MAP) Pulse Ox O2 Delivery O2 Flow Rate FiO2 08/26/18 22:33 100 23 97 08/26/18 22:30 158/95 (116) 08/26/18 14:44 98.5 Room Air (DAYAN ADLER MD) Impression: Primary Impression: Nausea vomiting and diarrhea Additional Impression: Esophagitis Condition: Condition Unchanged Disposition: Admitted from ER Referrals: DEYANIRA YOUNG MD (PCP) Problem Qualifiers SREE DOMINGUEZ MD Aug 26, 2018 14:39 DAYAN ADLER MD Aug 26, 2018 18:57
[2018-08-26] MEDS ORDERED: ONDANSETRON 4 MG/2 ML VIAL IVP ONE (15:20)
[2018-08-26 15:50] LABS: PLATELET COUNT, AUTOMATED 464 K/uL (150-450)
[2018-08-26] MEDS ORDERED: METOCLOPRAMIDE 10 MG/2 ML SDV IVP ONE (16:40)
[2018-08-26] MEDS ORDERED: LORazepam 2 MG/ML VIAL ONE (17:06)
[2018-08-26] MEDS ORDERED: LORazepam 2 MG/ML VIAL IVP ONE (17:10)
[2018-08-26] MEDS ORDERED: NS(*) 0.9% 1000 ML BAG 1,000 ML IV ONE (18:25)
[2018-08-26] MEDS ORDERED: PROMETHAZINE 25 MG/ML 1 ML AMP IVP ONE (19:40)
[2018-08-26] MEDS ORDERED: MORPHINE 4 MG/ML SDV IVP ONE (19:40)
[2018-08-26] MEDS ORDERED: IOPAMIDOL 76% 75 ML INFUS BTL 0 ML ONE (19:50)
[2018-08-26] MEDS ORDERED: PANTOPRAZOLE SOD 40 MG IV VIAL IVP ONE (19:55)
--- NOTE | 2018-08-26 21:22 | RADIOLOGY IMAGING REPORT ---
FAC[place] [facility] [place] NAME: Sahra Chavis : 1955 MR: [id number] V: [id number] EXAM DATE: ORDERING PHYSICIAN: DAYAN ADLER TECHNOLOGIST: Location: [facility] [place] Patient: Sahra Chavis : 1955 Visit/Account:[id number] Date of Sevice: 08/26/2018 EXAMINATION: CT abdomen and pelvis without IV contrast HISTORY: Abdominal pain. Vomiting. History of kidney problems. TECHNIQUE: Axial CT images of the abdomen and pelvis were obtained without IV contrast, with cifuentes l and sagittal 2D reconstructed images. One of the following dose optimization techniques was utilized in the performance of this exam: Autom ated exposure control; adjustment of the mA and/or kV according to the patient's size; or use of an i terative reconstruction technique. Specific details can be referenced in the facility's radiology C T exam operational policy. COMPARISON: 05/17/2018. FINDINGS: Evaluation of the solid and viscus parenchymal organs is limited without the benefit of IV contrast. Liver: Normal hepatic size and morphology. Gallbladder and bile ducts: Negative. Spleen: Negative. Pancreas: Negative. Adrenal glands: Negative. Kidney/ureters/bladder: The urinary bladder is decompressed, with a Appiah catheter in place. There is stable mild hydronephrosis of both kidneys, with moderate dilatation of both ureters to the UVJ's. N o urinary calculi. There is a small amount of scattered air within both ureters and renal collecting systems which may relate to the urinary catheterization or urinary infection. Bowel and peritoneum: The small bowel and colon are normal in caliber, without evidence of obstructi on or any focal inflammatory process. Normal appendix. No free fluid or free intraperitoneal air. Pelvic structures: Small amount of air in the endometrial canal. Lymph node assessment: Borderline enlarged retroperitoneal lymph nodes appear grossly stable. The la rgest node measures 0.9 x 1.2 cm along the left paraaortic region. Vessels: Normal caliber abdominal aorta. Moderate vascular calcifications. Musculoskeletal: Multilevel degenerative changes throughout the spine. No acute osseous findings. Body wall: Moderate sized fat-containing umbilical hernia. No herniated bowel loops. Lung bases: Negative. IMPRESSION: 1. There is persistent chronic hydronephrosis of both kidneys with dilatation of both ureters to the UVJs. No urinary calculi. There is a small amount of air present in both ureters and renal collecting systems which could relate to the urinary catheterization or urinary infection. 2. The urinary bladder is decompressed, with a Appiah catheter in place. 3. No other acute intra-abdominal findings by noncontrast CT imaging. The small bowel and colon are n ormal in caliber. Report Dictated By: Tommie Mckeon MD at 08/26/2018 9:01 PM Report E-Signed By: Tommie Mckeon MD at 08/26/2018 9:19 PM WSN:[id number]
[2018-08-26 23:23] VITALS: BP 186/97
[2018-08-26] MEDS ORDERED: INSU100V26 IJ (23:33)
[2018-08-26] MEDS ORDERED: INFLUENZA VIRUS VAC 0.5ML SYR IM ONLY ONE (23:50)
[2018-08-26] MEDS ORDERED: PROMETHAZINE 25 MG/ML 1 ML AMP IVP PRN (23:50)
--- NOTE | 2018-08-27 00:04 | History & Physical ---
History of Present Illness Chief Complaint Nausea and vomiting History of Present Illness This patient presented to the emergency room complaining of nausea and vomiting. Her symptoms started approximately 5 days ago, and have progressed to the point where she has not been able to eat over the last 2 days. Prior to this she was suffering from diarrhea, but that has now resolved. She was admitted earlier this month for renal failure. History Problems: (1) Essential hypertension (2) Chronic kidney disease (CKD) stage G4/A1, severely decreased glomerular filtration rate (GFR) between 15-29 mL/min/1.73 square meter and albuminuria creatinine ratio less than 30 mg/g (3) Hydronephrosis Status: Chronic (4) T2DM (type 2 diabetes mellitus) Status: Chronic Home Meds Active Scripts Omeprazole (OMEPRAZOLE) 40 Mg Capsule.dr, 40 MG PO BID for 30 Days, CAP Prov:BENJAMIN PEPPER DO 08/15/18 Ranitidine Hcl (ZANTAC) 150 Mg Tablet, 75 MG PO BID for 30 Days, TAB Prov:BENJAMIN PEPPER DO 08/15/18 Gabapentin (GABAPENTIN) 600 Mg Tablet, 600 MG PO QHS, #180 TAB 3 Refills Prov:BENJAMIN PEPPER DO 08/15/18 Metoprolol Tartrate (METOPROLOL TARTRATE) 25 Mg Tablet, 1 TAB PO BID, #60 TAB Prov:DEYANIRA YOUNG MD 08/11/18 Amlodipine Besylate (AMLODIPINE BESYLATE) 5 Mg Tablet, 5 MG PO QDAY, #30 TAB Prov:SHILPA POPE 07/19/18 Pen Needle, Diabetic (Insulin Pen Needle) 31 Gauge X 1/6" Dis.needle, EACH , #100 Prov:XIOMARA NAVARRETE DO 11/25/17 Reported Medications Insulin Regular, Human (HUMULIN R) 100 Unit/1 Ml Vial, 100 UNIT IJ PRN for SEE COMMENT, VIAL PER SLIGHTING SCALE 08/26/18 Multivitamin With Minerals (MULTIPLE VITAMIN) 1 Each Tablet, 1 EACH PO QDAY, TAB 08/12/18 Aspirin (ASPIRIN) 325 Mg Tablet, 325 MG PO Q4-6H PRN for pain, TAB 08/12/18 Acetaminophen (TYLENOL EXTRA STRENGTH) 500 Mg Tablet, 500 MG PO PRN for PAIN, TAB 07/17/18 Oxybutynin Chloride (DITROPAN XL) 15 Mg Tab.er.24, 15 MG PO HS for URGENCY for 30 Days, #30 TAB 1 Refill 05/26/18 Ferrous Sulfate, Dried (IRON) 159 Mg Tablet.er, 65 MG PO QDAY 05/23/18 Nph, Human Insulin Isophane (NOVOLIN N) 100 Unit/1 Ml Vial, 10 UNIT SQ BID, VIAL 05/12/18 Discontinued Reported Medications Insulin Regular, Human (NOVOLIN R) 100 Unit/1 Ml Vial, 10 UNIT SQ TID, VIAL 05/12/18 Discontinued Scripts Benzonatate 100 Mg Cap (TESSALON PERLE 100 MG CAP) 100 Mg Capsule, 100 MG PO TID for 7 Days, #15 CAP Prov:BENJAMIN PEPPER DO 08/15/18 Allergies: Coded Allergies: No Known Drug Allergies (Unverified , 08/23/18) Patient History: FH: heart disease MOTHER, , Age:62 FHx: diabetes mellitus MOTHER, , Age:62 Hx Smoking: Yes (1 PPD FOR 20 YRS) Smoking Status: Former Smoker Exposure to Second Hand Smoke?: No Caffeine Intake: Coffee Caffeine/Cups Per Day: 16 OZ A DAY Hx Alcohol Use: No Hx Substance Use Disorder: No Social Drug Use: Never Review of Systems All Systems Reviewed/Normal: Yes, Except as Noted Gastrointestinal: Nausea, Vomiting Exam Vital Signs Vital Signs Date Time Temp Pulse Resp B/P (MAP) Pulse Ox O2 Delivery O2 Flow Rate FiO2 08/26/18 23:23 98.4 102 20 186/97 (126) 92 Room Air Neuro: No Gross deficits Eyes: PERRLA Cardiovascular: Regular Rate and Rhythm Respiratory: Clear to Auscultation GI: Abd Soft and Non-Tender Extremities: No Edema Integumentary: No Cyanosis Medical Decision Making Data Points Result Diagram: 08/26/18 1544 08/26/18 1544 Item Value Date Time Urine Leukocyte Esterase Large H 08/26/18 1535 Urine Squamous Epithelial Cells Many /LPF H 08/26/18 1535 Urine Bacteria Moderate /HPF H 08/26/18 1535 EKG / Imaging Imaging CT abdomen/pelvis reviewed. Assessment and Plan Problems: (1) Nausea & vomiting Assessment & Plan: She did present with nausea and vomiting over the last [address] scan of the abdomen was negative for acute pathology to explain her symptoms. We will place her on NPO status and advance her diet once her symptoms resolve. (2) Hydronephrosis Status: Chronic Assessment & Plan: She is known to have bilateral hydronephrosis, and has been referred to a urologist in [place]. The emergency room did contact her urologist, and they made no specific treatment recommendations at this time. However, he does wish to be notified if she does develop a fever, elevated WBC, or other signs of urinary infection. (3) Chronic kidney disease (CKD) stage G4/A1, severely decreased glomerular filtration rate (GFR) between 15-29 mL/min/1.73 square meter and albuminuria creatinine ratio less than 30 mg/g (4) T2DM (type 2 diabetes mellitus) Status: Chronic Assessment & Plan: She is on chronic treatment with NPH and regular insulin. We have held her NPH and placed her on sliding scale level #2. (5) Essential hypertension Assessment & Plan: She is on chronic treatment with metoprolol and amlodipine. Copies to: DEYANIRA YOUNG MD ; Venous Thromboembolism Antithrombotics Is Pt On Any Antithrombotics?: No Exam Sepsis Risk: No Definite Risk XIOMAAR NAVARRETE DO Aug 27, 2018 00:04
[2018-08-27] MEDS: D5NS(*) 1000 ML BAG 1,000 ML IV PRN ×2 (00:19→12:30)
[2018-08-27] MEDS: INSULIN HUM LISPRO 100 UN/ML 3 ML VIAL SUBQ PRN ×5 (00:21→20:51)
[2018-08-27 05:51] LABS: PLATELET COUNT, AUTOMATED 358 K/uL (150-450)
[2018-08-27 06:20] VITALS: BP 169/82
[2018-08-27 09:53] VITALS: BP 151/83
[2018-08-27] MEDS: METOPROLOL TART 50 MG TAB PO SCH ×2 (09:58→20:54)
[2018-08-27] MEDS: amLODIPine BESYL(*) 5 MG TAB PO SCH (09:58)
--- NOTE | 2018-08-27 11:05 | Hospitalist Progress Note ---
Subjective Progress Notes Subjective N/V resolved. She reports return of her appetite. Physical Exam Vital Signs Date Time Temp Pulse Resp B/P (MAP) Pulse Ox O2 Delivery O2 Flow Rate FiO2 08/27/18 09:53 98.9 87 18 151/83 (105) 98 Nasal Cannula 1.0 Intake and Output 08/27/18 06:58 Intake Total 1614 ml Output Total 1820 ml Balance -206 ml Intake IV Total 1614 ml Output Urine Total 1820 ml # Voids 1 General Appearance: Alert, Awake Cardiovascular: Regular Rate and Rhythm Respiratory: Clear to Auscultation GI: Soft and Non-Tender Extremities: Warm, Perfused Result Diagram: 08/27/1852708/27/18527 Assessment and Plan Problems: (1) Nausea & vomiting Status: Acute Assessment & Plan: Improved. She did present with nausea and vomiting over the last [address] scan of the abdomen was negative for acute pathology to explain her symptoms. She does have the chronic bilateral hydronephrosis. We placed her on NPO status. Will try to advance her diet now that her symptoms have improved. (2) Hydronephrosis Status: Chronic Assessment & Plan: She is known to have bilateral hydronephrosis and has been followed by urology here ([place]) and in [place] ([place]). The emergency room did contact her urologist and they made no specific treatment recommendations at this time. However, he does wish to be notified if she does develop a fever, elevated WBC, or other signs of urinary infection. (3) Chronic kidney disease (CKD) stage G4/A1, severely decreased glomerular f iltration rate (GFR) between 15-29 mL/min/1.73 square meter and albuminuria creatinine ratio less than 30 mg/g Status: Chronic Assessment & Plan: Improved. Creatinine 2.4 today (2.6 at admission). (4) T2DM (type 2 diabetes mellitus) Status: Chronic Assessment & Plan: She is on chronic treatment with NPH and regular insulin. We have held her NPH while oral intake is marginal and placed her on sliding scale level #2. (5) Essential hypertension Assessment & Plan: She is on chronic treatment with metoprolol and amlodipine. Exam Sepsis Risk: No Definite Risk DEE MCKENNA MD Aug 27, 2018 11:05
[2018-08-27] MEDS: PANTOPRAZOLE SOD 40 MG IV VIAL IVP SCH ×2 (11:08→20:55)
[2018-08-27 12:29] VITALS: Ht 170.2 cm; Wt 80.0 kg
[2018-08-27 14:57] VITALS: BP 150/78
[2018-08-27] MEDS: NS(*) 0.9% 1000 ML BAG 1,000 ML IV PRN (15:00)
[2018-08-27 20:02] VITALS: BP 170/100
[2018-08-27 23:05] VITALS: BP 141/74
[2018-08-28 03:16] VITALS: BP 169/89
[2018-08-28] MEDS: NS(*) 0.9% 1000 ML BAG 1,000 ML IV PRN (04:08)
[2018-08-28 06:44] LABS: PLATELET COUNT, AUTOMATED 373 K/uL (150-450)
[2018-08-28 07:51] VITALS: BP 175/98
[2018-08-28] MEDS: PANTOPRAZOLE SOD 40 MG IV VIAL IVP SCH ×2 (09:22→20:48)
[2018-08-28] MEDS: METOPROLOL TART 50 MG TAB PO SCH ×2 (09:23→20:47)
[2018-08-28] MEDS: amLODIPine BESYL(*) 5 MG TAB PO SCH (09:23)
--- NOTE | 2018-08-28 10:27 | Hospitalist Progress Note ---
Subjective Progress Notes Subjective 63F admitted for Doreen n/v. Symptoms improved, UCx growing GNR. BRANDYN overnight, will discuss with urology tomorrow. Patient Complains of: Gastrointestinal: Nausea, Bowel Movement; No Vomiting Physical Exam Vital Signs Date Time Temp Pulse Resp B/P (MAP) Pulse Ox O2 Delivery O2 Flow Rate FiO2 08/28/18 07:51 98.3 89 19 175/98 (123) 92 08/28/18 03:16 Nasal Cannula 1.0 Intake and Output 08/28/18 06:58 Intake Total 3760 ml Output Total 925 ml Balance 2835 ml Intake Oral 1420 ml IV Total 2340 ml Output Urine Total 925 ml General Appearance: Alert, Awake, No Acute Distress Neuro: No Gross deficits ENT: Normal Cardiovascular: Normal Rhythm & Peripheral Pulses Respiratory: No Respiratory Distress GI: Soft and Non-Tender : Normal (+ Appiah) Integumentary: Skin Intact without Lesion / Mass Psych: Appropriate Mood & Affect Result Diagram: 08/28/1860708/28/18607 Assessment and Plan Problems: (1) Nausea & vomiting Status: Acute Assessment & Plan: Improved. She did present with nausea and vomiting over the last [address] scan of the abdomen was negative for acute pathology to explain her symptoms. She does have the chronic bilateral hydronephrosis. Tolerating some PO. (2) Hydronephrosis Status: Chronic Assessment & Plan: She is known to have bilateral hydronephrosis and has been followed by urology here ([place]) and in [place] ([place]). The emergency room did contact her urologist and they made no specific treatment recommendations at this time. However, he does wish to be notified if she does develop a fever, elevated WBC, or other signs of urinary infection. UCx growing GNR. (3) Chronic kidney disease (CKD) stage G4/A1, severely decreased glomerular filtration rate (GFR) between 15-29 mL/min/1.73 square meter and albuminuria creatinine ratio less than 30 mg/g Status: Chronic Assessment & Plan: Improved. Creatinine 2.6 on admission. (4) T2DM (type 2 diabetes mellitus) Status: Chronic Assessment & Plan: She is on chronic treatment with NPH and regular insulin. Continue NPH and placed her on sliding scale level #2. (5) Essential hypertension Assessment & Plan: She is on chronic treatment with metoprolol and amlodipine. Exam Sepsis Risk: No Definite Risk MASON BENJAMIN RODRIGUEZ DO Aug 28, 2018 10:27
[2018-08-28 11:28] VITALS: BP 171/84
--- NOTE | 2018-08-28 11:40 | Medical Nutrition Therapy ---
Nutrition Anthropometrics Height (Inches): 67.00 Height (Calculated Centimeters: 170.474961 Weight (Pounds): 176 Weight (Calculated Kilograms): 79.974 BMI: 27.6 Roman Nutrition Score: Probably Inadequate Roman Nutrition Risk Score: 17 Dietary Referral Nutrition Risk Factors: Nutrition Risk Comment: Physical Findings Physical Appearance: Overweight BMI 25-29 Skin Appearance Skin Appearance: Edema Edema Location Modifier: Edema Location: Type of Edema: Degree of Edema: Gastrointestinal Symptoms GI Symtoms: Nausea Tube Present: Bowel Sounds: Recent Bowel Pattern: Stool Characteristics: Nutrition/Food History N/V Nutritional Diagnosis Nutritional Risk Acuity 1: Acute/ES Renal Nutritional Risk Acuity 3: Fair Appetite, Nausea Past Medical History: Hx of T2DM, HTN, CVA, CKD, GERD Nutritional Acuity: 1-High Nutrition Diagnosis: Inadequate Food Intake Nutrition Etiology: Physiological Causes Nutrition Problem/Etiology/Sym: Inadequate Oral Intake related to decreased ability to consume sufficient energy, e.g. vomiting/nausea AEB reports of insufficient intake of energy from diet when compared to requirements and low albumin status. Energy Requirement: 1935 ([place]-St Jeor: Actual BW X 1.4) Protein Requirement: 64 (Actual BW Kg X .8) Fluid Requirement: 1935 Diet Type: Medical Liquid/GI soft Nutrition Intervention: Incr diet as tolerated Nutrition Monitoring & Eval Nutrition Goals: Eat 75-100% Meal RD Patient Assessment Time: [address] Assessment Type: RD Assessment Patient Nutrition Acuity: 1-High Follow Up Date: Aug 31, 2018 Nutritional Comment: 08/28/18 Pt admitted with N/V x 5days. Hx of T2DM, HTN, CVA, CKD, GERD. Low H/H, Glu 173, High BUN/Creat, GFR 21.3, Alb 2.9. Lispro SSI. Overwt with BMI of 27.6. MD notes N/V is improving. Receiving Medical Liquid/GI Soft diet with 100% consumption of first meal. Follow diet progression, intale, labs, etc. -PATRICIA GOTTI Aug 28, 2018 11:40
[2018-08-28] MEDS: INSULIN HUM ISO(NPH) 100 UN/ML 3 ML VIAL SUBQ SCH ×2 (11:49→20:43)
[2018-08-28] MEDS: FAMOTIDINE 20 MG TAB PO SCH ×2 (11:54→20:47)
[2018-08-28 15:54] VITALS: BP 173/87
[2018-08-28] MEDS: ACETAMINOPHEN 500 MG TAB PO PRN ×2 (16:17→21:59)
[2018-08-28 19:19] VITALS: BP 167/82
[2018-08-28] MEDS: INSULIN HUM LISPRO 100 UN/ML 3 ML VIAL SUBQ PRN (20:45)
[2018-08-28] MEDS ORDERED: GABAPENTIN 300 MG CAP PO SCH (21:00)
[2018-08-29 00:15] VITALS: BP 144/82
[2018-08-29] MEDS: ACETAMINOPHEN 500 MG TAB PO PRN (04:21)
[2018-08-29 05:59] LABS: PLATELET COUNT, AUTOMATED 354 K/uL (150-450)
[2018-08-29 08:09] VITALS: BP 151/80
[2018-08-29] MEDS: INSULIN HUM ISO(NPH) 100 UN/ML 3 ML VIAL SUBQ SCH (08:17)
[2018-08-29] MEDS: PANTOPRAZOLE SOD 40 MG IV VIAL IVP SCH (08:17)
[2018-08-29] MEDS: FAMOTIDINE 20 MG TAB PO SCH (08:21)
[2018-08-29] MEDS: METOPROLOL TART 50 MG TAB PO SCH (08:21)
[2018-08-29] MEDS: amLODIPine BESYL(*) 5 MG TAB PO SCH (08:21)
[2018-08-29] MEDS ORDERED: PROM-110 PO (09:28)
--- NOTE | 2018-08-29 09:35 | Hospitalist Depart ---
Discharge Summary Reason for Hosp/Final Diag: (1) Nausea & vomiting Status: Acute Hospital Course & Plan: She did present with nausea and vomiting over the last [address] scan of the abdomen was negative for acute pathology to explain her symptoms. Her symptoms resolved with symptomatic treatment. (2) Hydronephrosis Status: Chronic Hospital Course & Plan: This is a long standing issue and she is followed by urology here ([place]) and in [place] ([place]). The emergency room did contact her urologist and they made no specific treatment recommendations at this time. Her urine culture did grow a gram negative keyshawn, but she is without fever, elevat ed WBC, or symptoms. She does have a chronic indwelling catheter. She is scheduled for follow up testing with urology in [place]. (3) Chronic kidney disease (CKD) stage G4/A1, severely decreased glomerular filtration rate (GFR) between 15-29 mL/min/1.73 square meter and albuminuria creatinine ratio less than 30 mg/g Status: Chronic (4) T2DM (type 2 diabetes mellitus) Status: Chronic Hospital Course & Plan: She is on chronic treatment with NPH and regular insulin. (5) Essential hypertension Hospital Course & Plan: She is on chronic treatment with metoprolol and amlodipine. Departure Latest Vital Signs Vital Signs 08/28/18 08/29/18 08/29/18 03:16 08:09 08:12 Temp 97.7 Pulse 77 Resp 20 B/P (MAP) 151/80 (103) Pulse Ox 93 O2 Delivery Room Air O2 Flow Rate 1.0 Weight (Pounds): 176 Weight (Ounces): 5.0 Result Diagram: 08/29/18 0535 08/29/18 0535 Condition: Improved Discharge: Home, Self Care Discharge Instructions Home Meds Active Scripts Promethazine Hcl (PROMETHAZINE HCL) 25 Mg Tablet, 25 MG PO Q8H PRN for NAUSEA/VOMITING, #10 TAB Prov:XIOMARA NAVARRETE DO 08/29/18 Omeprazole (OMEPRAZOLE) 40 Mg Capsule.dr, 40 MG PO BID for 30 Days, CAP Prov:BENJAMIN PEPPER DO 08/15/18 Ranitidine Hcl (ZANTAC) 150 Mg Tablet, 75 MG PO BID for 30 Days, TAB Prov:BENJAMIN PEPPER DO 08/15/18 Gabapentin (GABAPENTIN) 600 Mg Tablet, 600 MG PO QHS, #180 TAB 3 Refills Prov:BENJAMIN PEPPER DO 08/15/18 Metoprolol Tartrate (METOPROLOL TARTRATE) 25 Mg Tablet, 1 TAB PO BID, #60 TAB Prov:DEYANIRA YOUNG MD 08/11/18 Amlodipine Besylate (AMLODIPINE BESYLATE) 5 Mg Tablet, 5 MG PO QDAY, #30 TAB Prov:SHILPA POPE PISTON MAKER 07/19/18 Pen Needle, Diabetic (Insulin Pen Needle) 31 Gauge X 1/6" Dis.needle, EACH MC, #100 Prov:XIOMARA NAVARRETE DO 11/25/17 Reported Medications Insulin Regular, Human (HUMULIN R) 100 Unit/1 Ml Vial, 100 UNIT IJ PRN for SEE COMMENT, VIAL PER SLIGHTING SCALE 08/26/18 Multivitamin With Minerals (MULTIPLE VITAMIN) 1 Each Tablet, 1 EACH PO QDAY, TAB 08/12/18 Aspirin (ASPIRIN) 325 Mg Tablet, 325 MG PO Q4-6H PRN for pain, TAB 08/12/18 Acetaminophen (TYLENOL EXTRA STRENGTH) 500 Mg Tablet, 500 MG PO PRN for PAIN, TAB 07/17/18 Oxybutynin Chloride (DITROPAN XL) 15 Mg Tab.er.24, 15 MG PO HS for URGENCY for 30 Days, #30 TAB 1 Refill 05/26/18 Ferrous Sulfate, Dried (IRON) 159 Mg Tablet.er, 65 MG PO QDAY 05/23/18 Nph, Human Insulin Isophane (NOVOLIN N) 100 Unit/1 Ml Vial, 10 UNIT SQ BID, VIAL 05/12/18 Discontinued Reported Medications Insulin Regular, Human (NOVOLIN R) 100 Unit/1 Ml Vial, 10 UNIT SQ TID, VIAL 05/12/18 Discontinued Scripts Benzonatate 100 Mg Cap (TESSALON PERLE 100 MG CAP) 100 Mg Capsule, 100 MG PO TID for 7 Days, #15 CAP Prov:BENJAMIN PEPPER 08/15/18 Diet: Diabetic Activity: As Tolerated Copies to: DEYANIRA YOUNG MD; ANTONIA KENYON MD ; Venous Thromboembolism Antithrombotics Is Pt On Any Antithrombotics?: No XIOMARA NAVARRETE DO Aug 29, 2018 09:35
== END 2018-08-29 09:28 | disposition home or self-care (01) ==
LOC: ER 14:53 → MED 22:42 → INTOOBSV 22:42
PROVIDERS: ADMIT Family Medicine; ATTEND Family Medicine
DX: R11.2 Nausea with vomiting, unspecified (principal); N18.4 Chronic kidney disease, stage 4 (severe); I12.9 Hypertensive chronic kidney disease with stage 1 through stage 4 chronic kidney disease, or unspecified chronic kidney disease; E11.22 Type 2 diabetes mellitus with diabetic chronic kidney disease; N13.30 Unspecified hydronephrosis; Z79.4 Long term (current) use of insulin; Z79.84 Long term (current) use of oral hypoglycemic drugs
CPT/HCPCS: 36415; 36416; 74176; 81001; 82150; 82948; 83690; 85025; 87077; 87088; 87186; 96361; 96374; 96375; 99284; A9270; C9113; G0378; J1815; J2060; J2270; J2405; J2550; J2765; J7030; J7042; 82040; 82247; 82310; 82374; 82435; 82565; 82947; 84075; 84132; 84155; 84295; 84450; 84460; 84520; 96372; 96376; Q9967

== ENCOUNTER → 2018-09-01 | Outpatient (CLI) | payer MEDICARE ==
[2018-08-27 12:29] VITALS: BMI 27.6
[~2018-09-01] MED LIST changes: +INSU100V26 IJ
== END ==
LOC: LAB 15:41
PROVIDERS: ATTEND Emergency Medicine
DX: R31.9 Hematuria, unspecified (principal)
CPT/HCPCS: 87088

== ENCOUNTER 2018-09-30 14:30 | Outpatient (RCR) | payer MEDICARE ==
[2018-08-27 12:29] VITALS: Ht 159.4 cm; Wt 80.9 kg
[2018-09-22 15:07] VITALS: BP 185/89
[2018-09-22 16:24] LABS: PLATELET COUNT, AUTOMATED 511 K/uL (150-450)
--- NOTE | 2018-09-22 17:42 | ONCOLOGY CONSULTATION ---
EVENT DATE: September 22, [address] Tripp REASON FOR CONSULTATION Evaluation and management of possible plasma cell dyscrasia. HEMATOLOGY/ONCOLOGY HISTORY Patient is a 63-year-old history with known history of type 2 diabetes mellitus, hypertension and CVA in 2013, currently on Appiah catheter with recurrent urinary tract infection. Patient was admitted to the hospital recently with nausea and vomiting and patient was found to have urinary tract infection and urine culture grew Klebsiella oxytoca. She showed also rapid deterioration of her kidney function since June 2018. She had a CT abdomen, which showed bilateral hydroureteral nephrosis. Patient, during her evaluation, was found to have normochromic normocytic anemia. CBC showed white count 8.6, hemoglobin 9.1, hematocrit 28, platelets 348,000 and MCV was 81.6. Her BUN was 47 and creatinine 2.4. She had a serum protein immunoelectrophoresis which showed IgG level of 1,520, IgA of 364 and IgM of 104. The serum protein immunoelectrophoresis did reveal a faint band in IgG kappa. Her NNAMDI was detected at 1:80. PAST MEDICAL HISTORY 1. Anemia. 2. Thyroid nodule. 3. Hypertension. 4. Type 2 diabetes. 5. Hyperlipidemia. 6. CVA in 2013. 7. Recurrent UTI. PAST SURGICAL HISTORY 1. Tubal ligation in 1993. 2. Tonsillectomy in 1958. 3. Cystoscopy with bladder biopsy in the past. FAMILY HISTORY Negative for cancer or blood diseases. SOCIAL HISTORY Patient is with five children. She is currently a homemaker. She retired from ____ [employer] business. She quit smoking in 1990 after one pack a day for 20 years. Denies any abuse of alcohol or illicit drugs. CURRENT MEDICATIONS 1. Omeprazole 40 mg daily. 2. Zantac 150 mg twice daily. 3. Gabapentin 600 mg at bedtime. 4. Metoprolol 25 mg twice daily. 5. Amlodipine 5 mg daily. 6. Regular insulin as needed. 7. Multivitamins one tablet daily. 8. Aspirin 325 mg every 4 to 6 hours as needed for pain. 9. Tylenol Extra Strength 500 mg as needed for pain. 10. Ditropan XL 15 mg once daily at bedtime. 11. Ferrous Sulfate 159 mg daily. 12. Novolin N insulin 10 units subcutaneously twice daily. ALLERGIES PROMETHAZINE, which causes twitching. REVIEW OF SYSTEMS CONSTITUTIONAL: She has chills. HEENT: Ears: No tinnitus or hearing problem. Nose: She has nasal discharge. Throat: No sore throat or mouth ulcers. Eyes: No diplopia or visual changes. RESPIRATORY: She has cough with little phlegm. She is short winded. CARDIOVASCULAR: No chest pain, orthopnea, or paroxysmal nocturnal dyspnea (PND). No edema. No palpitations. GASTROINTESTINAL: She has occasional nausea and vomiting. She was discharged from the hospital recently with the same complaint. GENITOURINARY: She had cystoscopy in April 2018 and she has had Appiah catheter since then. Patient was found to have hydroureteral nephrosis and contracted bladder and she had recurrent urinary tract infection. She is scheduled for surgery. She has occasional hematuria. MUSCULOSKELETAL: She has pain in the back. NEUROLOGICAL: She has tingling and numbness of the feet. HEMATOLOGIC/LYMPHATIC: She bruises easily. She is weak, tired and fatigued. SKIN: No skin rash or lumps. PSYCHIATRIC: No anxiety or depression. PHYSICAL EXAMINATION GENERAL: Looks stable. Well-developed, well-nourished, and in no acute distress. VITAL SIGNS: Blood pressure 185/889, pulse 81 per minute, respirations 16 per minute, temperature 98, pulse ox 95% on room air. HEENT: Head: Atraumatic. No sinus tenderness to palpation. Eyes: No icterus or conjunctivitis. Mouth and Throat: No oral thrush or mucositis. NECK: Supple. No cervical or supraclavicular lymphadenopathy. LUNGS: Clear to auscultation and percussion bilaterally. HEART: Regular rate and rhythm. No gallops, murmurs, clicks or rubs. ABDOMEN: Soft and lax. No tenderness. No hepatosplenomegaly. No masses. EXTREMITIES: No cyanosis, clubbing or edema. LYMPHATICS: No peripheral lymphadenopathy. NEUROLOGICAL: Conscious, alert and oriented x3. No focal motor or sensory deficits. PSYCHIATRIC: Mood and affect appear normal. SKIN: No skin rash, bruise or purpuric eruption. ASSESSMENT 1. Plasma cell dyscrasia and in the presence of chronic kidney disease and anemia, multiple myeloma is a possibility despite the fact that the patient had a faint band of IgG kappa in her serum protein immunoelectrophoresis. Her quantitative immunoglobulins came back normal for IgG, IgA and IgM. I am planning to check myeloma profile with LDH and uric acid and I am planning also to collect 24-hour urine for urine protein electrophoresis and Bence-Thompson protein. I am planning to do a skeletal bone survey and I will consider bone marrow aspiration biopsy if indicated. I will see the patient after those results to decide about further evaluation and management. 2. Normochromic/normocytic anemia, could be due to anemia of chronic renal disease given that the patient has chronic kidney disease with creatinine 2.4. I am planning to do a basic workup for the anemia so I am planning to check the CBC, retic count, erythropoietin level, iron studies with ferritin, soluble transferrin receptor assay, B12 level, methylmalonic acid assay and folic acid level. I will consider bone marrow aspiration biopsy if indicated. If the patient would prove to have anemia chronic renal disease, I am planning to treat her with Aranesp or Epogen for that. PLAN 1. CBC. 2. Retic count. 3. CMP. 4. LDH and uric acid. 5. Myeloma profile. 6. 24-hour urine for urine protein electrophoresis and Bence-Thompson protein. 7. Skeletal bone survey. 8. B12 level. 9. Folic acid level. 10. Methylmalonic acid assay. 11. Erythropoietin level. 12. Iron studies with ferritin. 13. Soluble transferrin receptor assay. 14. Patient to return after the above for further evaluation and management. 15. Patient to contact us for any new concerns or complaints. MESFIN
--- NOTE | 2018-09-26 09:47 | RADIOLOGY IMAGING REPORT ---
FACILITY: [facility] PATIENT NAME: Sahra Chavis : 1955 MR: [id number] V: [id number] EXAM DATE: ORDERING PHYSICIAN: ANDREW MARTINES TECHNOLOGIST: Location: [facility] Patient: Sahra Chavis : 1955 Visit/Account:[id number] Date of Sevice: 09/26/2018 Bone survey Indication: Abnormal SPEP. Comparison: CT examination abdomen and pelvis August 26, 2018 Findings: Lateral view of the skull: No acute or aggressive osseous abnormality. No focal lucent lesions seen. Single view chest: No acute cardiopulmonary process or acute osseous abnormality. Single view right humerus: No acute or aggressive osseous abnormality. No focal lucent lesions seen . Single view left humerus: No acute or aggressive osseous abnormality. No focal lucent lesions seen. Single view right femur: No acute or aggressive osseous abnormality. No focal lucent lesions seen. Chondrocalcinosis with degenerative change at the knee Single view left femur: No acute or aggressive osseous abnormality. No focal lucent lesions seen. C hondrocalcinosis with degenerative change at the knee 2 views thoracic spine: No acute or aggressive osseous abnormality. No focal lucent lesions seen. M ild to moderate multilevel spondylosis 2 views lumbar spine: No acute or aggressive osseous abnormality. No focal lucent lesions seen. Mil d to moderate multilevel spondylosis Lateral view cervical spine: No acute or aggressive osseous abnormality. No focal lucent lesions see n. Mild multilevel spondylosis. Please note that the C7 vertebra is not well-seen. Single view pelvis: No acute or aggressive osseous abnormality. No focal lucent lesions seen. IMPRESSION: 1. No acute or aggressive osseous abnormality Report Dictated By: Alexandro Rosenbaum MD at 09/26/2018 9:40 AM Report E-Signed By: Alexandro Rosenbaum MD at 09/26/2018 9:43 AM WSN:[email or web address]
[~2018-09-30] VITALS: Ht 159.4 cm; Wt 80.9 kg
[~2018-09-30 14:30] MED LIST changes: -AMLO-111 PO; +AMLO-125 PO; -GABA-503 PO; -GABA-506 PO; +GABA-533 PO; +GABA-535 PO
[2018-09-30 14:43] VITALS: BP 155/81
--- NOTE | 2018-10-01 07:53 | [facility] ONCOLOGY NOTE ---
EVENT DATE: September 30, 2018 DIAGNOSES 1. Monoclonal gammopathy of unknown significance. 2. Chronic kidney disease. 3. Anemia of chronic renal disease. CHIEF COMPLAINT Patient is here today for followup of her possible plasma cell dyscrasia and anemia. HEMATOLOGY/ONCOLOGY HISTORY Patient is a 63-year-old history with known history of type 2 diabetes mellitus, hypertension and CVA in 2013, currently on [place] catheter with recurrent urinary tract infection. Patient was admitted to the hospital recently with nausea and vomiting and patient was found to have urinary tract infection and urine culture grew Klebsiella oxytoca. She showed also rapid deterioration of her kidney function since June 2018. She had a CT abdomen, which showed bilateral hydroureteral nephrosis. Patient, during her evaluation, was found to have normochromic normocytic anemia. CBC showed white count 8.6, hemoglobin 9.1, hematocrit 28, platelets 348,000 and MCV was 81.6. Her BUN was 47 and creatinine 2.4. She had a serum protein immunoelectrophoresis which showed IgG level of 1,520, IgA of 364 and IgM of 104. The serum protein immunoelectrophoresis did reveal a faint band in IgG kappa. Her NNAMDI was detected at 1:80. Repeat CBC showed white count 9.6, platelets 511,000, hemoglobin 10, hematocrit 30.6, absolute retic 0.0332, haptoglobin was high at 386. The rest of protein level was mildly elevated at 34 but low for the degree of anemia. Serum iron 57, TIBC 300, iron saturation 19% and ferritin 22. Soluble transferrin receptor assay is normal at 3.4. Serum creatinine was 3.3. Glomerular filtration rate was 14.1 mL/minute. Beta-2 microglobulin was high at 15.2. Vitamin B12 was 387 but methylmalonic assay was 0.65. Serum folate was more than 22.3. Serum protein immunoelectrophoresis showed faint band of IgG kappa but quantitative immunoglobulins are within the normal range. 24-hour urine for urine protein immunoelectrophoresis and Bence Thompson protein showed polyclonal increase in the free kappa and the all free lambda light chains. No monoclonal free light chains detected. HISTORY OF PRESENT ILLNESS Patient is here today to discuss the results of the blood work done for the evaluation of her possible plasma small dyscrasia and anemia. She is complaining of chills, nasal discharge, cough and shortness of breath. She has occasional vomiting and diarrhea. She is weak, tired and fatigued. PAST MEDICAL HISTORY 1. Anemia. 2. Thyroid nodule. 3. Hypertension. 4. Type 2 diabetes. 5. Hyperlipidemia. 6. CVA in 2013. 7. Recurrent UTI. PAST SURGICAL HISTORY 1. Tubal ligation in 1993. 2. Tonsillectomy in 1958. 3. Cystoscopy with bladder biopsy in the past. FAMILY HISTORY Negative for cancer or blood diseases. SOCIAL HISTORY Patient is with five children. 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 She quit smoking in 1990 after one pack a day for 20 years. Denies any abuse of alcohol or illicit drugs. CURRENT MEDICATIONS 1. Omeprazole 40 mg daily. 2. Zantac 150 mg twice daily. 3. Gabapentin 600 mg at bedtime. 4. Metoprolol 25 mg twice daily. 5. Amlodipine 5 mg daily. 6. Regular insulin as needed. 7. Multivitamins one tablet daily. 8. Aspirin 325 mg every 4 to 6 hours as needed for pain. 9. Tylenol Extra Strength 500 mg as needed for pain. 10. Ditropan XL 15 mg once daily at bedtime. 11. Ferrous Sulfate 159 mg daily. 12. Novolin N insulin 10 units subcutaneously twice daily. ALLERGIES PROMETHAZINE, which causes twitching. REVIEW OF SYSTEMS CONSTITUTIONAL: Patient has chills. HEENT: Ears: She has nasal discharge. Nose: She has nasal discharge. Throat: No sore throat or mouth ulcers. Eyes: No diplopia or visual changes. RESPIRATORY: She has cough and shortness of breath. CARDIOVASCULAR: No chest pain, orthopnea, or paroxysmal nocturnal dyspnea (PND). No edema. No palpitations. GASTROINTESTINAL: She has vomiting and diarrhea. GENITOURINARY: She had cystoscopy in April 2018 and she has had App[place] catheter since then. Patient was found to have hydroureteral nephrosis and contracted bladder and she had recurrent urinary tract infection. She is scheduled for surgery. She has occasional hematuria. MUSCULOSKELETAL: She has pain in the back. NEUROLOGICAL: She has tingling and numbness of the feet. HEMATOLOGIC/LYMPHATIC: She is weak, tired and fatigued. SKIN: No skin rash or lumps. PSYCHIATRIC: No anxiety or depression. PHYSICAL EXAMINATION GENERAL: Looks stable. Well-developed, well-nourished, and in no acute distress. VITAL SIGNS: Blood pressure 155/81, pulse 97 per minute, respirations 16 per minute, temperature 97.1, pulse ox 94% on room air. HEENT: Head: Atraumatic. No sinus tenderness to palpation. Eyes: No icterus or conjunctivitis. Mouth and Throat: No oral thrush or mucositis. NECK: Supple. No cervical or supraclavicular lymphadenopathy. LUNGS: Clear to auscultation and percussion bilaterally. HEART: Regular rate and rhythm. No gallops, murmurs, clicks or rubs. ABDOMEN: Soft and lax. No tenderness. No hepatosplenomegaly. No masses. EXTREMITIES: No cyanosis, clubbing or edema. LYMPHATICS: No peripheral lymphadenopathy. NEUROLOGICAL: Conscious, alert and oriented x3. No focal motor or sensory deficits. PSYCHIATRIC: Mood and affect appear normal. SKIN: No skin rash, bruise or purpuric eruption. DIAGNOSTIC DATA Repeat CBC showed white count 9.6, hemoglobin 10, hematocrit 30.6, platelet 511,000. Absolute retic count 0.0332. Haptoglobin was 386. Serum iron 57, TIBC 300, iron saturation 19%. Soluble transferrin receptor assay is 3.4, which is normal, and ferritin was 22. Serum creatinine was 3.3 with glomerular filtration rate 14.1 mL/minute. Erythropoietin level was mildly elevated at 34 but low for the degree of anemia. Beta-2 microglobulin was high at 15.2, most probably due to her renal failure. B12 was 387 but methylmalonic assay was high at 0.65. Serum folate was more than 22.3. Serum protein immunoelectrophoresis shows a faint band in the IgG kappa but quantitative immunoglobulins were normal. 24-hour urine for urine protein immunoelectrophoresis showed a polyclonal increase in the free kappa and/or free lambda light chains. No monoclonal free light chains are detected. ASSESSMENT 1. Monoclonal gammopathy of unknown significance given that the patient has a faint band in the IgG kappa with polyclonal Bence Thompson protein in the urine, 24-hour specimen, and normal quantitative immunoglobulins. I am planning to follow her myeloma profile every six months. 2. Normochromic/normocytic anemia, most probably due to anemia of chronic renal disease and biochemical deficiency of vitamin B12. I am planning to treat her with vitamin B12 supplement. If her hemoglobin drops below 10 g/dL, I am planning to treat her with Aranesp. Patient is going to see a retort fireman for evaluation of her kidney function. 3. Vitamin B12 deficiency biochemically by high methylmalonic acid assay at 0.65, which could be also due to her renal failure but giving her the benefit of the doubt. I am planning to treat her with vitamin B12 shots 1000 mcg daily for one week, then weekly for four weeks and then once monthly after that. 4. Chronic kidney disease. Serum creatinine currently 3.3 with glomerular filtration rate 14.1 mL/minute. PLAN 1. Vitamin B12 shots 1000 mcg daily for one week, then weekly for four weeks and then once monthly after that. 2. Consider Aranesp 200 mcg every two weeks if the hemoglobin drops below 10 g/dL. 3. Patient to return in two months with CBC and methylmalonic acid assay. 4. Consider Aranesp 200 mcg subcutaneously every other week if the hemoglobin drops below 10 g/dL. 5. Patient to contact us for any new concerns of complaints. [facility]
[2018-10-31] MEDS ORDERED: OMEP-125 PO (17:18)
[2018-10-31] MEDS ORDERED: CEPH250C37 PO ×2 (17:27→18:06)
[2018-12-01] MEDS ORDERED: ATOR40TA24 PO (16:13)
[2018-12-03] MEDS ORDERED: CEFT1VIA65 IV (14:57)
[2018-12-03] MEDS ORDERED: METR250T8 PO (14:57)
[2018-12-03] MEDS ORDERED: MOXOD OS (14:57)
[2018-12-03] MEDS ORDERED: DOXY-179 PO (14:57)
[2018-12-03] MEDS ORDERED: PRED5DRO34 OS (14:57)
[2018-12-03] MEDS ORDERED: [UNRECOGNIZED DRUG - CODE] PO (14:57)
[2018-12-03] MEDS ORDERED: OMEP-125 PO (14:57)
== END 2018-12-20 ==
LOC: ONC 14:30
PROVIDERS: ATTEND Internal Medicine Hematology
DX: E11.22 Type 2 diabetes mellitus with diabetic chronic kidney disease (principal); N18.9 Chronic kidney disease, unspecified; D63.1 Anemia in chronic kidney disease; Z86.73 Personal history of transient ischemic attack (TIA), and cerebral infarction without residual deficits; E04.1 Nontoxic single thyroid nodule; E78.5 Hyperlipidemia, unspecified; Z87.891 Personal history of nicotine dependence; I12.0 Hypertensive chronic kidney disease with stage 5 chronic kidney disease or end stage renal disease; R53.83 Other fatigue
CPT/HCPCS: 36415; 77075; 82232; 82607; 82668; 82728; 82746; 83010; 83540; 83550; 83615; 83883; 83921; 84156; 84238; 84550; 85025; 85045; 86334; 86335; G0463; 82040; 82247; 82310; 82374; 82435; 82565; 82947; 84075; 84132; 84155; 84295; 84450; 84460; 84520; 99202; 99212

== ENCOUNTER 2018-10-12 14:00 | Outpatient (RCR) | payer MEDICARE ==
[2018-08-27 12:29] VITALS: BMI 27.6
[2018-10-31] MEDS ORDERED: OMEP-125 PO (17:18)
[2018-10-31] MEDS ORDERED: CEPH250C37 PO ×2 (17:27→18:06)
[2018-12-01] MEDS ORDERED: ATOR40TA24 PO (16:13)
[2018-12-03] MEDS ORDERED: MOXOD OS (14:57)
[2018-12-03] MEDS ORDERED: METR250T8 PO (14:57)
[2018-12-03] MEDS ORDERED: PRED5DRO34 OS (14:57)
[2018-12-03] MEDS ORDERED: DOXY-179 PO (14:57)
[2018-12-03] MEDS ORDERED: [UNRECOGNIZED DRUG - CODE] PO (14:57)
[2018-12-03] MEDS ORDERED: CEFT1VIA65 IV (14:57)
[2018-12-03] MEDS ORDERED: OMEP-125 PO (14:57)
[2019-01-02] MEDS ORDERED: ONDA4TAB9 PO (08:11)
[2019-01-02] MEDS ORDERED: PANT40TA65 PO (08:11)
[2019-01-02] MEDS ORDERED: AMLO-127 PO (08:11)
[2019-01-02] MEDS ORDERED: RANI-366 PO (18:05)
[2019-01-02] MEDS ORDERED: OMEP-125 PO (18:05)
[2019-01-02] MEDS ORDERED: ATOR-1 PO (18:05)
[2019-01-04] MEDS ORDERED: LEVO500T83 PO (11:46)
[2019-01-10] MEDS ORDERED: VITA-175 PO (11:06)
[2019-01-10] MEDS ORDERED: FERR236T3 PO (11:08)
[2019-01-10] MEDS ORDERED: CYA1000 PO (11:13)
[2019-01-10] MEDS ORDERED: ONDA8TAB98 PO (11:13)
== END 2019-01-09 ==
LOC: SPU 14:00
PROVIDERS: ATTEND Urology
DX: Z02.9 Encounter for administrative examinations, unspecified (principal)

== ENCOUNTER 2018-10-28 01:00 | Inpatient (IN) | payer MEDICARE ==
[~2018-10-28] VITALS: Ht 162.6 cm; Wt 79.0 kg
--- NOTE | 2018-10-28 01:04 | ER Report ---
History and Physical Time Seen By MD: 01:03 HPI/ROS CHIEF COMPLAINT: Nausea and vomiting HISTORY OF PRESENT ILLNESS: 63-year-old female presents ambulatory with her complaining of vomiting for a day and a half. Patient's been not feeli ng well. She's been seeing oncology clinic for nonspecific monoclonal gammopathy. Patient reports fever and chills. Patient has bilateral nephrostomy tubes. There is cloudy urine draining in both tubes. REVIEW OF SYSTEMS: Respiratory: No cough, no dyspnea. Cardiovascular: No chest pain, no palpitations. Gastrointestinal: As above Musculoskeletal: As above Allergies: Coded Allergies: promethazine (Verified Allergy, Mild, 10/28/18) uncontrolled motor movements/ spasms Home Meds Active Scripts Metoprolol Tartrate (METOPROLOL TARTRATE) 25 Mg Tablet, 1 TAB PO BID, #180 TAB 3 Refills Prov:DEYANIRA YOUNG MD 09/22/18 Ranitidine Hcl (ZANTAC) 150 Mg Tablet, 75 MG PO BID for 30 Days, TAB Prov:BENJAMIN PEPPER DO 08/15/18 Gabapentin (GABAPENTIN) 600 Mg Tablet, 600 MG PO QHS, #180 TAB 3 Refills Prov:BENJAMIN PEPPER DO 08/15/18 Pen Needle, Diabetic (Insulin Pen Needle) 31 Gauge X 1/6" Dis.needle, EACH , #100 Prov:XIOMARA NAVARRETE DO 11/25/17 Reported Medications Insulin Regular, Human (HUMULIN R) 100 Unit/1 Ml Vial, 100 UNIT IJ PRN for SEE COMMENT, VIAL PER SLIDING SCALE 08/26/18 Multivitamin With Minerals (MULTIPLE VITAMIN) 1 Each Tablet, 1 EACH PO QDAY, TAB 08/12/18 Acetaminophen (TYLENOL EXTRA STRENGTH) 500 Mg Tablet, 500 MG PO PRN for PAIN, TAB 07/17/18 Nph, Human Insulin Isophane (NOVOLIN N) 100 Unit/1 Ml Vial, 10 UNIT SQ BID, VIAL 10 UNITS MORNING 12 UNITS AT NIGHT 05/12/18 Discontinued Reported Medications Aspirin (ASPIRIN) 325 Mg Tablet, 325 MG PO Q4-6H PRN for pain, TAB 08/12/18 Ferrous Sulfate, Dried (IRON) 159 Mg Tablet.er, 65 MG PO QDAY 05/23/18 Discontinued Scripts Promethazine Hcl (PROMETHAZINE HCL) 25 Mg Tablet, 25 MG PO Q8H PRN for NAUSEA/VOMITING, #10 TAB Prov:XIOMARA NAVARRETE DO 08/29/18 Past Medical/Surgical History PAST MEDICAL HISTORY 1. Anemia. 2. Thyroid nodule. 3. Hypertension. 4. Type 2 diabetes. 5. Hyperlipidemia. 6. CVA in 2013. 7. Recurrent UTI. PAST SURGICAL HISTORY 1. Tubal ligation in 1993. 2. Tonsillectomy in 1958. 3. Cystoscopy with bladder biopsy in the past. Hx Smoking: Yes (1 PPD FOR 20 YRS) Smoking Status: Former Smoker Exposure to Second Hand Smoke?: No Hx Substance Use Disorder: No Hx Alcohol Use: No Constitutional Vital Sign - Last 24 Hours 10/28/18 10/28/18 10/28/18 10/28/18 01:05 01:06 01:15 01:30 Temp 97.6 Pulse 127 114 Resp 20 14 B/P (MAP) 162/78 162/78 (106) 168/77 (107) Pulse Ox 99 98 O2 Delivery Room Air 10/28/18 10/28/18 10/28/18 10/28/18 01:45 01:50 02:00 02:05 Pulse 115 109 117 Resp 31 B/P (MAP) 182/106 (131) Pulse Ox 98 97 10/28/18 10/28/18 10/28/18 10/28/18 02:20 02:30 02:35 02:50 Pulse 114 114 105 B/P (MAP) 188/119 (142) Pulse Ox 97 97 96 10/28/18 10/28/18 10/28/18 10/28/18 02:53 02:58 03:00 03:05 Pulse 105 110 119 B/P (MAP) 185/90 (121) Pulse Ox 96 98 98 Physical Exam General Appearance: The patient is alert, has no immediate need for airway protection and no current signs of toxicity., Pale, vomiting, dehydrated. Skin dry, warm HEENT: Pupils equal and round no injection. Oropharynx without redness or exudate, mucous. Membranes are dry Respiratory: Chest is non tender, lungs are clear to auscultation. Cardiac: regular rate and rhythm Gastrointestinal: Abdomen is soft and non tender, no masses, bowel sounds normal. Bilateral nephrostomy tubes with cloudy drainage Musculoskeletal: Neck: Neck is supple and non tender. No lymphadenopathy Extremities have full range of motion and are non tender. Skin: No rashes or lesions. DIFFERENTIAL DIAGNOSIS: After history and physical exam differential diagnosis was considered for adult fever including but not limited to viral syndromes including influenza, urinary tract infection, pneumonia and sepsis. Medical Decision Making Data Points Result Diagram: 10/28/18 0115 10/28/18 1203 Laboratory Hematology Test 10/28/18 01:15 10/28/18 01:56 Red Blood Count 5.06 M/uL (4.17-5.56) Mean Corpuscular Volume 80.7 fL (80.0-96.0) Mean Corpuscular Hemoglobin 26.7 pg (26.0-33.0) Mean Corpuscular Hemoglobin Concent 33.1 g/dL (32.0-36.0) Red Cell Distribution Width 18.9 % (11.5-14.5) Mean Platelet Volume 7.8 fL (7.2-11.1) Neutrophils (%) (Auto) 90.2 % (39.4-72.5) Lymphocytes (%) (Auto) 6.8 % (17.6-49.6) Monocytes (%) (Auto) 2.6 % (4.1-12.4) Eosinophils (%) (Auto) 0.0 % (0.4-6.7) Basophils (%) (Auto) 0.4 % (0.3-1.4) Nucleated RBC Relative Count (auto) 0.0 /100WBC Neutrophils # (Auto) 16.0 K/uL (2.0-7.4) Lymphocytes # (Auto) 1.2 K/uL (1.3-3.6) Monocytes # (Auto) 0.5 K/uL (0.3-1.0) Eosinophils # (Auto) 0.0 K/uL (0.0-0.5) Basophils # (Auto) 0.1 K/uL (0.0-0.1) Nucleated RBC Absolute Count (auto) 0.00 K/uL Peripheral Blood Smear Yes Y/N Total Bilirubin 0.8 mg/dl (0.2-1.3) Aspartate Amino Transf (AST/SGOT) 23 U/L (0-35) Alanine Aminotransferase (ALT/SGPT) < 6 U/L (0-56) Alkaline Phosphatase 127 U/L (0-126) Total Protein 8.3 g/dl (6.3-8.2) Albumin 4.5 g/dl (3.5-5.0) Amylase Level < 30 U/L (0-110) Lipase 59 U/L (23-300) Urine Color Yellow Urine Clarity Cloudy Urine pH 7.0 pH (4.8-9.5) Urine Specific Rohwer 1.015 Urine Protein 500 mg/dL (NEGATIVE) Urine Glucose (UA) 500 mg/dL (NEGATIVE) Urine Ketones 20 mg/dL (NEGATIVE) Urine Blood Small (NEGATIVE) Urine Nitrite Negative (NEGATIVE) Urine Bilirubin Negative (NEGATIVE) Urine Urobilinogen Negative mg/dL (0.2-1.9) Urine Leukocyte Esterase Large (NEGATIVE) Urine RBC 11 /HPF (0-2/HPF) Urine WBC 311 /HPF (0-5/HPF) Urine WBC Clumps Many /HPF Urine Squamous Epithelial Cells None /LPF (NONE-FEW) Urine Bacteria Many /HPF (NONE-FEW) Urine Mucus None /HPF (NONE-FEW) Chemistry Test 10/28/18 01:15 10/28/18 01:56 White Blood Count 17.7 k/uL (4.5-11.0) Red Blood Count 5.06 M/uL (4.17-5.56) Hemoglobin 13.5 g/dL (12.0-16.0) Hematocrit 40.8 % (34.0-47.0) Mean Corpuscular Volume 80.7 fL (80.0-96.0) Mean Corpuscular Hemoglobin 26.7 pg (26.0-33.0) Mean Corpuscular Hemoglobin Concent 33.1 g/dL (32.0-36.0) Red Cell Distribution Width 18.9 % (11.5-14.5) Platelet Count 702 K/uL (150-450) Mean Platelet Volume 7.8 fL (7.2-11.1) Neutrophils (%) (Auto) 90.2 % (39.4-72.5) Lymphocytes (%) (Auto) 6.8 % (17.6-49.6) Monocytes (%) (Auto) 2.6 % (4.1-12.4) Eosinophils (%) (Auto) 0.0 % (0.4-6.7) Basophils (%) (Auto) 0.4 % (0.3-1.4) Nucleated RBC Relative Count (auto) 0.0 /100WBC Neutrophils # (Auto) 16.0 K/uL (2.0-7.4) Lymphocytes # (Auto) 1.2 K/uL (1.3-3.6) Monocytes # (Auto) 0.5 K/uL (0.3-1.0) Eosinophils # (Auto) 0.0 K/uL (0.0-0.5) Basophils # (Auto) 0.1 K/uL (0.0-0.1) Nucleated RBC Absolute Count (auto) 0.00 K/uL Peripheral Blood Smear Yes Y/N Total Bilirubin 0.8 mg/dl (0.2-1.3) Aspartate Amino Transf (AST/SGOT) 23 U/L (0-35) Alanine Aminotransferase (ALT/SGPT) < 6 U/L (0-56) Alkaline Phosphatase 127 U/L (0-126) Total Protein 8.3 g/dl (6.3-8.2) Albumin 4.5 g/dl (3.5-5.0) Amylase Level < 30 U/L (0-110) Lipase 59 U/L (23-300) Urine Color Yellow Urine Clarity Cloudy Urine pH 7.0 pH (4.8-9.5) Urine Specific Rohwer 1.015 Urine Protein 500 mg/dL (NEGATIVE) Urine Glucose (UA) 500 mg/dL (NEGATIVE) Urine Ketones 20 mg/dL (NEGATIVE) Urine Blood Small (NEGATIVE) Urine Nitrite Negative (NEGATIVE) Urine Bilirubin Negative (NEGATIVE) Urine Urobilinogen Negative mg/dL (0.2-1.9) Urine Leukocyte Esterase Large (NEGATIVE) Urine RBC 11 /HPF (0-2/HPF) Urine WBC 311 /HPF (0-5/HPF) Urine WBC Clumps Many /HPF Urine Squamous Epithelial Cells None /LPF (NONE-FEW) Urine Bacteria Many /HPF (NONE-FEW) Urine Mucus None /HPF (NONE-FEW) Urinalysis Test 10/28/18 01:56 Urine Color Yellow Urine Clarity Cloudy Urine pH 7.0 pH (4.8-9.5) Urine Specific Rohwer 1.015 Urine Protein 500 mg/dL (NEGATIVE) Urine Glucose (UA) 500 mg/dL (NEGATIVE) Urine Ketones 20 mg/dL (NEGATIVE) Urine Blood Small (NEGATIVE) Urine Nitrite Negative (NEGATIVE) Urine Bilirubin Negative (NEGATIVE) Urine Urobilinogen Negative mg/dL (0.2-1.9) Urine Leukocyte Esterase Large (NEGATIVE) Urine RBC 11 /HPF (0-2/HPF) Urine WBC 311 /HPF (0-5/HPF) Urine WBC Clumps Many /HPF Urine Squamous Epithelial Cells None /LPF (NONE-FEW) Urine Bacteria Many /HPF (NONE-FEW) Urine Mucus None /HPF (NONE-FEW) ED Course/Re-evaluation Clinical Indication for ER IV: Hydration, IV Access ED Course Patient was admitted to an examination room. H&P was done. The differential diagnosis was considered. Patient with vomiting for 36 hours. She is running fevers. Her bilateral nephrostomy tubes show cloudy urine, suspicious for infection. Patient has elevated white blood cell count of 17,000. Her urine's both look infected. With clumped WBCs, suspicious for pyelonephritis. Her calcium returns at 13. Patient's aggressively hydrated. Patient's treated for her emesis with antiemetics. Her case is discussed with hospitalist for admission. 10/28/2018 2:41:30 am case discussed with Dr. Navarrete hospitalist on-call, who accepts the patient for admission for treatment of hypercalcemia and bilateral pyelonephritis Decision to Disposition Date: Oct 28, 2018 Decision to Disposition Time: 02:26 Depart Departure Latest Vital Signs Vital Signs Date Time Temp Pulse Resp B/P (MAP) Pulse Ox O2 Delivery O2 Flow Rate FiO2 10/28/18 03:05 119 98 10/28/18 03:00 185/90 (121) 10/28/18 01:45 31 10/28/18 01:05 97.6 Room Air Impression: Primary Impression: Pyelonephritis Additional Impressions: Hypercalcemia Chronic renal insufficiency Condition: Improved Disposition: Admitted from ER Referrals: DEYANIRA YOUNG MD (PCP) Problem Qualifiers Additional Impressions: Chronic renal insufficiency Chronic kidney disease stage: unspecified stage Qualified Codes: N18.9 - Chronic kidney disease, unspecified MEHRAN SOLORIO DO Oct 28, 2018 01:04
[2018-10-28] MEDS ORDERED: NS(*) 0.9% 1000 ML BAG 1,000 ML IV ONE ×2 (01:13→02:15)
[2018-10-28] MEDS ORDERED: ONDANSETRON 4 MG/2 ML VIAL IVP ONE (01:15)
[2018-10-28 01:53] LABS: PLATELET COUNT, AUTOMATED 702 K/uL (150-450)
[2018-10-28 03:56] VITALS: BP 199/103
[2018-10-28] MEDS ORDERED: INFLUENZA VIRUS VAC 0.5ML SYR IM ONLY ONE (04:30)
[2018-10-28] MEDS ORDERED: cefTRIAXone 2 GM VIAL IVP SCH (04:30)
[2018-10-28] MEDS ORDERED: SUCRALFATE 1 GM TAB PO PRN (04:40)
--- NOTE | 2018-10-28 04:41 | History & Physical ---
History of Present Illness Chief Complaint Nausea and vomiting History of Present Illness This patient presented to the emergency room complaining of nausea, vomiting, fever, and chills. She reports having these symptoms over the last few days. She recently underwent bilateral nephrostomy tube placement in [place]. She has not been on antibiotics for at least a month. History Problems: (1) T2DM (type 2 diabetes mellitus) Status: Chronic (2) History of CVA (cerebrovascular accident) Status: Chronic (3) Thyroid nodule Status: Chronic (4) Diabetic retinopathy Status: Chronic (5) Hypertension Status: Chronic (6) Essential hypertension Status: Chronic (7) Chronic kidney disease (CKD) stage G4/A1, severely decreased glomerular filtration rate (GFR) between 15-29 mL/min/1.73 square meter and albuminuria creatinine ratio less than 30 mg/g Status: Chronic (8) Hypercalcemia Status: Chronic (9) History of tubal ligation (10) Hx of cystoscopy (11) Hx of tonsillectomy Home Meds Active Scripts Metoprolol Tartrate (METOPROLOL TARTRATE) 25 Mg Tablet, 1 TAB PO BID, #180 TAB 3 Refills Prov:DEYANIRA YOUNG MD 09/22/18 Ranitidine Hcl (ZANTAC) 150 Mg Tablet, 75 MG PO BID for 30 Days, TAB Prov:BENJAMIN PEPPER DO 08/15/18 Gabapentin (GABAPENTIN) 600 Mg Tablet, 600 MG PO QHS, #180 TAB 3 Refills Prov:BENJAMIN PEPPER DO 08/15/18 Pen Needle, Diabetic (Insulin Pen Needle) 31 Gauge X 1/6" Dis.needle, EACH , #100 Prov:XIOMARA NAVARRETE DO 11/25/17 Reported Medications Insulin Regular, Human (HUMULIN R) 100 Unit/1 Ml Vial, 100 UNIT IJ PRN for SEE COMMENT, VIAL PER SLIDING SCALE 08/26/18 Multivitamin With Minerals (MULTIPLE VITAMIN) 1 Each Tablet, 1 EACH PO QDAY, TAB 08/12/18 Acetaminophen (TYLENOL EXTRA STRENGTH) 500 Mg Tablet, 500 MG PO PRN for PAIN, TAB 07/17/18 Nph, Human Insulin Isophane (NOVOLIN N) 100 Unit/1 Ml Vial, 10 UNIT SQ BID, VIAL 10 UNITS MORNING 12 UNITS AT NIGHT 05/12/18 Discontinued Reported Medications Aspirin (ASPIRIN) 325 Mg Tablet, 325 MG PO Q4-6H PRN for pain, TAB 08/12/18 Ferrous Sulfate, Dried (IRON) 159 Mg Tablet.er, 65 MG PO QDAY 05/23/18 Discontinued Scripts Promethazine Hcl (PROMETHAZINE HCL) 25 Mg Tablet, 25 MG PO Q8H PRN for NAUSEA/VOMITING, #10 TAB Prov:XIOMARA NAVARRETE DO 08/29/18 Allergies: Coded Allergies: promethazine (Verified Allergy, Mild, 10/28/18) uncontrolled motor movements/ spasms Patient History: FH: heart disease MOTHER, , Age:62 FHx: diabetes mellitus MOTHER, , Age:62 Hx Smoking: Yes (1 PPD FOR 20 YRS) Smoking Status: Former Smoker Exposure to Second Hand Smoke?: No Caffeine Intake: Coffee Caffeine/Cups Per Day: 16 OZ A DAY Hx Alcohol Use: No Hx Substance Use Disorder: No Social Drug Use: Never Review of Systems All Systems Reviewed/Normal: Yes, Except as Noted Constitutional: Fever, Chills Gastrointestinal: Nausea, Vomiting Exam Vital Signs Vital Signs Date Time Temp Pulse Resp B/P (MAP) Pulse Ox O2 Delivery O2 Flow Rate FiO2 10/28/18 03:56 98.1 119 28 199/103 (135) 98 Room Air Neuro: No Gross deficits Eyes: PERRLA Cardiovascular: Regular Rate and Rhythm Respiratory: Clear to Auscultation GI: Abd Soft and Non-Tender : Other (CVA tenderness.) Extremities: No Edema Integumentary: No Cyanosis Medical Decision Making Data Points Result Diagram: 10/28/1811410/28/18114 Assessment and Plan Problems: (1) Pyelonephritis Status: Acute Assessment & Plan: She did present with fever, chills, nausea, and vomiting. Her WBC is elevated and bilateral nephrostomy tubes have shown large WBC clumps with many bacteria. She has been started on empiric treatment with ceftriaxone. She is followed by urology in [place] and Dr. Love locally. (2) Hypercalcemia Status: Chronic Assessment & Plan: She does have an elevated calcium level, which is likely secondary to dehydration. She has been started on IV fluids and a repeat level is ordered for noon today. (3) Chronic kidney disease (CKD) stage G4/A1, severely decreased glomerular filtration rate (GFR) between 15-29 mL/min/1.73 square meter and albuminuria creatinine ratio less than 30 mg/g Status: Chronic Assessment & Plan: Her creatinine is stable from late August. (4) T2DM (type 2 diabetes mellitus) Status: Chronic Assessment & Plan: She is on chronic treatment with NPH and Regular insulin. She is currently only on sliding scale level #2. (5) Hydronephrosis Status: Chronic Assessment & Plan: She is followed by urology as above. (6) Essential hypertension Status: Chronic Assessment & Plan: She is on chronic treatment with metoprolol. Copies to: ANTONIA LOVE MD ; Venous Thromboembolism Antithrombotics Is Pt On Any Antithrombotics?: No Exam Sepsis Risk: No Definite Risk XIOMARA NAVARRETE DO Oct 28, 2018 04:40
[2018-10-28] MEDS: LIDOCAINE 2% VISC SLN 15ML UDC PO PRN ×2 (05:30→16:31)
[2018-10-28] MEDS: NS(*) 0.9% 1000 ML BAG 1,000 ML IV PRN ×2 (05:30→16:58)
[2018-10-28 07:17] VITALS: BP 196/96
[2018-10-28] MEDS: INSULIN HUM LISPRO 100 UN/ML 3 ML VIAL SUBQ PRN ×4 (07:35→20:46)
[2018-10-28] MEDS: ONDANSETRON 4 MG/2 ML VIAL IVP PRN ×3 (08:02→18:14)
[2018-10-28] MEDS: RANITIDINE HCL 150 MG TAB PO SCH ×2 (09:30→20:47)
[2018-10-28] MEDS: METOPROLOL TART 50 MG TAB PO SCH ×2 (09:30→20:47)
[2018-10-28] MEDS: INSULIN GLARGINE 100 U/ML 3 ML PEN SUBQ SCH (11:35)
[2018-10-28 11:39] VITALS: BP 180/91
[2018-10-28 15:43] VITALS: Ht 162.6 cm; Wt 79.0 kg
[2018-10-28 16:24] VITALS: BP 168/83
[2018-10-28] MEDS: ACETAMINOPHEN 500 MG TAB PO PRN (16:31)
[2018-10-28 20:45] VITALS: BP 159/83
[2018-10-28] MEDS: GABAPENTIN 300 MG CAP PO SCH (20:47)
[2018-10-29] MEDS: NS(*) 0.9% 1000 ML BAG 1,000 ML IV PRN ×2 (01:46→11:53)
[2018-10-29] MEDS: cefTRIAXone 2 GM VIAL IVP SCH (03:49)
[2018-10-29 06:02] LABS: PLATELET COUNT, AUTOMATED 401 K/uL (150-450)
[2018-10-29 06:40] VITALS: BP 158/86
[2018-10-29] MEDS: RANITIDINE HCL 150 MG TAB PO SCH ×2 (09:33→21:08)
[2018-10-29] MEDS: METOPROLOL TART 50 MG TAB PO SCH ×2 (09:33→21:08)
[2018-10-29] MEDS: INSULIN GLARGINE 100 U/ML 3 ML PEN SUBQ SCH (09:39)
[2018-10-29] MEDS: ONDANSETRON 4 MG/2 ML VIAL IVP PRN (10:25)
--- NOTE | 2018-10-29 10:46 | Antimicrobial Stewardship ---
Antimicrobial Time Out Antimicrobial Stewardship MD Service: Hospitalist Indications: UTI Antimicrobial Used Rocephin 2 gm ivp q day Start Date: Oct 28, 2018 Culture Results: N/A Eligible for PO Conversion Eligable for PO Conversion: SHAD Gómez Oct 29, 2018 10:46
[2018-10-29 11:49] VITALS: BP 179/90
[2018-10-29] MEDS: INSULIN HUM LISPRO 100 UN/ML 3 ML VIAL SUBQ PRN ×3 (11:53→21:08)
[2018-10-29] MEDS: hydrALAZINE HCL 20 MG/ML VIAL IVP PRN ×2 (12:01→18:21)
[2018-10-29] MEDS ORDERED: NS(*) 0.9% 1000 ML BAG 1,000 ML IV PRN (12:19)
--- NOTE | 2018-10-29 14:23 | Hospitalist Progress Note ---
Subjective Progress Notes Subjective She reports nausea is better. She is having reflux symptoms with waterbrash/pyrosis. Physical Exam Vital Signs Date Time Temp Pulse Resp B/P (MAP) Pulse Ox O2 Delivery O2 Flow Rate FiO2 10/29/18 11:49 98.8 75 16 179/90 (119) 91 Room Air Intake and Output 10/29/18 07:00 Intake Total 2016 ml Output Total 1525 ml Balance 491 ml Intake Oral 1016 ml IV Total 1000 ml Output Urine Total 1075 ml Emesis 450 ml # Emeses 2 General Appearance: Alert, Awake Cardiovascular: Regular Rate and Rhythm Respiratory: Clear to Auscultation GI: Other (soft/BS present) Extremities: Warm, Perfused Result Diagram: 10/29/1851010/29/18510 Assessment and Plan Problems: (1) Pyelonephritis Status: Acute Assessment & Plan: Improved. She did present with fever, chills, nausea, and vomiting. Her WBC is elevated and UA from bilateral nephrostomy tubes have shown large WBC clumps with many bacteria. She has been started on empiric treatment with IV ceftriaxone. May need to expand spectrum based on cultures. She is followed by urology in [place] and Dr. Love locally. (2) Hypercalcemia Status: Chronic Assessment & Plan: Improved/Resolved. She did have an elevated calcium level, which was likely secondary to dehydration. She was started on IV fluids with significant improvement. (3) Chronic kidney disease (CKD) stage G4/A1, severely decreased glomerular filtration rate (GFR) between 15-29 mL/min/1.73 square meter and albuminuria creatinine ratio less than 30 mg/g Status: Chronic Assessment & Plan: Her creatinine (2.7 this AM) is stable from late July/early August. Unfortunately, it has not improved much since nephrostomy tubes placed. (4) T2DM (type 2 diabetes mellitus) Status: Chronic Assessment & Plan: She is on chronic treatment with NPH and Regular insulin. She is currently only on sliding scale level #2. Will resume usual regimen when eating better. (5) Hydronephrosis Status: Chronic Assessment & Plan: She is followed by urology as above. Will need to find out what the ultimate plan is for Sahra. (6) Essential hypertension Status: Chronic Assessment & Plan: She is on chronic treatment with metoprolol. Exam Sepsis Risk: No Definite Risk DEE MCKENNA MD Oct 29, 2018 14:23
[2018-10-29 16:53] VITALS: BP 180/95
[2018-10-29] MEDS ORDERED: VANCOMYCIN(*) 1 GM VIAL 1 GM, VANCOMYCIN HCL 0.750 GM VIAL 0.75 GM in NS(*) 0.9% 250 ML... IVPB ONE (17:00)
[2018-10-29 17:26] VITALS: BP 180/88
[2018-10-29 19:28] VITALS: BP 132/63
[2018-10-29] MEDS: GABAPENTIN 300 MG CAP PO SCH (21:08)
[2018-10-29] MEDS: GI COCKTAIL 60 ML BTL PO PRN (21:30)
[2018-10-29] MEDS: ACETAMINOPHEN 500 MG TAB PO PRN (21:30)
[2018-10-30] MEDS: cefTRIAXone 2 GM VIAL IVP SCH (05:10)
[2018-10-30 06:40] LABS: PLATELET COUNT, AUTOMATED 334 K/uL (150-450)
[2018-10-30 07:28] VITALS: BP 133/58
[2018-10-30] MEDS: RANITIDINE HCL 150 MG TAB PO SCH ×2 (08:26→20:59)
[2018-10-30] MEDS: METOPROLOL TART 50 MG TAB PO SCH ×2 (08:27→20:59)
[2018-10-30] MEDS: INSULIN GLARGINE 100 U/ML 3 ML PEN SUBQ SCH (08:28)
[2018-10-30] MEDS ORDERED: NS(*) 0.9% 1000 ML BAG 1,000 ML IV PRN (08:38)
--- NOTE | 2018-10-30 11:05 | Medical Nutrition Therapy ---
Nutrition Anthropometrics Height (Inches): 64.00 Height (Calculated Centimeters: 162.662060 Weight (Pounds): 174 Weight (Calculated Kilograms): 78.953 Roman Nutrition Score: Adequate Roman Nutrition Risk Score: 20 Dietary Referral Nutrition Risk Factors: Nutrition Risk Comment: Physical Findings Physical Appearance: Overweight BMI 25-29 Skin Appearance Skin Appearance: Edema Edema Location Modifier: Both Edema Location: Lower Extremity Type of Edema: Degree of Edema: Gastrointestinal Symptoms GI Symtoms: Appetite Changes Tube Present: Bowel Sounds: Recent Bowel Pattern: Stool Characteristics: Nutritional Diagnosis Nutritional Risk Acuity 1: Acute/ES Renal Nutritional Risk Acuity 3: Nausea, Weight Loss Past Medical History: Hx of T2DM, HTN, CVA, CKD-4, GERD Nutritional Acuity: 2-Moderate Nutrition Diagnosis: Inadequate Food Intake Nutrition Etiology: Loss of Appetite Nutrition Problem/Etiology/Sym: Inadequate food intake as related to loss of appetite as evidenced by intake of 0-10% of most meals, reported N/V. Energy Requirement: 1734 (M-ST. Jeor X 1.1 (TEF) X 1.2 (activity factor)) Protein Requirement: 64.4 (0.8 g protein/kg) Fluid Requirement: 1950 (25mL/kg) Diet Type: Diabetic Nutrition Intervention: Cont diet as ordered, Encourage intake Nutrition Monitoring & Eval Nutrition Goals: Eat 50-100% Meal Nutritional Goals Comment: Progress from 0-10% intakes to at least 50% intakes. Nutrition Follow-Up: Poor Intake RD Patient Assessment Time: [address] Assessment Type: RD Assessment Patient Nutrition Acuity: 2-Moderate Follow Up Date: Nov 02, 2018 Nutritional Comment: 10/28 Pt admitted with pylonepritis. Pt on diabetic diet. Admitting BG 463 has now declnied to 237. BMI in overwt range. Pt has lows 8# past 6 weeks (4%). Wt of 182# //18 was in stage 1 obestiy range. Slow wt loss is desired. Pt reporting N/V which may affect intake. Pt refused first meal in facility. Will cont to monitor and encourage intake. BK 10/30: note on 10/29 reports pt nausea has improved, as had medical condition. Pt continues on the ADA diet with poor intake of 0-10% of meals. Pt RBC of 3.54, hgb of 9.6 and hct of 29.5 are all decreased. Whole blood glucose has varied from 143-256. BUN of 39 is elevated as creatinine of 2.60 is elevated. Monitor for improvement of intake.-MANOLO BOJORQUEZ Oct 30, 2018 11:05
[2018-10-30 12:01] VITALS: BP 158/82
[2018-10-30] MEDS: INSULIN HUM LISPRO 100 UN/ML 3 ML VIAL SUBQ PRN ×3 (12:11→21:01)
--- NOTE | 2018-10-30 13:51 | Hospitalist Progress Note ---
Subjective Progress Notes Subjective 63F admitted for N/V. UCx growing Ecoli and Klebsiella. Will transition to PO 3rd gen cephalosporin and if tolerating PO anticipate d/c tomorrow. Patient Complains of: Neurological: No: Weakness Cardiovascular: No: Chest Pain Gastrointestinal: No Nausea, No Vomiting Physical Exam Vital Signs Date Time Temp Pulse Resp B/P (MAP) Pulse Ox O2 Delivery O2 Flow Rate FiO2 10/30/18 12:01 99.1 73 18 158/82 (107) 93 Room Air Intake and Output 10/30/18 07:00 Intake Total 3125 ml Output Total 1050 ml Balance 2075 ml Intake Oral 870 ml IV Total 2255 ml Output Urine Total 1050 ml General Appearance: Alert, Awake, No Acute Distress, Afebrile Neuro: No Gross deficits ENT: Normal Cardiovascular: Normal Rhythm & Peripheral Pulses Respiratory: No Respiratory Distress GI: Soft and Non-Tender : Other (b/l nephrosotomy tubes) Extremities: Soft and Non Tender, Warm, Pulses, Perfused Integumentary: Skin Intact without Lesion / Mass Result Diagram: 10/30/1855510/30/18555 Assessment and Plan Problems: (1) Pyelonephritis Status: Acute Assessment & Plan: Improved. She did present with fever, chills, nausea, and vomiting. Her WBC is elevated and UA from bilateral nephrostomy tubes have shown large WBC clumps with many bacteria. Started on empiric treatment with IV ceftriaxone, converted to PO cefdinir dosed renally based on Cx result. She is followed by nephrology in [place], urology in [place] and Dr. Love locally. (2) Hypercalcemia Status: Chronic Assessment & Plan: Resolved. She did have an elevated calcium level, which was likely secondary to dehydration. She was started on IV fluids with significant improvement. (3) Chronic kidney disease (CKD) stage G4/A1, severely decreased glomerular filtration rate (GFR) between 15-29 mL/min/1.73 square meter and albuminuria creatinine ratio less than 30 mg/g Status: Chronic Assessment & Plan: Her creatinine is stable from late July/early August. Unfortunately, it has not improved much since nephrostomy tubes placed. (4) T2DM (type 2 diabetes mellitus) Status: Chronic Assessment & Plan: She is on chronic treatment with NPH and Regular insulin. She is currently only on sliding scale level #2. Will resume usual regimen when eating better. (5) Hydronephrosis Status: Chronic Assessment & Plan: She is followed by urology as above. Will need to find out what the ultimate plan is for Sahra. (6) Essential hypertension Status: Chronic Assessment & Plan: She is on chronic treatment with metoprolol. Exam Sepsis Risk: No Definite Risk MASON BENJAMIN RODRIGUEZ DO Oct 30, 2018 13:51
[2018-10-30 18:58] VITALS: BP 163/86
[2018-10-30] MEDS: GABAPENTIN 300 MG CAP PO SCH (20:59)
[2018-10-30] MEDS: GI COCKTAIL 60 ML BTL PO PRN (20:59)
[2018-10-30] MEDS ORDERED: CEFDINIR 300 MG CAP PO SCH (21:00)
[2018-10-30] MEDS: ACETAMINOPHEN 500 MG TAB PO PRN (21:04)
[2018-10-31 00:57] VITALS: BP 151/86
[2018-10-31 04:02] VITALS: BP 155/70
[2018-10-31 07:39] VITALS: BP 178/92
[2018-10-31] MEDS: INSULIN HUM LISPRO 100 UN/ML 3 ML VIAL SUBQ PRN ×3 (09:10→17:15)
[2018-10-31] MEDS: METOPROLOL TART 50 MG TAB PO SCH (09:10)
[2018-10-31] MEDS: hydrALAZINE HCL 20 MG/ML VIAL IVP PRN (09:10)
[2018-10-31] MEDS: RANITIDINE HCL 150 MG TAB PO SCH (09:10)
[2018-10-31] MEDS: INSULIN GLARGINE 100 U/ML 3 ML PEN SUBQ SCH (09:12)
[2018-10-31 11:38] VITALS: BP 162/86
[2018-10-31] MEDS ORDERED: OMEP-125 PO (17:18)
[2018-10-31] MEDS ORDERED: CEPH250C37 PO ×2 (17:27→18:06)
--- NOTE | 2018-10-31 17:47 | Hospitalist Depart ---
Discharge Summary Reason for Hosp/Final Diag: (1) Pyelonephritis Status: Acute Hospital Course & Plan: Improved. She did present with fever, chills, nausea, and vomiting. Her WBC was elevated and UA from bilateral nephrostomy tubes have shown large WBC clumps with many bacteria. Started was started on empiric treatment with IV ceftriaxone. WBC now wnl. Afebrile. Urine cultures from both nephrostomy tubes is growing Klebsiella Oxytoca and E. Coli. She will be sent home on 14 days of Keflex (renal dosing). (2) Hypercalcemia Status: Chronic Hospital Course & Plan: Resolved. She did have an elevated calcium level, which was likely secondary to dehydration and antacid use. She was started on IV fluids with significant improvement. She has been instructed, again, not to take any calcium supplements. (3) GERD (gastroesophageal reflux disease) Status: Chronic Hospital Course & Plan: She was taken off omeprazole and was taking ranitidine twice daily with prn calcium carbonate. See above. Will add back omeprazole because it can be given with CKD and she is certainly symptomatic with the hypercalcemia. (4) Chronic kidney disease (CKD) stage G4/A1, severely decreased glomerular filtration rate (GFR) between 15-29 mL/min/1.73 square meter and albuminuria creatinine ratio less than 30 mg/g Status: Chronic Hospital Course & Plan: Her creatinine is improved from late July/early August. There has been some improvement since nephrostomy tubes placed. (5) T2DM (type 2 diabetes mellitus) Status: Chronic Hospital Course & Plan: She is on chronic treatment with NPH and Regular insulin. (6) Hydronephrosis Status: Chronic Hospital Course & Plan: She is followed by urology as above. Dr. Love said that she will need follow up with the urologists in [place] soon to get a definitive plan for her. (7) Essential hypertension Status: Chronic Hospital Course & Plan: She is on chronic treatment with metoprolol. BP high during this admission on metoprolol. She is to have close follow up with her PCP. (8) Anemia Status: Chronic Hospital Course & Plan: Baseline hgb is 9.0-11.0. She is followed by Dr. Alfredo Richardson. Will defer to her PCP and Dr. George for decisions about when to give Aranesp. Departure Weight (Pounds): 174 Weight (Ounces): 1.0 Result Diagram: 10/30/18 0556 10/31/18 0525 Item Value Date Time White Blood Count 17.7 k/uL H 10/28/18 0115 White Blood Count 12.4 k/uL H 10/29/18 0511 Hemoglobin 9.6 g/dL L 10/30/18 0556 Hemoglobin 13.5 g/dL 10/28/18 0115 Platelet Count 702 K/uL H 10/28/18 0115 Platelet Count 401 K/uL 10/29/18 0511 Platelet Count 334 K/uL 10/30/18 0556 Neutrophils (%) (Auto) 75.6 % H 10/29/18 0511 Neutrophils (%) (Auto) 90.2 % H 10/28/18 0115 Creatinine 2.40 mg/dl H 10/31/18 0525 Blood Urea Nitrogen 38 mg/dl H 10/31/18 0525 Sodium Level 137 mmol/L 10/31/18 0525 Potassium Level 3.9 mmol/L 10/31/18 0525 Chloride Level 115 mmol/L H 10/31/18 0525 Carbon Dioxide Level 20 mmol/L L 10/31/18 0525 Total Bilirubin < 0.1 mg/dl L 10/31/18 0525 Aspartate Amino Transf (AST/SGOT) 22 U/L 10/31/18 0525 Alanine Aminotransferase (ALT/SGPT) 51 U/L 10/31/18 0525 Blood Urea Nitrogen 39 mg/dl H 10/30/18 0556 Creatinine 2.60 mg/dl H 10/30/18 0556 Carbon Dioxide Level 21 mmol/L L 10/30/18 0556 Chloride Level 116 mmol/L H 10/30/18 0556 Potassium Level 3.5 mmol/L 10/30/18 0556 Sodium Level 139 mmol/L 10/30/18 0556 Blood Urea Nitrogen 43 mg/dl H 10/29/18 0511 Creatinine 2.70 mg/dl H 10/29/18 0511 Calcium Level 13.1 mg/dl *H 10/28/18 0115 Calcium Level 11.0 mg/dl H 10/28/18 1203 Blood Urea Nitrogen 44 mg/dl H 10/28/18 0115 Creatinine 3.20 mg/dl H 10/28/18 0115 Carbon Dioxide Level 19 mmol/L L 10/28/18114 Carbon Dioxide Level 23 mmol/L 10/28/18 1203 Blood Urea Nitrogen 47 mg/dl H 10/28/18 1203 Creatinine 2.70 mg/dl H 10/28/18 1203 Potassium Level 3.4 mmol/L L 10/28/18 120 Potassium Level 3.8 mmol/L 10/28/18 011 Sodium Level 141 mmol/L 10/28/18 011 Sodium Level 140 mmol/L 10/28/18 1203 SPEC #: [id number] DIANE: 10/28/18 STATUS: COMP REQ #: [id number] RECD: 10/28/[address] [facility] DR: MEHRAN SOLORIO DO SOURCE: KIDNEYUR ENTR: 10/28/[address]: [facility] ORDERED: CULT URINE Procedure Result Verified URINE CULTURE Final 10/30/18 Organism 1 KLEBSIELLA OXYTOCA >100,000 COL/ML Organism 2 ESCHERICHIA COLI 25-50,000 COL/ML KLE OXYTOC ESC COLI M.I.C. RX M.I.C. RX --------- --- --------- --- AMPICILLIN >=32 R <=2 S AMPICILLIN/SULBACTAM 8 S <=2 S CEFAZOLIN <=4 S <=4 S CEFTAZIDIME <=1 S <=1 S CEFTRIAXONE <=1 S <=1 S CEFEPIME <=1 S <=1 S CEFOXITIN <=4 S <=4 S ERTAPENEM <=0.5 S <=0.5 S CIPROFLOXACIN <=0.25 S <=0.25 S GENTAMICIN <=1 S <=1 S IMIPENEM <=0.25 S <=0.25 S LEVOFLOXACIN <=0.12 S <=0.12 S NITROFURANTOIN 32 S <=16 S PIPERACILLIN/TAZOBACTAM <=4 S <=4 S TOBRAMYCIN <=1 S <=1 S TRIMETHOPRIM/SULFAMETHOXAZOLE <=20 S <=20 S Condition: Improved Discharge: Home Discharge Instructions Home Meds Active Scripts Cephalexin (KEFLEX) 250 Mg Capsule, 250 MG PO TID, #42 CAP Prov:JARAD JAIN MD 10/31/18 Omeprazole (OMEPRAZOLE) 20 Mg Capsule.dr, 1 CAP PO QDAY, #30 CAP Prov:JARAD JAIN MD 10/31/18 Metoprolol Tartrate (METOPROLOL TARTRATE) 25 Mg Tablet, 1 TAB PO BID, #180 TAB 3 Refills Prov:DEYANIRA YOUNG MD 09/22/18 Ranitidine Hcl (ZANTAC) 150 Mg Tablet, 75 MG PO BID for 30 Days, TAB Prov:BENJAMIN PEPPER DO 08/15/18 Gabapentin (GABAPENTIN) 600 Mg Tablet, 600 MG PO QHS, #180 TAB 3 Refills Prov:BENJAMIN PEPPER DO 08/15/18 Pen Needle, Diabetic (Insulin Pen Needle) 31 Gauge X 1/6" Dis.needle, EACH , #100 Prov:XIOMARA NAVARRETE DO 11/25/17 Reported Medications Insulin Regular, Human (HUMULIN R) 100 Unit/1 Ml Vial, 100 UNIT IJ PRN for SEE COMMENT, VIAL PER SLIDING SCALE 08/26/18 Multivitamin With Minerals (MULTIPLE VITAMIN) 1 Each Tablet, 1 EACH PO QDAY, TAB 08/12/18 Acetaminophen (TYLENOL EXTRA STRENGTH) 500 Mg Tablet, 500 MG PO PRN for PAIN, TAB 07/17/18 Nph, Human Insulin Isophane (NOVOLIN N) 100 Unit/1 Ml Vial, 10 UNIT SQ BID, VIAL 10 UNITS MORNING 12 UNITS AT NIGHT 05/12/18 Discontinued Reported Medications Aspirin (ASPIRIN) 325 Mg Tablet, 325 MG PO Q4-6H PRN for pain, TAB 08/12/18 Ferrous Sulfate, Dried (IRON) 159 Mg Tablet.er, 65 MG PO QDAY 05/23/18 Discontinued Scripts Promethazine Hcl (PROMETHAZINE HCL) 25 Mg Tablet, 25 MG PO Q8H PRN for NAUSEA/VOMITING, #10 TAB Prov:XIOMARA NAVARRETE DO 08/29/18 Diet: Regular Activity: As Tolerated Special Instructions: Do not take any calcium carbonate (i.e. Tums) for upset stomach. It increases your potassium too much. Go to the ER for nausea, vomiting, fevers, chills, or back pain. Follow-up with the Urologists in [place] in the next couple of weeks. Copies to: ANDREW GEORGE MD; EDYANIRA YOUNG MD; JOÃO FOSTER; ANTONIA LOVE MD ; Venous Thromboembolism Antithrombotics Is Pt On Any Antithrombotics?: No JARAD JAIN MD Oct 31, 2018 17:47
== END 2018-10-31 18:35 | disposition home or self-care (01) | DRG 690 ==
LOC: ER 01:15 → MED 03:31
PROVIDERS: ADMIT Family Medicine; ATTEND Family Medicine
DX: N13.6 Pyonephrosis (principal); N18.4 Chronic kidney disease, stage 4 (severe); E83.52 Hypercalcemia; K21.9 Gastro-esophageal reflux disease without esophagitis; E11.22 Type 2 diabetes mellitus with diabetic chronic kidney disease; I12.9 Hypertensive chronic kidney disease with stage 1 through stage 4 chronic kidney disease, or unspecified chronic kidney disease; D63.1 Anemia in chronic kidney disease; E78.5 Hyperlipidemia, unspecified; B96.1 Klebsiella pneumoniae [K. pneumoniae] as the cause of diseases classified elsewhere; B96.20 Unspecified Escherichia coli [E. coli] as the cause of diseases classified elsewhere; E86.0 Dehydration; T47.1X5A Adverse effect of other antacids and anti-gastric-secretion drugs, initial encounter; E04.1 Nontoxic single thyroid nodule; E11.319 Type 2 diabetes mellitus with unspecified diabetic retinopathy without macular edema; Z86.73 Personal history of transient ischemic attack (TIA), and cerebral infarction without residual deficits; Z79.4 Long term (current) use of insulin; Z87.440 Personal history of urinary (tract) infections
CPT/HCPCS: 36415; 36416; 80202; 81001; 82040; 82150; 82247; 82310; 82374; 82435; 82565; 82947; 82948; 83690; 84075; 84132; 84155; 84295; 84450; 84460; 84520; 85025; 87077; 87088; 87186; 96361; 96374; 99284; J0360; J0696; J1815; J2405; J3370; J7030; J7050

== ENCOUNTER → 2018-11-03 | Outpatient (CLI) | payer MEDICARE ==
[2018-10-28 15:43] VITALS: BMI 29.9
[~2018-11-03] MED LIST changes: +CEPH250C37 PO
== END ==
LOC: LAB 15:46
PROVIDERS: ATTEND Surgery
DX: Z01.812 Encounter for preprocedural laboratory examination (principal)
CPT/HCPCS: 36415; 83036

== ENCOUNTER 2018-11-08 00:21 | Day surgery (SDC) | payer MEDICARE ==
[2018-10-28 15:43] VITALS: Ht 157.5 cm; Wt 85.3 kg
[~2018-11-08] VITALS: Ht 157.5 cm; Wt 85.3 kg
[2018-11-08] VITALS (12 sets, daily range): BP systolic 135–202; BP diastolic 66–99
[2018-11-08] MEDS ORDERED: PROPOFOL EMUL(*) 10MG/ML 20 ML 40 ML ONE (07:38)
[2018-11-08] MEDS ORDERED: LIDOCAINE MPF 1% 5 ML VIAL ONE (07:38)
[2018-11-08] MEDS ORDERED: GLYCOPYRROLATE 0.2MG/ML 1 ML INJ IVP ONE (09:15)
[2018-11-08] MEDS ORDERED: NORMOSOL R SOLN(*) 1000 ML BAG 1,000 ML IV PRN (09:25)
[2018-11-08] MEDS ORDERED: LIDOCAINE/SOD BICARB 8.4% SYR ID ONE (09:25)
[2018-11-08] MEDS ORDERED: METOPROLOL TART 50 MG TAB PO ONE (09:55)
--- NOTE | 2018-11-08 11:03 | Short(Outpt) Discharge Summary ---
Discharge Summary Reason for Hosp/Final Diag: (1) Dysphagia Status: Chronic Hospital Course & Plan: pt presented for egd. she tolerated the procedure well and there were no complications. path pending. pt will be discharged home when criteria met. Departure Discharge to: Home Discharge Instructions Home Meds Active Scripts Cephalexin (KEFLEX) 250 Mg Capsule, 250 MG PO TID, #42 CAP Prov:JARAD JAIN MD 10/31/18 Omeprazole (OMEPRAZOLE) 20 Mg Capsule.dr, 1 CAP PO QDAY, #30 CAP Prov:JARAD JAIN MD 10/31/18 Metoprolol Tartrate (METOPROLOL TARTRATE) 25 Mg Tablet, 1 TAB PO BID, #180 TAB 3 Refills Prov:DEYANIRA YOUNG MD 09/22/18 Ranitidine Hcl (ZANTAC) 150 Mg Tablet, 75 MG PO BID for 30 Days, TAB Prov:BENJAMIN PEPPER DO 08/15/18 Gabapentin (GABAPENTIN) 600 Mg Tablet, 600 MG PO QHS, #180 TAB 3 Refills Prov:BENJAMIN PEPPER DO 08/15/18 Pen Needle, Diabetic (Insulin Pen Needle) 31 Gauge X 1/6" Dis.needle, EACH , #100 Prov:XIOMARA NAVARRETE DO 11/25/17 Reported Medications Insulin Regular, Human (HUMULIN R) 100 Unit/1 Ml Vial, 100 UNIT IJ PRN for SEE COMMENT, VIAL PER SLIDING SCALE 08/26/18 Multivitamin With Minerals (MULTIPLE VITAMIN) 1 Each Tablet, 1 EACH PO QDAY, TAB 08/12/18 Acetaminophen (TYLENOL EXTRA STRENGTH) 500 Mg Tablet, 500 MG PO PRN for PAIN, TAB 07/17/18 Nph, Human Insulin Isophane (NOVOLIN N) 100 Unit/1 Ml Vial, 10 UNIT SQ BID, VIAL 10 UNITS MORNING 12 UNITS AT NIGHT 05/12/18 Diet: Regular Activity: As Tolerated Special Instructions: we will call you in 10 days with biopsy results. JOÃO FOSTER Nov 08, 2018 11:03
[2018-11-08] MEDS ORDERED: ACETAMINOPHEN 500 MG TAB PO ONE (11:40)
--- NOTE | 2018-11-08 11:57 | NUR ---
1053: PT'S LUNGS ARE CLEAR, A COUGH IS PRESENT, PT IS SLEEPING. 1102: PT IS STARTING TO WAKE, SHE ASKS ABOUT HER BP 1105: PT IS MAINTAINING SATS PT MOVED TO 3L NC 1108: PT STATES HAVING A DRY THROAT, PT IS GIVEN WATER TOLERATED WELL 1123: PT MOVED TO 1L NC, MAINTAINING SATS 1125: PUDDING GIVEN, TOLERATED WELL 1138: PT REQUESTS TYLENOL, DR CHOI CALLED AND GAVE VERBAL ORDER FOR 1 GRAM 1145: PT MOVED TO RA, MAINTAINING SATS 1147: PT GIVEN TYLENOL PER DR CHOI'S ORDER 1152: PTS URINARY BAGS ARE EMPTIED 650 MLS REMOVED 1159: PT'S FLUID FINISHES, IV SL
--- NOTE | 2018-11-08 13:26 | NUR ---
1200 SBAR REPORT FROM Cheryl GRACE RN. PT COMFORTABLE, BUT NOT READY TO GO YET. 1215 VSS 1245 VSS, DRY COUGH PERSISTS, EDUCATED ON EFFECTS OF EGD AND DILATION 1255 LEG BAGS EMPTIED, 150ML OUT OF BOTH, PALE CLEAR URINE 1259 SITTING ORTHOSTATICS STABLE, IV REMOVED, PRESSURE DRESSING APPLIED, PT ALLOWED TO DRESS. 1305 REASSESSED, NO REMARKABLE CHANGES 1310 PT OUT BY WC, ALL BELONGINGS WITH PT, NO D/C QUESTIONS AT THIS TIME, ACCOMPANIED BY DAUGHTER JESSICA AND , MR. HARDY, TRANSFERRED TO DAUGHTER'S VEHICLE OUTSIDE OF ADMITTING ENTRANCE WITH DAUGHTER'S ASSISTANCE.
== END 2018-11-08 13:15 | disposition home or self-care (01) ==
LOC: OR 00:21
PROVIDERS: ATTEND Surgery
DX: K31.89 Other diseases of stomach and duodenum (principal); K29.70 Gastritis, unspecified, without bleeding
CPT/HCPCS: 00811; 36416; 43239; 82948; 87077; 88305; 88313; 88344; A9270; C1726; J2001; J2704; J3490

== ENCOUNTER 2018-11-30 15:47 | Inpatient (IN) | payer MEDICARE ==
[~2018-11-30] VITALS: Ht 160 cm; Wt 86.2 kg
--- NOTE | 2018-11-30 15:56 | ER Report ---
History and Physical Time Seen By MD: 15:56 Hx. of Stated Complaint: n/v since yesterday HPI/ROS CHIEF COMPLAINT: Nausea, vomiting HISTORY OF PRESENT ILLNESS: 63-year-old female patient presents to emergency room with complaint of nausea and vomiting. Patient states has been going on for the last 2 days. Patient states that she's not been able to eat anything due to the nausea and vomiting. Patient states that she has been able to keep fluids down but does vomit approximately every 2 hours. She states that she has some abdominal discomfort. She states that she has felt chilled when coming to the emergency room. She states she is not taking any medication for this. She states this feels just like he did the previous time. Patient was recently admitted for pyelonephritis and was treated with antibiotic. REVIEW OF SYSTEMS: Respiratory: No cough, no dyspnea. Cardiovascular: No chest pain, no palpitations. Gastrointestinal: As noted above. Musculoskeletal: No back pain. Allergies: Coded Allergies: promethazine (Verified Allergy, Mild, 11/30/18) uncontrolled motor movements/ spasms Home Meds Active Scripts Omeprazole (OMEPRAZOLE) 20 Mg Capsule.dr, 1 CAP PO QDAY, #30 CAP Prov:JARAD JAIN MD 10/31/18 Metoprolol Tartrate (METOPROLOL TARTRATE) 25 Mg Tablet, 1 TAB PO BID, #180 TAB 3 Refills Prov:DEYANIRA YOUNG MD 09/22/18 Ranitidine Hcl (ZANTAC) 150 Mg Tablet, 75 MG PO BID for 30 Days, TAB Prov:BENJAMIN PEPPER DO 08/15/18 Gabapentin (GABAPENTIN) 600 Mg Tablet, 600 MG PO QHS, #180 TAB 3 Refills Prov:BENJAMIN PEPPER DO 08/15/18 Pen Needle, Diabetic (Insulin Pen Needle) 31 Gauge X 1/6" Dis.needle, EACH , #100 Prov:XIOMARA NAVARRETE DO 11/25/17 Reported Medications Insulin Regular, Human (HUMULIN R) 100 Unit/1 Ml Vial, 100 UNIT IJ PRN for SEE COMMENT, VIAL PER SLIDING SCALE 08/26/18 Multivitamin With Minerals (MULTIPLE VITAMIN) 1 Each Tablet, 1 EACH PO QDAY, TAB 08/12/18 Acetaminophen (TYLENOL EXTRA STRENGTH) 500 Mg Tablet, 500 MG PO PRN for PAIN, TAB 07/17/18 Nph, Human Insulin Isophane (NOVOLIN N) 100 Unit/1 Ml Vial, 10 UNIT SQ BID, VIAL 10 UNITS MORNING 12 UNITS AT NIGHT 05/12/18 Discontinued Scripts Cephalexin (KEFLEX) 250 Mg Capsule, 250 MG PO TID, #42 CAP Prov:JARAD JAIN MD 10/31/18 Past Medical/Surgical History Patient has a past medical history of CVA, irregular heartbeat, hypertension, hyperlipidemia, small nodule right lower lobe, umbilical hernia, recent reflux, renal insufficiency, pyelonephritis, frequent UTI, arthritis, low back pain, type 2 diabetes. Patient has a surgical history of tubal ligation, tonsillectomy, cystoscopy, nephrostomy right fifth toe surgery. Reviewed Nurses Notes: Yes Hx Smoking: Yes (1 PPD FOR 20 YRS) Smoking Status: Former Smoker Exposure to Second Hand Smoke?: No Hx Substance Use Disorder: No Hx Alcohol Use: No Constitutional Vital Sign - Last 24 Hours 11/30/18 11/30/18 11/30/18 11/30/18 15:53 16:00 16:02 16:17 Temp 97.5 Pulse 120 117 111 Resp 20 B/P (MAP) 188/106 188/106 (133) Pulse Ox 97 99 94 O2 Delivery Room Air 11/30/18 11/30/18 11/30/18 11/30/18 16:32 16:47 17:00 17:02 Pulse 114 109 113 Resp 21 15 B/P (MAP) 212/99 (136) Pulse Ox 97 90 95 11/30/18 11/30/18 11/30/18 11/30/18 17:17 17:30 17:32 17:45 Pulse 106 113 115 Resp 15 8 26 B/P (MAP) 231/108 (149) Pulse Ox 84 98 90 11/30/18 11/30/18 11/30/18 11/30/18 18:00 18:15 18:30 18:45 Pulse 112 114 Resp 20 39 B/P (MAP) 222/102 (142) 233/118 (156) Pulse Ox 98 99 11/30/18 19:00 B/P (MAP) 228/107 (147) Physical Exam General Appearance: The patient is alert, has no immediate need for airway protection and no current signs of toxicity. Respiratory: Chest is non tender, lungs are clear to auscultation. Cardiac: regular rate and rhythm Gastrointestinal: Abdomen is soft and non tender, no masses, bowel sounds norm al. Musculoskeletal: Neck: Neck is supple and non tender. Extremities have full range of motion and are non tender. Skin: No rashes or lesions. DIFFERENTIAL DIAGNOSIS: After history and physical exam differential diagnosis was considered for nausea and vomiting including but not limited to ronald roenteritis, gastritis, appendicitis, and medication side effect. Medical Decision Making Data Points Result Diagram: 11/30/18 1619 11/30/18 1619 Laboratory Hematology Test 11/30/18 16:19 11/30/18 16:35 11/30/18 18:00 Red Blood Count 5.27 M/uL (4.17-5.56) Mean Corpuscular Volume 84.8 fL (80.0-96.0) Mean Corpuscular Hemoglobin 27.1 pg (26.0-33.0) Mean Corpuscular Hemoglobin Concent 31.9 g/dL (32.0-36.0) Red Cell Distribution Width 18.7 % (11.5-14.5) Mean Platelet Volume 8.0 fL (7.2-11.1) Neutrophils (%) (Auto) 92.7 % (39.4-72.5) Lymphocytes (%) (Auto) 5.2 % (17.6-49.6) Monocytes (%) (Auto) 2.0 % (4.1-12.4) Eosinophils (%) (Auto) 0.0 % (0.4-6.7) Basophils (%) (Auto) 0.1 % (0.3-1.4) Nucleated RBC Relative Count (auto) 0.0 /100WBC Neutrophils # (Auto) 15.7 K/uL (2.0-7.4) Lymphocytes # (Auto) 0.9 K/uL (1.3-3.6) Monocytes # (Auto) 0.3 K/uL (0.3-1.0) Eosinophils # (Auto) 0.0 K/uL (0.0-0.5) Basophils # (Auto) 0.0 K/uL (0.0-0.1) Nucleated RBC Absolute Count (auto) 0.00 K/uL Peripheral Blood Smear Yes Y/N Sodium Level 140 mmol/L (137-145) Potassium Level 4.3 mmol/L (3.5-5.0) Chloride Level 97 mmol/L (98-107) Carbon Dioxide Level 20 mmol/L (22-31) Blood Urea Nitrogen 36 mg/dl (7-18) Creatinine 2.40 mg/dl (0.52-1.04) Glomerular Filtration Rate Calc 20.3 Random Glucose 466 mg/dl (75-110) Calcium Level 13.3 mg/dl (8.4-10.2) Total Bilirubin 0.5 mg/dl (0.2-1.3) Aspartate Amino Transf (AST/SGOT) 22 U/L (0-35) Alanine Aminotransferase (ALT/SGPT) 10 U/L (0-56) Alkaline Phosphatase 123 U/L (0-126) Total Protein 8.2 g/dl (6.3-8.2) Albumin 4.6 g/dl (3.5-5.0) Amylase Level 46 U/L (0-110) Lipase 59 U/L (23-300) Human Chorionic Gonadotropin, Qual Negative (NEGATIVE) Helicobacter pylori IgG Antibody Positive (NEGATIVE) Influenza Virus Type A (PCR) Negative (NEGATIVE) Influenza Virus Type B (PCR) Negative (NEGATIVE) Urine Color Pale yellow Urine Clarity Cloudy Urine pH 6.0 pH (4.8-9.5) Urine Specific [place] 1.020 Urine Protein 300 mg/dL (NEGATIVE) Urine Glucose (UA) 1000 mg/dL (NEGATIVE) Urine Ketones 80 mg/dL (NEGATIVE) Urine Blood Large (NEGATIVE) Urine Nitrite Negative (NEGATIVE) Urine Bilirubin Negative (NEGATIVE) Urine Urobilinogen 0.2 mg/dL (0.2-1.9) Urine Leukocyte Esterase Moderate (NEGATIVE) Urine RBC 47 /HPF (0-2/HPF) Urine WBC 646 /HPF (0-5/HPF) Urine WBC Clumps Many /HPF Urine Squamous Epithelial Cells None /LPF (</=FEW) Urine Bacteria Moderate /HPF (NONE-FEW) Urine Mucus None /HPF (NONE-FEW) Urine Yeast (Budding) Many /HPF Chemistry Test 11/30/18 16:19 11/30/18 16:35 11/30/18 18:00 White Blood Count 17.0 k/uL (4.5-11.0) Red Blood Count 5.27 M/uL (4.17-5.56) Hemoglobin 14.3 g/dL (12.0-16.0) Hematocrit 44.7 % (34.0-47.0) Mean Corpuscular Volume 84.8 fL (80.0-96.0) Mean Corpuscular Hemoglobin 27.1 pg (26.0-33.0) Mean Corpuscular Hemoglobin Concent 31.9 g/dL (32.0-36.0) Red Cell Distribution Width 18.7 % (11.5-14.5) Platelet Count 532 K/uL (150-450) Mean Platelet Volume 8.0 fL (7.2-11.1) Neutrophils (%) (Auto) 92.7 % (39.4-72.5) Lymphocytes (%) (Auto) 5.2 % (17.6-49.6) Monocytes (%) (Auto) 2.0 % (4.1-12.4) Eosinophils (%) (Auto) 0.0 % (0.4-6.7) Basophils (%) (Auto) 0.1 % (0.3-1.4) Nucleated RBC Relative Count (auto) 0.0 /100WBC Neutrophils # (Auto) 15.7 K/uL (2.0-7.4) Lymphocytes # (Auto) 0.9 K/uL (1.3-3.6) Monocytes # (Auto) 0.3 K/uL (0.3-1.0) Eosinophils # (Auto) 0.0 K/uL (0.0-0.5) Basophils # (Auto) 0.0 K/uL (0.0-0.1) Nucleated RBC Absolute Count (auto) 0.00 K/uL Peripheral Blood Smear Yes Y/N Glomerular Filtration Rate Calc 20.3 Calcium Level 13.3 mg/dl (8.4-10.2) Total Bilirubin 0.5 mg/dl (0.2-1.3) Aspartate Amino Transf (AST/SGOT) 22 U/L (0-35) Alanine Aminotransferase (ALT/SGPT) 10 U/L (0-56) Alkaline Phosphatase 123 U/L (0-126) Total Protein 8.2 g/dl (6.3-8.2) Albumin 4.6 g/dl (3.5-5.0) Amylase Level 46 U/L (0-110) Lipase 59 U/L (23-300) Human Chorionic Gonadotropin, Qual Negative (NEGATIVE) Helicobacter pylori IgG Antibody Positive (NEGATIVE) Influenza Virus Type A (PCR) Negative (NEGATIVE) Influenza Virus Type B (PCR) Negative (NEGATIVE) Urine Color Pale yellow Urine Clarity Cloudy Urine pH 6.0 pH (4.8-9.5) Urine Specific [place] 1.020 Urine Protein 300 mg/dL (NEGATIVE) Urine Glucose (UA) 1000 mg/dL (NEGATIVE) Urine Ketones 80 mg/dL (NEGATIVE) Urine Blood Large (NEGATIVE) Urine Nitrite Negative (NEGATIVE) Urine Bilirubin Negative (NEGATIVE) Urine Urobilinogen 0.2 mg/dL (0.2-1.9) Urine Leukocyte Esterase Moderate (NEGATIVE) Urine RBC 47 /HPF (0-2/HPF) Urine WBC 646 /HPF (0-5/HPF) Urine WBC Clumps Many /HPF Urine Squamous Epithelial Cells None /LPF (</=FEW) Urine Bacteria Moderate /HPF (NONE-FEW) Urine Mucus None /HPF (NONE-FEW) Urine Yeast (Budding) Many /HPF Urinalysis Test 11/30/18 18:00 Urine Color Pale yellow Urine Clarity Cloudy Urine pH 6.0 pH (4.8-9.5) Urine Specific [place] 1.020 Urine Protein 300 mg/dL (NEGATIVE) Urine Glucose (UA) 1000 mg/dL (NEGATIVE) Urine Ketones 80 mg/dL (NEGATIVE) Urine Blood Large (NEGATIVE) Urine Nitrite Negative (NEGATIVE) Urine Bilirubin Negative (NEGATIVE) Urine Urobilinogen 0.2 mg/dL (0.2-1.9) Urine Leukocyte Esterase Moderate (NEGATIVE) Urine RBC 47 /HPF (0-2/HPF) Urine WBC 646 /HPF (0-5/HPF) Urine WBC Clumps Many /HPF Urine Squamous Epithelial Cells None /LPF (</=FEW) Urine Bacteria Moderate /HPF (NONE-FEW) Urine Mucus None /HPF (NONE-FEW) Urine Yeast (Budding) Many /HPF ED Course/Re-evaluation ED Course Patient was admitted to exam room, history and physical were obtained. Differential diagnoses were considered. On examination lungs were clear, heart was regular although tachycardic, abdomen was soft nontender. An IV was started, a CBC, CMP, urinalysis were obtained. Urinalysis was obtained from each of nephrostomy tubes. Patient had a white count of 17,000 with left shift. CMP showed a creatinine of 2.4, which is normal for the patient. Her BUN was 36 with a blood sugar of 466. Urinalysis shows lung moderate leukocyte esterase, did also show that the right nephrostomy had 600 white blood cells per high-power field while the left had 300. With the elevated white count and obvious urinary tract infection I felt the patient should be admitted for pyelonephritis. I discussed the case with Dr. Villeda, hospitalist. He did agree to accept the patient. He requested the patient did blood cultures as well as urine cultures done. Those were obtained prior to admission. I discussed the findings and the plan with the patient who verbalized understanding and agreement. Decision to Disposition Date: Nov 30, 2018 Decision to Disposition Time: 19:24 Depart Departure Latest Vital Signs Vital Signs Date Time Temp Pulse Resp B/P (MAP) Pulse Ox O2 Delivery O2 Flow Rate FiO2 11/30/18 19:00 228/107 (147) 11/30/18 18:45 114 39 99 11/30/18 15:53 97.5 Room Air Impression: Primary Impression: Pyelonephritis Additional Impression: Hypercalcemia Condition: Condition Unchanged Disposition: Admitted from ER Referrals: DEYANIRA YOUNG MD (PCP) Problem Qualifiers EARNEST OSBORN Nov 30, 2018 15:56
[2018-11-30] MEDS ORDERED: NS(*) 0.9% 1000 ML BAG 1,000 ML IV ONE (15:57)
[2018-11-30] MEDS ORDERED: ONDANSETRON 4 MG/2 ML VIAL IVP ONE (16:00)
[2018-11-30 16:41] LABS: PLATELET COUNT, AUTOMATED 532 K/uL (150-450)
[2018-11-30] MEDS ORDERED: cefTRIAXone(*) 2 GM VIAL 2 GM in NS(*) 0.9% 100 ML ADDVANT BAG 100 ML IVPB ONE (18:55)
[2018-11-30] MEDS ORDERED: LABETALOL HCL 20 MG/4 ML SYR IVP ONE (19:00)
--- NOTE | 2018-11-30 20:58 | History & Physical ---
History of Present Illness Chief Complaint Nausea and vomiting History of Present Illness 63yo female with PMHx significant for chronic renal failure, recurrent UTIs, bilateral nephrostomy placement, recurrent N/V. She reports doing fairly well s rosa her last discharge. She was able to eat/drink without much problem. Unfortunately, over the past few days she has developed fevers/chills, nausea/vomiting. She has chronic GERD symptoms, which have been worsening as well. Her has noted some drainage from the left nephrostomy site and cl oudy urine in left nephrostomy bag. These are the original nephrostomies and catheters have not been changes as of yet. She was evaluated in the ER and found to have elevated WBC count, elevated calcium, evidence of possible nephrostomy/urinary tract infection. She was recommended for admission. History Problems: (1) History of nephrostomy Status: Chronic (2) Chronic renal insufficiency Status: Chronic (3) Pulmonary nodule seen on imaging study Status: Chronic (4) DJD (degenerative joint disease) of cervical spine Status: Chronic (5) Hydronephrosis Status: Chronic (6) History of CVA (cerebrovascular accident) Status: Chronic (7) T2DM (type 2 diabetes mellitus) Status: Chronic (8) Esophageal stricture Status: Chronic (9) Dysphagia Status: Chronic (10) Esophagitis determined by biopsy Status: Chronic (11) Thyroid nodule Status: Chronic (12) Bilateral cataracts Status: Chronic (13) Hyperlipidemia Status: Chronic (14) Diabetic retinopathy Status: Chronic (15) Hypertension Status: Chronic (16) Hypercalcemia Status: Chronic (17) History of tubal ligation (18) Hx of cystoscopy (19) Hx of tonsillectomy Home Meds Active Scripts Omeprazole (OMEPRAZOLE) 20 Mg Capsule.dr, 1 CAP PO QDAY, #30 CAP Prov:JARAD JAIN MD 10/31/18 Metoprolol Tartrate (METOPROLOL TARTRATE) 25 Mg Tablet, 1 TAB PO BID, #180 TAB 3 Refills Prov:DEYANIRA YOUNG MD 09/22/18 Ranitidine Hcl (ZANTAC) 150 Mg Tablet, 75 MG PO BID for 30 Days, TAB Prov:BENJAMIN PEPPER DO 08/15/18 Gabapentin (GABAPENTIN) 600 Mg Tablet, 600 MG PO QHS, #180 TAB 3 Refills Prov:BENJAMIN PEPPER DO 08/15/18 Pen Needle, Diabetic (Insulin Pen Needle) 31 Gauge X 1/6" Dis.needle, EACH , #100 Prov:XIOMARA NAVARRETE DO 11/25/17 Reported Medications Insulin Regular, Human (HUMULIN R) 100 Unit/1 Ml Vial, 100 UNIT IJ PRN for SEE COMMENT, VIAL PER SLIDING SCALE 08/26/18 Multivitamin With Minerals (MULTIPLE VITAMIN) 1 Each Tablet, 1 EACH PO QDAY, TAB 08/12/18 Acetaminophen (TYLENOL EXTRA STRENGTH) 500 Mg Tablet, 500 MG PO PRN for PAIN, TAB 07/17/18 Nph, Human Insulin Isophane (NOVOLIN N) 100 Unit/1 Ml Vial, 10 UNIT SQ BID, VIAL 10 UNITS MORNING 12 UNITS AT NIGHT 05/12/18 Discontinued Scripts Cephalexin (KEFLEX) 250 Mg Capsule, 250 MG PO TID, #42 CAP Prov:JARAD JAIN MD 10/31/18 Allergies: Coded Allergies: promethazine (Verified Allergy, Mild, 11/30/18) uncontrolled motor movements/ spasms Patient History: FH: heart disease MOTHER, , Age:62 FHx: diabetes mellitus MOTHER, , Age:62 Hx Smoking: Yes (1 PPD FOR 20 YRS) Smoking Status: Former Smoker Exposure to Second Hand Smoke?: No Caffeine Intake: Coffee, Tea, Soda Caffeine/Cups Per Day: 16 OZ A DAY Hx Alcohol Use: No Hx Substance Use Disorder: No Social Drug Use: Never Review of Systems Constitutional: Fever, Chills Neurological: Weakness Gastrointestinal: Nausea, Vomiting; No Diarrhea; Dysphagia Exam Vital Signs Vital Signs Date Time Temp Pulse Resp B/P (MAP) Pulse Ox O2 Delivery O2 Flow Rate FiO2 11/30/18 19:30 208/110 (142) 11/30/18 18:45 114 39 99 11/30/18 15:53 97.5 Room Air General Appearance: Alert, Awake Neuro: Other (No focal motor deficits noted) Neck: No Masses Cardiovascular: Regular Rate and Rhythm, No Edema Respiratory: Clear to Auscultation Chest: No Tenderness GI: Other (Soft/essentially nontender/BS present) : No CVA Tenderness, Other (bilateral nephrostomies present/left has small a mount of purulent drainage (cultured)/left bag has cloudy appearing urine) Extremities: Warm, Perfused Medical Decision Making Data Points Result Diagram: 11/30/18 1619 11/30/18 1619 Item Value Date Time Calcium Level 13.3 mg/dl *H 11/30/18 1619 Total Bilirubin 0.5 mg/dl 11/30/18 1619 Aspartate Amino Transf (AST/SGOT) 22 U/L 11/30/18 1619 Alanine Aminotransferase (ALT/SGPT) 10 U/L 11/30/18 1619 Alkaline Phosphatase 123 U/L 11/30/18 1619 Total Protein 8.2 g/dl 11/30/18 1619 Albumin 4.6 g/dl 11/30/18 1619 Amylase Level 46 U/L 11/30/18 1619 Lipase 59 U/L 11/30/18 1619 Human Chorionic Gonadotropin, Qual Negative 11/30/18 1619 Urine Yeast (Budding) Many /HPF H 11/30/18 1800 Urine Yeast (Budding) Many /HPF H 11/30/18 1800 Urine Mucus None /HPF 11/30/18 1800 Urine Mucus None /HPF 11/30/18 1800 Urine Bacteria Moderate /HPF H 11/30/18 1800 Urine Bacteria Moderate /HPF H 11/30/18 1800 Urine Squamous Epithelial Cells None /LPF 11/30/18 1800 Urine Squamous Epithelial Cells None /LPF 11/30/18 1800 Urine WBC Clumps Many /HPF 11/30/18 1800 Urine WBC Clumps Many /HPF 11/30/18 1800 Urine WBC 315 /HPF 11/30/18 1800 Urine WBC 646 /HPF 11/30/18 1800 Urine RBC 47 /HPF 11/30/18 1800 Urine RBC 65 /HPF 11/30/18 1800 Urine Leukocyte Esterase Moderate 11/30/18 1800 Urine Leukocyte Esterase Moderate 11/30/18 1800 Urine Urobilinogen 0.2 mg/dL 11/30/18 1800 Urine Urobilinogen 0.2 mg/dL 11/30/18 1800 Urine Bilirubin Negative 11/30/18 1800 Urine Bilirubin Negative 11/30/18 1800 Urine Nitrite Negative 11/30/18 1800 Urine Nitrite Negative 11/30/18 1800 Urine Blood Large 11/30/18 1800 Urine Ketones 80 mg/dL H 11/30/18 1800 Urine Ketones 80 mg/dL H 11/30/18 1800 Urine Blood Large 11/30/18 1800 Urine Glucose (UA) 1000 mg/dL 11/30/18 1800 Urine Glucose (UA) 1000 mg/dL 11/30/18 1800 Urine Protein 300 mg/dL 11/30/18 1800 Urine Specific [place] 1.020 11/30/18 1800 Urine Specific [place] 1.020 11/30/18 1800 Urine Protein 300 mg/dL 11/30/18 1800 Urine pH 6.0 pH 11/30/18 1800 Urine pH 6.0 pH 11/30/18 1800 Urine Clarity Cloudy 11/30/18 1800 Urine Color Pale yellow 11/30/18 1800 Urine Color Pale yellow 11/30/18 1800 Urine Clarity Cloudy 11/30/18 1800 Assessment and Plan Problems: (1) Urinary tract infection Status: Acute Assessment & Plan: It appears she may have recurrent UTIs complicated by her nephrostomies. She has previously grown E. coli and Klebsiella from her urine, both of which have been fairly sensitive. She has been cultured in the ER. Will place on IV Rocephin based on previous cultures. Will modify therapy based on cultures if needed. (2) Chronic renal insufficiency Status: Chronic Assessment & Plan: Her creatinine is 2.4 at this time. This is very near her baseline since the nephrostomies were placed. Will give IV fluids and watch labs closely. (3) T2DM (type 2 diabetes mellitus) Status: Chronic Assessment & Plan: Place on ADA diet (clear liquids for now), monitor glucoses, and use SSI as needed. (4) Hypertension Status: Chronic Assessment & Plan: Will continue her metoprolol and use additional IV metoprolol if needed. (5) Hypercalcemia Status: Chronic Assessment & Plan: She has had recurrent problems with hypercalcemia due to her CKD, use of TUMS, dehydration. Will stop calcium supplements and give generous IV fluids. Watch labs closely. (6) GERD (gastroesophageal reflux disease) Status: Chronic Assessment & Plan: She has used large amounts of TUMS in the past, which has contributed to her hypercalcemia. Will stop these and use IV Protonix and some Maalox if needed. Venous Thromboembolism Antithrombotics Is Pt On Any Antithrombotics?: Yes Exam Sepsis Risk: No Definite Risk DEE MCKENNA MD Nov 30, 2018 20:58
[2018-11-30] MEDS ORDERED: PANTOPRAZOLE SOD 40 MG IV VIAL IVP SCH (21:00)
[2018-11-30 21:30] VITALS: BP 199/104
[2018-11-30] MEDS: NS(*) 0.9% 1000 ML BAG 1,000 ML IV PRN (21:31)
[2018-11-30] MEDS: GABAPENTIN 300 MG CAP PO SCH (21:33)
[2018-11-30] MEDS: cefTRIAXone(*) 1 GM VIAL 1 GM in NS(*) 0.9% 100 ML ADDVANT BAG 100 ML IVPB SCH ×2 (21:33→21:40)
[2018-11-30] MEDS: METOPROLOL TART 50 MG TAB PO SCH (21:34)
[2018-11-30] MEDS: MAG HYD/AL HYD/SIMETH 30ML UDC PO PRN (21:59)
[2018-11-30] MEDS: METOPROLOL TART 5 MG/5 ML VIAL IVP PRN (22:24)
[2018-11-30] MEDS: INSULIN HUM LISPRO 100 UN/ML 3 ML VIAL SUBQ PRN (23:09)
[2018-11-30 23:10] VITALS: BP 210/119
[2018-11-30] MEDS: ONDANSETRON 4 MG/2 ML VIAL IVP PRN (23:25)
[2018-11-30 23:26] VITALS: BP 198/111
[2018-11-30 23:58] VITALS: BP 206/107
[2018-12-01 00:59] VITALS: BP 207/114
[2018-12-01 03:50] VITALS: BP 194/105
[2018-12-01] MEDS: METOPROLOL TART 5 MG/5 ML VIAL IVP PRN (03:56)
[2018-12-01] MEDS: ONDANSETRON 4 MG/2 ML VIAL IVP PRN (05:08)
[2018-12-01 05:10] VITALS: BP 169/90
[2018-12-01] MEDS: MAG HYD/AL HYD/SIMETH 30ML UDC PO PRN (05:37)
[2018-12-01 06:21] LABS: PLATELET COUNT, AUTOMATED 432 K/uL (150-450)
[2018-12-01 07:31] VITALS: BP 140/70
[2018-12-01] MEDS: INSULIN HUM LISPRO 100 UN/ML 3 ML VIAL SUBQ PRN ×4 (07:49→21:51)
[2018-12-01] MEDS: METOPROLOL TART 50 MG TAB PO SCH ×2 (08:45→21:27)
[2018-12-01] MEDS: ENOXAPARIN 30 MG/0.3 ML SYR SC SCH (08:46)
[2018-12-01 10:08] VITALS: Ht 160 cm; Wt 86.2 kg
[2018-12-01] MEDS ORDERED: METOCLOPRAMIDE 10 MG TAB PO PRN (10:20)
[2018-12-01] MEDS ORDERED: FLUCONAZOLE 200 MG/100ML PRMIX 100 ML IVPB ONE (11:00)
[2018-12-01] MEDS ORDERED: IOPAMIDOL 76% 100 ML INFUS BTL 100 ML ONE (12:47)
[2018-12-01] MEDS: FAMOTIDINE 20 MG TAB PO SCH (13:22)
[2018-12-01 13:26] VITALS: BP 155/79
--- NOTE | 2018-12-01 13:32 | Medical Nutrition Therapy ---
Nutrition Anthropometrics Height (Inches): 63.00 Height (Calculated Centimeters: 160.705242 Weight (Pounds): 176 Weight (Calculated Kilograms): 79.861 BMI: 31.2 Roman Nutrition Score: Probably Inadequate Roman Nutrition Risk Score: 17 Dietary Referral Nutrition Risk Factors: Nutrition Risk Comment: Physical Findings Physical Appearance: Obese BMI 30-39 Skin Appearance Skin Appearance: Edema Edema Location Modifier: Both Edema Location: Lower Extremity Type of Edema: Degree of Edema: Gastrointestinal Symptoms GI Symtoms: Nausea, Vomiting, Heartburn Tube Present: Bowel Sounds: Recent Bowel Pattern: Stool Characteristics: Nutritional Diagnosis Nutritional Risk Acuity 2: Chronic Renal Failure, Blood Glucose > 300mg/dl Nutritional Risk Acuity 3: Nausea, Weight Loss Past Medical History: Hx of T2DM, HTN, CVA, CKD-4, GERD 12/01: hx of nephrostomy, chronic renal insufficiency, pulmonary nodule, esophogeal stricture, esopogitis determined by biopsy, thyroid nodule, tonsilectomy, DJD of cervical spine, hydronephrosis, CVA, DMT2, dysphagia, bilateral cataracts, hyperlipidemia, diabetic neuropathy, HTN, hypercalcemia, hx tubal ligation, and cystoscopy. Nutritional Acuity: 2-Moderate Nutrition Diagnosis: Inconsistent Carb. Intake Nutrition Etiology: Physiological Causes Nutrition Problem/Etiology/Sym: Inconsistent Food Intake related to physiological causes as evidenced by uncontrolled glucose levels ( RBG 313-446 and WBG 288-389), urine ketones (80), and DMT2 dx. Energy Requirement: 1738 (MSJ, 1.1 TEF, 1.2 AF) Adjusted Energy Requirement Re: 1488 (250kcal) Protein Requirement: 64 (0.8g AA/kg of BW) Fluid Requirement: 1738 (1ml/kcal) Diet Type: Clear Liquids Nutrition Intervention: Incr diet as tolerated, Check glucose Nutrition Monitoring & Eval Nutrition Monitoring: Offer clear liquid supplement. RD Patient Assessment Time: [address] Assessment Type: RD Assessment Patient Nutrition Acuity: 2-Moderate Follow Up Date: Dec 04, 2018 Nutritional Comment: 12/01: Pt admitted for UTI, DMT2, HTN, GERD, and renal insufficiency. Pt has hx of nephrostomy, chronic renal insufficiency, pulmonary nodule, esophogeal stricture, esopogitis determined by biopsy, thyroid nodule, tonsilectomy, DJD of cervical spine, hydronephrosis, CVA, DMT2, dysphagia, bilateral cataracts, hyperlipidemia, diabetic neuropathy, HTN, hypercalcemia, hx tubal ligation, and cystoscopy. Pt has elevated creatinine (1.9-2.4), BUN (42), RBG (313-446), WBG (288-389) and urine ketones (80). Pt has decreased albumin (3.3). Pt is currently taking enoxaparin and is on a clear liquid diet. Monitor and progress as able. -SUSAN BRYSON Dec 01, 2018 10:26
[2018-12-01] MEDS ORDERED: MOXIFLOXACIN OS SCH (14:00)
[2018-12-01] MEDS: BROMFENAC SODIUM OP SCH (14:14)
[2018-12-01] MEDS: MOXIFLOXACIN OS SCH ×2 (14:18→21:30)
[2018-12-01] MEDS: prednisoLONE ACE 1% OP 5ML BTL OS SCH ×2 (14:18→21:29)
--- NOTE | 2018-12-01 15:57 | RADIOLOGY IMAGING REPORT ---
FACILITY: [facility] PATIENT NAME: Sahra Chavis : 1955 MR: [id number] V: [id number] EXAM DATE: ORDERING PHYSICIAN: BENJAMIN RODRIGUEZ TECHNOLOGIST: Location: [facility] [place] Patient: Sahra Chavis : 1955 Visit/Account:[id number] Date of Sevice: 12/01/2018 Exam type: PICC LINE INSERTION History: Multiple fluids and lab draws Comparison: None. Findings: Informed consent was obtained. Patient's left arm was prepped and draped usual sterile fashion. Loc al anesthesia was accomplished with 1% lidocaine.. Utilizing both sonographic guidance the left basi lic vein was entered with a micropuncture needle. Guidewire was advanced to the level of superior ve na cava. A peel-away sheath was then passed over the guidewire. The PICC line was then trimmed to l ength. During passage of the PICC line through the peel-away sheath and obstruction was met. Contra st was injected demonstrating a narrowing in the left axillary vein. The PICC line was then trimmed to a 30 cm length which is the shortest the PICC line can BE trimmed. Upon passage of the trimmed PI CC line through the peel-away sheath the PICC line did pass through the narrowing and was subsequentl y placed with the distal tip in the left innominate vein both lumens were flushed with 5 mL of saline flush. Proximal portion PICC line was adhered to the patient's arm the sterile dressing. The proce dure was accomplished without apparent complication Sonographic images were saved to PACS. The fluor oscopy dose area product was 205.5 micro-Escobedo per meter squared IMPRESSION: 1. Successful placement of a 30 cm long trimmed 5 [place] double lumen power PICC inserted via the pa tent left basilic vein with the distal tip resting in the left innominate vein as detailed above Report Dictated By: Kamilla Lord MD at 12/01/2018 3:49 PM Report E-Signed By: Kamilla Lord MD at 12/01/2018 3:52 PM WSN:[id number]
[2018-12-01] MEDS ORDERED: ATOR40TA24 PO (16:13)
--- NOTE | 2018-12-01 16:31 | Hospitalist Progress Note ---
Subjective Progress Notes Subjective 63F admitted for nausea and vomiting. Remains lethargic this am, WBC increased. Patient Complains of: Gastrointestinal: Nausea Physical Exam Vital Signs Date Time Temp Pulse Resp B/P (MAP) Pulse Ox O2 Delivery O2 Flow Rate FiO2 12/01/18 13:26 99.2 81 16 155/79 (104) 97 Nasal Cannula 0.5 Intake and Output 12/01/18 07:00 Intake Total 1100 ml Output Total 725 ml Balance 375 ml Intake Oral 100 ml IV Total 1000 ml Output Urine Total 725 ml # Em[place] 3 General Appearance: Awake, Afebrile Neuro: No Gross deficits ENT: Normal Cardiovascular: Normal Rhythm & Peripheral Pulses Respiratory: No Respiratory Distress GI: Soft and Non-Tender Result Diagram: 12/01/1852712/01/18527 Assessment and Plan Problems: (1) Urinary tract infection Status: Acute Assessment & Plan: It appears she may have recurrent UTIs complicated by her nephrostomies. She has previously grown E. coli and Klebsiella from her urine, both of which have been fairly sensitive. She has been cultured in the ER. Will place on IV Rocephin based on previous cultures. Will modify therapy based on cultures if needed. Large amounts of yeast in urine, reportedly these were nephrostomy tube samples and not from bag. Will recheck UA, send for fungal Cx and begin fluconazole. (2) Chronic renal insufficiency Status: Chronic Assessment & Plan: Her creatinine is 2.4 at this time. This is very near her baseline since the nephrostomies were placed. IV fluids and watch labs closely. (3) T2DM (type 2 diabetes mellitus) Status: Chronic Assessment & Plan: Place on ADA diet (clear liquids for now), monitor glucoses, and use SSI as needed. (4) Hypertension Status: Chronic Assessment & Plan: Will continue her metoprolol and use additional IV metoprolol if needed. (5) Hypercalcemia Status: Chronic Assessment & Plan: She has had recurrent problems with hypercalcemia due to her CKD, use of TUMS, dehydration. Will stop calcium supplements and give generous IV fluids. Watch labs closely. (6) GERD (gastroesophageal reflux disease) Status: Chronic Assessment & Plan: She has used large amounts of TUMS in the past, which has contributed to her hypercalcemia. Will stop these and use IV Protonix and some Maalox if needed. H pylori positive, begin quadruple therapy for eradication. (7) H. pylori infection Assessment & Plan: Quad therapy initiated with BID pantoprazole, bismuth subsalicylate, metronidazole and doxycycline. Plan 14 days therapy. Exam Sepsis Risk: No Definite Risk MASON BENJAMIN RODRIGUEZ DO Dec 01, 2018 16:31
[2018-12-01] MEDS: [UNRECOGNIZED DRUG - OTHER] PO SCH ×2 (16:50→21:27)
[2018-12-01] MEDS: metroNIDAZOLE 250 MG TAB PO SCH ×2 (16:51→21:26)
[2018-12-01] MEDS: NS(*) 0.9% 1000 ML BAG 1,000 ML IV PRN (16:52)
[2018-12-01] MEDS: DOXYCYCLINE HYCL 100 MG TAB PO SCH (18:34)
[2018-12-01 20:31] VITALS: BP 172/87
[2018-12-01] MEDS: PANTOPRAZOLE SOD 40 MG IV VIAL IVP SCH (21:28)
[2018-12-01] MEDS: GABAPENTIN 300 MG CAP PO SCH (21:29)
[2018-12-01] MEDS: ACETAMINOPHEN 325 MG TAB PO PRN (21:35)
[2018-12-02 00:11] VITALS: BP 125/83
[2018-12-02] MEDS: NS(*) 0.9% 1000 ML BAG 1,000 ML IV PRN ×2 (03:43→15:34)
[2018-12-02 04:14] VITALS: BP 142/84
[2018-12-02 05:38] LABS: PLATELET COUNT, AUTOMATED 270 K/uL (150-450)
[2018-12-02] MEDS: DOXYCYCLINE HYCL 100 MG TAB PO SCH ×2 (06:39→18:26)
[2018-12-02 08:46] VITALS: BP 168/86
[2018-12-02] MEDS: BROMFENAC SODIUM OP SCH (08:54)
[2018-12-02] MEDS: PANTOPRAZOLE SOD 40 MG IV VIAL IVP SCH ×2 (08:57→21:32)
[2018-12-02] MEDS: FLUCONAZOLE 100 MG TAB PO SCH (08:59)
[2018-12-02] MEDS: FAMOTIDINE 20 MG TAB PO SCH (08:59)
[2018-12-02] MEDS: METOPROLOL TART 50 MG TAB PO SCH ×2 (08:59→21:35)
[2018-12-02] MEDS: metroNIDAZOLE 250 MG TAB PO SCH ×4 (09:00→21:39)
[2018-12-02] MEDS: ENOXAPARIN 30 MG/0.3 ML SYR SC SCH (09:01)
[2018-12-02] MEDS: [UNRECOGNIZED DRUG - OTHER] PO SCH ×4 (09:01→21:39)
[2018-12-02] MEDS: prednisoLONE ACE 1% OP 5ML BTL OS SCH ×3 (09:06→21:40)
[2018-12-02] MEDS: INSULIN HUM LISPRO 100 UN/ML 3 ML VIAL SUBQ PRN ×3 (09:09→21:41)
[2018-12-02] MEDS: MOXIFLOXACIN OS SCH ×3 (09:15→21:40)
[2018-12-02] MEDS: ACETAMINOPHEN 325 MG TAB PO PRN ×3 (09:19→21:46)
[2018-12-02 12:22] VITALS: BP 145/78
[2018-12-02 14:57] VITALS: BP 167/78
--- NOTE | 2018-12-02 16:58 | Antimicrobial Stewardship ---
Antimicrobial Stewardship Empiricly appropriate: Yes (Pyelonephritis, H. pylori) Significant PMH: Yes (CVA, HTN, HL, DM1, irregular heart beat, RLL nodule, umbilial hernia, reflux, Renal insufficiency, pyelo/UTI) Support empiric regimen: Yes (Ceftriaxone, doxy/flagyl/bismuth/pantoprazole) Approriate Cultures done: Yes (Cultures from R/L nephrostomy tubes: 11/30 - GNR#1, GNR#2, 11/30/18- wound cx at nephrostomy site, Repeat Cx on 12/01- pending) Gram stain show Microbs: Yes (GNR #1, GNR#2) Renal/Hepatic dosing: Yes (Renal dosing--CrCL ~ 32 ml/min) Clinically stable/improving: Yes Determine cumulative duration: day 2 Determine standard duration: 10-14 days Comment 63 yo F with PMH of CVA, irregular heart beat, HTN, HL, RLL nodule, umbilical hernia, reflux, renal insufficiency, pyelonephritis, frequent UTIs, DM2 who presented to the ED with nausea and vomiting x 2 days, unable to eat or drink. Tmax afebrile WBC 17-->19.7-->9.8 Scr 2.4 --> 2.1 Ca 13.3-->11.7 H. pylori (+) Influenza (-) CrCl ~32ml/min UA showed Yeast 3/6 Blood Cx x 2 NGTD 3/ R Kidney Nephrostomy Tube--> GNR >100,000cfu 3/6 L Kidney Nephrostomy Tube --> GNR#1, GNR#2 3/ Wound Cx --> nephrostomy tube drainage around site - GNR#1, GNR#2 3/ R and L nephrosotomy tubes --> pending Plan continue treatment with Ceftriaxone for UTI/pyelonephritis, Covering yeast with fluconazole, H-pylori (+)--Flagyl, Bismuth, PPI, Doxycycline, Continue treatment for H. pylori for 14 days, GNR pyelo-10-14 days (consider changing nephrostomy tubes), and d/c fluconazole if no yeast growth. Neelam Rose, PharmD, BCOP NEELAM ROSE Dec 02, 2018 16:58
[2018-12-02 19:11] VITALS: BP 168/83
[2018-12-02] MEDS: GABAPENTIN 300 MG CAP PO SCH (21:32)
[2018-12-02] MEDS: cefTRIAXone(*) 1 GM VIAL 1 GM in NS(*) 0.9% 100 ML ADDVANT BAG 100 ML IVPB SCH (21:33)
--- NOTE | 2018-12-02 22:34 | Hospitalist Progress Note ---
Subjective Progress Notes Subjective The patient states she is feeling better. Physical Exam Vital Signs Date Time Temp Pulse Resp B/P (MAP) Pulse Ox O2 Delivery O2 Flow Rate FiO2 12/02/18 19:11 99.1 70 18 168/83 (111) 96 Nasal Cannula 1.0 Intake and Output 12/02/18 07:00 Intake Total 2485 ml Output Total 1250 ml Balance 1235 ml Intake Oral 480 ml IV Total 2005 ml Output Urine Total 1250 ml General Appearance: Alert, Awake, No Acute Distress, Afebrile Neuro: No Gross deficits Cardiovascular: Regular Rate and Rhythm Respiratory: Clear to Auscultation GI: Soft and Non-Tender Extremities: Warm, Perfused Psych: Appropriate Mood & Affect Result Diagram: 12/02/1852112/02/18521 Assessment and Plan Problems: (1) Urinary tract infection Status: Acute Assessment & Plan: It appears she may have recurrent UTIs complicated by her nephrostomies. She has previously grown E. coli and Klebsiella from her urine, both of which have been fairly sensitive. She was cultured in the ER (2 cultures, one from each nephrostomy tube) and is growing 2 GNR from the R kidney sample and one GNR from the L kidney sample. Urine cultures repeated yesterday are also growing [address] on IV Rocephin based on previous cultures and modify therapy based on cultures if needed. Large amounts of yeast in urine from initial samples from ER, but repeat sample collected 12/01 does not show yeast. Urine sample collected 12/01 has been sent for fungal Cx and fluconazole has been started. (2) Chronic renal insufficiency Status: Chronic Assessment & Plan: Her creatinine is 2.4 at this time. This is very near her baseline since the nephrostomies were placed. IV fluids and watch labs closely. (3) T2DM (type 2 diabetes mellitus) Status: Chronic Assessment & Plan: Place on ADA diet, monitor glucoses, and use SSI as needed. (4) Hypertension Status: Chronic Assessment & Plan: Will continue her metoprolol and use additional IV meto prolol if needed. (5) Hypercalcemia Status: Chronic Assessment & Plan: She has had recurrent problems with hypercalcemia due to her CKD, use of TUMS, dehydration. Calcium supplements stopped and generous IV fluids given. Calcium normalized. Watch labs closely. (6) GERD (gastroesophageal reflux disease) Status: Chronic Assessment & Plan: She has used large amounts of TUMS in the past, which has contributed to her hypercalcemia. Will stop these and use IV Protonix and some Maalox if needed. H pylori positive, begin quadruple therapy for eradication. (7) H. pylori infection Assessment & Plan: Quad therapy initiated with BID pantoprazole, bismuth subsalicylate, metronidazole and doxycycline. Plan 14 days therapy. Time Spent on Plan of Care: < 30 min Exam Sepsis Risk: No Definite Risk SHAD MCKENNA MD Dec 02, 2018 22:34
[2018-12-03 05:56] VITALS: BP 188/99
[2018-12-03] MEDS: DOXYCYCLINE HYCL 100 MG TAB PO SCH ×2 (06:02→18:41)
[2018-12-03] MEDS: NS(*) 0.9% 1000 ML BAG 1,000 ML IV PRN ×2 (06:03→21:03)
[2018-12-03 06:05] VITALS: BP 180/94
[2018-12-03 06:15] LABS: PLATELET COUNT, AUTOMATED 244 K/uL (150-450)
[2018-12-03 07:51] VITALS: BP 197/88
[2018-12-03] MEDS: BROMFENAC SODIUM OP SCH (09:20)
[2018-12-03] MEDS: PANTOPRAZOLE SOD 40 MG IV VIAL IVP SCH ×2 (09:22→21:08)
[2018-12-03] MEDS: INSULIN HUM LISPRO 100 UN/ML 3 ML VIAL SUBQ PRN ×4 (09:25→21:11)
[2018-12-03] MEDS: prednisoLONE ACE 1% OP 5ML BTL OS SCH ×3 (09:26→21:08)
[2018-12-03] MEDS: ENOXAPARIN 30 MG/0.3 ML SYR SC SCH (09:28)
[2018-12-03] MEDS: FAMOTIDINE 20 MG TAB PO SCH (09:30)
[2018-12-03] MEDS: METOPROLOL TART 50 MG TAB PO SCH ×2 (09:30→21:03)
[2018-12-03] MEDS: metroNIDAZOLE 250 MG TAB PO SCH ×4 (09:30→21:02)
[2018-12-03] MEDS: FLUCONAZOLE 100 MG TAB PO SCH (09:30)
[2018-12-03] MEDS: [UNRECOGNIZED DRUG - OTHER] PO SCH ×4 (09:31→21:03)
[2018-12-03] MEDS: MOXIFLOXACIN OS SCH ×3 (09:34→21:09)
[2018-12-03] MEDS: ACETAMINOPHEN 325 MG TAB PO PRN ×3 (09:37→22:30)
[2018-12-03 11:55] VITALS: BP 184/80
--- NOTE | 2018-12-03 12:04 | RADIOLOGY IMAGING REPORT ---
FACILITY: [facility] - [place] PATIENT NAME: Sahra Chavis : 1955 MR: [id number] V: [id number] EXAM DATE: ORDERING PHYSICIAN: DEE MCKENNA TECHNOLOGIST: Location: [facility] - [place] Patient: Sahra Chavis : 1955 Visit/Account:[id number] Date of Sevice: 12/03/2018 Technique: KUB SINGLE VIEW ABDOMEN HISTORY: ?left nephrostomy dislodged Comparison studies: CT abdomen and pelvis August 26, 2018 FINDINGS: Noted are bilateral percutaneous nephrostomy tubes. There is partial retraction of the left -sided percutaneous nephrostomy tube. No evidence organomegaly. Bowel gas pattern is nonobstructive. IMPRESSION: 1. Partial retraction of the left-sided percutaneous nephrostomy; potentially located extrinsic to t he kidney. Contrast administration into the nephrostomy tube would better assess. Report Dictated By: Dominic Couch DO at 12/03/2018 11:56 AM Report E-Signed By: Dominic Couch DO at 12/03/2018 11:59 AM WSN:[id number]
--- NOTE | 2018-12-03 13:40 | Hospitalist Progress Note ---
Subjective Progress Notes Subjective She reports improvements. No fever. Eating better. Left nephrostomy with essentially no output. Physical Exam Vital Signs Date Time Temp Pulse Resp B/P (MAP) Pulse Ox O2 Delivery O2 Flow Rate FiO2 12/03/18 11:55 98.9 73 16 184/80 (114) 96 Nasal Cannula 1.0 Intake and Output 12/03/18 07:00 Intake Total 3341 ml Output Total 2300 ml Balance 1041 ml Intake Oral 1320 ml IV Total 2021 ml Output Urine Total 2300 ml General Appearance: Alert, Awake Cardiovascular: Regular Rate and Rhythm Respiratory: Clear to Auscultation GI: Soft and Non-Tender : Other (left nephrostomy with virtually no urine output) Extremities: Warm, Perfused Psych: Alert & Oriented X3 Result Diagram: 12/03/1851612/03/18516 Assessment and Plan Problems: (1) Urinary tract infection Status: Acute Assessment & Plan: It appears she has recurrent UTIs complicated by her nephrostomies. She is growing Citrobacter and Klebsiella from her left nephrostomy, both of which have been fairly sensitive. Urine culture from right is also growing 2 GNRs. She has improved clinically on IV Rocephin. Unfortunately, the left nephrostomy looks like it is not functioning. She is now at 2 3 months since placement and should be due for change. Will discuss with urology/interventional radiology. (2) Chronic renal insufficiency Status: Chronic Assessment & Plan: Her creatinine was 2.4 at time of admission. She has improved slightly and creatinine is now 2.0. Will need to discuss with urology/IR to see about possible change/replacement of her nephrostomies. (3) T2DM (type 2 diabetes mellitus) Status: Chronic Assessment & Plan: Continue on ADA diet, monitor glucoses, and use SSI as ne eded. (4) Hypertension Status: Chronic Assessment & Plan: Will continue her metoprolol and use additional IV metoprolol if needed. (5) Hypercalcemia Status: Chronic Assessment & Plan: She has had recurrent problems with hypercalcemia due to her CKD, use of TUMS, dehydration. Calcium supplements stopped and generous IV fluids given. Calcium normalized. Watch labs closely. (6) GERD (gastroesophageal reflux disease) Status: Chronic Assessment & Plan: She has used large amounts of TUMS in the past, which has contributed to her hypercalcemia. We have stopped these and started IV Protonix and some Maalox if needed. H. pylori positive, quadruple therapy started for eradication. (7) H. pylori infection Assessment & Plan: Quadruple therapy initiated with BID pantoprazole, bismuth subsalicylate, metronidazole and doxycycline. Plan 14 days therapy. Exam Sepsis Risk: No Definite Risk DEE MCKENNA MD Dec 03, 2018 13:40
[2018-12-03] MEDS ORDERED: PRED5DRO34 OS (14:57)
[2018-12-03] MEDS ORDERED: MOXOD OS (14:57)
[2018-12-03] MEDS ORDERED: [UNRECOGNIZED DRUG - CODE] PO (14:57)
[2018-12-03] MEDS ORDERED: METR250T8 PO (14:57)
[2018-12-03] MEDS ORDERED: OMEP-125 PO (14:57)
[2018-12-03] MEDS ORDERED: DOXY-179 PO (14:57)
[2018-12-03] MEDS ORDERED: CEFT1VIA65 IV (14:57)
--- NOTE | 2018-12-03 15:13 | Hospitalist Depart ---
Discharge Summary Reason for Hosp/Final Diag: (1) Urinary tract infection Status: Acute Hospital Course & Plan: She has acute recurrent UTIs complicated by her nephrostomies. She is growing Citrobacter and Klebsiella from her left nephrostomy, both of which have been fairly sensitive. Urine culture from right is also growing 2 GNRs. She has improved clinically on IV Rocephin. Unfortunately, the left nephrostomy looks like it is not functioning at this time. KUB shows the left to possibly be displaced. She is now at 3 months since placement and should also be due for change. I discussed with urology at [facility] (Dr. Mendez) who asked if we could flush/aspirate left nephrostomy to see if could get urine flow to return. The instilled saline flowed out of the nephrostomy site around the catheter and no urine returned. Case was discussed with Dr. Flynn (hospitalist at [facility]) who agreed to accept Mrs. Chavis in transfer to have her nephrostomies replaced. (2) Chronic renal insufficiency Status: Chronic Hospital Course & Plan: Her creatinine was 2.4 at time of admission. She has improved slightly with IV fluids and her creatinine is now 2.0. She will be transferred for possible change/replacement of her nephrostomies (see above). (3) T2DM (type 2 diabetes mellitus) Status: Chronic Hospital Course & Plan: Continue on ADA diet, monitor glucoses, and resume her usual NPH regimen. She did receive sliding scale insulin during her stay. (4) Hypertension Status: Chronic Hospital Course & Plan: She will continue her metoprolol regimen. Follow up with her primary care provider (Dr. Tripp) and nephrology (Dr. Lockett). (5) Hypercalcemia Status: Chronic Hospital Course & Plan: She has had recurrent problems with hypercalcemia due to her CKD, use of TUMS, dehydration. Calcium supplements stopped and generous IV fluids given. Calcium normalized. Watch labs intermittently. (6) GERD (gastroesophageal reflux disease) Status: Chronic Hospital Course & Plan: She has used large amounts of TUMS in the past, which has contributed to her hypercalcemia. We have stopped these. She may use some Maalox if needed. She is H. pylori positive and quadruple therapy started for eradication. (7) H. pylori infection Hospital Course & Plan: Quadruple therapy initiated with BID pantoprazole, bismuth subsalicylate, metronidazole and doxycycline. Plan 14 days therapy. Departure Weight (Pounds): 187 Weight (Ounces): 1.0 Result Diagram: 12/03/1851612/03/18516 Item Value Date Time White Blood Count 17.0 k/uL H 11/30/18 1619 Hemoglobin 14.3 g/dL 11/30/18 1619 Hematocrit 44.7 % 11/30/18 1619 Platelet Count 532 K/uL H 11/30/18 1619 Sodium Level 140 mmol/L 11/30/18 1619 Potassium Level 4.3 mmol/L 11/30/18 1619 Chloride Level 97 mmol/L L 11/30/18 1619 Carbon Dioxide Level 20 mmol/L L 11/30/18 1619 Blood Urea Nitrogen 36 mg/dl H 11/30/18 1619 Creatinine 2.40 mg/dl H 11/30/18 1619 Glomerular Filtration Rate Calc 20.3 11/30/18 1619 Random Glucose 466 mg/dl H 11/30/18 1619 Calcium Level 13.3 mg/dl *H 11/30/18 1619 Total Bilirubin 0.5 mg/dl 11/30/18 1619 Aspartate Amino Transf (AST/SGOT) 22 U/L 11/30/18 1619 Alanine Aminotransferase (ALT/SGPT) 10 U/L 11/30/18 1619 Alkaline Phosphatase 123 U/L 11/30/18 1619 Total Protein 8.2 g/dl 11/30/18 1619 Albumin 4.6 g/dl 11/30/18 1619 Amylase Level 46 U/L 11/30/18 1619 Lipase 59 U/L 11/30/18 1619 Human Chorionic Gonadotropin, Qual Negative 11/30/18 1619 Urine Color Pale yellow 11/30/18 1800 Urine Clarity Cloudy 11/30/18 1800 Urine pH 6.0 pH 11/30/18 1800 Urine Specific [place] 1.020 11/30/18 1800 Urine Protein 300 mg/dL 11/30/18 1800 Urine Glucose (UA) 1000 mg/dL 11/30/18 1800 Urine Ketones 80 mg/dL H 11/30/18 1800 Urine Blood Large 11/30/18 1800 Urine Nitrite Negative 11/30/18 1800 Urine Bilirubin Negative 11/30/18 1800 Urine Urobilinogen 0.2 mg/dL 11/30/18 1800 Urine Leukocyte Esterase Moderate 11/30/18 1800 Urine RBC 65 /HPF 11/30/18 1800 Urine WBC 315 /HPF 11/30/18 1800 Urine WBC Clumps Many /HPF 11/30/18 1800 Urine Squamous Epithelial Cells None /LPF 11/30/18 1800 Urine Bacteria Moderate /HPF H 11/30/18 1800 Urine Mucus None /HPF 11/30/18 1800 Urine Yeast (Budding) Many /HPF H 11/30/18 1800 Urine Yeast (Budding) Many /HPF H 11/30/18 1800 Urine Mucus None /HPF 11/30/18 1800 Urine Bacteria Moderate /HPF H 11/30/18 1800 Urine Squamous Epithelial Cells None /LPF 11/30/18 1800 Urine WBC Clumps Many /HPF 11/30/18 1800 Urine WBC 646 /HPF 11/30/18 1800 Urine RBC 47 /HPF 11/30/18 1800 Urine Leukocyte Esterase Moderate 11/30/18 1800 Urine Urobilinogen 0.2 mg/dL 11/30/18 1800 Urine Bilirubin Negative 11/30/18 1800 Urine Nitrite Negative 11/30/18 1800 Urine Blood Large 11/30/18 1800 Urine Ketones 80 mg/dL H 11/30/18 1800 Urine Glucose (UA) 1000 mg/dL 11/30/18 1800 Urine Protein 300 mg/dL 11/30/18 1800 Urine Specific [place] 1.020 11/30/18 1800 Urine pH 6.0 pH 11/30/18 1800 Urine Clarity Cloudy 11/30/18 1800 Urine Color Pale yellow 11/30/18 1800 Influenza Virus Type B (PCR) Negative 11/30/18 1635 Influenza Virus Type A (PCR) Negative 11/30/18 1635 Helicobacter pylori IgG Antibody Positive 11/30/18 1619 [facility] [address] [place] [address] HORACE NICHOLSON M.D., DIRECTOR OF LABORATORY SERVICES BENJAMIN KOVACS M.D., PATHOLOGIST RUN DATE: 12/03/18 Specimen Inquiry Report PAGE 1 RUN TIME: 0959 PATIENT: KATARZYNA CHAVIS ACCT: [id number] LOC: MED U: [id number] AGE/SX: 63/F ROOM: [facility] RE11/30/[address]: DEE MCKENNA MD : 1955 BED: 277 DIS: STATUS: ADM IN TLOC: SPEC #: [id number] DIANE: 11/30/18-UNK STATUS: RES REQ #: [id number] RECD: 12/01/18-30 [facility] DR: EARNEST OSBORN [facility] SOURCE: KIDNEYUR ENTR: 11/30/[address]: DEYANIRA TRIPP MD [facility]: RIGHT ORDERED: CULT URINE Procedure Result Verified URINE CULTURE Preliminary 12/03/18-958 Organism 1 GRAM NEGATIVE KEERTHI >100,000 COL/ML ID AND SENSITIVITY TO FOLLOW SUBBED FOR ISOLATION Organism 2 GRAM NEGATIVE KEERTHI#2 >100,000 COL/ML ID AND SENSITIVITY TO FOLLOW [facility] *LIVE* [address] [facility] [address] HORACE NICHOLSON M.D., DIRECTOR OF LABORATORY SERVICES BENJAMIN KOVACS M.D., PATHOLOGIST RUN DATE: 12/03/18 Specimen Inquiry Report PAGE 1 RUN TIME: 946 PATIENT: KATARZYNA CHAVIS ACCT: [id number] LOC: MED U: [id number] AGE/SX: 63/F ROOM: 227 RE11/30/[address]: DEE MCKENNA MD : 1955 BED: 277 DIS: STATUS: ADM IN TLOC: SPEC #: [id number] DIANE: 11/30/18 STATUS: COMP REQ #: [id number] RECD: 11/30/[address]: EARNEST OSBORN SOURCE: KIDNEYUR ENTR: 11/30/[address]: DEYANIRA TRIPP MD [facility]: LEFT ORDERED: CULT URINE Procedure Result Verified ------- ----- URINE CULTURE Final 12/03/18 Organism 1 CITROBACTER FREUNDII >100,000 COL/ML Organism 2 KLEBSIELLA OXYTOCA >100,000 COL/ML LEWIS BRIONES OXYTOC M.I.C. RX M.I.C. RX --------- --- --------- --- AMPICILLIN >=32 R AMPICILLIN/SULBACTAM 4 S CEFAZOLIN >=64 R <=4 S CEFTAZIDIME <=1 S <=1 S CEFTRIAXONE <=1 S <=1 S CEFEPIME <=1 S <=1 S CEFOXITIN 32 R <=4 S ERTAPENEM <=0.5 S <=0.5 S CIPROFLOXACIN <=0.25 S <=0.25 S GENTAMICIN <=1 S <=1 S IMIPENEM <=0.25 S <=0.25 S LEVOFLOXACIN <=0.12 S <=0.12 S NITROFURANTOIN <=16 S <=16 S PIPERACILLIN/TAZOBACTAM <=4 S <=4 S TOBRAMYCIN <=1 S <=1 S TRIMETHOPRIM/SULFAMETHOXAZOLE <=20 S <=20 S [facility]* [address] [place] [address] HORACE NICHOLSON M.D., DIRECTOR OF LABORATORY SERVICES BENJAMIN KOVACS M.D., PATHOLOGIST RUN DATE: 12/03/18 Specimen Inquiry Report PAGE 1 RUN TIME: 944 PATIENT: KATARZYNA CHAVIS ACCT: [id number] LOC: [facility] U: [id number] AGE/SX: 63/F ROOM: [facility] RE11/30/[address]: DEE MCKENNA MD : 1955 BED: 277 DIS: STATUS: ADM IN TLOC: SPEC #: [id number] DIANE: 11/30/18 STATUS: COMP REQ #: [id number] RECD: 11/30/[address] [facility] [address]: DEE MCKENNA MD SOURCE: BACK ENTR: 11/30/[address] [facility] [address]: DEYANIRA TRIPP MD [facility]: ORDERED: CULT WOUND COMMENTS: Has specimen been collected/obtained? Y Additional Information: left nephrostomy Procedure Result Verified WOUNDCULTURE Final 12/03/18 Organism 1 KLEBSIELLA OXYTOCA 1+ GROWTH Organism 2 ENTEROBACTER CLOACAE COMPLEX 1+ GROWTH KLE OXYTOC E ANGEL CMPX M.I.C. RX M.I.C. RX --------- --- --------- --- AMPICILLIN >=32 R AMPICILLIN/SULBACTAM 8 S CEFAZOLIN <=4 S 32 R CEFTAZIDIME <=1 S <=1 S CEFTRIAXONE <=1 S <=1 S CEFEPIME <=1 S <=1 S CEFOXITIN <=4 S 8 R ERTAPENEM <=0.5 S <=0.5 S CIPROFLOXACIN <=0.25 S <=0.25 S GENTAMICIN <=1 S <=1 S IMIPENEM <=0.25 S <=0.25 S LEVOFLOXACIN <=0.12 S <=0.12 S PIPERACILLIN/TAZOBACTAM <=4 S 8 S TOBRAMYCIN <=1 S <=1 S TRIMETHOPRIM/SULFAMETHOXAZOLE <=20 S <=20 S [facility] *LIVE* [address] [facility] [address] HORACE NICHOLSON M.D., DIRECTOR OF LABORATORY SERVICES BENJAMIN KOVACS M.D., PATHOLOGIST RUN DATE: 12/03/18 Specimen Inquiry Report PAGE 1 RUN TIME: 1000 PATIENT: KATARZYNA CHAVIS ACCT: [id number] LOC: [facility] U: [id number] AGE/SX: 63/F ROOM: [facility] RE11/30/[address]: DEE MCKENNA MD : 1955 BED: 277 DIS: STATUS: ADM IN TLOC: SPEC #: [id number] DIANE: 11/30/18 STATUS: RES REQ #: [id number] RECD: 11/30/18-2000 [facility] [address]: EARNEST OSBORN [facility] SOURCE: BLOOD ENTR: 11/30/[address]: DEYANIRA TRIPP MD [facility]: ORDERED: CULT BLOOD ---- -------- Procedure Result Verified BLOOD CULTURE Preliminary 12/03/18-1000 NO GROWTH AFTER 3 DAYS, REINCUBATED [facility]* [address] [place] [address] HORACE NICHOLSON M.D., DIRECTOR OF LABORATORY SERVICES BENJAMIN KOVACS M.D., PATHOLOGIST RUN DATE: 12/03/18 Specimen Inquiry Report PAGE 1 RUN TIME: 1000 PATIENT: KATARZYNA CHAVIS ACCT: [id number] LOC: MED U: [id number] AGE/SX: 63/F ROOM: 2277 RE11/30/[address]: DEE MCKENNA MD : 1955 BED: 277 DIS: STATUS: ADM IN TLOC: SPEC #: [id number] DIANE: 11/30/18 STATUS: RES REQ #: [id number] RECD: 11/30/[address]: EARNEST OSBORN SOURCE: BLOOD ENTR: 11/30/[address]: DEYANIRA TRIPP MD [facility]: ORDERED: CULT BLOOD Procedure Result Verified BLOOD CULTURE Preliminary 12/03/18-999 NO GROWTH AFTER 3 DAYS, REINCUBATED Imaging PATIENT NAME: Katarzyna Chavis : 1955 MR: [id number] V: [id number] EXAM DATE: ORDERING PHYSICIAN: DEE MCKENNA TECHNOLOGIST: Location: [facility] [place] Patient: Katarzyna Chavis : 1955 Visit/Account:[id number] Date of Sevice: 12/03/2018 Technique: KUB SINGLE VIEW ABDOMEN HISTORY: ?left nephrostomy dislodged Comparison studies: CT abdomen and pelvis August 26, 2018 FINDINGS: Noted are bilateral percutaneous nephrostomy tubes. There is partial retraction of the left-sided percutaneous nephrostomy tube. No evidence organomegaly. Bowel gas pattern is nonobstructive. IMPRESSION: 1. Partial retraction of the left-sided percutaneous nephrostomy; potentially located extrinsic to the kidney. Contrast administration into the nephrostomy tu be would better assess. Report Dictated By: Dominic Couch DO at 12/03/2018 11:56 AM Report E-Signed By: Dominic Couch DO at 12/03/2018 11:59 AM WSN:[id number] PATIENT NAME: Katarzyna Chavis : 1955 MR: [id number] V: [id number] EXAM DATE: ORDERING PHYSICIAN: BENJAMIN RODRIGUEZ TECHNOLOGIST: Location: [facility] [place] Patient: Katarzyna Chavis : 1955 Visit/Account:[id number] Date of Sevice: 12/01/2018 Exam type: PICC LINE INSERTION History: Multiple fluids and lab draws Comparison: None. Findings: Informed consent was obtained. Patient's left arm was prepped and draped usual sterile fashion. Local anesthesia was accomplished with 1% lidocaine.. Utilizing both sonographic guidance the left basilic vein was entered with a micropuncture needle. Guidewire was advanced to the level of superior vena cava. A peel-away sheath was then passed over the guidewire. The PICC line was then trimmed to length. During passage of the PICC line through the peel-away sheath and obstruction was met. Contrast was injected demonstrating a narrowing in the left axillary vein. The PICC line was then trimmed to a 30 cm length which is the shortest the PICC line can BE trimmed. Upon passage of the trimmed PICC line through the peel-away sheath the PICC line did pass through the narrowing and was subsequently placed with the distal tip in the left innominate vein both lumens were flushed with 5 mL of saline flush. Proximal portion PICC line was adhered to the patient's arm the sterile dressing. The procedure was accomplished without apparent complication Sonographic images were saved to PAC S. The fluoroscopy dose area product was 205.5 micro-Escobedo per meter squared IMPRESSION: 1. Successful placement of a 30 cm long trimmed 5 Yi double lumen power PICC inserted via the patent left basilic vein with the distal tip resting in the left innominate vein as detailed above Report Dictated By: Kamilla Lord MD at 12/01/2018 3:49 PM Report E-Signed By: Kamilla Lord MD at 12/01/2018 3:52 PM WSN:[id number] Condition: Improved Discharge: Another Hospital ([facility]) Time Spent: > 30 min Discharge Instructions Home Meds Active Scripts Metronidazole (METRONIDAZOLE) 250 Mg Tablet, 250 MG PO QID for 14 Days, #56 TAB 0 Refills Prov:DEE MCKENNA MD 12/03/18 Doxycycline Hyclate (DOXYCYCLINE HYCLATE) 100 Mg Tablet, 100 MG PO BID@0630,1830 for 14 Days, #28 TAB 0 Refills Prov:DEE MCKENNA MD 12/03/18 Bismuth Subsalicylate (BISMATROL) 262 Mg/15 Ml Susp, 300 MG PO QID for 14 Days, #1 BOTTLE 1 Refill Prov:DEE MCKENNA MD 12/03/18 Omeprazole (OMEPRAZOLE) 20 Mg Capsule.dr, 1 CAP PO BID, #60 CAP 1 Refill Prov:DEE MCKENNA MD 12/03/18 Metoprolol Tartrate (METOPROLOL TARTRATE) 25 Mg Tablet, 1 TAB PO BID, #180 TAB 3 Refills Prov:DEYANIRA TRIPP MD 09/22/18 Ranitidine Hcl (ZANTAC) 150 Mg Tablet, 75 MG PO BID for 30 Days, TAB Prov:BENJAMIN PEPPER DO 08/15/18 Gabapentin (GABAPENTIN) 600 Mg Tablet, 600 MG PO QHS, #180 TAB 3 Refills Prov:BENJAMIN PEPPER DO 08/15/18 Pen Needle, Diabetic (Insulin Pen Needle) 31 Gauge X 1/6" Dis.needle, EACH , #100 Prov:XIOMARA NAVARRETE DO 11/25/17 Reported Medications Atorvastatin Calcium (LIPITOR) 40 Mg Tablet, 1 TAB PO QDAY, TAB 12/01/18 Insulin Regular, Human (HUMULIN R) 100 Unit/1 Ml Vial, 10 UNIT IJ TID PRN for SEE COMMENT, VIAL PER SLIDING SCALE 08/26/18 Multivitamin With Minerals (MULTIPLE VITAMIN) 1 Each Tablet, 1 EACH PO QDAY, TAB 08/12/18 Acetaminophen (TYLENOL EXTRA STRENGTH) 500 Mg Tablet, 500 MG PO PRN for PAIN, TAB 07/17/18 Nph, Human Insulin Isophane (NOVOLIN N) 100 Unit/1 Ml Vial, 10 UNIT SQ BID, VIAL 10 UNITS MORNING 12 UNITS AT NIGHT 05/12/18 Discontinued Scripts Cephalexin (KEFLEX) 250 Mg Capsule, 250 MG PO TID, #42 CAP Prov:JARAD JAIN MD 10/31/18 Diet: Diabetic Activity: As Tolerated, No Exertion Special Instructions: She will be transferred to [facility] for probable nephrostomy replacement/change. Copies to: DEYANIRA TRIPP MD; ANGELO LOCKETT MD ; Venous Thromboembolism Antithrombotics Is Pt On Any Antithrombotics?: Yes DEE MCKENNA MD Dec 03, 2018 15:12
[2018-12-03] MEDS ORDERED: METOPROLOL TART 50 MG TAB PO ONE (15:15)
[2018-12-03 15:59] VITALS: BP 182/90
[2018-12-03 20:01] VITALS: BP 154/80
[2018-12-03] MEDS: GABAPENTIN 300 MG CAP PO SCH (21:02)
[2018-12-03] MEDS: cefTRIAXone(*) 1 GM VIAL 1 GM in NS(*) 0.9% 100 ML ADDVANT BAG 100 ML IVPB SCH (21:10)
[2018-12-04 03:30] VITALS: BP 163/82
[2018-12-04] MEDS: DOXYCYCLINE HYCL 100 MG TAB PO SCH (06:23)
[2018-12-04 06:47] VITALS: BP 175/88
[2018-12-04] MEDS: prednisoLONE ACE 1% OP 5ML BTL OS SCH (09:44)
[2018-12-04] MEDS: MOXIFLOXACIN OS SCH (09:45)
[2018-12-04] MEDS: BROMFENAC SODIUM OP SCH (09:46)
[2018-12-04] MEDS: metroNIDAZOLE 250 MG TAB PO SCH (09:52)
[2018-12-04] MEDS: PANTOPRAZOLE SOD 40 MG IV VIAL IVP SCH (09:52)
[2018-12-04] MEDS: FLUCONAZOLE 100 MG TAB PO SCH (09:53)
[2018-12-04] MEDS: FAMOTIDINE 20 MG TAB PO SCH (09:53)
[2018-12-04] MEDS: METOPROLOL TART 50 MG TAB PO SCH (09:53)
[2018-12-04] MEDS: ENOXAPARIN 30 MG/0.3 ML SYR SC SCH (09:54)
[2018-12-04] MEDS: INSULIN HUM LISPRO 100 UN/ML 3 ML VIAL SUBQ PRN (09:59)
[2018-12-04] MEDS: [UNRECOGNIZED DRUG - OTHER] PO SCH (10:32)
--- NOTE | 2018-12-05 09:48 | RADIOLOGY IMAGING REPORT ---
FACILITY: [facility] [place] PATIENT NAME: Sahra Chavis : 1955 MR: [id number] V: [id number] EXAM DATE: ORDERING PHYSICIAN: BENJAMIN RODRIGUEZ TECHNOLOGIST: Location: [facility] [place] Patient: Sahra Chavis : 1955 Visit/Account:[id number] Date of Sevice: 12/01/2018 Exam type: US GUIDANCE VASCULAR ACCESS History: Multiple fluids and lab draws Comparison: None. Findings: This report was dictated under the PICC line insertion dictation. IMPRESSION: 1. As above Report Dictated By: Kamilla Lord MD at 12/05/2018 9:43 AM Report E-Signed By: Kamilla Lord MD at 12/05/2018 9:44 AM WSN:[email or web address]
== END 2018-12-04 10:40 | disposition short-term general hospital (02) | DRG 699 ==
LOC: ER 16:09 → MED 19:01
PROVIDERS: ADMIT Internal Medicine; ATTEND Internal Medicine
PROC: 05H433Z Insertion of Infusion Device into Left Innominate Vein, Percutaneous Approach (ICD-10-PCS; principal; 2018-12-01)
PROC: B51NYZA Fluoroscopy of Left Upper Extremity Veins using Other Contrast, Guidance (ICD-10-PCS; 2018-12-01)
PROC: B54NZZA Ultrasonography of Left Upper Extremity Veins, Guidance (ICD-10-PCS; 2018-12-01)
DX: T83.512A Infection and inflammatory reaction due to nephrostomy catheter, initial encounter (principal); N39.0 Urinary tract infection, site not specified; N10 Acute pyelonephritis; N13.30 Unspecified hydronephrosis; B96.89 Other specified bacterial agents as the cause of diseases classified elsewhere; E83.52 Hypercalcemia; N18.9 Chronic kidney disease, unspecified; K21.9 Gastro-esophageal reflux disease without esophagitis; B96.81 Helicobacter pylori [H. pylori] as the cause of diseases classified elsewhere; Z87.440 Personal history of urinary (tract) infections; Z87.891 Personal history of nicotine dependence; Z79.4 Long term (current) use of insulin; Z88.8 Allergy status to other drugs, medicaments and biological substances; Z93.6 Other artificial openings of urinary tract status; E11.22 Type 2 diabetes mellitus with diabetic chronic kidney disease; I12.9 Hypertensive chronic kidney disease with stage 1 through stage 4 chronic kidney disease, or unspecified chronic kidney disease; R13.10 Dysphagia, unspecified; E04.1 Nontoxic single thyroid nodule; E11.36 Type 2 diabetes mellitus with diabetic cataract; E11.319 Type 2 diabetes mellitus with unspecified diabetic retinopathy without macular edema; E78.5 Hyperlipidemia, unspecified; R91.1 Solitary pulmonary nodule; M50.30 Other cervical disc degeneration, unspecified cervical region; K22.2 Esophageal obstruction; T83.022A Displacement of nephrostomy catheter, initial encounter
CPT/HCPCS: 36415; 36416; 36573; 74018; 81001; 82040; 82150; 82247; 82310; 82374; 82435; 82565; 82947; 82948; 83690; 83735; 84075; 84132; 84155; 84295; 84450; 84460; 84520; 84703; 85025; 86677; 87040; 87070; 87077; 87088; 87186; 87502; 96360; 96361; 99284; C1751; C9113; J0696; J1450; J1650; J2405; J3490; J7030; J7050; Q9967

== ENCOUNTER → 2018-12-04 | Outpatient (CLI) | payer MEDICARE ==
[2018-12-01 10:08] VITALS: BMI 31.2
[~2018-12-04] MED LIST changes: +ATOR40TA24 PO; +CEFT1VIA65 IV; +DOXY-179 PO; +METR250T8 PO; +MOXOD OS; +PRED5DRO34 OS; +[UNRECOGNIZED DRUG - CODE] PO
== END ==
LOC: AMB 10:20
PROVIDERS: ATTEND Nurse Practitioner
DX: N12 Tubulo-interstitial nephritis, not specified as acute or chronic (principal); I10 Essential (primary) hypertension
CPT/HCPCS: A0425; A0428; A0888

== ENCOUNTER 2019-01-02 07:56 | Inpatient (IN) | payer MEDICARE ==
[~2019-01-02] VITALS: Ht 160 cm; Wt 79.4 kg
--- NOTE | 2019-01-02 08:01 | ER Report ---
History and Physical Time Seen By MD: 08:00 Hx. of Stated Complaint: PATIENT REPORTS VOMTING THAT STARTED YESTERDAY HPI/ROS CHIEF COMPLAINT: Vomiting HISTORY OF PRESENT ILLNESS: Patient is a 63-year-old female who presents to the emergency department with complaint of intractable nausea and vomiting since yesterday evening. She has a past medical history for chronic kidney disease, history of hyperthyroidism secondary to chronic kidney disease and overuse of calcium containing antacids. She states that she's been vomiting since last evening despite trying to take her Zofran at home. She has been unable tolerate either fluids or solids. Patient was recently admitted for urinary tract infection and beginning of November and actually require transfer to [facility] for changing of both nephrostomy tubes. Patient states she is improved in her symptoms since changing any nephrostomy tube since her last evening. REVIEW OF SYSTEMS: Constitutional: No fever, no chills. Eyes: No discharge. ENT: No sore throat. Cardiovascular: No chest pain, no palpitations. Respiratory: No cough, no shortness of breath. Gastrointestinal: Crampy abdominal pain, intractable nausea and vomiting. Genitourinary: Bilateral nephrostomy tubes Musculoskeletal: No back pain. Skin: No rashes. Neurological: No headache. Allergies: Coded Allergies: promethazine (Verified Allergy, Mild, 11/30/18) uncontrolled motor movements/ spasms Home Meds Active Scripts Bismuth Subsalicylate (BISMATROL) 262 Mg/15 Ml Susp, 300 MG PO QID for 14 Days, #1 BOTTLE 1 Refill Prov:DEE VILLEDA MD 12/03/18 Omeprazole (OMEPRAZOLE) 20 Mg Capsule.dr, 1 CAP PO BID, #60 CAP 1 Refill Prov:DEE VILLEDA MD 12/03/18 Metoprolol Tartrate (METOPROLOL TARTRATE) 25 Mg Tablet, 1 TAB PO BID, #180 TAB 3 Refills Prov:DEYANIRA YOUNG MD 09/22/18 Ranitidine Hcl (ZANTAC) 150 Mg Tablet, 75 MG PO BID for 30 Days, TAB Prov:BENJAMIN PEPPER DO 08/15/18 Gabapentin (GABAPENTIN) 600 Mg Tablet, 600 MG PO QHS, #180 TAB 3 Refills Prov:BENJAMIN PEPPER DO 08/15/18 Pen Needle, Diabetic (Insulin Pen Needle) 31 Gauge X /6" Dis.needle, EACH , #100 Prov:XIOMARA NAVARRETE DO 11/25/17 Reported Medications Amlodipine Besylate (AMLODIPINE BESYLATE) 10 Mg Tablet, 1 TAB PO QHS, TAB 01/02/19 Pantoprazole Sodium (PANTOPRAZOLE SODIUM) 40 Mg Tablet.dr, 40 MG PO QDAY, TAB.SR 01/02/19 Ondansetron 4 Mg Odt (ONDANSETRON 4 MG ODT) 4 Mg Tab.rapdis, 4 MG PO ONCE, TAB 01/02/19 Atorvastatin Calcium (LIPITOR) 40 Mg Tablet, 1 TAB PO QDAY, TAB 12/01/18 Multivitamin With Minerals (MULTIPLE VITAMIN) 1 Each Tablet, 1 EACH PO QDAY, TAB 08/12/18 Acetaminophen (TYLENOL EXTRA STRENGTH) 500 Mg Tablet, 500 MG PO PRN for PAIN, TAB 07/17/18 Nph, Human Insulin Isophane (NOVOLIN N) 100 Unit/1 Ml Vial, 10 UNIT SQ BID, VIAL 10 UNITS MORNING 12 UNITS AT NIGHT 05/12/18 Discontinued Reported Medications Insulin Regular, Human (HUMULIN R) 100 Unit/1 Ml Vial, 10 UNIT IJ TID PRN for SEE COMMENT, VIAL PER SLIDING SCALE 08/26/18 Discontinued Scripts Ceftriaxone Sodium (CEFTRIAXONE) 1 Gm Vial.port, 1 GM IV Q24H for 10 Days, VIAL Prov:DEE VILLEDA MD 12/03/18 Moxifloxacin Hcl (VIGAMOX) 3 Ml Soln, 0 ML OS TID for 30 Days, BOT Prov:DEE VILLEDA MD 12/03/18 Prednisolone Acetate (PREDNISOLONE ACETATE) 5 Ml Drops.susp, 0 ML OS TID for 30 Days, BOTTLE Prov:DEE VILLEDA MD 12/03/18 Metronidazole (METRONIDAZOLE) 250 Mg Tablet, 250 MG PO QID for 14 Days, #56 TAB 0 Refills Prov:DEE VILLEDA MD 12/03/18 Doxycycline Hyclate (DOXYCYCLINE HYCLATE) 100 Mg Tablet, 100 MG PO BID@0630,1830 for 14 Days, #28 TAB 0 Refills Prov:DEE VILLEDA MD 12/03/18 Past Medical/Surgical History Past medical history for urinary tract infection and history of nephrostomy tubes, history of chronic renal insufficiency baseline creatinine of 2.0, history of type II diabetes, history of hypertension, history of hypercalcemia secondary to chronic kidney disease and use of calcium supplements. History of gastroesophageal reflux disease history of H. pylori. Hx Smoking: Yes (1 PPD FOR 20 YRS) Smoking Status: Former Smoker Exposure to Second Hand Smoke?: No Hx Substance Use Disorder: No Hx Alcohol Use: No Constitutional Vital Sign - Last 24 Hours 01/02/19 01/02/19 01/02/19 01/02/19 07:59 08:03 08:05 08:26 Temp 97.9 Pulse 120 106 Resp 24 B/P (MAP) 174/105 171/132 (145) 174/105 (128) Pulse Ox 98 83 O2 Delivery Room Air 01/02/19 01/02/19 01/02/19 01/02/19 08:30 08:30 09:26 09:30 Pulse 95 B/P (MAP) 174/79 (110) 143/70 (94) Pulse Ox 87 O2 Flow Rate 3.0 01/02/19 10:00 Pulse 104 Pulse Ox 99 Physical Exam General/Constitutional: Patient is awake, alert, nontoxic and in no acute respiratory distress. Head: Normocephalic and atraumatic.. Oropharyngeal: Mucous membranes are moist. There is no pharyngeal erythema or exudate. There are no palatal petechiae. Uvula is midline and symmetrical. Neck: Supple, no adenopathy. Cardiovascular: Heart is regular rate and rhythm without audible murmurs, rubs or gallops. Pulmonary: Lungs are clear to auscultation bilaterally. There are no wheezes, rales, or rhonchi. Chest rise is symmetrical Abdomen: To parent with diffuse pain to palpation no peritoneal signs elicited Extremities: No gross deformities, No peripheral cyanosis. Neuro: Alert and oriented X3, Back bilateral nephrostomy tubes intact. Both Appeared to be draining urine. Skin: No rashes, skin is warm dry Medical Decision Making Data Points Result Diagram: 01/02/19 0811 01/02/19 0811 Laboratory Hematology Test 01/02/19 08:11 01/02/19 10:06 Red Blood Count 5.08 M/uL (4.17-5.56) Mean Corpuscular Volume 85.6 fL (80.0-96.0) Mean Corpuscular Hemoglobin 27.8 pg (26.0-33.0) Mean Corpuscular Hemoglobin Concent 32.4 g/dL (32.0-36.0) Red Cell Distribution Width 19.0 % (11.5-14.5) Mean Platelet Volume 7.4 fL (7.2-11.1) Neutrophils (%) (Auto) 83.1 % (39.4-72.5) Lymphocytes (%) (Auto) 13.3 % (17.6-49.6) Monocytes (%) (Auto) 3.2 % (4.1-12.4) Eosinophils (%) (Auto) 0.1 % (0.4-6.7) Basophils (%) (Auto) 0.3 % (0.3-1.4) Nucleated RBC Relative Count (auto) 0.0 /100WBC Neutrophils # (Auto) 11.1 K/uL (2.0-7.4) Lymphocytes # (Auto) 1.8 K/uL (1.3-3.6) Monocytes # (Auto) 0.4 K/uL (0.3-1.0) Eosinophils # (Auto) 0.0 K/uL (0.0-0.5) Basophils # (Auto) 0.0 K/uL (0.0-0.1) Nucleated RBC Absolute Count (auto) 0.00 K/uL Peripheral Blood Smear Yes Y/N Sodium Level 139 mmol/L (137-145) Potassium Level 4.4 mmol/L (3.5-5.0) Chloride Level 108 mmol/L (98-107) Carbon Dioxide Level 14 mmol/L (22-31) Blood Urea Nitrogen 43 mg/dl (7-18) Creatinine 2.50 mg/dl (0.52-1.04) Glomerular Filtration Rate Calc 19.4 Random Glucose 283 mg/dl (75-110) Calcium Level 11.4 mg/dl (8.4-10.2) Total Bilirubin 0.4 mg/dl (0.2-1.3) Aspartate Amino Transf (AST/SGOT) 17 U/L (0-35) Alanine Aminotransferase (ALT/SGPT) 14 U/L (0-56) Alkaline Phosphatase 140 U/L (0-126) Total Protein 8.1 g/dl (6.3-8.2) Albumin 4.4 g/dl (3.5-5.0) Lipase 54 U/L (23-300) Urine Color Yellow Urine Clarity Cloudy Urine pH 5.0 pH (4.8-9.5) Urine Specific Alexander 1.016 Urine Protein 100 mg/dL (NEGATIVE) Urine Glucose (UA) 150 mg/dL (NEGATIVE) Urine Ketones 20 mg/dL (NEGATIVE) Urine Blood Moderate (NEGATIVE) Urine Nitrite Negative (NEGATIVE) Urine Bilirubin Negative (NEGATIVE) Urine Urobilinogen Negative mg/dL (0.2-1.9) Urine Leukocyte Esterase Large (NEGATIVE) Urine RBC 51 /HPF (0-2/HPF) Urine WBC 597 /HPF (0-5/HPF) Urine WBC Clumps Many /HPF Urine Squamous Epithelial Cells Many /LPF (</=FEW) Urine Bacteria Many /HPF (NONE-FEW) Urine Hyaline Casts Few /LPF (NONE-FEW) Urine Mucus Few /HPF (NONE-FEW) Urine Yeast (Budding) Moderate /HPF Chemistry Test 01/02/19 08:11 01/02/19 10:06 White Blood Count 13.3 k/uL (4.5-11.0) Red Blood Count 5.08 M/uL (4.17-5.56) Hemoglobin 14.1 g/dL (12.0-16.0) Hematocrit 43.5 % (34.0-47.0) Mean Corpuscular Volume 85.6 fL (80.0-96.0) Mean Corpuscular Hemoglobin 27.8 pg (26.0-33.0) Mean Corpuscular Hemoglobin Concent 32.4 g/dL (32.0-36.0) Red Cell Distribution Width 19.0 % (11.5-14.5) Platelet Count 645 K/uL (150-450) Mean Platelet Volume 7.4 fL (7.2-11.1) Neutrophils (%) (Auto) 83.1 % (39.4-72.5) Lymphocytes (%) (Auto) 13.3 % (17.6-49.6) Monocytes (%) (Auto) 3.2 % (4.1-12.4) Eosinophils (%) (Auto) 0.1 % (0.4-6.7) Basophils (%) (Auto) 0.3 % (0.3-1.4) Nucleated RBC Relative Count (auto) 0.0 /100WBC Neutrophils # (Auto) 11.1 K/uL (2.0-7.4) Lymphocytes # (Auto) 1.8 K/uL (1.3-3.6) Monocytes # (Auto) 0.4 K/uL (0.3-1.0) Eosinophils # (Auto) 0.0 K/uL (0.0-0.5) Basophils # (Auto) 0.0 K/uL (0.0-0.1) Nucleated RBC Absolute Count (auto) 0.00 K/uL Peripheral Blood Smear Yes Y/N Glomerular Filtration Rate Calc 19.4 Calcium Level 11.4 mg/dl (8.4-10.2) Total Bilirubin 0.4 mg/dl (0.2-1.3) Aspartate Amino Transf (AST/SGOT) 17 U/L (0-35) Alanine Aminotransferase (ALT/SGPT) 14 U/L (0-56) Alkaline Phosphatase 140 U/L (0-126) Total Protein 8.1 g/dl (6.3-8.2) Albumin 4.4 g/dl (3.5-5.0) Lipase 54 U/L (23-300) Urine Color Yellow Urine Clarity Cloudy Urine pH 5.0 pH (4.8-9.5) Urine Specific Alexander 1.016 Urine Protein 100 mg/dL (NEGATIVE) Urine Glucose (UA) 150 mg/dL (NEGATIVE) Urine Ketones 20 mg/dL (NEGATIVE) Urine Blood Moderate (NEGATIVE) Urine Nitrite Negative (NEGATIVE) Urine Bilirubin Negative (NEGATIVE) Urine Urobilinogen Negative mg/dL (0.2-1.9) Urine Leukocyte Esterase Large (NEGATIVE) Urine RBC 51 /HPF (0-2/HPF) Urine WBC 597 /HPF (0-5/HPF) Urine WBC Clumps Many /HPF Urine Squamous Epithelial Cells Many /LPF (</=FEW) Urine Bacteria Many /HPF (NONE-FEW) Urine Hyaline Casts Few /LPF (NONE-FEW) Urine Mucus Few /HPF (NONE-FEW) Urine Yeast (Budding) Moderate /HPF Urinalysis Test 01/02/19 10:06 Urine Color Yellow Urine Clarity Cloudy Urine pH 5.0 pH (4.8-9.5) Urine Specific Alexander 1.016 Urine Protein 100 mg/dL (NEGATIVE) Urine Glucose (UA) 150 mg/dL (NEGATIVE) Urine Ketones 20 mg/dL (NEGATIVE) Urine Blood Moderate (NEGATIVE) Urine Nitrite Negative (NEGATIVE) Urine Bilirubin Negative (NEGATIVE) Urine Urobilinogen Negative mg/dL (0.2-1.9) Urine Leukocyte Esterase Large (NEGATIVE) Urine RBC 51 /HPF (0-2/HPF) Urine WBC 597 /HPF (0-5/HPF) Urine WBC Clumps Many /HPF Urine Squamous Epithelial Cells Many /LPF (</=FEW) Urine Bacteria Many /HPF (NONE-FEW) Urine Hyaline Casts Few /LPF (NONE-FEW) Urine Mucus Few /HPF (NONE-FEW) Urine Yeast (Budding) Moderate /HPF EKG/Imaging Imaging FACILITY: [facility] PATIENT NAME: Sahra Chavis : 1955 MR: [id number] V: [id number] EXAM DATE: ORDERING PHYSICIAN: ELINA BOONE TECHNOLOGIST: [facility] Patient: Sahra Chavis : 1955 Visit/Account:[id number] Date of Sevice: 01/02/2019 CT ABDOMEN PELVIS W/O CON HISTORY: vomiting TECHNIQUE: Axial images acquired through the abdomen/pelvis. Coronal and sagittal reformatting also performed. No IV contrast administered.Dose Lowering Technique One of the following dose optimization techniques was utilized in the performance of this exam: Automated exposure control; adjustment of the mA and/or kV according to the patient's size; or use of an iterative reconstruction technique. Specific details can be referenced in the facility's radiology CT exam operational policy. COMPARISON: August 26, 2018 FINDINGS: Visualized lung bases: There is a trace pericardial effusion Hepatobiliary: The gallbladder is mildly distended although the wall does not appear to be thickened. There is no evidence of biliary ductal dilatation. There is faint hyperdense material layering within the gallbladder possibly tiny stones or sludge. Liver is mildly enlarged Spleen: Negative. Adrenals: There is mild adrenal thickening bilaterally Pancreas: Negative. Kidneys ureters and bladder: There bilateral percutaneous nephrostomies in place. There is no evidence of hydronephrosis. The ureters appear mild to moderately dilated. The urinary bladder is decompressed Genitalia: Negative. GI: There are scattered colonic diverticula although no CT evidence of acute diverticulitis. There is fluid within the stomach although the stomach does not appear overly distended. There is no evidence of bowel obstruction Vessels/spaces/nodes: At least moderate atherosclerotic calcifications in the abdominal aorta and branch vessels. Previously noted mildly prominent retroperitoneal lymph nodes have decreased in size Bones/soft tissues: There is a large fat-containing umbilical hernia.. There are spondylotic changes of the thoracolumbar spine Additional findings: None pertinent. IMPRESSION: There is fluid within the stomach although the stomach does not appear overly distended. There is no evidence of bowel obstruction. Scattered colonic diverticula although no CT evidence of acute diverticulitis There are bilateral percutaneous nephrostomies with no evidence of hydronephrosis. The ureters do appear to be mild to moderately dilated although similar to the prior study The bladder is decompressed Trace pericardial effusion The gallbladder is mildly distended although the wall does not appear to be thickened and there is no evidence of biliary ductal dilatation. There is faint hyperdense material layering within the gallbladder which may represent stones or sludge. Mild hepatomegaly Large fat-containing umbilical hernia Previously noted mildly prominent retroperitoneal lymph nodes have decreased in size Report Dictated By: Kamilla Lord MD at 01/02/2019 9:43 AM Report E-Signed By: Kamilla Lord MD at 01/02/2019 9:53 AM MARYLINN:SIDDHARTHA ED Course/Re-evaluation Clinical Indication for ER IV: Hydration, IV Access ED Course 01/02/2019 10:16:32 am patient still having episodes of nausea, crampy abdomina l pain and vomiting despite multiple rounds of antiemetics and IV fluids. CT scan is unremarkable for abdominal pathology. There is some suggestion of perhaps a biliary stone without evidence of gallbladder wall thickening or biliary duct dilatation. Decision to Disposition Date: Jan 02, 2019 Decision to Disposition Time: 10:45 Depart Departure Latest Vital Signs Vital Signs Date Time Temp Pulse Resp B/P (MAP) Pulse Ox O2 Delivery O2 Flow Rate FiO2 01/02/19 10:00 104 99 01/02/19 09:30 143/70 (94) 01/02/19 08:30 3.0 01/02/19 07:59 97.9 24 Room Air Impression: Primary Impression: Urinary tract infection Additional Impressions: Hypercalcemia Intractable vomiting with nausea Condition: Improved Disposition: Admitted from ER (to [facility]) Referrals: DEYANIRA YOUNG MD (PCP) Problem Qualifiers Primary Impression: Urinary tract infection Urinary tract infection type: catheter-associated UTI Indwelling urinary catheter type: cystostomy catheter Encounter type: initial encounter Qualified Codes: T83.510A - Infection and inflammatory reaction due to cystostomy catheter, initial encounter; N39.0 - Urinary tract infection, site not specified Additional Impressions: Intractable vomiting with nausea Vomiting type: unspecified Qualified Codes: R11.2 - Nausea with vomiting, unspecified ELINA BOONE MD Jan 02, 2019 08:01
[2019-01-02] MEDS ORDERED: ONDA4TAB9 PO (08:11)
[2019-01-02] MEDS ORDERED: NS(*) 0.9% 1000 ML BAG 1,000 ML IV ONE ×3 (08:11→10:50)
[2019-01-02] MEDS ORDERED: AMLO-127 PO (08:11)
[2019-01-02] MEDS ORDERED: PANT40TA65 PO (08:11)
[2019-01-02] MEDS ORDERED: ONDANSETRON 4 MG/2 ML VIAL IVP ONE (08:15)
[2019-01-02] MEDS ORDERED: PANTOPRAZOLE SOD 40 MG IV VIAL IVP ONE (08:20)
[2019-01-02 08:23] LABS: PLATELET COUNT, AUTOMATED 645 K/uL (150-450)
[2019-01-02] MEDS ORDERED: fentaNYL CITR 100 MCG/2 ML AMP IVP ONE ×2 (08:50→10:15)
--- NOTE | 2019-01-02 09:57 | RADIOLOGY IMAGING REPORT ---
FACILITY: [facility] PATIENT NAME: Sahra Chavis : 1955 MR: [id number] V: [id number] EXAM DATE: ORDERING PHYSICIAN: ELINA BOONE TECHNOLOGIST: Location: [facility] Patient: Sahra Chavis : 1955 Visit/Account:[id number] Date of Sevice: 01/02/2019 CT ABDOMEN PELVIS W/O CON HISTORY: vomiting TECHNIQUE: Axial images acquired through the abdomen/pelvis. Coronal and sagittal reformatting also performed. No IV contrast administered.Dose Lowering Technique One of the following dose optimization techniques was utilized in the performance of this exam: Autom ated exposure control; adjustment of the mA and/or kV according to the patient's size; or use of an i terative reconstruction technique. Specific details can be referenced in the facility's radiology C T exam operational policy. COMPARISON: August 26, 2018 FINDINGS: Visualized lung bases: There is a trace pericardial effusion Hepatobiliary: The gallbladder is mildly distended although the wall does not appear to be thickened . There is no evidence of biliary ductal dilatation. There is faint hyperdense material layering wi thin the gallbladder possibly tiny stones or sludge. Liver is mildly enlarged Spleen: Negative. Adrenals: There is mild adrenal thickening bilaterally Pancreas: Negative. Kidneys ureters and bladder: There bilateral percutaneous nephrostomies in place. There is no eviden ce of hydronephrosis. The ureters appear mild to moderately dilated. The urinary bladder is decompr essed Genitalia: Negative. GI: There are scattered colonic diverticula although no CT evidence of acute diverticulitis. There is fluid within the stomach although the stomach does not appear overly distended. There is no evide nce of bowel obstruction Vessels/spaces/nodes: At least moderate atherosclerotic calcifications in the abdominal aorta and br anch vessels. Previously noted mildly prominent retroperitoneal lymph nodes have decreased in size Bones/soft tissues: There is a large fat-containing umbilical hernia.. There are spondylotic change s of the thoracolumbar spine Additional findings: None pertinent. IMPRESSION: There is fluid within the stomach although the stomach does not appear overly distended. There is no evidence of bowel obstruction. Scattered colonic diverticula although no CT evidence of acute diverticulitis There are bilateral percutaneous nephrostomies with no evidence of hydronephrosis. The ureters do ap pear to be mild to moderately dilated although similar to the prior study The bladder is decompressed Trace pericardial effusion The gallbladder is mildly distended although the wall does not appear to be thickened and there is no evidence of biliary ductal dilatation. There is faint hyperdense material layering within the gallb ladder which may represent stones or sludge. Mild hepatomegaly Large fat-containing umbilical hernia Previously noted mildly prominent retroperitoneal lymph nodes have decreased in size Report Dictated By: Kamilla Lord MD at 01/02/2019 9:43 AM Report E-Signed By: Kamilla Lord MD at 01/02/2019 9:53 AM WSN:[email or web address] AVElke
[2019-01-02] MEDS ORDERED: METOCLOPRAMIDE 10 MG/2 ML SDV IVP ONE (10:15)
[2019-01-02] MEDS ORDERED: cefTRIAXone 1 GM VIAL IVP ONE (10:45)
[2019-01-02 11:46] VITALS: BP 182/86
--- NOTE | 2019-01-02 14:00 | History & Physical ---
History of Present Illness Chief Complaint Nausea and vomiting History of Present Illness 63yo female with PMHx significant for CRF, bladder fibrosis, bilateral nephrostomy, recurrent UTIs. She reports onset of nausea with vomiting approximately 2 days ago. She did have a short-lived episode of upper abdominal discomfort (now resolved). She denied any diarrhea. No blood in emesis or BMs. Her urine output has decreased, but has remained fairly clear. She has had some sweats and chilled sensations. She was evaluated in the ER and found to have acute on chronic renal failure and evidence of possible UTI. She was recommended for admission. History Problems: (1) Anemia Status: Chronic (2) H. pylori infection (3) Chronic renal insufficiency Status: Chronic (4) Pulmonary nodule seen on imaging study Status: Chronic (5) DJD (degenerative joint disease) of cervical spine Status: Chronic (6) History of CVA (cerebrovascular accident) Status: Chronic (7) T2DM (type 2 diabetes mellitus) Status: Chronic (8) Esophageal stricture Status: Chronic (9) Dysphagia Status: Chronic (10) Esophagitis determined by biopsy Status: Chronic (11) Thyroid nodule Status: Chronic (12) Bilateral cataracts Status: Chronic (13) Hyperlipidemia Status: Chronic (14) Hypertension Status: Chronic (15) History of nephrostomy Status: Chronic (16) History of tubal ligation Status: Resolved (17) Hx of cystoscopy Status: Resolved (18) Hx of tonsillectomy Status: Resolved Home Meds Active Scripts Bismuth Subsalicylate (BISMATROL) 262 Mg/15 Ml Susp, 300 MG PO QID for 14 Days, #1 BOTTLE 1 Refill Prov:DEE MCKENNA MD 12/03/18 Omeprazole (OMEPRAZOLE) 20 Mg Capsule.dr, 1 CAP PO BID, #60 CAP 1 Refill Prov:DEE MCKENNA MD 12/03/18 Metoprolol Tartrate (METOPROLOL TARTRATE) 25 Mg Tablet, 1 TAB PO BID, #180 TAB 3 Refills Prov:DEYANIRA YOUNG MD 09/22/18 Ranitidine Hcl (ZANTAC) 150 Mg Tablet, 75 MG PO BID for 30 Days, TAB Prov:BENJAMIN PEPPER DO 08/15/18 Gabapentin (GABAPENTIN) 600 Mg Tablet, 600 MG PO QHS, #180 TAB 3 Refills Prov:BENJAMIN PEPPER DO 08/15/18 Pen Needle, Diabetic (Insulin Pen Needle) 31 Gauge X 1/6" Dis.needle, EACH , #100 Prov:XIOMARA NAVARRETE DO 11/25/17 Reported Medications Amlodipine Besylate (AMLODIPINE BESYLATE) 10 Mg Tablet, 1 TAB PO QHS, TAB 01/02/19 Pantoprazole Sodium (PANTOPRAZOLE SODIUM) 40 Mg Tablet.dr, 40 MG PO QDAY, TAB.SR 01/02/19 Ondansetron 4 Mg Odt (ONDANSETRON 4 MG ODT) 4 Mg Tab.rapdis, 4 MG PO ONCE, TAB 01/02/19 Atorvastatin Calcium (LIPITOR) 40 Mg Tablet, 1 TAB PO QDAY, TAB 12/01/18 Multivitamin With Minerals (MULTIPLE VITAMIN) 1 Each Tablet, 1 EACH PO QDAY, TAB 08/12/18 Acetaminophen (TYLENOL EXTRA STRENGTH) 500 Mg Tablet, 500 MG PO PRN for PAIN, TAB 07/17/18 Nph, Human Insulin Isophane (NOVOLIN N) 100 Unit/1 Ml Vial, 10 UNIT SQ BID, VIAL 10 UNITS MORNING 12 UNITS AT NIGHT 05/12/18 Discontinued Reported Medications Insulin Regular, Human (HUMULIN R) 100 Unit/1 Ml Vial, 10 UNIT IJ TID PRN for SEE COMMENT, VIAL PER SLIDING SCALE 08/26/18 Discontinued Scripts Ceftriaxone Sodium (CEFTRIAXONE) 1 Gm Vial.port, 1 GM IV Q24H for 10 Days, VIAL Prov:DEE MCKENNA MD 12/03/18 Moxifloxacin Hcl (VIGAMOX) 3 Ml Soln, 0 ML OS TID for 30 Days, BOT Prov:DEE MCKENNA MD 12/03/18 Prednisolone Acetate (PREDNISOLONE ACETATE) 5 Ml Drops.susp, 0 ML OS TID for 30 Days, BOTTLE Prov:DEE MCKENNA MD 12/03/18 Metronidazole (METRONIDAZOLE) 250 Mg Tablet, 250 MG PO QID for 14 Days, #56 TAB 0 Refills Prov:DEE MCKENNA MD 12/03/18 Doxycycline Hyclate (DOXYCYCLINE HYCLATE) 100 Mg Tablet, 100 MG PO BID@0630,1830 for 14 Days, #28 TAB 0 Refills Prov:DEE MCKENNA MD 12/03/18 Allergies: Coded Allergies: promethazine (Verified Allergy, Mild, 11/30/18) uncontrolled motor movements/ spasms Patient History: FH: heart disease MOTHER, , Age:62 FHx: diabetes mellitus MOTHER, , Age:62 Hx Smoking: Yes Smoking Status: Former Smoker Exposure to Second Hand Smoke?: No When Quit Tobacco?: 1990 Caffeine Intake: Coffee Caffeine/Cups Per Day: 2 Hx Alcohol Use: No Hx Substance Use Disorder: No Social Drug Use: Never Review of Systems Constitutional: Fever, Chills, Night Sweats Neurological: Weakness Gastrointestinal: Nausea, Vomiting; No Diarrhea, No Hematemesis, No H ematochezia, No Melena; Abdominal Pain Genitourinary: Other (bilateral nephrostomies (recently changed)) Exam Vital Signs Vital Signs Date Time Temp Pulse Resp B/P (MAP) Pulse Ox O2 Delivery O2 Flow Rate FiO2 01/02/19 11:46 97.8 118 20 182/86 (118) 93 Nasal Cannula 3.0 General Appearance: Alert, Awake Neuro: No Gross deficits Cardiovascular: Regular Rate and Rhythm Respiratory: Clear to Auscultation Chest: No Tenderness GI: Other (soft/BS present/some mild tenderness reported) Musculoskeletal: Other (bilateral nephrostomies present in flanks with clear u rine in collection bags/no drainage around ostomy sites) Extremities: Warm, Perfused Integumentary: Skin Intact without Lesion / Mass Psych: Alert & Oriented X3 Medical Decision Making Data Points Result Diagram: 01/02/19 0811 01/02/19 0811 Item Value Date Time Albumin 4.4 g/dl 01/02/19 0811 Total Protein 8.1 g/dl 01/02/19 0811 Alkaline Phosphatase 140 U/L H 01/02/19 0811 Alanine Aminotransferase (ALT/SGPT) 14 U/L 01/02/19 0811 Aspartate Amino Transf (AST/SGOT) 17 U/L 01/02/19 0811 Total Bilirubin 0.4 mg/dl 01/02/19 0811 Calcium Level 11.4 mg/dl H 01/02/19 0811 Lipase 54 U/L 01/02/19 0811 Urine Yeast (Budding) Moderate /HPF H 01/02/19 1006 Urine Mucus Few /HPF 01/02/19 1006 Urine Hyaline Casts Few /LPF 01/02/19 1006 Urine Bacteria Many /HPF H 01/02/19 1006 Urine Squamous Epithelial Cells Many /LPF H 01/02/19 1006 Urine WBC Clumps Many /HPF 01/02/19 1006 Urine WBC 597 /HPF 01/02/19 1006 Urine RBC 51 /HPF 01/02/19 1006 Urine Leukocyte Esterase Large H 01/02/19 1006 Urine Urobilinogen Negative mg/dL 01/02/19 1006 Urine Bilirubin Negative 01/02/19 1006 Urine Nitrite Negative 01/02/19 1006 Urine Blood Moderate 01/02/19 1006 Urine Ketones 20 mg/dL H 01/02/19 1006 Urine Glucose (UA) 150 mg/dL H 01/02/19 1006 Urine Protein 100 mg/dL 01/02/19 1006 Urine Specific [place] 1.016 01/02/19 1006 Urine pH 5.0 pH 01/02/19 1006 Urine Clarity Cloudy 01/02/19 1006 Urine Color Yellow 01/02/19 1006 EKG / Imaging Imaging PATIENT NAME: Sahra Chavis : 1955 MR: [id number] V: [id number] EXAM DATE: ORDERING PHYSICIAN: ELINA BOONE TECHNOLOGIST: Location: [facility] Patient: Sahra Chavis : 1955 Visit/Account:[id number] Date of Sevice: 01/02/2019 CT ABDOMEN PELVIS W/O CON HISTORY: vomiting TECHNIQUE: Axial images acquired through the abdomen/pelvis. Coronal and sagi ttal reformatting also performed. No IV contrast administered.Dose Lowering Technique One of the following dose optimization techniques was utilized in the performance of this exam: Automated exposure control; adjustment of the mA and/or kV according to the patient's size; or use of an iterative reconstruction technique. Specific details can be referenced in the facility's radiology CT exam operational policy. COMPARISON: August 26, 2018 FINDINGS: Visualized lung bases: There is a trace pericardial effusion Hepatobiliary: The gallbladder is mildly distended although the wall does not appear to be thickened. There is no evidence of biliary ductal dilatation. There is faint hyperdense material layering within the gallbladder possibly tiny stones or sludge. Liver is mildly enlarged Spleen: Negative. Adrenals: There is mild adrenal thickening bilaterally Pancreas: Negative. Kidneys ureters and bladder: There bilateral percutaneous nephrostomies in place. There is no evidence of hydronephrosis. The ureters appear mild to moderately dilated. The urinary bladder is decompressed Genitalia: Negative. GI: There are scattered colonic diverticula although no CT evidence of acute diverticulitis. There is fluid within the stomach although the stomach does not appear overly distended. There is no evidence of bowel obstruction Vessels/spaces/nodes: At least moderate atherosclerotic calcifications in the abdominal aorta and branch vessels. Previously noted mildly prominent retroperitoneal lymph nodes have decreased in size Bones/soft tissues: There is a large fat-containing umbilical hernia.. There are spondylotic changes of the thoracolumbar spine Additional findings: None pertinent. IMPRESSION: There is fluid within the stomach although the stomach does not appear overly distended. There is no evidence of bowel obstruction. Scattered colonic diverticula although no CT evidence of acute diverticulitis There are bilateral percutaneous nephrostomies with no evidence of hydronephrosis. The ureters do appear to be mild to moderately dilated although similar to the prior study The bladder is decompressed Trace pericardial effusion The gallbladder is mildly distended although the wall does not appear to be thickened and there is no evidence of biliary ductal dilatation. There is faint hyperdense material layering within the gallbladder which may represent stones or sludge. Mild hepatomegaly Large fat-containing umbilical hernia Previously noted mildly prominent retroperitoneal lymph nodes have decreased in size Report Dictated By: Kamilla Lord MD at 01/02/2019 9:43 AM Report E-Signed By: Kamilla Lord MD at 01/02/2019 9:53 AM WSN:[email or web address] Assessment and Plan Problems: (1) Intractable vomiting with nausea Status: Acute Assessment & Plan: She has had problems with nausea/vomiting when she has UTIs. She has had several infections in the past year. She has been started on IV Rocephin, which has covered her most recent organisms on urine culture. Will modify her antibiotics based on culture results. Will place on IV fluids as she appears at least moderately dehydrated as well. Watch closely. (2) Urinary tract infection Status: Acute Assessment & Plan: Will cover with IV Rocephin as noted above. (3) Chronic renal insufficiency Status: Chronic Assessment & Plan: She appears to have acute on chronic renal insufficiency most likely due to dehydration secondary to N/V. Will give IV fluids and antiemetics. Watch closely. (4) T2DM (type 2 diabetes mellitus) Status: Chronic Assessment & Plan: ADA diet. Monitor glucoses and use SSI as needed. Will resume her low dose NPH when she is eating better. (5) Hypertension Status: Chronic Assessment & Plan: Will continue her metoprolol. Hold her amlodipine for now. Monitor BPs. (6) Hyperlipidemia Status: Chronic Assessment & Plan: Hold her atorvastatin for now. Venous Thromboembolism Antithrombotics Is Pt On Any Antithrombotics?: Yes Exam Sepsis Risk: No Definite Risk Problem Qualifiers (1) Intractable vomiting with nausea: Vomiting type: unspecified Qualified Codes: R11.2 - Nausea with vomiting, unspecified (2) Urinary tract infection: Urinary tract infection type: catheter-associated UTI Indwelling urinary catheter type: cystostomy catheter Encounter type: initial encounter Qualified Codes: T83.510A - Infection and inflammatory reaction due to cystostomy catheter, initial encounter; N39.0 - Urinary tract infection, site not specified DEE MCKENNA MD Jan 02, 2019 14:00
[2019-01-02] MEDS ORDERED: ONDANSETRON 4 MG/2 ML VIAL IVP PRN (14:05)
[2019-01-02 17:25] VITALS: BP 150/82
[2019-01-02] MEDS ORDERED: RANI-366 PO (18:05)
[2019-01-02] MEDS ORDERED: OMEP-125 PO (18:05)
[2019-01-02] MEDS ORDERED: ATOR-1 PO (18:05)
[2019-01-02] MEDS: ACETAMINOPHEN 325 MG TAB PO PRN (18:14)
[2019-01-02] MEDS: INSULIN HUM LISPRO 100 UN/ML 3 ML VIAL SUBQ PRN (18:19)
[2019-01-02 18:46] VITALS: BP 151/69
[2019-01-02 18:49] VITALS: Ht 160 cm; Wt 79.4 kg
[2019-01-02] MEDS: NS(*) 0.9% 1000 ML BAG 1,000 ML IV PRN (19:22)
[2019-01-02] MEDS: METOPROLOL TART 50 MG TAB PO SCH (21:22)
[2019-01-02] MEDS: PANTOPRAZOLE SOD 40 MG IV VIAL IVP SCH (21:22)
[2019-01-02] MEDS: GABAPENTIN 300 MG CAP PO SCH (21:22)
[2019-01-03 04:19] VITALS: BP 139/75
[2019-01-03] MEDS: NS(*) 0.9% 1000 ML BAG 1,000 ML IV PRN ×2 (04:22→16:23)
[2019-01-03] MEDS: ACETAMINOPHEN 325 MG TAB PO PRN ×2 (04:24→20:51)
[2019-01-03 05:24] LABS: PLATELET COUNT, AUTOMATED 347 K/uL (150-450)
[2019-01-03 08:34] VITALS: BP 134/71
[2019-01-03] MEDS: METOPROLOL TART 50 MG TAB PO SCH ×2 (09:50→20:50)
[2019-01-03] MEDS: PANTOPRAZOLE SOD 40 MG IV VIAL IVP SCH ×2 (09:50→20:50)
[2019-01-03] MEDS: ENOXAPARIN 30 MG/0.3 ML SYR SC SCH (09:51)
--- NOTE | 2019-01-03 11:21 | Hospitalist Progress Note ---
Subjective Progress Notes Subjective 63F admitted for n/v and UTI. BRANDYN overnight nausea improved. Await UCx to guide antibiotic selection. Patient Complains of: Gastrointestinal: Nausea; No Vomiting Genitourinary: No Dysuria Physical Exam Vital Signs Date Time Temp Pulse Resp B/P (MAP) Pulse Ox O2 Delivery O2 Flow Rate FiO2 01/03/19 08:34 98.7 74 16 134/71 (92) 94 Nasal Cannula 1.0 Intake and Output 01/03/19 07:00 Intake Total 3574 ml Output Total 850 ml Balance 2724 ml Intake Oral 350 ml IV Total 3224 ml Output Urine Total 850 ml General Appearance: Alert, Awake, No Acute Distress Neuro: No Gross deficits ENT: Normal Cardiovascular: Normal Rhythm & Peripheral Pulses Respiratory: No Respiratory Distress GI: Soft and Non-Tender : Other (b/l nephrostomy tubes, draining hope urine) Result Diagram: 01/03/1951401/03/19514 Assessment and Plan Problems: (1) Intractable vomiting with nausea Status: Acute Assessment & Plan: She has had problems with nausea/vomiting when she has UTIs. She has had several infections in the past year. She has been started on IV Rocephin, which has covered her most recent organisms on urine culture. Will modify her antibiotics based on culture results. Continue gentle IV fluids. (2) Urinary tract infection Status: Acute Assessment & Plan: Will cover with IV Rocephin as noted above. (3) [id number] kidney injury Assessment & Plan: Most likely due to dehydration secondary to N/V. Chronic kidney injury is due to vesicoureteral reflux. Improved. (4) T2DM (type 2 diabetes mellitus) Status: Chronic Assessment & Plan: ADA diet. Monitor glucoses and use SSI as needed. Will resume her low dose NPH when she is eating better. (5) Hypertension Status: Chronic Assessment & Plan: Will continue her metoprolol. Hold her amlodipine for now. Monitor BPs. (6) Hyperlipidemia Status: Chronic Assessment & Plan: Hold her atorvastatin for now. Exam Sepsis Risk: No Definite Risk Problem Qualifiers (1) Intractable vomiting with nausea: Vomiting type: unspecified Qualified Codes: R11.2 - Nausea with vomiting, unspecified (2) Urinary tract infection: Urinary tract infection type: catheter-associated UTI Indwelling urinary catheter type: cystostomy catheter Encounter type: initial encounter Qualified Codes: T83.510A - Infection and inflammatory reaction due to cystostomy catheter, initial encounter; N39.0 - Urinary tract infection, site not specified BENJAMIN PEPPER DO Jan 03, 2019 11:21
[2019-01-03 11:27] VITALS: BP 158/83
[2019-01-03] MEDS: cefTRIAXone 1 GM VIAL IVP SCH (12:58)
[2019-01-03] MEDS: INSULIN HUM LISPRO 100 UN/ML 3 ML VIAL SUBQ PRN (13:00)
[2019-01-03 15:26] VITALS: BP 153/81
[2019-01-03 19:45] VITALS: BP 166/89
[2019-01-03] MEDS: GABAPENTIN 300 MG CAP PO SCH (20:49)
[2019-01-03 23:30] VITALS: BP 139/70
[2019-01-04] MEDS: NS(*) 0.9% 1000 ML BAG 1,000 ML IV PRN (03:22)
[2019-01-04] MEDS: ACETAMINOPHEN 325 MG TAB PO PRN (03:23)
[2019-01-04] MEDS: PANTOPRAZOLE SOD 40 MG IV VIAL IVP SCH (08:45)
[2019-01-04] MEDS: METOPROLOL TART 50 MG TAB PO SCH (08:45)
[2019-01-04] MEDS: ENOXAPARIN 30 MG/0.3 ML SYR SC SCH (08:45)
--- NOTE | 2019-01-04 08:46 | Hospitalist Progress Note ---
Subjective Progress Notes Subjective This patient was admitted for a urinary infection. She had no acute events overnight. Patient Complains of: Cardiovascular: No: Chest Pain Respiratory: No: Shortness of Breath Physical Exam Vital Signs Date Time Temp Pulse Resp B/P (MAP) Pulse Ox O2 Delivery O2 Flow Rate FiO2 01/03/19 23:30 98.3 69 139/70 (93) 92 Room Air 01/03/19 15:26 16 01/03/19 08:34 1.0 Intake and Output0 01/04/19 07:00 Intake Total 4160 ml Output Total 2075 ml Balance 2085 ml Intake Oral 3160 ml IV Total 1000 ml Output Urine Total 2075 ml # Bowel Movements 5 Cardiovascular: Regular Rate and Rhythm Respiratory: Clear to Auscultation Result Diagram: 01/03/1915 01/03/1915 Assessment and Plan Problems: (1) Intractable vomiting with nausea Status: Acute Assessment & Plan: Resolved with IV fluids. (2) Urinary tract infection Status: Acute Assessment & Plan: She did have an elevated WBC on admission. She is currently on empiric treatment with ceftriaxone. A urine culture from each nephrostomy tube is growing a gram negative keyshawn. (3) Koxly-bv-ylcpobx kidney injury Assessment & Plan: Improving with IV fluids. (4) T2DM (type 2 diabetes mellitus) Status: Chronic Assessment & Plan: She is on sliding scale level #3. (5) Hypertension Status: Chronic Assessment & Plan: Will continue her metoprolol. Hold her amlodipine for now. Monitor BPs. (6) Hyperlipidemia Status: Chronic Assessment & Plan: Hold her atorvastatin for now. Exam Sepsis Risk: No Definite Risk Problem Qualifiers (1) Intractable vomiting with nausea: Vomiting type: unspecified Qualified Codes: R11.2 - Nausea with vomiting, unspecified (2) Urinary tract infection: Urinary tract infection type: catheter-associated UTI Indwelling urinary catheter type: cystostomy catheter Encounter type: initial encounter Qualified Codes: T83.510A - Infection and inflammatory reaction due to cystostomy catheter, initial encounter; N39.0 - Urinary tract infection, site not specified XIOMARA NAVARRETE DO Jan 04, 2019 08:46
[2019-01-04] MEDS ORDERED: INFLUENZA VIRUS VAC 0.5ML SYR IM ONLY ONE (09:00)
--- NOTE | 2019-01-04 10:27 | Medical Nutrition Therapy ---
Nutrition Anthropometrics Height (Inches): 63.00 Height (Calculated Centimeters: 160.722581 Weight (Pounds): 175 Weight (Calculated Kilograms): 79.407 BMI: 31 Roman Nutrition Score: Adequate Roman Nutrition Risk Score: 18 Dietary Referral Nutrition Risk Factors: Nutrition Risk Comment: has type II DM Physical Findings Physical Appearance: Obese BMI 30-39 Skin Appearance Skin Appearance: Edema Edema Location Modifier: Both Edema Location: Ankle Type of Edema: Degree of Edema: Gastrointestinal Symptoms GI Symtoms: Change in Bowel Pattern Tube Present: Bowel Sounds: Recent Bowel Pattern: Stool Characteristics: Nutritional Diagnosis Nutritional Risk Acuity 1: Acute/ES Renal Past Medical History: Hx of nephrostomy, chronic renal insufficiency, pulmonary nodule, esophogeal stricture, esopogitis determined by biopsy, thyroid nodule, tonsilectomy, DJD of cervical spine, hydronephrosis, CVA, DMT2, dysphagia, bilateral cataracts, hyperlipidemia, diabetic neuropathy, HTN, hypercalcemia, hx tubal ligation, and cystoscopy. Nutritional Acuity: 1-High Nutrition Diagnosis: Decreased Nutrient Needs Nutrition Etiology: Physiological Causes Nutrition Problem/Etiology/Sym: decreased protein, Na, K+, phos needs r/t dx acute on cronic renal disease AEB BUN 40, creatinine 2. Energy Requirement: 1783 (MSJ) Protein Requirement: 63 (.8gm/kg AW) Fluid Requirement: 1783 (1ml/kg) Nutrition Intervention: Incr diet as tolerated Nutrition Monitoring & Eval Nutrition Goals: Eat 75-100% Meal RD Patient Assessment Time: [address] Assessment Type: RD Screen Patient Nutrition Acuity: 2-Moderate Follow Up Date: Jan 09, 2019 Nutritional Comment: 01/02 Pt admitted with 2 day hx o N/V. Pt has hx of T2DM, dyspagia with esophagial stricture, CKD. Pt curretnty on clear liquid diet. Alb 4.4, RB ranging 191-283. Will cont to monitor. BK 01/04 Diet advanced to diabetic. No swallowing issues reported at this time. RBG has declined to 102-177 past 24 hrs. BUN/creatinine cont elevated but declined to 40/2. Alb low at2.7. N/V resolved. Cont to monitor and encourage intake. VIVIANE JOY Jan 04, 2019 10:27
[2019-01-04 10:57] VITALS: BP 175/89
[2019-01-04] MEDS: cefTRIAXone 1 GM VIAL IVP SCH (11:30)
[2019-01-04] MEDS ORDERED: LEVO500T83 PO (11:46)
--- NOTE | 2019-01-04 11:50 | Hospitalist Depart ---
Discharge Summary Reason for Hosp/Final Diag: (1) Intractable vomiting with nausea Status: Acute Hospital Course & Plan: Resolved with IV fluids. (2) Urinary tract infection Status: Acute Hospital Course & Plan: She did have an elevated WBC on admission. She was on empiric treatment with ceftriaxone. A urine culture from each nephrostomy tube grew Klebsiella. She will discharge on levofloxacin (3) Vquje-af-wulrpqo kidney injury Hospital Course & Plan: Improving with IV fluids. (4) T2DM (type 2 diabetes mellitus) Status: Chronic Hospital Course & Plan: She is on chronic treatment with NPH. (5) Hypertension Status: Chronic Hospital Course & Plan: She is on chronic treatment with metoprolol and amlodipine. (6) Hyperlipidemia Status: Chronic Hospital Course & Plan: She is on chronic treatment with atorvastatin. Departure Latest Vital Signs Vital Signs 01/03/19 01/03/19 01/04/19 08:34 15:26 10:57 Temp 98.8 Pulse 77 Resp 16 B/P (MAP) 175/89 (117) Pulse Ox 88 O2 Delivery Room Air O2 Flow Rate 1.0 Weight (Pounds): 175 Weight (Ounces): 1.0 Result Diagram: 01/03/1951401/03/19514 Condition: Improved Discharge: Home, Self Care Discharge Instructions Home Meds Active Scripts Levofloxacin 500 Mg Tab (LEVOFLOXACIN 500 MG TAB) 500 Mg Tablet, 500 MG PO QDAY, #7 TAB Prov:XIOMARA NAVARRETE DO 01/04/19 Bismuth Subsalicylate (BISMATROL) 262 Mg/15 Ml Susp, 300 MG PO QID for 14 Days, #1 BOTTLE 1 Refill Prov:DEE MCKENNA MD 12/03/18 Metoprolol Tartrate (METOPROLOL TARTRATE) 25 Mg Tablet, 1 TAB PO BID, #180 TAB 3 Refills Prov:DEYANIRA YOUNG MD 09/22/18 Gabapentin (GABAPENTIN) 600 Mg Tablet, 600 MG PO QHS, #180 TAB 3 Refills Prov:BENJAMIN PEPPER DO 08/15/18 Pen Needle, Diabetic (Insulin Pen Needle) 31 Gauge X 1/6" Dis.needle, EACH , #100 Prov:XIOMARA NAVARRETE DO 11/25/17 Reported Medications Omeprazole (OMEPRAZOLE) 20 Mg Capsule.dr, 1 CAP PO QDAY, CAP 01/02/19 Ranitidine Hcl (ZANTAC) 150 Mg Tablet, 300 MG PO QHS, TAB 01/02/19 Atorvastatin Calcium (ATORVASTATIN CALCIUM) 80 Mg Tablet, 0.5 TAB PO QDAY, TAB 01/02/19 Amlodipine Besylate (AMLODIPINE BESYLATE) 10 Mg Tablet, 1 TAB PO QHS, TAB 01/02/19 Multivitamin With Minerals (MULTIPLE VITAMIN) 1 Each Tablet, 1 EACH PO QDAY, TAB 08/12/18 Acetaminophen (TYLENOL EXTRA STRENGTH) 500 Mg Tablet, 500 MG PO PRN for PAIN, TAB 07/17/18 Nph, Human Insulin Isophane (NOVOLIN N) 100 Unit/1 Ml Vial, 10 UNIT SQ BID, VIAL 10 UNITS MORNING 12 UNITS AT NIGHT 05/12/18 Discontinued Reported Medications Pantoprazole Sodium (PANTOPRAZOLE SODIUM) 40 Mg Tablet.dr, 40 MG PO QDAY, TAB.SR 01/02/19 Ondansetron 4 Mg Odt (ONDANSETRON 4 MG ODT) 4 Mg Tab.rapdis, 4 MG PO ONCE, TAB 01/02/19 Atorvastatin Calcium (LIPITOR) 40 Mg Tablet, 1 TAB PO QDAY, TAB 12/01/18 Insulin Regular, Human (HUMULIN R) 100 Unit/1 Ml Vial, 10 UNIT IJ TID PRN for SEE COMMENT, VIAL PER SLIDING SCALE 08/26/18 Discontinued Scripts Ceftriaxone Sodium (CEFTRIAXONE) 1 Gm Vial.port, 1 GM IV Q24H for 10 Days, VIAL Prov:DEE MCKENNA MD 12/03/18 Moxifloxacin Hcl (VIGAMOX) 3 Ml Soln, 0 ML OS TID for 30 Days, BOT Prov:DEE MCKENNA MD 12/03/18 Prednisolone Acetate (PREDNISOLONE ACETATE) 5 Ml Drops.susp, 0 ML OS TID for 30 Days, BOTTLE Prov:DEE MCKENNA MD 12/03/18 Metronidazole (METRONIDAZOLE) 250 Mg Tablet, 250 MG PO QID for 14 Days, #56 TAB 0 Refills Prov:DEE MCKENNA MD 12/03/18 Doxycycline Hyclate (DOXYCYCLINE HYCLATE) 100 Mg Tablet, 100 MG PO BID@0630,1830 for 14 Days, #28 TAB 0 Refills Prov:DEE MCKENNA MD 12/03/18 Omeprazole (OMEPRAZOLE) 20 Mg Capsule.dr, 1 CAP PO BID, #60 CAP 1 Refill Prov:DEE MCKENNA MD 12/03/18 Ranitidine Hcl (ZANTAC) 150 Mg Tablet, 75 MG PO BID for 30 Days, TAB Prov:BENJAMIN PEPPER DO 08/15/18 Diet: Diabetic Activity: As Tolerated Copies to: DEYANIRA YOUNG MD ; Venous Thromboembolism Antithrombotics Is Pt On Any Antithrombotics?: Yes Problem Qualifiers (1) Intractable vomiting with nausea: Vomiting type: unspecified Qualified Codes: R11.2 - Nausea with vomiting, unspecified (2) Urinary tract infection: Urinary tract infection type: catheter-associated UTI Indwelling urinary catheter type: cystostomy catheter Encounter type: initial encounter Qualified Codes: T83.510A - Infection and inflammatory reaction due to cystostomy catheter, initial encounter; N39.0 - Urinary tract infection, site not specified XIOMARA NAVARRETE DO Jan 04, 2019 11:50
== END 2019-01-04 15:50 | disposition home or self-care (01) | DRG 699 ==
LOC: ER 08:08 → MED 10:54
PROVIDERS: ADMIT Internal Medicine; ATTEND Internal Medicine
DX: T83.512A Infection and inflammatory reaction due to nephrostomy catheter, initial encounter (principal); N39.0 Urinary tract infection, site not specified; N17.9 Acute kidney failure, unspecified; E11.22 Type 2 diabetes mellitus with diabetic chronic kidney disease; I12.9 Hypertensive chronic kidney disease with stage 1 through stage 4 chronic kidney disease, or unspecified chronic kidney disease; E78.5 Hyperlipidemia, unspecified; N18.9 Chronic kidney disease, unspecified; E05.80 Other thyrotoxicosis without thyrotoxic crisis or storm; T47 Poisoning by, adverse effect of and underdosing of agents primarily affecting the gastrointestinal system; E83.52 Hypercalcemia; Z87.440 Personal history of urinary (tract) infections; B96.1 Klebsiella pneumoniae [K. pneumoniae] as the cause of diseases classified elsewhere; Z79.4 Long term (current) use of insulin
CPT/HCPCS: 36415; 36416; 74176; 81001; 82040; 82247; 82310; 82374; 82435; 82565; 82947; 82948; 83690; 83735; 84075; 84132; 84155; 84295; 84450; 84460; 84520; 85025; 87077; 87088; 87186; 96361; 96374; 96375; 96376; 99285; C9113; J0696; J1650; J2405; J2765; J3010; J7030

== ENCOUNTER → 2019-01-10 | Outpatient (CLI) | payer MEDICARE ==
[2019-01-02 18:49] VITALS: BMI 31.0
[~2019-01-10] MED LIST changes: +AMLO-127 PO; +CYA1000 PO; +FERR236T3 PO; +INSULIN REGULAR SQ; +LEVO500T83 PO; +ONDA4TAB9 PO; +ONDA8TAB98 PO; +PANT40TA65 PO; +VITA-175 PO
--- NOTE | 2019-01-10 11:41 | EKG ---
FACILITY: [facility] [place] PATIENT NAME: KATARZYNA HARDY : [id number] MR: [id number] V: [id number] EXAM DATE: ORDERING PHYSICIAN: DEYANIRA YOUNG TECHNOLOGIST: ASAD Kelsey Reason : Blood Pressure : / mmHG Vent. Rate : 090 BPM Atrial Rate : 090 BPM P-R Int : 130 ms QRS Dur : 080 ms QT Int : 352 ms P-R-T Axes : 000 076 056 degrees QTc Int : 430 ms Normal sinus rhythm Normal ECG When compared with ECG of 23-AUG-2018 23:02, No significant change was found Confirmed by DEYANIRA YOUNG ([id number]) on 01/12/2019 8:13:01 AM Referred By: TYSON Confirmed By:DEYANIRA YOUNG
== END ==
LOC: LAB 10:23
PROVIDERS: ATTEND Emergency Medicine
DX: Z02.9 Encounter for administrative examinations, unspecified (principal)

== ENCOUNTER 2019-01-16 01:25 | Day surgery (SDC) | payer MEDICARE ==
[2019-01-02 18:49] VITALS: Ht 160 cm; Wt 84.8 kg
[~2019-01-16] VITALS: Ht 160 cm; Wt 84.8 kg
[2019-01-16] VITALS (7 sets, daily range): BP systolic 139–166; BP diastolic 78–92
[2019-01-16] MEDS ORDERED: ONDANSETRON 4 MG/2 ML VIAL ONE (07:52)
[2019-01-16] MEDS ORDERED: DEXAMETHASONE SOD 4 MG/ML VIAL ONE (07:52)
[2019-01-16] MEDS ORDERED: PROPOFOL EMUL(*) 10MG/ML 20 ML 20 ML ONE ×2 (07:52→09:06)
[2019-01-16] MEDS ORDERED: METOCLOPRAMIDE 10 MG/2 ML SDV ONE (07:52)
[2019-01-16] MEDS ORDERED: LIDOCAINE MPF 1% 5 ML VIAL ONE (07:52)
[2019-01-16] MEDS ORDERED: fentaNYL CITR 100 MCG/2 ML AMP ONE (07:55)
[2019-01-16] MEDS: LIDOCAINE/SOD BICARB 8.4% SYR ID ONE ×2 (08:08→08:30)
[2019-01-16] MEDS ORDERED: LEVOFLOXACIN/D5W*500 MG/100 ML 100 ML IVPB ONE (08:25)
[2019-01-16] MEDS ORDERED: MIDAZOLAM 2 MG/2 ML VIAL IVP PRN (08:30)
[2019-01-16] MEDS: CITRIC ACID/SOD CIT 15 ML UDC PO ONE ×2 (08:30→08:45)
[2019-01-16] MEDS ORDERED: NORMOSOL R SOLN(*) 1000 ML BAG 1,000 ML IV PRN ×2 (08:30→08:48)
[2019-01-16] MEDS ORDERED: PROPOFOL EMUL(*) 10MG/ML 20 ML 40 ML ONE (09:05)
[2019-01-16] MEDS ORDERED: BELLADONNA ALK/OPIUM 60MG SUPP PR ONE (09:55)
[2019-01-16] MEDS ORDERED: NS 0.9% 3000 ML IRRIGATION BAG IR ONE (10:22)
--- NOTE | 2019-01-16 11:29 | Urology Discharge Summary ---
Discharge Summary Reason for Hosp/Final Diag: (1) Hydronephrosis Status: Chronic Departure Weight (Pounds): 187 Weight (Ounces): 1.0 Result Diagram: 01/10/19 1043 Condition: No Change Discharge: Home Time Spent: < 30 min Discharge Instructions Home Meds Active Scripts Metoprolol Tartrate (METOPROLOL TARTRATE) 25 Mg Tablet, 1 TAB PO BID, #180 TAB 3 Refills Prov:DEYANIRA YOUNG MD 09/22/18 Gabapentin (GABAPENTIN) 600 Mg Tablet, 600 MG PO QHS, #180 TAB 3 Refills Prov:MARLON BENJAMIN RODRIGUEZ DO 08/15/18 Pen Needle, Diabetic (Insulin Pen Needle) 31 Gauge X 1/6" Dis.needle, [facility] , #100 Prov:XIOMARA NAVARRETE DO 11/25/17 Reported Medications [Novilin R] No Conflict Check, SQ 01/13/19 Cyanocobalamin (Vitamin B-12) (VITAMIN B-12) 1,000 Mcg Tablet, 2500 MCG PO DAILY 01/10/19 Ondansetron (ONDANSETRON ODT) 8 Mg Tab.rapdis, 4 MG PO PRN, TAB 01/10/19 Ferrous Gluconate (IRON) 236 Mg Tablet, 65 MG PO DAILY 01/10/19 Vitamin B Complex (B COMPLEX) 1 Each Tablet, 1 EACH PO DAILY 01/10/19 Omeprazole (OMEPRAZOLE) 20 Mg Capsule.dr, 1 CAP PO QDAY, CAP 01/02/19 Ranitidine Hcl (ZANTAC) 150 Mg Tablet, 300 MG PO QHS, TAB 01/02/19 Atorvastatin Calcium (ATORVASTATIN CALCIUM) 80 Mg Tablet, 0.5 TAB PO QDAY, TAB 01/02/19 Amlodipine Besylate (AMLODIPINE BESYLATE) 10 Mg Tablet, 1 TAB PO QHS, TAB 01/02/19 Multivitamin With Minerals (MULTIPLE VITAMIN) 1 Each Tablet, 1 EACH PO QDAY, TAB 08/12/18 Acetaminophen (TYLENOL EXTRA STRENGTH) 500 Mg Tablet, 500 MG PO PRN for PAIN, TAB 07/17/18 Nph, Human Insulin Isophane (NOVOLIN N) 100 Unit/1 Ml Vial, 10 UNIT SQ BID, VIAL 10 UNITS MORNING 12 UNITS AT NIGHT 05/12/18 Discontinued Scripts Levofloxacin 500 Mg Tab (LEVOFLOXACIN 500 MG TAB) 500 Mg Tablet, 500 MG PO QDAY, #7 TAB Prov:XIOMARA NAVARRETE DO 01/04/19 Bismuth Subsalicylate (BISMATROL) 262 Mg/15 Ml Susp, 300 MG PO QID for 14 Days, #1 BOTTLE 1 Refill Prov:DEE MCKENNA MD 12/03/18 Diet: Regular Activity: As Tolerated Venous Thromboembolism Antithrombotics Is Pt On Any Antithrombotics?: No OGRDON ARCOS MD Jan 16, 2019 11:29
--- NOTE | 2019-01-16 13:05 | OPERATIVE REPORT 1 ---
EVENT DATE: January 16, 2019 SURGEON: Rex Kimball MD ANESTHESIOLOGIST: Rhett Gutiérrez MD ANESTHESIA: General. PATIENT ASSESSMENT COORDINATOR: None. PREOPERATIVE DIAGNOSIS Bilateral hydronephrosis with bladder fibrosis. POSTOPERATIVE DIAGNOSIS Bilateral hydronephrosis with bladder fibrosis. PROCEDURE PERFORMED Cystoscopy with bladder biopsy. DESCRIPTION OF PROCEDURE After the adequate induction of general anesthesia, the patient was positioned in the dorsal lithotomy position and the genitalia scrubbed, prepped and draped in a sterile fashion. The resectoscope sheath was passed into the bladder and the working element exchanged. The bladder was noted to be densely fibrotic and poorly distensible. I took biopsies from the trigone, right and left lateral wall and posterior wall of the bladder. I did not see anything that looked like an obvious urothelial lesion, although the bladder itself appeared to be very fibrotic at the base of the biopsies. The sites of biopsy were then thoroughly fulgurated. Her bladder was emptied. She was aroused from anesthesia and then transported to PACU in stable condition. MESFIN
--- NOTE | 2019-01-16 13:52 | NUR ---
1115 PT ARRIVED TO [place] VIA CART, SAFETY MAINTAINED, SBAR FROM Florian BELL RN, VSS, BP HIGH, DECLINES FOOD/DRINK AT THIS TIME. PT REQUESTS TO TAKE OWN ANTACIDS FOR HEARTBURN, OK'D BY THIS RN. AT BEDSIDE. BOTH NEPHROSTOMY BAG LYING ON BED NEXT TO PT 1130 VSS, BP DECREASING, [place] WOULD LIKE TO CONTINUE TO REST, DR. ARCOS AT BEDSIDE TO GIVE SCRIPT FOR NEPHROSTOMY TUBE EXCHANGE 1200 VSS, PT CONTINUES TO DECLINE/FOOD DRINK 1230 VSS, BP CONTINUES TO COME DOWN, DENIES PAIN, JUST AN ADDED AWARENESS OF THE AREA 1251 ORTHOSTATIC VITALS STARTED, OUT OF BED WITH HUSBANDS ASSISTANCE, PT DENIES DIZZINESS, 200ML AND 50ML CLEAR YELLOW URINE EMPTIED FROM THE LEFT AND RIGHT BAGS RESPECTIVELY. 1255 SBAR TO Maxim ENRIQUEZ RN
== END 2019-01-16 11:19 | disposition home or self-care (01) ==
LOC: OR 01:25
PROVIDERS: ATTEND Urology
DX: N13.30 Unspecified hydronephrosis (principal); I10 Essential (primary) hypertension; E11.9 Type 2 diabetes mellitus without complications
CPT/HCPCS: 36415; 36416; 52234; 82948; 83036; 88305; A9270; J1100; J1956; J2001; J2250; J2405; J2704; J2765; J3010; 82310; 82374; 82435; 82565; 82947; 84132; 84295; 84520

== ENCOUNTER 2019-02-04 11:04 | Inpatient (IN) | payer MEDICARE ==
[~2019-02-04] VITALS: Ht 160 cm; Wt 84.5 kg
[2019-02-04] VITALS (9 sets, daily range): BP systolic 155–201; BP diastolic 77–100
[~2019-02-04 11:04] MED LIST changes: +RANI300C8 PO
--- NOTE | 2019-02-04 11:14 | ER Report ---
History and Physical Time Seen By MD: 11:14 (EARNEST OSBORN) Allergies: Coded Allergies: promethazine (Verified Allergy, Mild, 11/30/18) uncontrolled motor movements/ spasms metronidazole (Verified Allergy, Unknown, confusion, 02/01/19) reported by patient Home Meds Active Scripts Metoprolol Tartrate (METOPROLOL TARTRATE) 25 Mg Tablet, 1 TAB PO BID, #180 TAB 3 Refills Prov:DEYANIRA YOUNG MD 09/22/18 Gabapentin (GABAPENTIN) 600 Mg Tablet, 600 MG PO QHS, #180 TAB 3 Refills Prov:BENJAMIN PEPPER DO 08/15/18 Pen Needle, Diabetic (Insulin Pen Needle) 31 Gauge X 1/6" Dis.needle, [facility] , #100 Prov:XIOMARA NAVARRETE DO 11/25/17 Reported Medications Ranitidine Hcl (RANITIDINE HCL) 300 Mg Capsule, 0.5 TAB PO BID, CAPSULE 02/03/19 [Novilin R] No Conflict Check, SQ Per sliding scale 01/13/19 Cyanocobalamin (Vitamin B-12) (VITAMIN B-12) 1,000 Mcg Tablet, 5000 MCG PO DAILY 01/10/19 Ondansetron (ONDANSETRON ODT) 8 Mg Tab.rapdis, 4 MG PO PRN, TAB 01/10/19 Ferrous Gluconate (IRON) 236 Mg Tablet, 65 MG PO DAILY 01/10/19 Vitamin B Complex (B COMPLEX) 1 Each Tablet, 1 EACH PO DAILY 01/10/19 Omeprazole (OMEPRAZOLE) 20 Mg Capsule.dr, 1 CAP PO QDAY, CAP 01/02/19 Atorvastatin Calcium (ATORVASTATIN CALCIUM) 80 Mg Tablet, 0.5 TAB PO QDAY, TAB 01/02/19 Amlodipine Besylate (AMLODIPINE BESYLATE) 10 Mg Tablet, 1 TAB PO QHS, TAB 01/02/19 Multivitamin With Minerals (MULTIPLE VITAMIN) 1 Each Tablet, 1 EACH PO QDAY, TAB 08/12/18 Acetaminophen (TYLENOL EXTRA STRENGTH) 500 Mg Tablet, 500 MG PO PRN for PAIN, TAB 07/17/18 Nph, Human Insulin Isophane (NOVOLIN N) 100 Unit/1 Ml Vial, 10 UNIT SQ BID, VIAL 10 UNITS MORNING 12 UNITS AT NIGHT 05/12/18 Discontinued Reported Medications Ranitidine Hcl (ZANTAC) 150 Mg Tablet, 300 MG PO QHS, TAB 01/02/19 Hx Smoking: Yes (3 years ago ) Smoking Status: Former Smoker Exposure to Second Hand Smoke?: No Hx Substance Use Disorder: No Hx Alcohol Use: Yes (EARNEST OSBORN) Depart Departure Condition: Stable Disposition: HOME OR SELF-CARE Referrals: DEYANIRA YOUNG MD (PCP) EARNEST OSBORN February 04, 2019 11:14 JANINE RUFF DO February 04, 2019 11:15
[2019-02-04] MEDS ORDERED: NS(*) 0.9% 1000 ML BAG 1,000 ML IV ONE ×2 (11:17→14:10)
[2019-02-04] MEDS ORDERED: ONDANSETRON 4 MG/2 ML VIAL IVP ONE (11:20)
--- NOTE | 2019-02-04 11:21 | ER Report ---
History and Physical Time Seen By MD: 11:14 Hx. of Stated Complaint: nausea/vomiting HPI/ROS CHIEF COMPLAINT: Nausea, vomiting HISTORY OF PRESENT ILLNESS: 63-year-old female patient presents to emergency room with complaint of nausea and vomiting. Patient states this started at 7:00 yesterday morning. She states she's not been able to keep anything down since that time. Patient states she's been drinking some water. She states that'll stay down for approximately 1-2 hours and when she started vomiting again. Patient denies having any fevers, chills, diarrhea. Patient states she is not taking any medication for this. Patient states she does have some abdominal pain in the epigastric and right upper quadrant. Patient believes she is very dehydrated as she has lips are dry. Patient states she also has a cough. She denies having any shortness of breath. REVIEW OF SYSTEMS: Respiratory: As noted above Cardiovascular: No chest pain, no palpitations. Gastrointestinal: As noted above Musculoskeletal: No back pain. Allergies: Coded Allergies: promethazine (Verified Allergy, Mild, 02/04/19) uncontrolled motor movements/ spasms metronidazole (Verified Allergy, Unknown, confusion, 02/04/19) reported by patient Home Meds Active Scripts Metoprolol Tartrate (METOPROLOL TARTRATE) 25 Mg Tablet, 1 TAB PO BID, #180 TAB 3 Refills Prov:DEYANIRA YOUNG MD 09/22/18 Gabapentin (GABAPENTIN) 600 Mg Tablet, 600 MG PO QHS, #180 TAB 3 Refills Prov:BENJAMIN PEPPER DO 08/15/18 Pen Needle, Diabetic (Insulin Pen Needle) 31 Gauge X 1/6" Dis.needle, [facility], #100 Prov:XIOMARA NAVARRETE DO 11/25/17 Reported Medications Ranitidine Hcl (RANITIDINE HCL) 300 Mg Capsule, 0.5 TAB PO BID, CAPSULE 02/03/19 [Novilin R] No Conflict Check, SQ Per sliding scale 01/13/19 Cyanocobalamin (Vitamin B-12) (VITAMIN B-12) 1,000 Mcg Tablet, 5000 MCG PO DAILY 01/10/19 Ondansetron (ONDANSETRON ODT) 8 Mg Tab.rapdis, 4 MG PO PRN, TAB 01/10/19 Ferrous Gluconate (IRON) 236 Mg Tablet, 65 MG PO DAILY 01/10/19 Vitamin B Complex (B COMPLEX) 1 Each Tablet, 1 EACH PO DAILY 01/10/19 Omeprazole (OMEPRAZOLE) 20 Mg Capsule.dr, 1 CAP PO QDAY, CAP 01/02/19 Atorvastatin Calcium (ATORVASTATIN CALCIUM) 80 Mg Tablet, 0.5 TAB PO QDAY, TAB 01/02/19 Amlodipine Besylate (AMLODIPINE BESYLATE) 10 Mg Tablet, 1 TAB PO QHS, TAB 01/02/19 Multivitamin With Minerals (MULTIPLE VITAMIN) 1 Each Tablet, 1 EACH PO QDAY, TAB 08/12/18 Acetaminophen (TYLENOL EXTRA STRENGTH) 500 Mg Tablet, 500 MG PO PRN for PAIN, TAB 07/17/18 Nph, Human Insulin Isophane (NOVOLIN N) 100 Unit/1 Ml Vial, 10 UNIT SQ BID, VIAL 10 UNITS MORNING 12 UNITS AT NIGHT 05/12/18 Discontinued Reported Medications Ranitidine Hcl (ZANTAC) 150 Mg Tablet, 300 MG PO QHS, TAB 01/02/19 Past Medical/Surgical History Patient has a past medical history of PVCs, hypertension, hyperlipidemia, small nodule in right lower lobe, umbilical hernia, gastric reflux, renal insufficiency, arthritis, osteoporosis, fracture, back pain, type 2 diabetes, substance abuse, alcohol use. Patient has a surgical history of urostomy tubes, tubal ligation, tonsillectomy, eye surgery, cystoscopy. Reviewed Nurses Notes: Yes Hx Smoking: Yes (3 years ago ) Smoking Status: Former Smoker Exposure to Second Hand Smoke?: No Hx Substance Use Disorder: No Hx Alcohol Use: Yes Constitutional Vital Sign - Last 24 Hours 02/04/19 02/04/19 02/04/19 02/04/19 11:17 11:30 11:37 12:00 Temp 98.2 Pulse 123 115 114 Resp 20 10 32 B/P (MAP) 164/109 156/99 (118) 175/111 (132) Pulse Ox 93 93 96 O2 Delivery Room Air 02/04/19 02/04/19 02/04/19 02/04/19 12:30 13:30 14:00 14:30 Pulse 112 104 113 114 Resp 21 B/P (MAP) 193/115 (141) 157/88 (111) 200/104 (136) 183/96 (125) Pulse Ox 96 95 96 98 Physical Exam General Appearance: The patient is alert, has no immediate need for airway protection and no current signs of toxicity. Respiratory: Chest is non tender, lungs are clear to auscultation. Cardiac: regular rate and rhythm Gastrointestinal: Abdomen is soft and tender in the right upper quadrant, no masses, bowel sounds are hypoactive. Musculoskeletal: Neck: Neck is supple and non tender. Extremities have full range of motion and are non tender. Skin: No rashes or lesions. DIFFERENTIAL DIAGNOSIS: After history and physical exam differential diagnosis was considered for nausea and vomiting including but not limited to gastroenteritis, gastritis, appendicitis, and medication side effect. Medical Decision Making Data Points Result Diagram: 02/04/19 1154 02/04/19 1154 Laboratory Hematology Test 02/04/19 11:54 02/04/19 14:36 Red Blood Count 4.71 M/uL (4.17-5.56) Mean Corpuscular Volume 86.4 fL (80.0-96.0) Mean Corpuscular Hemoglobin 28.0 pg (26.0-33.0) Mean Corpuscular Hemoglobin Concent 32.5 g/dL (32.0-36.0) Red Cell Distribution Width 16.2 % (11.5-14.5) Mean Platelet Volume 8.0 fL (7.2-11.1) Neutrophils (%) (Auto) 90.3 % (39.4-72.5) Lymphocytes (%) (Auto) 6.3 % (17.6-49.6) Monocytes (%) (Auto) 3.2 % (4.1-12.4) Eosinophils (%) (Auto) 0.0 % (0.4-6.7) Basophils (%) (Auto) 0.2 % (0.3-1.4) Nucleated RBC Relative Count (auto) 0.0 /100WBC Neutrophils # (Auto) 10.2 K/uL (2.0-7.4) Lymphocytes # (Auto) 0.7 K/uL (1.3-3.6) Monocytes # (Auto) 0.4 K/uL (0.3-1.0) Eosinophils # (Auto) 0.0 K/uL (0.0-0.5) Basophils # (Auto) 0.0 K/uL (0.0-0.1) Nucleated RBC Absolute Count (auto) 0.00 K/uL Erythrocyte Sedimentation Rate 93 mm/HOUR (0-30) Sodium Level 136 mmol/L (137-145) Potassium Level 3.9 mmol/L (3.5-5.0) Chloride Level 97 mmol/L (98-107) Carbon Dioxide Level 22 mmol/L (22-31) Blood Urea Nitrogen 48 mg/dl (7-18) Creatinine 2.30 mg/dl (0.52-1.04) Glomerular Filtration Rate Calc 21.3 Random Glucose 559 mg/dl (75-110) Osmolality 329 mOSM/K (275-295) Calcium Level 10.6 mg/dl (8.4-10.2) Total Bilirubin 0.5 mg/dl (0.2-1.3) Aspartate Amino Transf (AST/SGOT) 20 U/L (0-35) Alanine Aminotransferase (ALT/SGPT) 17 U/L (0-56) Alkaline Phosphatase 125 U/L (0-126) Total Protein 7.5 g/dl (6.3-8.2) Albumin 4.3 g/dl (3.5-5.0) Amylase Level 41 U/L (0-110) Lipase 52 U/L (23-300) Acetone, Qualitative Small Helicobacter pylori IgG Antibody Negative (NEGATIVE) Urine Color Yellow Urine Clarity Cloudy Urine pH 6.0 pH (4.8-9.5) Urine Specific [place] 1.017 Urine Protein 100 mg/dL (NEGATIVE) Urine Glucose (UA) 500 mg/dL (NEGATIVE) Urine Ketones Trace mg/dL (NEGATIVE) Urine Blood Moderate (NEGATIVE) Urine Nitrite Negative (NEGATIVE) Urine Bilirubin Negative (NEGATIVE) Urine Urobilinogen Negative mg/dL (0.2-1.9) Urine Leukocyte Esterase Large (NEGATIVE) Urine RBC 25 /HPF (0-2/HPF) Urine WBC 184 /HPF (0-5/HPF) Urine WBC Clumps Many /HPF Urine Squamous Epithelial Cells None /LPF (NONE-FEW) Urine Bacteria Few /HPF (NONE-FEW) Urine Hyaline Casts Few /LPF (NONE-FEW) Urine Mucus None /HPF (NONE-FEW) Chemistry Test 02/04/19 11:54 02/04/19 14:36 White Blood Count 11.3 k/uL (4.5-11.0) Red Blood Count 4.71 M/uL (4.17-5.56) Hemoglobin 13.2 g/dL (12.0-16.0) Hematocrit 40.7 % (34.0-47.0) Mean Corpuscular Volume 86.4 fL (80.0-96.0) Mean Corpuscular Hemoglobin 28.0 pg (26.0-33.0) Mean Corpuscular Hemoglobin Concent 32.5 g/dL (32.0-36.0) Red Cell Distribution Width 16.2 % (11.5-14.5) Platelet Count 346 K/uL (150-450) Mean Platelet Volume 8.0 fL (7.2-11.1) Neutrophils (%) (Auto) 90.3 % (39.4-72.5) Lymphocytes (%) (Auto) 6.3 % (17.6-49.6) Monocytes (%) (Auto) 3.2 % (4.1-12.4) Eosinophils (%) (Auto) 0.0 % (0.4-6.7) Basophils (%) (Auto) 0.2 % (0.3-1.4) Nucleated RBC Relative Count (auto) 0.0 /100WBC Neutrophils # (Auto) 10.2 K/uL (2.0-7.4) Lymphocytes # (Auto) 0.7 K/uL (1.3-3.6) Monocytes # (Auto) 0.4 K/uL (0.3-1.0) Eosinophils # (Auto) 0.0 K/uL (0.0-0.5) Basophils # (Auto) 0.0 K/uL (0.0-0.1) Nucleated RBC Absolute Count (auto) 0.00 K/uL Erythrocyte Sedimentation Rate 93 mm/HOUR (0-30) Glomerular Filtration Rate Calc 21.3 Osmolality 329 mOSM/K (275-295) Calcium Level 10.6 mg/dl (8.4-10.2) Total Bilirubin 0.5 mg/dl (0.2-1.3) Aspartate Amino Transf (AST/SGOT) 20 U/L (0-35) Alanine Aminotransferase (ALT/SGPT) 17 U/L (0-56) Alkaline Phosphatase 125 U/L (0-126) Total Protein 7.5 g/dl (6.3-8.2) Albumin 4.3 g/dl (3.5-5.0) Amylase Level 41 U/L (0-110) Lipase 52 U/L (23-300) Acetone, Qualitative Small Helicobacter pylori IgG Antibody Negative (NEGATIVE) Urine Color Yellow Urine Clarity Cloudy Urine pH 6.0 pH (4.8-9.5) Urine Specific [place] 1.017 Urine Protein 100 mg/dL (NEGATIVE) Urine Glucose (UA) 500 mg/dL (NEGATIVE) Urine Ketones Trace mg/dL (NEGATIVE) Urine Blood Moderate (NEGATIVE) Urine Nitrite Negative (NEGATIVE) Urine Bilirubin Negative (NEGATIVE) Urine Urobilinogen Negative mg/dL (0.2-1.9) Urine Leukocyte Esterase Large (NEGATIVE) Urine RBC 25 /HPF (0-2/HPF) Urine WBC 184 /HPF (0-5/HPF) Urine WBC Clumps Many /HPF Urine Squamous Epithelial Cells None /LPF (NONE-FEW) Urine Bacteria Few /HPF (NONE-FEW) Urine Hyaline Casts Few /LPF (NONE-FEW) Urine Mucus None /HPF (NONE-FEW) Toxicology Test 02/04/19 11:54 Acetone, Qualitative Small Urinalysis Test 02/04/19 14:36 Urine Color Yellow Urine Clarity Cloudy Urine pH 6.0 pH (4.8-9.5) Urine Specific [place] 1.017 Urine Protein 100 mg/dL (NEGATIVE) Urine Glucose (UA) 500 mg/dL (NEGATIVE) Urine Ketones Trace mg/dL (NEGATIVE) Urine Blood Moderate (NEGATIVE) Urine Nitrite Negative (NEGATIVE) Urine Bilirubin Negative (NEGATIVE) Urine Urobilinogen Negative mg/dL (0.2-1.9) Urine Leukocyte Esterase Large (NEGATIVE) Urine RBC 25 /HPF (0-2/HPF) Urine WBC 184 /HPF (0-5/HPF) Urine WBC Clumps Many /HPF Urine Squamous Epithelial Cells None /LPF (NONE-FEW) Urine Bacteria Few /HPF (NONE-FEW) Urine Hyaline Casts Few /LPF (NONE-FEW) Urine Mucus None /HPF (NONE-FEW) EKG/Imaging Imaging EXAMINATION: CT ABDOMEN AND PELVIS WITHOUT CONTRAST COMPARISON: 01/02/2019 and earlier. HISTORY: nausea vomiting PROCEDURE: Multiplanar noncontrast CT of the abdomen and pelvis. One of the following dose optimization techniques was utilized in the performance of this exam: Automated exposure control; adjustment of the mA and/or kV according to the patient's size; or use of an iterative reconstruction technique. Specific details can be referenced in the facility's radiology CT exam operational policy. FINDINGS: Evaluation of the solid and viscus parenchymal organs and vascular structures is limited without the benefit of IV contrast. Visualized thorax: No acute findings. Liver: Negative. Gallbladder and biliary system: Negative Spleen: Negative. Pancreas: Negative. Adrenal glands: Negative. Kidneys and bladder: Bilateral percutaneous prostate tubes. Right more so than left mild pelviectasis and ureterectasis has increased since 01/02/2019 but there is no evidence of asmita hydronephrosis. Urinary bladder is poorly visualized and likely completely decompressed although correlation with any history of bladder surgery is recommended. Vessels: Aortoiliac moderate atherosclerosis. No abdominal aortic aneurysm. Bowel and mesentery: Stomach, small bowel, and appendix are within normal limits. Minimal stool in the colon. There are scattered colonic diverticula. No bowel or mesenteric inflammation. Pelvic organs: Negative. Lymph nodes: There are a few prominent retroperitoneal lymph nodes which are unchanged over multiple prior studies. No enlarging lymph nodes. Free air/free fluid: None. Musculoskeletal: Moderate-sized fat-containing umbilical hernia with a 2.1 x 1.7 cm neck is unchanged. Moderately advanced degenerative change throughout the lumbar spine. No acute findings. IMPRESSION: 1. Bilateral percutaneous nephrostomy tubes. Bilateral mild pelviectasis and ureterectasis is slightly greater than on 01/02/2019 but there is no evidence of asmita hydronephrosis. Correlation with any clinical evidence of decreased nephrostomy tube output is recommended. 2. No noncontrast CT findings of acute disease are otherwise identified in the abdomen or pelvis with chronic/incidental findings as detailed above. Results were discussed with EARNEST OSBORN at 02/04/2019 1:39 PM. Report Dictated By: Dinesh Waldrop MD at 02/04/2019 1:31 PM Report E-Signed By: Dinesh Waldrop MD at 02/04/2019 1:41 PM Examination: CHEST PA LAT Comparison: 08/14/2018 and earlier. History: cough Findings: Cardiac and hilar contour size is within normal limits. No consolidation, nodule, or peribronchial inflammation. No pneumothorax, edema, or effusion. Bilateral percutaneous nephrostomy tubes. No acute osseous abnormality. IMPRESSION: 1. No findings of acute cardiopulmonary disease. 2. Bilateral percutaneous nephrostomy tubes. Report Dictated By: Dinesh Waldrop MD at 02/04/2019 1:28 PM Report E-Signed By: Dinesh Waldrop MD at 02/04/2019 1:31 PM ED Course/Re-evaluation ED Course Patient was admitted to an exam room, history and physical were obtained. Differential diagnoses were considered. On examination lungs are clear, heart was regular, abdomen soft and tender. Patient did have an obvious cough. A CBC, CMP, amylase, lipase, H. pylori were done. Lab results were negative. Patient did receive a liter of normal saline as well as Zofran. She had very minimal improvement with her nausea. Patient is also complaining of heartburn and did receive GI cocktail containing viscous lidocaine and Maalox. She did have some improvement which lasted a short period of time. CT scan of the abdomen and pelvis was done which was unremarkable. Patient was found to have a blood sugar of 559. At that time a osmolality and acetone were done. Patient did have a small acetone. Patient received 10 units of IV insulin. On reevaluation after one hour the patient had a blood sugar 415. I discussed the case with Dr. Kami okeefe, hospitalist, who agreed to accept the patient for admission with a diagnosis of DKA. I discussed the findings with the patient and her . They verbalized understanding and agreement. We are able to obtain a urine specimens from both nephrostomy tubes. Decision to Disposition Date: February 04, 2019 Decision to Disposition Time: 14:07 Depart Departure Latest Vital Signs Vital Signs Date Time Temp Pulse Resp B/P (MAP) Pulse Ox O2 Delivery O2 Flow Rate FiO2 02/04/19 14:30 114 183/96 (125) 98 02/04/19 12:30 21 02/04/19 11:17 98.2 Room Air Impression: Primary Impression: DKA (diabetic ketoacidoses) Condition: Condition Unchanged Disposition: Admitted from ER Referrals: DEYANIRA YOUNG MD (PCP) Problem Qualifiers Primary Impression: DKA (diabetic ketoacidoses) Diabetes mellitus type: other specified (including DOMINIC) Diabetes mellitus complication detail: without coma Qualified Codes: E13.10 - Other specified diabetes mellitus with ketoacidosis without coma EARNEST OSBORN February 04, 2019 11:21
[2019-02-04 12:02] LABS: PLATELET COUNT, AUTOMATED 346 K/uL (150-450)
[2019-02-04] MEDS ORDERED: IOPAMIDOL 76% 150 ML INFUS BTL 0 ML ONE (12:05)
[2019-02-04] MEDS ORDERED: INSU HUM REG 100 U/ML(ER ONLY) 10 ML VIAL IV ONE (12:15)
[2019-02-04] MEDS ORDERED: MAG HYD/AL HYD/SIMETH 30ML UDC PO ONE ×2 (12:45→14:10)
[2019-02-04] MEDS ORDERED: LIDOCAINE 2% VISC SLN 15ML UDC PO ONE ×2 (12:45→14:10)
--- NOTE | 2019-02-04 13:34 | RADIOLOGY IMAGING REPORT ---
FACILITY: [facility] PATIENT NAME: Sahra Chavis : 1955 MR: [id number] V: [id number] EXAM DATE: ORDERING PHYSICIAN: EARNEST OSBORN TECHNOLOGIST: Location: [facility] Patient: Sahra Chavis : 1955 Visit/Account:[id number] Date of Sevice: 02/04/2019 Examination: CHEST PA LAT Comparison: 08/14/2018 and earlier. History: cough Findings: Cardiac and hilar contour size is within normal limits. No consolidation, nodule, or perib ronchial inflammation. No pneumothorax, edema, or effusion. Bilateral percutaneous nephrostomy tube s. No acute osseous abnormality. IMPRESSION: 1. No findings of acute cardiopulmonary disease. 2. Bilateral percutaneous nephrostomy tubes. Report Dictated By: Dinesh Waldrop MD at 02/04/2019 1:28 PM Report E-Signed By: Dinesh Waldrop MD at 02/04/2019 1:31 PM WSN:[email or web address]
--- NOTE | 2019-02-04 13:45 | RADIOLOGY IMAGING REPORT ---
FACILITY: [facility] PATIENT NAME: Sahra Chavis : 1955 MR: [id number] V: [id number] EXAM DATE: ORDERING PHYSICIAN: EARNEST OSBORN TECHNOLOGIST: Location: [facility] [place] Patient: Sahra Chavis : 1955 Visit/Account:[id number] Date of Sevice: 02/04/2019 EXAMINATION: CT ABDOMEN AND PELVIS WITHOUT CONTRAST COMPARISON: 01/02/2019 and earlier. HISTORY: nausea vomiting PROCEDURE: Multiplanar noncontrast CT of the abdomen and pelvis. One of the following dose optimizati on techniques was utilized in the performance of this exam: Automated exposure control; adjustment of the mA and/or kV according to the patient's size; or use of an iterative reconstruction technique. Specific details can be referenced in the facility's radiology CT exam operational policy. FINDINGS: Evaluation of the solid and viscus parenchymal organs and vascular structures is limited wi thout the benefit of IV contrast. Visualized thorax: No acute findings. Liver: Negative. Gallbladder and biliary system: Negative Spleen: Negative. Pancreas: Negative. Adrenal glands: Negative. Kidneys and bladder: Bilateral percutaneous prostate tubes. Right more so than left mild pelviectasi s and ureterectasis has increased since 01/02/2019 but there is no evidence of asmita hydronephrosis. U rinary bladder is poorly visualized and likely completely decompressed although correlation with any history of bladder surgery is recommended. Vessels: Aortoiliac moderate atherosclerosis. No abdominal aortic aneurysm. Bowel and mesentery: Stomach, small bowel, and appendix are within normal limits. Minimal stool in t he colon. There are scattered colonic diverticula. No bowel or mesenteric inflammation. Pelvic organs: Negative. Lymph nodes: There are a few prominent retroperitoneal lymph nodes which are unchanged over multiple prior studies. No enlarging lymph nodes. Free air/free fluid: None. Musculoskeletal: Moderate-sized fat-containing umbilical hernia with a 2.1 x 1.7 cm neck is unchanged . Moderately advanced degenerative change throughout the lumbar spine. No acute findings. IMPRESSION: 1. Bilateral percutaneous nephrostomy tubes. Bilateral mild pelviectasis and ureterectasis is sligh tly greater than on 01/02/2019 but there is no evidence of asmita hydronephrosis. Correlation with any clinical evidence of decreased nephrostomy tube output is recommended. 2. No noncontrast CT findings of acute disease are otherwise identified in the abdomen or pelvis wit h chronic/incidental findings as detailed above. Results were discussed with EARNEST OSBORN at 02/04/2019 1:39 PM. Report Dictated By: Dinesh Waldrop MD at 02/04/2019 1:31 PM Report E-Signed By: Dinesh Waldrop MD at 02/04/2019 1:41 PM WSN:[id number]
[2019-02-04] MEDS ORDERED: INS HUM REG* 100 U/ML(ER ONLY) 100 UNIT in NS(*) 0.9% 100 ML BAG 99 ML IV SCH (14:00)
[2019-02-04] MEDS ORDERED: INSULIN HUM REG 100 UN/ML 3 ML 100 UNIT in NS(*) 0.9% 100 ML BAG 99 ML IV SCH (15:33)
[2019-02-04] MEDS ORDERED: FLUSH 10 ML SYR IVP PRN (15:35)
[2019-02-04] MEDS ORDERED: KCL (*) 20 MEQ/100 ML PREMIX 100 ML IV SCH (15:35)
[2019-02-04] MEDS: KCL/NS* 20 MEQ/1000 ML PREMIX 1,000 ML IV SCH ×3 (15:35→23:35)
--- NOTE | 2019-02-04 15:57 | History & Physical ---
History of Present Illness Chief Complaint nausea and vomiting History of Present Illness 63F presented with one day nausea and vomiting. PMHx significant for CKD, vesicoureteral reflux, DM. Reports one day of difficulty keeping food and drink down, did not take insulin since she couldn't eat. In ER glucose noted to be >500 with mild gap, + ketones, mild ALEXANDRO on CKD. Admitted to ICU for further management. Denies fever, reports chills, n/v. History Problems: (1) Chronic kidney disease (CKD) stage G4/A1, severely decreased glomerular filtration rate (GFR) between 15-29 mL/min/1.73 square meter and albuminuria creatinine ratio less than 30 mg/g Status: Chronic (2) Essential hypertension Status: Chronic (3) Hyperlipidemia Status: Chronic (4) T2DM (type 2 diabetes mellitus) Status: Chronic (5) Hypercalcemia Status: Chronic Home Meds Active Scripts Metoprolol Tartrate (METOPROLOL TARTRATE) 25 Mg Tablet, 1 TAB PO BID, #180 TAB 3 Refills Prov:DEYANIRA YOUNG MD 09/22/18 Gabapentin (GABAPENTIN) 600 Mg Tablet, 600 MG PO QHS, #180 TAB 3 Refills Prov:BENJAMIN PEPPER DO 08/15/18 Pen Needle, Diabetic (Insulin Pen Needle) 31 Gauge X 1/6" Dis.needle, LAVINIA , #100 Prov:XIOMARA NAVARRETE DO 11/25/17 Reported Medications Ranitidine Hcl (RANITIDINE HCL) 300 Mg Capsule, 0.5 TAB PO BID, CAPSULE 02/03/19 [Novilin R] No Conflict Check, SQ Per sliding scale 01/13/19 Cyanocobalamin (Vitamin B-12) (VITAMIN B-12) 1,000 Mcg Tablet, 5000 MCG PO DAILY 01/10/19 Ondansetron (ONDANSETRON ODT) 8 Mg Tab.rapdis, 4 MG PO PRN, TAB 01/10/19 Ferrous Gluconate (IRON) 236 Mg Tablet, 65 MG PO DAILY 01/10/19 Vitamin B Complex (B COMPLEX) 1 Each Tablet, 1 EACH PO DAILY 01/10/19 Omeprazole (OMEPRAZOLE) 20 Mg Capsule.dr, 1 CAP PO QDAY, CAP 01/02/19 Atorvastatin Calcium (ATORVASTATIN CALCIUM) 80 Mg Tablet, 0.5 TAB PO QDAY, TAB 01/02/19 Amlodipine Besylate (AMLODIPINE BESYLATE) 10 Mg Tablet, 1 TAB PO QHS, TAB 01/02/19 Multivitamin With Minerals (MULTIPLE VITAMIN) 1 Each Tablet, 1 EACH PO QDAY, TAB 08/12/18 Acetaminophen (TYLENOL EXTRA STRENGTH) 500 Mg Tablet, 500 MG PO PRN for PAIN, TAB 07/17/18 Nph, Human Insulin Isophane (NOVOLIN N) 100 Unit/1 Ml Vial, 10 UNIT SQ BID, VIAL 10 UNITS MORNING 12 UNITS AT NIGHT 05/12/18 Discontinued Reported Medications Ranitidine Hcl (ZANTAC) 150 Mg Tablet, 300 MG PO QHS, TAB 01/02/19 Allergies: Coded Allergies: promethazine (Verified Allergy, Mild, 02/04/19) uncontrolled motor movements/ spasms metronidazole (Verified Allergy, Unknown, confusion, 02/04/19) reported by patient Patient History: FH: heart disease MOTHER, , Age:62 FHx: diabetes mellitus MOTHER, , Age:62 Hx Smoking: Yes (3 years ago ) Smoking Status: Former Smoker Exposure to Second Hand Smoke?: No Caffeine Intake: Coffee, Soda Caffeine/Cups Per Day: 2 Hx Alcohol Use: Yes Hx Substance Use Disorder: Yes (35 years ago) Social Drug Use: Never Social Drugs: Cocaine Review of Systems All Systems Reviewed/Normal: Yes, Except as Noted Constitutional: Chills Gastrointestinal: Nausea, Vomiting Exam Vital Signs Vital Signs Date Time Temp Pulse Resp B/P (MAP) Pulse Ox O2 Delivery O2 Flow Rate FiO2 02/04/19 15:00 106 177/94 (121) 97 02/04/19 12:30 21 02/04/19 11:17 98.2 Room Air General Appearance: Awake, No Acute Distress, Afebrile Neuro: No Gross deficits Cardiovascular: Normal Rhythm & Peripheral Pulses Respiratory: No Respiratory Distress GI: Other (mild tenderness) Extremities: Soft and Non Tender, Warm, Pulses, Perfused Medical Decision Making Data Points Result Diagram: 02/04/19 1154 02/04/19 1154 Assessment and Plan Problems: (1) DKA (diabetic ketoacidoses) Status: Acute Assessment & Plan: Begin insulin gtt, IV fluids. Monitor in ICU with accuchecks q1h and q2h bmp. Electrolyte replacement prn. (2) Essential hypertension Status: Chronic Assessment & Plan: PRN hydralazine while NPO. BP elevated due to inability of holding down pills. (3) T2DM (type 2 diabetes mellitus) Status: Chronic Assessment & Plan: Will resume insulin and ACHS Accuchecks after resolution of DKA. (4) [id number] kidney injury Assessment & Plan: Mild increase in creatinine secondary to DKA and dehydration. Venous Thromboembolism Antithrombotics Is Pt On Any Antithrombotics?: Yes Exam Sepsis Risk: Possible Sepsis Risk Problem Qualifiers (1) DKA (diabetic ketoacidoses): Diabetes mellitus type: other specified (including DOMINIC) Diabetes mellitus complication detail: without coma Qualified Codes: E13.10 - Other specified diabetes mellitus with ketoacidosis without coma BENJAMIN PEPPER DO February 04, 2019 15:57
[2019-02-04] MEDS: ONDANSETRON 4 MG/2 ML VIAL IVP PRN ×2 (16:18→23:14)
[2019-02-04] MEDS: LABETALOL HCL 100 MG/20ML VIAL IVP PRN ×2 (17:35→19:20)
[2019-02-04] MEDS: KCL/D1/2NS 20 MEQ 1000 ML 1,000 ML IV PRN (19:19)
[2019-02-04] MEDS: METOCLOPRAMIDE 10 MG/2 ML SDV IVP PRN (19:24)
[2019-02-04] MEDS: GI COCKTAIL 60 ML BTL PO PRN (19:55)
[2019-02-04] MEDS: FAMOTIDINE(*) 20MG/50ML PREMIX 50 ML IVPB SCH (21:16)
[2019-02-04] MEDS: PANTOPRAZOLE SOD 40 MG IV VIAL IVP SCH (21:16)
[2019-02-04] MEDS ORDERED: KCL/NS* 20 MEQ/1000 ML PREMIX 1,000 ML IV PRN (23:40)
[2019-02-05] VITALS (12 sets, daily range): BP systolic 142–202; BP diastolic 74–93; Ht 160 cm; Wt 84.5 kg
[2019-02-05] MEDS: LABETALOL HCL 100 MG/20ML VIAL IVP PRN ×3 (00:25→20:28)
[2019-02-05] MEDS: METOCLOPRAMIDE 10 MG/2 ML SDV IVP PRN ×2 (01:35→17:40)
[2019-02-05] MEDS: KCL/D1/2NS 20 MEQ 1000 ML 1,000 ML IV PRN ×2 (02:45→10:22)
[2019-02-05] MEDS: GI COCKTAIL 60 ML BTL PO PRN (05:15)
[2019-02-05 05:42] LABS: PLATELET COUNT, AUTOMATED 296 K/uL (150-450)
[2019-02-05] MEDS: PANTOPRAZOLE SOD 40 MG IV VIAL IVP SCH ×2 (09:21→21:31)
[2019-02-05] MEDS: ENOXAPARIN 30 MG/0.3 ML SYR SC SCH (09:24)
[2019-02-05] MEDS: FAMOTIDINE(*) 20MG/50ML PREMIX 50 ML IVPB SCH ×2 (09:26→21:33)
--- NOTE | 2019-02-05 09:33 | Medical Nutrition Therapy ---
Nutrition Anthropometrics Height (Inches): 63.00 Height (Calculated Centimeters: 160.546155 Weight (Pounds): 186 Weight (Calculated Kilograms): 84.482 Roman Nutrition Score: Adequate Roman Nutrition Risk Score: 16 Dietary Referral Nutrition Risk Factors: Nutrition Risk Comment: has type II DM Physical Findings Physical Appearance: Obese BMI 30-39 Skin Appearance Skin Appearance: Edema Edema Location Modifier: Both Edema Location: Lower Extremity Type of Edema: Degree of Edema: Gastrointestinal Symptoms GI Symtoms: Nausea Tube Present: Bowel Sounds: Recent Bowel Pattern: Stool Characteristics: Nutritional Diagnosis Nutritional Risk Acuity 1: Acute/ES Renal Nutritional Risk Acuity 2: Blood Glucose > 300mg/dl, DKA Nutritional Risk Acuity 3: Nausea Past Medical History: Hx of nephrostomy, chronic renal insufficiency, pulmonary nodule, esophogeal stricture, esopogitis determined by biopsy, thyroid nodule, tonsilectomy, DJD of cervical spine, hydronephrosis, CVA, DMT2, dysphagia, bilateral cataracts, hyperlipidemia, diabetic neuropathy, HTN, hypercalcemia, hx tubal ligation, and cystoscopy. Nutritional Acuity: 1-High Nutrition Diagnosis: Inappropriate Carb Intake Nutrition Etiology: Medications Nutrition Problem/Etiology/Sym: Inappropriate carb intake as related to medications as evidenced by blood glucose >500, ketones, reporting of not taking insulin due to not eating (due to N/V). Energy Requirement: 1797 (m st jeor X 1.1 X 1.2) Protein Requirement: 67 (0.8 g protein/kg) Fluid Requirement: 1797 (1ml/kcal) Diet Type: NPO (Nothing by Mouth) Nutrition Intervention: Check glucose Nutrition Monitoring & Eval Nutritional Goals Comment: Progress to ADA diet when tolerated RD Patient Assessment Time: [address] Assessment Type: RD Assessment Patient Nutrition Acuity: 1-High Follow Up Date: February 06, 2019 Nutritional Comment: Pt admitted with N/V. Found to have blood glucose >500 with ketones. DX with DKA. Hx of CKD, essential HTN, hyperlipidemia, T2DM, and hypercalcemia. BUN of 48 and creatinine of 2.10 are elevated. Random glucose ranged from 193-222. Monitor for blood glucose and progression of diet. Recommend ADA diet when PO tolerated. -MANOLO BOJORQUEZ February 05, 2019 09:33
[2019-02-05] MEDS ORDERED: NOVOLINRPT SC (10:51)
[2019-02-05] MEDS ORDERED: CITRIC ACID/SOD CIT 15 ML UDC PO PRN (11:50)
[2019-02-05] MEDS: ACETAMINOPHEN 325 MG TAB PO PRN ×2 (12:10→20:27)
[2019-02-05] MEDS: LIDOCAINE 2% VISC SLN 15ML UDC PO PRN ×2 (12:24→18:22)
[2019-02-05] MEDS: MAG HYD/AL HYD/SIMETH 30ML UDC PO PRN ×2 (12:24→18:22)
--- NOTE | 2019-02-05 14:58 | Hospitalist Progress Note ---
Subjective Progress Notes Subjective The patient is still not eating well. She remains on insulin gtt and D51/2NS. Physical Exam Vital Signs Date Time Temp Pulse Resp B/P (MAP) Pulse Ox O2 Delivery O2 Flow Rate FiO2 02/05/19 12:00 97 02/05/19 12:00 99.0 14 202/93 (129) 90 Room Air 02/05/19 06:00 2.0 Intake and Output 02/05/19 07:00 Intake Total 3291.6 ml Output Total 975 ml Balance 2316.6 ml Intake Oral 50 ml IV Total 3241.6 ml Output Urine Total 975 ml # Bowel Movements 0 General Appearance: Alert, Awake, No Acute Distress Cardiovascular: Regular Rate and Rhythm Respiratory: Clear to Auscultation GI: Soft and Non-Tender Extremities: Warm, Perfused Psych: Appropriate Mood & Affect Result Diagram: 02/05/1952802/05/19528 Assessment and Plan Problems: (1) DKA (diabetic ketoacidoses) Status: Acute Assessment & Plan: Continue insulin gtt, IV fluids. Monitor in ICU with accuchecks q2h now. Gap is now closed. Once eating better will convert to SSI and stop fluids and insulin gtt. (2) Essential hypertension Status: Chronic Assessment & Plan: PRN hydralazine while NPO. BP elevated due to inability of holding down pills. (3) T2DM (type 2 diabetes mellitus) Status: Chronic Assessment & Plan: Will resume insulin and ACHS Accuchecks after resolution of DKA. (4) [id number] kidney injury Assessment & Plan: Mild increase in creatinine secondary to DKA and dehydration. Time Spent on Plan of Care: < 30 min Exam Sepsis Risk: No Definite Risk Problem Qualifiers (1) DKA (diabetic ketoacidoses): Diabetes mellitus type: other specified (including DOMINIC) Diabetes mellitus complication detail: without coma Qualified Codes: E13.10 - Other specified diabetes mellitus with ketoacidosis without coma SHAD MCKENNA MD February 05, 2019 14:58
[2019-02-05] MEDS: NS(*) 0.9% 1000 ML BAG 1,000 ML IV PRN (15:19)
[2019-02-05] MEDS: INSULIN HUM LISPRO 100 UN/ML 3 ML VIAL SUBQ PRN ×2 (17:39→21:34)
[2019-02-05] MEDS ORDERED: INSULIN HUM ISO(NPH) 100 UN/ML 3 ML VIAL SUBQ SCH (21:00)
[2019-02-05] MEDS ORDERED: ATORVASTATIN 40 MG TAB PO SCH (21:00)
[2019-02-05] MEDS ORDERED: GABAPENTIN 300 MG CAP PO SCH (21:00)
[2019-02-05] MEDS: RANITIDINE HCL 150 MG TAB PO SCH (21:32)
[2019-02-05] MEDS: METOPROLOL TART 50 MG TAB PO SCH (21:33)
[2019-02-06 02:00] VITALS: BP 160/87
[2019-02-06] MEDS: NS(*) 0.9% 1000 ML BAG 1,000 ML IV PRN (04:33)
[2019-02-06 04:34] VITALS: BP 157/77
[2019-02-06 05:38] LABS: PLATELET COUNT, AUTOMATED 226 K/uL (150-450)
[2019-02-06 08:19] VITALS: BP 178/99
[2019-02-06] MEDS ORDERED: PANTOPRAZOLE SOD 40 MG TABEC PO SCH (09:00)
[2019-02-06] MEDS ORDERED: amLODIPine BESYL(*) 5 MG TAB PO SCH (09:00)
[2019-02-06] MEDS ORDERED: INSULIN HUM ISO(NPH) 100 UN/ML 3 ML VIAL SUBQ SCH (09:00)
--- NOTE | 2019-02-06 09:10 | Medical Nutrition Therapy ---
Nutrition Anthropometrics Height (Inches): 63.00 Height (Calculated Centimeters: 160.005011 Weight (Pounds): 186 Weight (Calculated Kilograms): 84.482 BMI: 33 Roman Nutrition Score: Adequate Roman Nutrition Risk Score: 16 Dietary Referral Nutrition Risk Factors: Nutrition Risk Comment: has type II DM Physical Findings Physical Appearance: Obese BMI 30-39 Skin Appearance Skin Appearance: Edema Edema Location Modifier: Both Edema Location: Lower Extremity Type of Edema: Degree of Edema: Non-pitting Gastrointestinal Symptoms GI Symtoms: Nausea Tube Present: Bowel Sounds: Recent Bowel Pattern: Stool Characteristics: Nutrition/Food History Fair Dinner: 100 Nutritional Diagnosis Nutritional Risk Acuity 1: Acute/ES Renal Nutritional Risk Acuity 2: Blood Glucose > 300mg/dl, DKA Nutritional Risk Acuity 3: Fair Appetite Past Medical History: Hx of nephrostomy, chronic renal insufficiency, pulmonary nodule, esophogeal stricture, esopogitis determined by biopsy, thyroid nodule, tonsilectomy, DJD of cervical spine, hydronephrosis, CVA, DMT2, dysphagia, bilateral cataracts, hyperlipidemia, diabetic neuropathy, HTN, hypercalcemia, hx tubal ligation, and cystoscopy. Nutritional Acuity: 1-High Nutrition Diagnosis: Inappropriate Carb Intake Nutrition Etiology: Medications Nutrition Problem/Etiology/Sym: Inappropriate carb intake as related to medications as evidenced by blood glucose >500, ketones, reporting of not taking insulin due to not eating (due to N/V). Energy Requirement: 1797 (m st jeor X 1.1 X 1.2) Protein Requirement: 67 (0.8 g protein/kg) Fluid Requirement: 1797 (1ml/kcal) Diet Type: Diabetic Nutrition Intervention: Cont diet as ordered, Encourage intake, Check glucose Nutrition Monitoring & Eval Nutrition Goals: Eat 50-100% Meal RD Patient Assessment Time: [address] Assessment Type: RD Re-Assessment Patient Nutrition Acuity: 1-High Follow Up Date: February 09, 2019 Nutritional Comment: Pt admitted with N/V. Found to have blood glucose >500 with ketones. DX with DKA. Hx of CKD, essential HTN, hyperlipidemia, T2DM, and hypercalcemia. BUN of 48 and creatinine of 2.10 are elevated. Random glucose ranged from 193-222. Monitor for blood glucose and progression of diet. Recommend ADA diet when PO tolerated. -AKG 02/06 Pt is no longer NPO and was placed on ADA diet on 02/05. Pt ate 100% of first meal and is no longer has nausea. Pt has elevated BUN 33, whole blood glucose of 136 and RBG 150 today. However, these levels are all slowly decreasing. Pt has a high creatinine of 2.2, but likely d/t kidney injury and dehydration. Will continue to monitor glucose levels and food intake. JERRY PATEL February 06, 2019 09:10
--- NOTE | 2019-02-06 09:26 | Hospitalist Depart ---
Discharge Summary Reason for Hosp/Final Diag: (1) DKA (diabetic ketoacidoses) Status: Acute Hospital Course & Plan: Possible DKA vs. type 2 diabetes mellitus with hyperglycemia and ketosis. She was initially admitted to the ICU and placed on an IV insulin drip/IV fluids. Glucoses were monitored every one hour and elect rolytes frequently. Her acidosis resolved and anion gap closed. She was eating and drinking better. We did convert her to back subcutaneous insulin with essentially her same regimen (NPH and Regular). She was doing very well. She will be able to discharge with close follow up with her primary care (Dr. Tripp) and auto mechanic (Dr. Sibley). (2) T2DM (type 2 diabetes mellitus) Status: Chronic Hospital Course & Plan: We did resume her usual insulin regimen. She will continue her ADA diet as well as her monitoring. She will follow up with Dr. Tripp. (3) Essential hypertension Status: Chronic Hospital Course & Plan: Her BP was elevated due to inability of hold down her usual medications. She was given labetalol and hydralazine as needed. She was able to resume her usual metoprolol and amlodipine. (4) [id number]-pjzyzbm kidney injury Hospital Course & Plan: She had mild increase in her creatinine (2.3) secondary to DKA and dehydration. Her baseline is in 2.0-2.1 range. She does have bilateral nephrostomies, which were recently changed. She will follow up with nephrology and urology. Departure Weight (Pounds): 186 Weight (Ounces): 4.0 Result Diagram: 02/06/19 0531 02/06/19530 Item Value Date Time Sodium Level 136 mmol/L L 02/04/19 1154 Potassium Level 3.9 mmol/L 02/04/19 1154 Chloride Level 97 mmol/L L 02/04/19 1154 Carbon Dioxide Level 22 mmol/L 02/04/19 1154 Blood Urea Nitrogen 48 mg/dl H 02/04/19 1154 Creatinine 2.30 mg/dl H 02/04/19 1154 Glomerular Filtration Rate Calc 21.3 02/04/19 1154 Random Glucose 559 mg/dl *H 02/04/19 1154 Calcium Level 10.6 mg/dl H 02/04/19 1154 Total Bilirubin 0.5 mg/dl 02/04/19 1154 Aspartate Amino Transf (AST/SGOT) 20 U/L 02/04/19 1154 Alanine Aminotransferase (ALT/SGPT) 17 U/L 02/04/19 1154 Alkaline Phosphatase 125 U/L 02/04/19 1154 Total Protein 7.5 g/dl 02/04/19 1154 Albumin 4.3 g/dl 02/04/19 1154 Lipase 52 U/L 02/04/19 1154 Amylase Level 41 U/L 02/04/19 1154 Urine Color Yellow 02/04/19 1436 Urine Clarity Cloudy 02/04/19 1436 Urine pH 6.0 pH 02/04/19 1436 Urine Specific [place] 1.017 02/04/19 1436 Urine Mucus None /HPF 02/04/19 1436 Urine Bacteria Few /HPF 02/04/19 1436 Urine Squamous Epithelial Cells None /LPF 02/04/19 1436 Urine WBC Clumps Many /HPF 02/04/19 1436 Urine WBC 184 /HPF 02/04/19 1436 Urine RBC 25 /HPF 02/04/19 1436 Urine Leukocyte Esterase Large H 02/04/19 1436 Urine Urobilinogen Negative mg/dL 02/04/19 1436 Urine Bilirubin Negative 02/04/19 1436 Urine Nitrite Negative 02/04/19 1436 Urine Blood Moderate 02/04/19 1436 Urine Ketones Trace mg/dL 02/04/19 1436 Urine Glucose (UA) 500 mg/dL 02/04/19 1436 Urine Protein 100 mg/dL 02/04/19 1436 Urine Mucus None /HPF 02/04/19 1436 Urine Color Yellow 02/04/19 1436 Urine Clarity Cloudy 02/04/19 1436 Urine pH 7.0 pH 02/04/19 1436 Urine Specific [place] 1.017 02/04/19 1436 Urine Protein 100 mg/dL 02/04/19 1436 Urine Glucose (UA) 500 mg/dL 02/04/19 1436 Urine Ketones Trace mg/dL 02/04/19 1436 Urine Blood Moderate 02/04/19 1436 Urine Nitrite Negative 02/04/19 1436 Urine Bilirubin Negative 02/04/19 1436 Urine Urobilinogen Negative mg/dL 02/04/19 1436 Urine Leukocyte Esterase Large H 02/04/19 1436 Urine RBC 36 /HPF 02/04/19 1436 Urine WBC 148 /HPF 02/04/19 1436 Urine WBC Clumps Many /HPF 02/04/19 1436 Urine Squamous Epithelial Cells None /LPF 02/04/19 1436 Urine Bacteria Few /HPF 02/04/19 1436 Urine Hyaline Casts Few /LPF 02/04/19 1436 Acetone, Qualitative Small 02/04/19 1154 White Blood Count 11.3 k/uL H 02/04/19 1154 Hemoglobin 13.2 g/dL 02/04/19 1154 Hematocrit 40.7 % 02/04/19 1154 Platelet Count 346 K/uL 02/04/19 1154 Helicobacter pylori IgG Antibody Negative 02/04/19 1154 Imaging PATIENT NAME: Sahra Chavis : 1955 MR: [id number] V: [id number] EXAM DATE: [id number] ORDERING PHYSICIAN: EARNEST OSBORN TECHNOLOGIST: Location: [facility] [place] Patient: Sahra Chavis : 1955 Visit/Account:[id number] Date of Sevice: 02/04/2019 Examination: CHEST PA LAT Comparison: 08/14/2018 and earlier. History: cough Findings: Cardiac and hilar contour size is within normal limits. No consolidation, nodule, or peribronchial inflammation. No pneumothorax, edema, or effusion. Bilateral percutaneous nephrostomy tubes. No acute osseous abnormality. IMPRESSION: 1. No findings of acute cardiopulmonary disease. 2. Bilateral percutaneous nephrostomy tubes. Report Dictated By: Dinesh Waldrop MD at 02/04/2019 1:28 PM Report E-Signed By: Dinesh Waldrop MD at 02/04/2019 1:31 PM WSN:[id number] PATIENT NAME: Sahra Chavis : 1955 MR: [id number] V: [id number] EXAM DATE: [id number] ORDERING PHYSICIAN: EARNEST OSBORN TECHNOLOGIST: Location: [facility] [place] Patient: Sahra Chavis : 1955 Visit/Account:[id number] Date of Sevice: 02/04/2019 EXAMINATION: CT ABDOMEN AND PELVIS WITHOUT CONTRAST COMPARISON: 01/02/2019 and earlier. HISTORY: nausea vomiting PROCEDURE: Multiplanar noncontrast CT of the abdomen and pelvis. One of the following dose optimization techniques was utilized in the performance of this exam: Automated exposure control; adjustment of the mA and/or kV according to the patient's size; or use of an iterative reconstruction technique. Specific details can be referenced in the facility's radiology CT exam operational policy. FINDINGS: Evaluation of the solid and viscus parenchymal organs and vascular structures is limited without the benefit of IV contrast. Visualized thorax: No acute findings. Liver: Negative. Gallbladder and biliary system: Negative Spleen: Negative. Pancreas: Negative. Adrenal glands: Negative. Kidneys and bladder: Bilateral percutaneous prostate tubes. Right more so than left mild pelviectasis and ureterectasis has increased since 01/02/2019 but there is no evidence of asmita hydronephrosis. Urinary bladder is poorly visualized and likely completely decompressed although correlation with any history of bladder surgery is recommended. Vessels: Aortoiliac moderate atherosclerosis. No abdominal aortic aneurysm. Bowel and mesentery: Stomach, small bowel, and appendix are within normal limits. Minimal stool in the colon. There are scattered colonic diverticula. No bowel or mesenteric inflammation. Pelvic organs: Negative. Lymph nodes: There are a few prominent retroperitoneal lymph nodes which are unchanged over multiple prior studies. No enlarging lymph nodes. Free air/free fluid: None. Musculoskeletal: Moderate-sized fat-containing umbilical hernia with a 2.1 x 1.7 cm neck is unchanged. Moderately advanced degenerative change throughout the lumbar spine. No acute findings. IMPRESSION: 1. Bilateral percutaneous nephrostomy tubes. Bilateral mild pelviectasis and ureterectasis is slightly greater than on 01/02/2019 but there is no evidence of asmita hydronephrosis. Correlation with any clinical evidence of decreased nephrostomy tube output is recommended. 2. No noncontrast CT findings of acute disease are otherwise identified in the abdomen or pelvis with chronic/incidental findings as detailed above. Results were discussed with EARNEST OSBORN at 02/04/2019 1:39 PM. Report Dictated By: Dinesh Waldrop MD at 02/04/2019 1:31 PM Report E-Signed By: Dinesh Waldrop MD at 02/04/2019 1:41 PM WSN:[facility] Condition: Improved Discharge: Home, Self Care Follow-Up Labs: Finger Sticks, Other (Follow up CBC, CMP in one week with Dr. Tripp.) Time Spent: > 30 min Discharge Instructions Home Meds Active Scripts Metoprolol Tartrate (METOPROLOL TARTRATE) 25 Mg Tablet, 1 TAB PO BID, #180 TAB 3 Refills Prov:DEYANIRA TRIPP MD 09/22/18 Gabapentin (GABAPENTIN) 600 Mg Tablet, 600 MG PO QHS, #180 TAB 3 Refills Prov:MARLON BENJAMIN RODRIGUEZ DO 08/15/18 Pen Needle, Diabetic (Insulin Pen Needle) 31 Gauge X 1/6" Dis.needle, EACH , #100 Prov:LANDONXIOMARA DO 11/25/17 Reported Medications Insulin Regular, Human (NOVOLIN R) 100 Unit/1 Ml Vial, 12-19 UNIT SC DIRECTED, VIAL Test Blood Sugar before Meals and use Sliding Scale as below < 75 mg/dl = 0 Units 76-100 mg/dl = 12 units 101-150 mg/dl = 13 units 151-200 mg/dl = 14 units 201-250 mg/dl = 15 units 251-300 mg/dl = 16 units 301-350 mg/dl = 17 units 351-400 mg/dl = 18 units > 400 mg/dl = 19 units 02/05/19 Ranitidine Hcl (RANITIDINE HCL) 300 Mg Capsule, 0.5 TAB PO BID, CAPSULE 02/03/19 Cyanocobalamin (Vitamin B-12) (VITAMIN B-12) 1,000 Mcg Tablet, 5000 MCG PO DAILY 01/10/19 Ondansetron (ONDANSETRON ODT) 8 Mg Tab.rapdis, 4 MG PO PRN, TAB 01/10/19 Ferrous Gluconate (IRON) 236 Mg Tablet, 65 MG PO DAILY 01/10/19 Vitamin B Complex (B COMPLEX) 1 Each Tablet, 1 EACH PO DAILY 01/10/19 Omeprazole (OMEPRAZOLE) 20 Mg Capsule., 1 CAP PO QDAY, CAP 01/02/19 Atorvastatin Calcium (ATORVASTATIN CALCIUM) 80 Mg Tablet, 0.5 TAB PO QDAY, TAB 01/02/19 Amlodipine Besylate (AMLODIPINE BESYLATE) 10 Mg Tablet, 1 TAB PO QHS, TAB 01/02/19 Multivitamin With Minerals (MULTIPLE VITAMIN) 1 Each Tablet, 1 EACH PO QDAY, TAB 08/12/18 Acetaminophen (TYLENOL EXTRA STRENGTH) 500 Mg Tablet, 500 MG PO PRN for PAIN, TAB 07/17/18 Nph, Human Insulin Isophane (NOVOLIN N) 100 Unit/1 Ml Vial, 10-12 UNIT SQ DIRECTED, VIAL 10 UNITS MORNING 12 UNITS AT NIGHT 05/12/18 Discontinued Reported Medications [Novilin R] No Conflict Check, SQ Per sliding scale 01/13/19 Ranitidine Hcl (ZANTAC) 150 Mg Tablet, 300 MG PO QHS, TAB 01/02/19 Follow up Referrals: Internal Medicine @ [facility]Primary with DEYANIRA TRIPP MD Nephrology @ [facility]ists with ANGELO SIBLEY MD Diet: Diabetic Activity: As Tolerated, No Exertion Special Instructions: Follow up with Dr. Tripp in next 5-7 days. Follow up with Dr. Sibley as planned. Return to [facility] if any problems. Copies to: DEYANIRA TRIPP MD; ANGELO SIBLEY MD; GORDON ARCOS MD ; Venous Thromboembolism Antithrombotics Is Pt On Any Antithrombotics?: Yes Problem Qualifiers (1) DKA (diabetic ketoacidoses): Diabetes mellitus type: other specified (including DOMINIC) Diabetes mellitus complication detail: without coma Qualified Codes: E13.10 - Other specified diabetes mellitus with ketoacidosis without coma DEE MCKENNA MD February 06, 2019 09:26
[2019-02-06] MEDS: METOPROLOL TART 50 MG TAB PO SCH (10:15)
[2019-02-06] MEDS: FAMOTIDINE(*) 20MG/50ML PREMIX 50 ML IVPB SCH (10:15)
[2019-02-06] MEDS: RANITIDINE HCL 150 MG TAB PO SCH (10:15)
[2019-02-06] MEDS: ENOXAPARIN 30 MG/0.3 ML SYR SC SCH (10:16)
[2019-02-06 11:45] VITALS: BP 179/91
[2019-02-06] MEDS: INSULIN HUM LISPRO 100 UN/ML 3 ML VIAL SUBQ PRN (12:10)
== END 2019-02-06 12:45 | disposition home or self-care (01) | DRG 638 ==
LOC: ER 11:15 → ICU 14:49 → MED 02-05 18:00
PROVIDERS: ADMIT Internal Medicine; ATTEND Internal Medicine
DX: E11.10 Type 2 diabetes mellitus with ketoacidosis without coma (principal); N18.4 Chronic kidney disease, stage 4 (severe); N17.9 Acute kidney failure, unspecified; E11.22 Type 2 diabetes mellitus with diabetic chronic kidney disease; I12.9 Hypertensive chronic kidney disease with stage 1 through stage 4 chronic kidney disease, or unspecified chronic kidney disease; E86.0 Dehydration; E78.5 Hyperlipidemia, unspecified; T38.3X6A Underdosing of insulin and oral hypoglycemic [antidiabetic] drugs, initial encounter; K42.9 Umbilical hernia without obstruction or gangrene; R91.1 Solitary pulmonary nodule; E83.52 Hypercalcemia; N13.70 Vesicoureteral-reflux, unspecified; Z79.4 Long term (current) use of insulin; Z91.128 Patient's intentional underdosing of medication regimen for other reason; Z88.8 Allergy status to other drugs, medicaments and biological substances; Z87.891 Personal history of nicotine dependence
CPT/HCPCS: 36415; 36416; 71046; 74176; 81001; 82009; 82040; 82150; 82247; 82310; 82374; 82435; 82565; 82947; 82948; 83690; 83735; 83930; 84075; 84132; 84155; 84295; 84450; 84460; 84520; 85025; 85651; 86677; 96361; 96365; 96375; 96376; 99285; C9113; J1650; J1815; J2405; J2765; J3480; J7030; J7050; Q9967

== ENCOUNTER → 2019-02-28 | Outpatient (CLI) | payer MEDICARE ==
[2019-02-05 08:28] VITALS: BMI 32.9
[~2019-02-28] MED LIST changes: +NOVOLINRPT SC; -OMEP-125 PO; +OMEP-126 PO; -RANI-366 PO; +RANI-54 PO
[2019-02-28 14:10] LABS: PLATELET COUNT, AUTOMATED 403 K/uL (150-450)
== END ==
LOC: LAB 13:38
PROVIDERS: ATTEND Internal Medicine Nephrology
DX: I12.9 Hypertensive chronic kidney disease with stage 1 through stage 4 chronic kidney disease, or unspecified chronic kidney disease (principal); N18.3 Chronic kidney disease, stage 3 (moderate); N13.30 Unspecified hydronephrosis; D50.9 Iron deficiency anemia, unspecified; A49.8 Other bacterial infections of unspecified site
CPT/HCPCS: 36415; 81001; 82040; 82310; 82374; 82435; 82565; 82570; 82728; 82947; 83540; 83550; 84100; 84132; 84156; 84295; 84520; 85025; 87077; 87088; 87186

== ENCOUNTER → 2019-04-07 | Outpatient (CLI) | payer MEDICARE ==
[2019-02-05 08:28] VITALS: BMI 32.9
== END ==
LOC: LAB 12:46
PROVIDERS: ATTEND Internal Medicine Nephrology
DX: N99.528 Other complication of incontinent external stoma of urinary tract (principal); N31.9 Neuromuscular dysfunction of bladder, unspecified; N13.30 Unspecified hydronephrosis; A49.8 Other bacterial infections of unspecified site
CPT/HCPCS: 81001; 87077; 87088; 87186